=== PATIENT | female | born 2000 | race Caucasian/White ===

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

== ENCOUNTER 2021-11-19 06:55 | Inpatient (IN) | payer MEDICAID, SELFPAY ==
[2021-11-19] VITALS (71 sets, daily range): BP systolic 113–167; BP diastolic 63–101; PULSE 73–174; TEMP 36.4–37.8; O2SAT 81–100; BMI 39.8
[2021-11-19] MEDS: 0.9% Saline Lock 10 ML Syringe IV (07:50)
--- NOTE | 2021-11-19 08:05 | HP.PCM.OB_ITS ---
HPI - General General Date of Admission: 11/19/21 HPI Narrative HERMINIA GOLDMAN, is a 21 F who presents for scheduled induction of labor at 40w5d. Maternal Data Information SARAH Calculator 2 Estimated Delivery Date Method Current WG Current Estimate 11/14/21 Ultrasound #1 40w 5d Other Estimates 11/06/21 LMP (Uncertain) 41w 6d PFSH PFSH Home Medications NK 09/09/18 [History Last Taken Unknown] Allergy/AdvReac Type Severity Reaction Status Date / Time No Known Allergies Allergy Verified 07/11/19 11:45 Social History Smoking Status: Never smoker Vital Signs Vital Signs Vital Signs: 11/19/21 07:31 11/19/21 07:51 Pulse Rate 104 H 99 Blood Pressure 132/87 H 161/88 H BP Systolic 132 161 BP Diastolic 87 88 Labs Labs Labs: Hct 41.1 % (37-46) Hgb 13.6 g/dL (12.0-15.0) Assessment & Plan (1) 40 weeks gestation of : PLAN: - Admit for routine intrapartum care - GBS neg - Epidural PRN - To have SW consult - Covid neg - EFW expected to be < 4500 g and pelvis adequate - Anticipate vaginal delivery (2) Marijuana use: (3) History of depression: (4) Unplanned : (5) Elective induction of labor planned: (6) Obesity affecting :
[2021-11-19] MEDS: 0.9% Normal Saline Single 100 ML IV.SOLN. INTRA-UTER (08:17)
--- NOTE | 2021-11-19 08:31 | PCM.PN.BLA ---
Progress Note Intracervical bynum placed in usual fashion and filled with 30 cc saline. Will start pitocin per protocol. BP's elevated on admission. She denies ADEN, vision changes, RUQ pain. She feels anxious. Will send pre e labs and p/c ratio.
[2021-11-19] MEDS: Lactated Ringers 1,000 ML 50 ML IV (08:32)
[2021-11-19 08:48] LABS: Absolute Lymphocyte Count 2.25 X10^3/uL (0.83-4.51); Absolute Neutrophil Count 5.2 X10^3/uL (2.0-7.7); Basophil# 0.03 X10^3/uL; Basophil% 0.4 % (0-1); Eosinophil# 0.06 X10^3/uL; Eosinophils% 0.7 % (0-5); Hematocrit 35.3 % (37-47); Hemoglobin 12.1 g/dL (12.0-15.0); Lymphocyte # 2.25 X10^3/ul (0.83-4.51); Lymphocyte % 27.6 % (19-41); Mean Corp Hgb Conc 34.3 g/dL (32-36); Mean Corpuscular Hgb 30.1 pg (27.0-32.0); Mean Corpuscular Volume 87.8 fL (81-99); Mean Platelet Vol. 11.9 fl (6.2-12.0); Monocyte# 0.55 X10^3/uL; Monocyte% 6.7 % (0-10); NRBC Flagged by Analyzer 0 % (0-5); Neutrophil # 5.23 X10^3/uL (2.7-7.7); Neutrophil % 64.1 % (47-70); Platelet Count 197 K/mm3 (150-450); RBC Distribution Width SD 44.2 fl (35.1-43.9); Red Blood Count 4.02 M/mm3 (4.2-5.4); White Blood Count 8.2 K/mm3 (4.4-11.0)
[2021-11-19 09:15] LABS: AST(SGOT) 10 U/L (15-37); Alanine Aminotransfer ALT/SGPT 11 U/L (13-56); Creatinine, Serum 0.61 mg/dL (0.55-1.02); EST Glomerular Filtration Rate 131 mL/min (>60); Est Glom Filt Rate - Afr Amer 159 mL/min (>60); Estimated Creatinine Clearance 121.69 ml/min; Uric Acid 4.8 mg/dL (2.6-6.0)
--- NOTE | 2021-11-19 09:39 | PCM.PN.BLA ---
Progress Note Patient was painful and clammy with intracervical bynum per RN and bynum was removed due to patient intolerance. Cvx 3 cm per RN. Start pitocin.
[2021-11-19] MEDS: Oxytocin 30 units/NS 500 ml 30 UNITS/500 ML IV.SOLN IV (10:03)
[2021-11-19 11:32] LABS: Protein, Urine (Random) 32.4 mg/dL (<11.9); Protein:Creat Ratio 119 mg/g CRE (0-200)
[2021-11-19] MEDS: Lactated Ringers 500 ML 999 ML IV ×2 (11:48→23:51)
[2021-11-19] MEDS: fentaNYL-bupivacaine (epidural) 100 ML BAG EPIDURAL ×3 (13:04→22:37)
--- NOTE | 2021-11-19 13:22 | PCM.PN.BLA ---
Progress Note At bedside to check pt. Cvx /-1, head well applied. AROM for clear fluid. IUPC placed.
[2021-11-19 15:33] LABS: Amphetamine Urine VISTA NEGATIVE (<1000 ng/mL); Barbiturate Urine VISTA NEGATIVE (< 200 ng/mL); Benzodiazepine Urine VISTA NEGATIVE (< 200 ng/mL); Cocaine Urine VISTA NEGATIVE (< 300 ng/mL); Ecstacy Urine VISTA NEGATIVE (< 500 ng/mL); Methadone Urine VISTA NEGATIVE (< 300 ng/mL); PCP Urine VISTA NEGATIVE (< 25 ng/mL); THC Urine VISTA NEGATIVE (< 50 ng/mL); Vista UDS pH Range 4
[2021-11-19] MEDS: Mag Hydrox/Al Hydrox/Simeth 30 ML UDC PO ×2 (15:37→22:41)
[2021-11-19] MEDS: Lactated Ringers 1,000 ML 200 ML IV ×2 (16:27→21:41)
[2021-11-19] MEDS: Ondansetron 4 MG/2 ML Vial IV (19:19)
--- NOTE | 2021-11-19 20:06 | PCM.PN.BLA ---
Progress Note At bedside to check pt. Comfortable with epidural. Cvx /-1. Cont pitocin. Still no pre e symptoms.
--- NOTE | 2021-11-19 22:29 | PCM.PN.BLA ---
Progress Note Patient complete and pushing. Comfortable with epidural. Pelvis adequate and anticipate vaginal delivery.
[2021-11-19] MEDS: Acetaminophen 500 MG Tablet PO (23:59)
[2021-11-20] VITALS (24 sets, daily range): BP systolic 101–142; BP diastolic 50–83; PULSE 94–122; RESP 16–18; TEMP 36.4–39.4; O2SAT 96–98
[2021-11-20] MEDS: Lactated Ringers 500 ML 999 ML IV (01:11)
[2021-11-20] MEDS: Oxytocin 30 units/NS 500 ml 30 UNITS/500 ML IV.SOLN 334 UNITS IV (01:46)
--- NOTE | 2021-11-20 04:22 | PCM.OPRPT ---
Problems Associated Problem List Diagnoses (1) Unplanned : (2) History of depression: (3) Marijuana use: (4) 40 weeks gestation of : (5) Elective induction of labor planned: (6) Obesity affecting : (7) Intrapartum fever: (8) Vaginal delivery: Report of Operation Date of Procedure: 11/20/21 Pre-Operative Diagnosis: 40 week gestation, single IUP, planned elective IOL, obesity affecting Post-Operative Diagnosis: Suspected triple I, vaginal delivery Surgery/Procedure Performed:: Description of Surgical Findings:: Meconium stained fluid on delivery. Normal appearing placenta with 3 VC. Intrapartum fever and tachycardia just before delivery. Apgars 8, 8. Surgeon: Elyse John Type of Anesthesia: Epidural Special Medications: None Specimen's removed: Placenta - sent for cultures Drains: Smith Estimated Blood Loss (mL): 100 Fluids Replaced: n/a Description of Procedure: Patient presented for an elective induction of labor at 40 weeks and 5 days gestation. Induction was started with intracervical Smith which the patient did not tolerate. She was then started on Pitocin and membranes were ruptured after epidural was in place. She progressed quickly to complete. She was pushing for about 3 to 4 hours. While pushing she had a maternal fever and tachycardia was noted. Antibiotics ordered for suspected triple I but delivery was imminent at this point. She was complete and pushing. The head of the was delivered in occiput anterior position. The anterior shoulder was delivered with gentle traction, followed by the posterior shoulder, followed by the body of the infant. A viable male was delivered atraumatically and without any force or delay. A viable male was placed on maternal abdomen. The cord was clamped and cut after a slight delay by the patient's family member. Cord gases were obtained. Placenta was removed with fundal massage. The placenta was sent for cultures. The uterus was explored x1. Fundus firm and bleeding hemostatic. A 2nd degree perineal laceration was repaired with 3-0 Vicryl in usual fashion. Vaginal sweep was performed. Sponge and needle counts were correct. Grafts/Implants Used: None Complications None Admit VTE Documentation VTE Present on Admission: No
--- NOTE | 2021-11-20 07:52 | HP.PCM.NUR_ITS ---
Subjective Subjective: Baby Nehemias is a 40 week and 6 day gestation M born to a [id number] via on 11/20 at 0142 with clear ROM 12 hours prior. Terminal Meconium noted at delivery. Apgars 8/8. Required brief blow by oxygen. BW 3375g AGA. Delivery complicated by Maternal Fever(101.2F) and tachycardia. Maternal WBC 8.2. MBT A positive, Antibody negative. RPR, HepBsag, HepCab, HIV, GC, CH, HIV, and GBS negative. Rubella Immune. COVID negative. Maternal Medications included prenatals. Prior history of depression and THC use. UDS this admission negative. 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 [place]. Objective Objective Data: 11/19/21 08:05 11/19/21 08:21 11/19/21 08:35 Temperature Temperature Source Pulse Rate 104 H 88 89 Blood Pressure 153/87 H 137/99 H 144/93 H BP Systolic 153 137 144 BP Diastolic 87 99 93 Pulse Ox 11/19/21 09:36 11/19/21 10:00 11/19/21 10:01 Temperature 97.6 F L Temperature Source Temporal Pulse Rate 73 75 Blood Pressure 113/68 121/76 H BP Systolic 113 121 BP Diastolic 68 76 Pulse Ox 11/19/21 10:32 11/19/21 11:13 11/19/21 11:34 Temperature Temperature Source Pulse Rate 82 80 76 Blood Pressure 149/96 H 125/88 H 123/77 H BP Systolic 149 125 123 BP Diastolic 96 88 77 Pulse Ox 11/19/21 11:44 11/19/21 12:15 11/19/21 12:19 Temperature 98.2 F Temperature Source Temporal Pulse Rate 174 H 81 Blood Pressure 117/73 117/77 BP Systolic 117 117 BP Diastolic 73 77 Pulse Ox 81 11/19/21 12:25 11/19/21 12:29 11/19/21 12:35 Temperature Temperature Source Pulse Rate 73 82 80 Blood Pressure 119/72 120/75 121/67 H BP Systolic 119 120 121 BP Diastolic 72 75 67 Pulse Ox 11/19/21 12:40 11/19/21 12:42 11/19/21 12:44 Temperature Temperature Source Pulse Rate 86 95 Blood Pressure 148/84 H 145/83 H BP Systolic 148 145 BP Diastolic 84 83 Pulse Ox 100 11/19/21 12:45 11/19/21 12:47 11/19/21 12:50 Temperature Temperature Source Pulse Rate 88 85 86 Blood Pressure 139/87 H BP Systolic 139 BP Diastolic 87 Pulse Ox 91 100 11/19/21 12:52 11/19/21 12:54 11/19/21 12:57 Temperature Temperature Source Pulse Rate 79 74 89 Blood Pressure 132/81 H BP Systolic 132 BP Diastolic 81 Pulse Ox 99 98 11/19/21 13:01 11/19/21 13:02 11/19/21 13:07 Temperature Temperature Source Pulse Rate 87 95 88 Blood Pressure 130/79 H BP Systolic 130 BP Diastolic 79 Pulse Ox 93 99 99 11/19/21 13:09 11/19/21 13:12 11/19/21 13:16 Temperature 98.5 F Temperature Source Temporal Pulse Rate 92 112 H 118 H Blood Pressure 132/70 H 135/82 H BP Systolic 132 135 BP Diastolic 70 82 Pulse Ox 98 11/19/21 13:17 11/19/21 13:20 11/19/21 13:22 Temperature Temperature Source Pulse Rate 98 116 H 112 H Blood Pressure 167/101 H BP Systolic 167 BP Diastolic 101 Pulse Ox 98 100 11/19/21 13:25 11/19/21 13:27 11/19/21 13:30 Temperature Temperature Source Pulse Rate 122 H 111 H 100 Blood Pressure 153/93 H 125/87 H BP Systolic 153 125 BP Diastolic 93 87 Pulse Ox 99 11/19/21 13:32 11/19/21 13:36 11/19/21 13:37 Temperature Temperature Source Pulse Rate 95 92 85 Blood Pressure 153/85 H BP Systolic 153 BP Diastolic 85 Pulse Ox 100 99 11/19/21 13:40 11/19/21 13:42 11/19/21 13:44 Temperature Temperature Source Pulse Rate 104 H 97 101 H Blood Pressure 141/81 H 133/78 H BP Systolic 141 133 BP Diastolic 81 78 Pulse Ox 100 11/19/21 13:47 11/19/21 13:51 11/19/21 13:52 Temperature Temperature Source Pulse Rate 98 104 H 89 Blood Pressure 161/74 H BP Systolic 161 BP Diastolic 74 Pulse Ox 100 99 11/19/21 13:55 11/19/21 13:57 11/19/21 14:02 Temperature Temperature Source Pulse Rate 97 91 125 H Blood Pressure 141/68 H BP Systolic 141 BP Diastolic 68 Pulse Ox 100 100 11/19/21 14:07 11/19/21 14:29 11/19/21 14:37 Temperature 97.6 F L Temperature Source Temporal Pulse Rate 106 H 95 Blood Pressure 121/71 H BP Systolic 121 BP Diastolic 71 Pulse Ox 99 11/19/21 15:39 11/19/21 16:39 11/19/21 16:41 Temperature 97.6 F L 98.8 F Temperature Source Temporal Temporal Pulse Rate 110 H 83 Blood Pressure 121/83 H 124/79 H BP Systolic 121 124 BP Diastolic 83 79 Pulse Ox 99 11/19/21 16:42 11/19/21 16:45 11/19/21 16:47 Temperature Temperature Source Pulse Rate 91 133 H Blood Pressure BP Systolic BP Diastolic Pulse Ox 100 82 83 11/19/21 17:49 11/19/21 18:35 11/19/21 19:26 Temperature 98.5 F 98.9 F 98.5 F Temperature Source Temporal Temporal Pulse Rate 113 H 130 H Blood Pressure 121/82 H 125/67 H BP Systolic 121 125 BP Diastolic 82 67 Pulse Ox 100 11/19/21 19:27 11/19/21 20:25 11/19/21 20:55 Temperature 97.9 F 100.0 F H Temperature Source Temporal Oral Pulse Rate 110 H 93 Blood Pressure 128/67 H 115/63 BP Systolic 128 115 BP Diastolic 67 63 Pulse Ox 99 11/19/21 21:08 11/19/21 22:32 11/19/21 22:45 Temperature 99.8 F H Temperature Source Oral Pulse Rate 88 115 H 115 H Blood Pressure 120/66 127/79 H BP Systolic 120 127 BP Diastolic 66 79 Pulse Ox 99 99 11/19/21 23:23 11/19/21 23:24 11/19/21 23:28 Temperature 99.9 F H Temperature Source Oral Pulse Rate 108 H 95 Blood Pressure 143/70 H BP Systolic 143 BP Diastolic 70 Pulse Ox 99 11/20/21 00:29 11/20/21 00:31 11/20/21 01:15 Temperature 102.2 F H 103.0 F H Temperature Source Oral Oral Pulse Rate 110 H Blood Pressure 142/78 H BP Systolic 142 BP Diastolic 78 Pulse Ox 11/20/21 01:17 11/20/21 01:18 11/20/21 02:09 Temperature Temperature Source Pulse Rate 108 H 122 H Blood Pressure 130/72 H 134/83 H BP Systolic 130 134 BP Diastolic 72 83 Pulse Ox 96 11/20/21 02:10 11/20/21 02:24 11/20/21 02:26 Temperature 99.2 F H 99.4 F H Temperature Source Oral Oral Pulse Rate 118 H 114 H 103 H Blood Pressure 124/69 H BP Systolic 124 BP Diastolic 69 Pulse Ox 98 97 11/20/21 02:39 11/20/21 02:54 11/20/21 03:09 Temperature 99.2 F H Temperature Source Oral Pulse Rate 113 H 115 H 112 H Blood Pressure 114/61 114/58 L 130/63 H BP Systolic 114 114 130 BP Diastolic 61 58 63 Pulse Ox 11/20/21 03:24 11/20/21 03:39 11/20/21 03:54 Temperature 99.0 F Temperature Source Oral Pulse Rate 109 H 107 H 110 H Blood Pressure 112/60 111/60 117/71 BP Systolic 112 111 117 BP Diastolic 60 60 71 Pulse Ox 11/20/21 04:09 11/20/21 04:20 Temperature 99.1 F Temperature Source Oral Pulse Rate 107 H 107 H Blood Pressure 111/66 118/66 BP Systolic 111 118 BP Diastolic 66 66 Pulse Ox Weight: 102 kg Vital Signs Temp Pulse BP Pulse Ox 11/20/21 04:20 99.1 F 107 H 118/66 11/20/21 04:09 107 H 111/66 11/20/21 03:54 110 H 117/71 11/20/21 03:39 99.0 F 107 H 111/60 11/20/21 03:24 109 H 112/60 11/20/21 03:09 99.2 F H 112 H 130/63 H 11/20/21 02:54 115 H 114/58 L 11/20/21 02:39 113 H 114/61 11/20/21 02:26 103 H 97 11/20/21 02:24 99.4 F H 114 H 124/69 H 11/20/21 02:10 99.2 F H 118 H 98 11/20/21 02:09 122 H 134/83 H 11/20/21 01:18 108 H 130/72 H 11/20/21 01:17 96 11/20/21 01:15 103.0 F H 11/20/21 00:31 110 H 142/78 H 11/20/21 00:29 102.2 F H 11/19/21 23:28 95 143/70 H 11/19/21 23:24 99.9 F H 11/19/21 23:23 108 H 99 11/19/21 22:45 115 H 127/79 H 11/19/21 22:32 115 H 99 11/19/21 21:08 99.8 F H 88 120/66 99 11/19/21 20:55 100.0 F H 11/19/21 20:25 97.9 F 93 115/63 99 11/19/21 19:27 110 H 128/67 H 11/19/21 19:26 98.5 F 11/19/21 18:35 98.9 F 130 H 125/67 H 11/19/21 17:49 98.5 F 113 H 121/82 H 100 11/19/21 16:47 133 H 83 11/19/21 16:45 82 11/19/21 16:42 91 100 11/19/21 16:41 98.8 F 11/19/21 16:39 83 124/79 H 11/19/21 15:39 97.6 F L 110 H 121/83 H 99 11/19/21 14:37 97.6 F L 11/19/21 14:29 95 121/71 H 11/19/21 14:07 106 H 99 11/19/21 14:02 125 H 100 11/19/21 13:57 91 100 11/19/21 13:55 97 141/68 H 11/19/21 13:52 89 99 11/19/21 13:51 104 H 161/74 H 11/19/21 13:47 98 100 11/19/21 13:44 101 H 133/78 H 11/19/21 13:42 97 100 11/19/21 13:40 104 H 141/81 H 11/19/21 13:37 85 99 11/19/21 13:36 92 153/85 H 11/19/21 13:32 95 100 11/19/21 13:30 100 125/87 H 11/19/21 13:27 111 H 99 11/19/21 13:25 122 H 153/93 H 11/19/21 13:22 112 H 100 11/19/21 13:20 116 H 167/101 H 11/19/21 13:17 98 98 11/19/21 13:16 118 H 135/82 H 11/19/21 13:12 112 H 98 11/19/21 13:09 98.5 F 92 132/70 H 11/19/21 13:07 88 99 11/19/21 13:02 95 99 11/19/21 13:01 87 130/79 H 93 11/19/21 12:57 89 98 11/19/21 12:54 74 132/81 H 11/19/21 12:52 79 99 11/19/21 12:50 86 139/87 H 11/19/21 12:47 85 100 11/19/21 12:45 88 91 11/19/21 12:44 145/83 H 11/19/21 12:42 95 100 11/19/21 12:40 86 148/84 H 11/19/21 12:35 80 121/67 H 11/19/21 12:29 82 120/75 11/19/21 12:25 73 119/72 11/19/21 12:19 81 117/77 11/19/21 12:15 174 H 117/73 81 11/19/21 11:44 98.2 F 11/19/21 11:34 76 123/77 H 11/19/21 11:13 80 125/88 H 11/19/21 10:32 82 149/96 H 11/19/21 10:01 75 121/76 H 11/19/21 10:00 97.6 F L 11/19/21 09:36 73 113/68 11/19/21 08:35 89 144/93 H 11/19/21 08:21 88 137/99 H 11/19/21 08:05 104 H 153/87 H 11/19/21 07:51 99 161/88 H 11/19/21 07:31 98.7 F 104 H 132/87 H 98 Lab tests last 48H 11/19/21 11/19/21 11/19/21 07:50 07:50 07:50 WBC 8.2 RBC 4.02 L Hgb 12.1 Hct 35.3 L MCV 87.8 MCH 30.1 MCHC 34.3 RDW Std Deviation 44.2 H RDW Coeff of Matthew 14.0 Plt Count 197 MPV 11.9 Immature Gran % (Auto) 0.500 Neut % (Auto) 64.1 Lymph % (Auto) 27.6 Mel[place] % (Auto) 6.7 Eos % (Auto) 0.7 Baso % (Auto) 0.4 Absolute Neuts (auto) 5.2 Absolute Lymphs (auto) 2.25 Nucleated RBC % 0 Creatinine 0.61 Estim Creat Clear Calc 121.69 Est GFR (MDRD) Af Amer 159 Est GFR (MDRD) Non-Af 131 Uric Acid 4.8 AST 10 L ALT 11 L U Random Total Protein Urine Creatinine Protein/Creatinin Ratio Urine Opiates Screen Urine Methadone Screen Ur Barbiturates Screen Ur Phencyclidine Scrn Ur Amphetamines Screen MDMA (Ecstasy) Screen U Benzodiazepines Scrn Urine Cocaine Screen U Cannabinoids Screen Ur Drug Screen Comment Blood Type A POSITIVE Antibody Screen NEGATIVE 11/19/21 11/19/21 11:11 11:11 WBC RBC Hgb Hct MCV MCH MCHC RDW Std Deviation RDW Coeff of Matthew Plt Count MPV Immature Gran % (Auto) Neut % (Auto) Lymph % (Auto) Mel[place] % (Auto) Eos % (Auto) Baso % (Auto) Absolute Neuts (auto) Absolute Lymphs (auto) Nucleated RBC % Creatinine Estim Creat Clear Calc Est GFR (MDRD) Af Amer Est GFR (MDRD) Non-Af Uric Acid AST ALT U Random Total Protein 32.4 H Urine Creatinine 273.00 Protein/Creatinin Ratio 119 Urine Opiates Screen NEGATIVE Urine Methadone Screen NEGATIVE Ur Barbiturates Screen NEGATIVE Ur Phencyclidine Scrn NEGATIVE Ur Amphetamines Screen NEGATIVE MDMA (Ecstasy) Screen NEGATIVE U Benzodiazepines Scrn NEGATIVE Urine Cocaine Screen NEGATIVE U Cannabinoids Screen NEGATIVE Ur Drug Screen Comment Blood Type Antibody Screen Delivery/Maternal Data Labor/Delivery Date of rupture of membranes: 11/19/21 Time of rupture of membranes: 13:17 Amniotic fluid color at rupture: Clear Type of delivery: Vaginal Labor description: Augmented-Oxytocin, Augmented-AROM and Induced-Cytotec Infant presentation: Cephalic Complications: Other (Describe below) ( tachycardia, Maternal fever, Terminal Meconium ) Maternal Data Maternal age: 20 : 1 Para: 0 Final SARAH: 11/14/21 Blood Type:: A RH:: POSITIVE RPR/VDRL/Syphilis: Nonreactive HbSAg: Negative Hepatitis C: Negative HIV/AIDS: Non-Reactive Rubella status: Immune Gonorrhea: Negative Chlamydia: Negative Group B Strep:: Negative Gestational Diabetes: No Vital Signs Vital Signs Vital Signs: 11/19/21 08:05 11/19/21 08:21 11/19/21 08:35 Temperature Temperature Source Pulse Rate 104 H 88 89 Blood Pressure 153/87 H 137/99 H 144/93 H BP Systolic 153 137 144 BP Diastolic 87 99 93 Pulse Ox 11/19/21 09:36 11/19/21 10:00 11/19/21 10:01 Temperature 97.6 F L Temperature Source Temporal Pulse Rate 73 75 Blood Pressure 113/68 121/76 H BP Systolic 113 121 BP Diastolic 68 76 Pulse Ox 11/19/21 10:32 11/19/21 11:13 11/19/21 11:34 Temperature Temperature Source Pulse Rate 82 80 76 Blood Pressure 149/96 H 125/88 H 123/77 H BP Systolic 149 125 123 BP Diastolic 96 88 77 Pulse Ox 11/19/21 11:44 11/19/21 12:15 11/19/21 12:19 Temperature 98.2 F Temperature Source Temporal Pulse Rate 174 H 81 Blood Pressure 117/73 117/77 BP Systolic 117 117 BP Diastolic 73 77 Pulse Ox 81 11/19/21 12:25 11/19/21 12:29 11/19/21 12:35 Temperature Temperature Source Pulse Rate 73 82 80 Blood Pressure 119/72 120/75 121/67 H BP Systolic 119 120 121 BP Diastolic 72 75 67 Pulse Ox 11/19/21 12:40 11/19/21 12:42 11/19/21 12:44 Temperature Temperature Source Pulse Rate 86 95 Blood Pressure 148/84 H 145/83 H BP Systolic 148 145 BP Diastolic 84 83 Pulse Ox 100 11/19/21 12:45 11/19/21 12:47 11/19/21 12:50 Temperature Temperature Source Pulse Rate 88 85 86 Blood Pressure 139/87 H BP Systolic 139 BP Diastolic 87 Pulse Ox 91 100 11/19/21 12:52 11/19/21 12:54 11/19/21 12:57 Temperature Temperature Source Pulse Rate 79 74 89 Blood Pressure 132/81 H BP Systolic 132 BP Diastolic 81 Pulse Ox 99 98 11/19/21 13:01 11/19/21 13:02 11/19/21 13:07 Temperature Temperature Source Pulse Rate 87 95 88 Blood Pressure 130/79 H BP Systolic 130 BP Diastolic 79 Pulse Ox 93 99 99 11/19/21 13:09 11/19/21 13:12 11/19/21 13:16 Temperature 98.5 F Temperature Source Temporal Pulse Rate 92 112 H 118 H Blood Pressure 132/70 H 135/82 H BP Systolic 132 135 BP Diastolic 70 82 Pulse Ox 98 11/19/21 13:17 11/19/21 13:20 11/19/21 13:22 Temperature Temperature Source Pulse Rate 98 116 H 112 H Blood Pressure 167/101 H BP Systolic 167 BP Diastolic 101 Pulse Ox 98 100 11/19/21 13:25 11/19/21 13:27 11/19/21 13:30 Temperature Temperature Source Pulse Rate 122 H 111 H 100 Blood Pressure 153/93 H 125/87 H BP Systolic 153 125 BP Diastolic 93 87 Pulse Ox 99 11/19/21 13:32 11/19/21 13:36 11/19/21 13:37 Temperature Temperature Source Pulse Rate 95 92 85 Blood Pressure 153/85 H BP Systolic 153 BP Diastolic 85 Pulse Ox 100 99 11/19/21 13:40 11/19/21 13:42 11/19/21 13:44 Temperature Temperature Source Pulse Rate 104 H 97 101 H Blood Pressure 141/81 H 133/78 H BP Systolic 141 133 BP Diastolic 81 78 Pulse Ox 100 11/19/21 13:47 11/19/21 13:51 11/19/21 13:52 Temperature Temperature Source Pulse Rate 98 104 H 89 Blood Pressure 161/74 H BP Systolic 161 BP Diastolic 74 Pulse Ox 100 99 11/19/21 13:55 11/19/21 13:57 11/19/21 14:02 Temperature Temperature Source Pulse Rate 97 91 125 H Blood Pressure 141/68 H BP Systolic 141 BP Diastolic 68 Pulse Ox 100 100 11/19/21 14:07 11/19/21 14:29 11/19/21 14:37 Temperature 97.6 F L Temperature Source Temporal Pulse Rate 106 H 95 Blood Pressure 121/71 H BP Systolic 121 BP Diastolic 71 Pulse Ox 99 11/19/21 15:39 11/19/21 16:39 11/19/21 16:41 Temperature 97.6 F L 98.8 F Temperature Source Temporal Temporal Pulse Rate 110 H 83 Blood Pressure 121/83 H 124/79 H BP Systolic 121 124 BP Diastolic 83 79 Pulse Ox 99 11/19/21 16:42 11/19/21 16:45 11/19/21 16:47 Temperature Temperature Source Pulse Rate 91 133 H Blood Pressure BP Systolic BP Diastolic Pulse Ox 100 82 83 11/19/21 17:49 11/19/21 18:35 11/19/21 19:26 Temperature 98.5 F 98.9 F 98.5 F Temperature Source Temporal Temporal Pulse Rate 113 H 130 H Blood Pressure 121/82 H 125/67 H BP Systolic 121 125 BP Diastolic 82 67 Pulse Ox 100 11/19/21 19:27 11/19/21 20:25 11/19/21 20:55 Temperature 97.9 F 100.0 F H Temperature Source Temporal Oral Pulse Rate 110 H 93 Blood Pressure 128/67 H 115/63 BP Systolic 128 115 BP Diastolic 67 63 Pulse Ox 99 11/19/21 21:08 11/19/21 22:32 11/19/21 22:45 Temperature 99.8 F H Temperature Source Oral Pulse Rate 88 115 H 115 H Blood Pressure 120/66 127/79 H BP Systolic 120 127 BP Diastolic 66 79 Pulse Ox 99 99 11/19/21 23:23 11/19/21 23:24 11/19/21 23:28 Temperature 99.9 F H Temperature Source Oral Pulse Rate 108 H 95 Blood Pressure 143/70 H BP Systolic 143 BP Diastolic 70 Pulse Ox 99 11/20/21 00:29 11/20/21 00:31 11/20/21 01:15 Temperature 102.2 F H 103.0 F H Temperature Source Oral Oral Pulse Rate 110 H Blood Pressure 142/78 H BP Systolic 142 BP Diastolic 78 Pulse Ox 11/20/21 01:17 11/20/21 01:18 11/20/21 02:09 Temperature Temperature Source Pulse Rate 108 H 122 H Blood Pressure 130/72 H 134/83 H BP Systolic 130 134 BP Diastolic 72 83 Pulse Ox 96 11/20/21 02:10 11/20/21 02:24 11/20/21 02:26 Temperature 99.2 F H 99.4 F H Temperature Source Oral Oral Pulse Rate 118 H 114 H 103 H Blood Pressure 124/69 H BP Systolic 124 BP Diastolic 69 Pulse Ox 98 97 11/20/21 02:39 11/20/21 02:54 11/20/21 03:09 Temperature 99.2 F H Temperature Source Oral Pulse Rate 113 H 115 H 112 H Blood Pressure 114/61 114/58 L 130/63 H BP Systolic 114 114 130 BP Diastolic 61 58 63 Pulse Ox 11/20/21 03:24 11/20/21 03:39 11/20/21 03:54 Temperature 99.0 F Temperature Source Oral Pulse Rate 109 H 107 H 110 H Blood Pressure 112/60 111/60 117/71 BP Systolic 112 111 117 BP Diastolic 60 60 71 Pulse Ox 11/20/21 04:09 11/20/21 04:20 Temperature 99.1 F Temperature Source Oral Pulse Rate 107 H 107 H Blood Pressure 111/66 118/66 BP Systolic 111 118 BP Diastolic 66 66 Pulse Ox Weight Weight: 102 kg Body Mass Index (BMI) 39.8 General Weight: 102 kg alert, active and no apparent distress HEENT Yes normal to inspection, anterior fontanel Yes flat and sutures normal Eyes: red reflex present bilaterally Ears: Yes external ears normal Nose: Yes external nose normal Oropharynx: Yes oral and palatal mucosa normal, Negative for cleft lip and Negative for cleft palate Neck Neck: full ROM and no lymphadenopathy Respiratory Respiratory: normal respiratory effort, clear to auscultation bilaterally, Ne gative for retractions, Negative for grunting and Negative for stridor Cardiovascular Yes regular rate, regular rhythm, no murmurs and femoral pulses present Abdomen normal to inspection, nondistended, normoactive bowel sounds, soft to palpation and no hepatosplenomegaly external exam normal and appearance of the vagina normal Musculoskeletal full ROM, hip exam without evidence of dislocation or instability and clavicles intact Neurological normal suck, rooting, and hannah reflexes, muscle tone normal and normal startle reflex Skin normal color and no jaundice Assessment & Plan Assessment/Plan (1) Vaginal delivery: (2) Intrapartum fever: (3) Unplanned : (4) History of depression: (5) Marijuana use: (6) 40 weeks gestation of : (7) Elective induction of labor planned: (8) Obesity affecting :
[2021-11-20] MEDS: Ibuprofen 600 MG Tablet PO ×3 (08:11→23:48)
[2021-11-20] MEDS: Acetaminophen 500 MG Tablet 1000 MG PO (09:46)
[2021-11-20] MEDS: 0.9% Saline Lock 10 ML Syringe IV (22:03)
[2021-11-21 03:08] LABS: Gentamicin,Once Daily Trough < 0.2 ug/mL (<1.0)
[2021-11-21 04:27] VITALS: BP 106/53; PULSE 89; RESP 16; TEMP 36.2
[2021-11-21 08:03] VITALS: BP 107/57; PULSE 100; RESP 20; TEMP 36.7
[2021-11-21] MEDS: Senna/Docusate Sodium 1 Tablet PO (08:27)
[2021-11-21] MEDS: Acetaminophen 500 MG Tablet 1000 MG PO (08:28)
--- NOTE | 2021-11-21 08:31 | PCM.PN.OB ---
Subjective Subjective Patient seen at bedside. Denies any pain. Ambulating and voiding without difficulty. Lochia decreased. with shield and support from . Awaiting blood cultures for . Desires discharge home tomorrow. Objective Data Objective Data Vital Signs: Vital Signs Temp Pulse Resp BP Pulse Ox 98.0 F 100 20 H 107/57 L 97 11/21/21 08:03 11/21/21 08:03 11/21/21 08:03 11/21/21 08:03 11/20/21 02:26 Oxygen Delivery Method Room Air Weight: 224 lb 13.944 oz Body Mass Index (BMI) 39.8 Intake & Output: Intake and Output for Last 24 Hours 11/19/21 11/20/21 11/21/21 23:59 23:59 23:59 Intake Total 3575.34 / 3575.34 2110.855 / 2110.855 56.875 / 56.875 Output Total 250 / 800 900 / 900 Balance 3325.34 / 2775.34 1210.855 / 1210.855 56.875 / 56.875 Lab / Micro Data Result Diagrams: 11/19/21 07:50 11/19/21 07:50 Labs: Laboratory Results - last 24 hr 11/21/21 02:00: Gentamicin Trough < 0.2 ROS Eyes Eyes: Denies blurry vision, change in vision or spots in vision ENT HEENT: Denies dizziness or headache(s) Cardiovascular Cardiovascular: Denies abdominal pain, chest pain or dyspnea Respiratory/Chest Respiratory/Chest: Denies cough, dyspnea, shortness of breath at rest or shortness of breath with exertion Gastrointestinal Gastrointestinal: Denies abdominal pain, diarrhea or vomiting Genitourinary Genitourinary: Denies change in urinary stream, difficulty urinating or dysuria Musculoskeletal Musculoskeletal: Reports none Integumentary Integumentary: Denies rash Neurologic Neurologic: Denies dizziness, headache(s), memory loss or weakness Physical Exam Const alert and no apparent distress General Appearance: cooperative and comfortable Exam Limitations: no limitations HEENT normocephalic Eyes General Eye: normal appearance of both eyes Neck full ROM General: normal visual inspection Chest Chest: symmetrical chest wall rise Resp normal respiratory effort and normal air movement Effort and Inspection: symmetric chest movement Auscultation: clear to auscultation bilaterally Cardio regular rate and regular rhythm GI normal to inspection, nondistended, normoactive bowel sounds Back/Spine normal ROM Extremity full ROM and no calf tenderness General Extremity: normal exam except as noted Skin no rashes or lesions noted Neuro CN's II-XII intact bilaterally Psych mental status grossly normal Assessment & Plan (1) Vaginal delivery: (2) Intrapartum fever: (3) History of depression: (4) Marijuana use: (5) Care and examination of lactating mother: PLAN: PPD 1 Routine care suuport Pain control Anticipate discharge home tomorrow
--- NOTE | 2021-11-21 13:00 | CASEMGMT ---
Social Work Assessment Labor and Delivery Unit Date of Referral: [address] [place] [address] Time of Referral: [phone] Referred By: verbal notification by nursing staff Date of Intervention: 11-21-2021 Time of Intervention: 829 Reason for Referral: First time mother, history of depression and anxiety History obtained from: medical records and mother of baby (MOB) Maryellen Padilla Household composition: MOB and MOB's mom Sigrid Saez. Plan for to reside in this home as well. Patient's parent/guardian status: MOB is a 20 year old single female. Father of baby (FOB) is reported as a 19 year old [place] male, not currently involved with the MOB. MOB reports relationship lasted for 1 year but broke up during due to FOB starting to date another female, as well as FOB's parents not supporting out of wedlock. Denies any form of abuse in the relationship with the FOB. MOB reports the FOB has stated intent to have some involvement with the baby however. [place] is the first for both parents and is to be named Nehemias Padilla, born 11-20-2020. Medical History: MOB is G1, P0 to 1 after delivering Nehemias. care started at 8 weeks and regular thereafter. Infant weighted 7 pounds 7 ounces at . 8 and 8 at 1 and 5 minutes of life. Educational Status: High school. Denies any issues with reading, writing, or learning comprehension issues. Financial Status: MOB was working at [employer] and likely will go back to this employment. MOB's mom works as a STORE CLERK CASHIER. Supplies: MOB reports to have all necessary supplies to care for infant including a safe sleep space, car seat, clothing, diapers, wipes. Planning to provide breast milk. Childcare/Caregiver(s): MOB and MOB's mom plan to share caregiving, per the MOB. Transportation: MOB has a parts driver's permit. Relies on Sigrid for transportation. Programs/Agencies Involved: MOB has medicaid through [email or web address]. Has food assistance bu reports was kicked off. Report plan to reapply for time on maternity leave. Active with WIC. Agrees to a Help Me Grow referral. Children Services/Legal Issues: Denies any past or present involvement. Behavioral Health Issues: Mental Health History: MOB with history of depression and anxiety and counseling, but nothing current. Records indicate MOB with history of suicide attempt by overdose of 12 Excedrin. MOB was deemed safe for discharge and sent home with safety plan. MOB reports was in a dark place as MOB's stepfather who raised MOB had recently of cancer, and then MOB's biological father was having symptoms of [place] Disease. MOB denies any thoughts, plans, intent, or attempts sine that time. [facility] depression screen one this date a score of 6, below the threshold for depression and anxiety. Substance Use History: Maternal history of marijuana use, which MOB reportedly used to hep depression. MOB reports cessation of marijuana upon learning of . MOB report does not miss this substance and does not plan to pick this back up. MOB denies any other illicit substance use history nor any alcohol use. Family History: MOB's father has Huntingons Disease, as does paternal grandfather and and uncle. The paternal grandfather and uncle by suicide, MOB reports due to difficulty dealing with the Hunting[place] Disease. Drug Screens: Maternal drug screen positive on 04.04.2021. Retested at delivery and negative. Baby's urine is negative and meconium is pending. Family/Social Stressors: FOB with limited involved. MOB's father with Daina's Disease. Support Systems: MOB reports her mother is strongest support system. Also report to have some good friends too. Depression/Shaken Baby/Safe Sleeping: Reviewed safe sleeping, shaken baby prevention, and mood and anxiety disorders. ASSESSMENT: Met with MOB and MOB's mom Sigrid, introducing to self and social work role. Sigrid offered to leave to allow for private conversation. Infant lying in bed during social work visit, sleeping soundly. MOB would glance over at intermittently, smile at baby, and commented about baby being MOB's neeraj, to love the baby and to be happy to have the baby. MOB reports was also happy and accepting of . Observed MOB reach out to touch the baby one time, hesitate, then pull hand back. MOB talked of the IV in baby's head giving MOB anxiety. MOB reports is afraid to hurt the baby, and when the baby cries and MOB is holding the baby is afraid that MOB is somehow hurting the baby and pulling on the IV. Supportive listening provided, and encouraged MOB to keep trying in baby care. MOB report the breast feeding was feeling uncomfortable and again, that felt could not get a good position without fear of hurting the baby because of the IV. MOB report to feel more comfortable with pumping and giving baby a bottle. MOB held good eye contact with this typewriter mechanic, talkative and at times tangential. MOB redirectable. MOB did tend to laugh after finishing statements. MOB reports her mother will be home for a little bit to help MOB with transition home. MOB reports to have necessary supplies to care for baby. Agrees to a [facility] referral for added parent support and learning at home going. Educated MOB to need for children services referral due to exposure in utero to marijuana, and for support to MOB. Educated that uncertain whether there will be any follow up at home, but if so wanted MOB to know reasoning. MOB accepted this possibility without issue. Provided MOB resource list for social service agencies in [facility] as well as packet on mood and anxiety disorders. MOB declined this typewriter mechanic's offer to make mental health follow up, but accepted list of city hospital agencies for future reference. Safe Plan of Care for related to substance use: Plans to remain abstinent of any substances, nor to allow around anyone who has been using substances. PLAN: MOB and to return home at discharge. [facility] referral to be made for ongoing support in the community. [facility] referral due to in utero exposure to marijuana and support. Social work will follow for any additional concerns which may arise during hospital stay. No other services requested or indicated. -SUSAN Larsen, SCREEN DOOR MAKER
[2021-11-21 13:34] VITALS: BP 121/83; PULSE 60; RESP 18; TEMP 36.6
--- NOTE | 2021-11-21 16:23 | NURSING ---
Late entry for 929 - Maryellen had a lot of tears this morning (as noted otherwise). Maryellen's mom in room while Maryellen attempting to latch [place] to eat. [place] crying at times, and Maryellen was crying because he sounds so sad. Maryellen's mother voiced concern of If this is happening now, how is it going to be when we go home?' This concern acknowledged, reported to VIRGILIO Rodriguez as well. Later in afternoon, pt. seemingly in better spirits, smiley and pointing out things she is excited about with baby. Pt. did need reminded again about need to feed . Had pumped, and set pump pieces over pump and left alone. sleepy from circ, and Maryellen did not attempt to awaken. Appx. 4 hrs between feeds again. syringe-fed pumped breastmilk. This nurse instructed Maryellen to set alarm on phone for 2.5 hrs so that she could wake up and pump prior to doing the next feed. Pt. verbalized understanding. Also encouraged to nap as infant is sleeping and she has some time between pumping again. Pt. agreeable that she will try to nap. Reports her mother is on her way back in.
[2021-11-21 20:01] VITALS: BP 149/92; PULSE 106; RESP 16; TEMP 36.6
[2021-11-22 04:08] VITALS: BP 141/86; PULSE 86; RESP 16; TEMP 36.6
--- NOTE | 2021-11-22 04:47 | PCM.PN.OB ---
Subjective Subjective Patient seen at bedside. Denies headache, vision changes, SOB, CP or dizziness. Ambulating and voiding without difficulty. - pumping without difficulty. Lochia decreased. Desires discharge home today. Objective Data Objective Data Vital Signs: Vital Signs Temp Pulse Resp BP Pulse Ox 97.8 F 86 16 141/86 H 97 11/22/21 04:08 11/22/21 04:08 11/22/21 04:08 11/22/21 04:08 11/20/21 02:26 Oxygen Delivery Method Room Air Weight: 224 lb 13.944 oz Body Mass Index (BMI) 39.8 Intake & Output: Intake and Output for Last 24 Hours 11/20/21 11/21/21 11/22/21 23:59 23:59 23:59 Intake Total 2110.855 / 2110.855 56.875 / 56.875 Output Total 900 / 900 Balance 1210.855 / 1210.855 56.875 / 56.875 Lab / Micro Data Result Diagrams: 11/19/21 07:50 11/19/21 07:50 ROS Eyes Eyes: Denies blurry vision, change in vision or spots in vision ENT HEENT: Denies dizziness or headache(s) Cardiovascular Cardiovascular: Denies abdominal pain, chest pain or dyspnea Respiratory/Chest Respiratory/Chest: Denies cough, dyspnea, shortness of breath at rest or shortness of breath with exertion Gastrointestinal Gastrointestinal: Denies abdominal pain, diarrhea or vomiting Genitourinary Genitourinary: Denies change in urinary stream, difficulty urinating or dysuria Musculoskeletal Musculoskeletal: Reports none Integumentary Integumentary: Denies rash Neurologic Neurologic: Denies dizziness, headache(s), memory loss or weakness Physical Exam Const alert and no apparent distress General Appearance: cooperative and comfortable Exam Limitations: no limitations HEENT normocephalic Eyes General Eye: normal appearance of both eyes Neck full ROM General: normal visual inspection Chest Chest: symmetrical chest wall rise Resp normal respiratory effort and normal air movement Effort and Inspection: symmetric chest movement Auscultation: clear to auscultation bilaterally Cardio regular rate and regular rhythm GI normal to inspection, nondistended, normoactive bowel sounds Back/Spine normal ROM Extremity full ROM and no calf tenderness General Extremity: normal exam except as noted Skin no rashes or lesions noted Neuro CN's II-XII intact bilaterally Psych mental status grossly normal Assessment & Plan (1) Care and examination of lactating mother: (2) Vaginal delivery: PLAN: PPD 2 Routine care support D/C home with follow up in office
--- NOTE | 2021-11-22 04:50 | PCM.DC ---
Discharge Instructions Diet Discharge Diet: No restrictions Activity May resume sexual activity in: 6-8 weeks Weight Bearing Status: Weight bearing as tolerated Dressing / Incision Call your doctor if you observe: Fever of 101 or Higher, Inability to urinate, Using more than 1 pad per hour, Shortness of breath, Chest pain, Calf discomfort and Uncontrolled pain Follow Up Care When: 2 weeks virtual visit/ 6 weeks in office Test Results: Test results from this visit will be discussed in further detail at your follow-up appointment, if applicable. Discharge Plan Admission Admit Date/Time: 11/19/21 06:55 Primary Reason for Your Visit: labor and delivery Attending Provider: Elyse John Primary Care Provider: Care Physician,No Primary Discharge Orders/Prescriptions Prescriptions: No Action Gummies 400 mcg-35 mg- 25 mg-5 mg Tablet,Chewable 2 tab PO DAILY RF: 0 Referrals / Follow Up: Care Physician,No Primary [Primary Care Provider] - Disposition Disposition (needs filled in before D/C Order can be placed): Home, Self Care
[2021-11-22 07:21] VITALS: BP 143/76; PULSE 79; RESP 16; TEMP 36.6
[2021-11-22 13:30] VITALS: BP 134/74; PULSE 105; RESP 16; TEMP 36.3
--- NOTE | 2021-11-22 14:14 | CASEMGMT ---
Social Work This director social service completing social work follow up with MOB in room. MOB familiar with social work role from conversation yesterday with director social service. laying on bed between MOB's legs. Infant began to cry. MOB states I think he is hungry. This director social service did need to prompt MOB to get bottle out and start feeding . MOB was able to get bottle out on own and then lifted infant off bed and help infant in arms to feed. MOB then burping infant without prompt. MOB denies concerns on returning to the community and MOB's family will be providing transportation to home for MOB and . MOB reports to have support from family and confirms plans to discharge to home with MOB's mother. Active support and listening provided. Nursing updated on above. Nursing encouraged that MOB appears to be more engaged in care of . This director social service clearing infant and MOB for discharge with plan for Terry Del Cid director social service to follow up with children services referral on Wednesday. PLAN: Infant to discharge to home with MOB and MOB's mother. Kamilla Damon MSW, [facility]
--- NOTE | 2021-11-22 16:44 | NURSING ---
1615 Discharge instructions reviewed with pt. Grandmother at bedside holding baby. Pt. attentive to instructions and able to answer questions about what has been taught during stay regarding baby care, feeds, and follow up as well as self care. Rn out of room to get cart and upon return, Maryellen noted to be dressing baby and states she has kept a blanket out to put over carseat due to low temps outside.
--- NOTE | 2021-11-24 12:15 | CASEMGMT ---
Social Work Labor and Delivery Unit Chart reviewed. Called [facility] and spoke with Romi Sauceda in the intake department ([phone], ext [phone]). Referral for substance exposed infant in utero, as well as concerns about maternal anxiety and bonding with bay. Brief maternal and infant histories provided. -KARIS Larsen, STARTING GATE DRIVER
--- NOTE | 2021-11-27 18:06 | NURSING ---
no answer on follow up phone call, left voicemail
--- NOTE | 2021-12-26 12:10 | CASEMGMT ---
Social Work Labor and Delivery unit 's meconium drug screen results are back and negative for any drugs of abuse. No further referrals indicated. -KARIS Larsen, AUTO PARTS PROFESSIONAL
== END 2021-11-22 16:30 | disposition home or self-care (01) | DRG 560 ==
PROVIDERS: Admitting Provider Obstetrics & Gynecology; Referring Provider Obstetrics & Gynecology; Visit Provider Obstetrics & Gynecology
DX: O70.1 Second degree perineal laceration during delivery (principal); Z37.0 Single live birth; O99.324 Drug use complicating childbirth; F12.90 Cannabis use, unspecified, uncomplicated; E66.9 Obesity, unspecified; Z3A.40 40 weeks gestation of pregnancy; O48.0 Post-term pregnancy; O76 Abnormality in fetal heart rate and rhythm complicating labor and delivery; O99.214 Obesity complicating childbirth; O77.0 Labor and delivery complicated by meconium in amniotic fluid; O75.2 Pyrexia during labor, not elsewhere classified
CPT/HCPCS: 59025; 59050; 80170; 80307; 82565; 82570; 84156; 84450; 84460; 84550; 85025; 86850; 86900; 86901; 99218; J7120; A4216; G0378; J2405

== ENCOUNTER 2023-04-04 15:23 | Emergency (ER) | payer MEDICAID, SELFPAY ==
[2023-04-04 15:25] VITALS: BP 141/95; PULSE 96; RESP 18; TEMP 36.6; O2SAT 99; BMI 29.7
--- NOTE | 2023-04-04 15:30 | ED.RN ---
Patient argumentative and yelling continuously I want to go home. Patient refusing to cooperate with staff. Patient blood drawn with assistance of other staff due to refusal to comply with staff. Patient given choice to urinate or to have straight cath performed. Patient refused to comply and straight cath obtained using sterile technique. Clear yellow urine collected and sent to lab. Sitter at bedside.
--- NOTE | 2023-04-04 15:41 | EX.ED.VIS.PS ---
HPI HPI - Psych History of Present Illness Chief Complaint: Suicidal Informant: patient and police/director of personnel Narrative Narrative: Patient is pink slipped here against her will by police because she told her and that she was sick of things and was going to kill herself. She took a knife to her throat as a gesture. She told the police that she did not want help as she is telling staff here. She does have a history of attempts of self-harm. There is no further history available from the patient, she refuses to talk to anyone. [facility] Medical History (Updated 04/04/23 @ 17:[address] Kareem Jacob MD) 40 weeks gestation of Anxiety Care and examination of lactating mother Depression Elective induction of labor planned Gestational HTN Headache History of depression Intrapartum fever Marijuana use Obesity affecting Trauma Unplanned Vaginal delivery Home Medications PNV 153-FA 400 mcg-om3 35 mg-dha 25 mg-epa 5 mg-fish oil chew tablet ( Gummies) 2 tab PO DAILY 11/19/21 [History Last Taken 1 Day Ago ~11/18/21] paroxetine HCl 30 mg tablet 30 mg PO DAILY 04/04/23 [History Last Taken Unknown] Allergy/AdvReac Type Severity Reaction Status Date / Time No Known Allergies Allergy Verified 04/04/23 15:25 Surgical History (Updated 11/19/21 @ 09:50 by Vishnu Rojas) History of surgery Social History Smoking Status: Never smoker ROS ROS ED Review of Systems ROS Unobtainable: other Details: Patient refuses to answer EXAM Physical Exam Const Vital Signs: 04/04/23 15:25 04/04/23 20:00 04/04/23 21:00 Temperature 97.8 F Temperature Source Temporal Pulse Rate 96 Respiratory Rate 18 16 16 Blood Pressure 141/95 H Blood Pressure Mean 110 Pulse Ox 99 98 98 Oxygen Delivery Method Room Air Room Air Room Air 04/04/23 22:00 04/04/23 22:35 Temperature Temperature Source Pulse Rate 67 Respiratory Rate 16 14 Blood Pressure 136/97 H Blood Pressure Mean 110 Pulse Ox 98 100 Oxygen Delivery Method Room Air Room Air Positive well nourished and well developed Constitutional Narrative: Hysterical behavior, no acute distress General Appearance ED: well developed HEENT Reports moist mucous membranes normocephalic and atraumatic Eyes PERRL and EOMs intact bilaterally General Eye ED: Negative for scleral icterus Neck no lymphadenopathy and supple Resp normal respiratory effort and clear to auscultation bilaterally Cardio no murmurs Rate: regular rate Rhythm: regular rhythm GI non-tender and non-distended Auscultation: normoactive bowel sounds Palpation: soft Back/Spine no CVA tenderness and normal ROM Extremity normal to inspection General Extremety ED: Negative for edema General Extremity: Negative for edema Neuro CN's II-XII intact bilaterally, no sensory deficits noted and gait normal Sensorium / Orientation: alert Motor Exam: strength 5/5 throughout Psych Psych Narrative: Uncooperative, hysterically crying, yelling at staff to leave her alone Attitude: belligerent Activity / Motor Behavior: psychomotor agitation and avoids eye contact Speech: loud Mood & Affect: depressed, tearful and hostile affect Skin Lesions: no lesions Rashes: no rashes MDM MDM MDM Narrative Medical decision making narrative: Patient was continuing to be hysterical and [id number]. Nurses attempted to redirect her verbally, she tried to leave, they tried to restrict this and reason with her, she became physically combative. For the safety of the patient and staff, she required physical restraint. I also had them administer Geodon 20 mg, she really helped to calm her down and she was very cooperative and we were able to remove physical restraints. She then did very well. Her labs are normal except for a potassium of 3.0 but I suspect this is due to the fact that she was hysterical and hyperventilating and had a respiratory alkalosis, I am repeating her potassium to recheck her level now that she is calm, and she had THC on board. She is medically cleared and awaiting crisis evaluation for placement. Her repeat potassium was similar, so she was given an oral potassium chloride tablet 40 milliequivalents. Lab Data Attestation: I reviewed the patient's lab results. Labs: Laboratory Results - last 24 hr 04/04/23 04/04/23 04/04/23 15:40 15:45 17:12 WBC 9.2 RBC 4.64 Hgb 14.7 Hct 43.6 MCV 94.0 MCH 31.7 MCHC 33.7 RDW Std Deviation 43.5 RDW Coeff of Matthew 12.5 Plt Count 277 MPV 10.6 Immature Gran % (Auto) 0.200 Neut % (Auto) 62.7 Lymph % (Auto) 29.0 [place] % (Auto) 5.3 Eos % (Auto) 2.1 Baso % (Auto) 0.7 Absolute Neuts (auto) 5.8 Absolute Lymphs (auto) 2.68 Nucleated RBC % 0 Sodium 142 Potassium 3.0 L 2.9 L Chloride 110 H Carbon Dioxide 25.0 Anion Gap 7 BUN 5 L Creatinine 0.73 Estim Creat Clear Calc 100.84 Est GFR (MDRD) Af Amer 129 Est GFR (MDRD) Non-Af 107 BUN/Creatinine Ratio 6.9 L Glucose 101 Calcium 9.4 Serum , Qual NEGATIVE Urine Opiates Screen NEGATIVE Urine Methadone Screen NEGATIVE Ur Barbiturates Screen NEGATIVE Ur Phencyclidine Scrn NEGATIVE Ur Amphetamines Screen NEGATIVE MDMA (Ecstasy) Screen NEGATIVE U Benzodiazepines Scrn NEGATIVE Urine Cocaine Screen NEGATIVE U Cannabinoids Screen POSITIVE H Ur Drug Screen Comment Ethyl Alcohol < 3.0 Discharge Plan Triage Chief Complaint: Suicidal ED Provider: Kareem Jacob Dx/Rx/DC Orders Clinical Impression: Depression with suicidal ideation Prescriptions: No Action Gummies 400 mcg-35 mg- 25 mg-5 mg Tablet,Chewable 2 tab PO DAILY paroxetine HCl 30 mg tablet 30 mg PO DAILY Patient Comments: take 1 tablet by mouth once daily Primary Care Provider: Care Physician,No Primary Referrals: Care Physician,No Primary [Primary Care Provider] - Disposition Disposition: Psychiatric Hospital or Unit
--- NOTE | 2023-04-04 15:50 | ED.RN ---
Patient refusing to calm, continuously screaming out and refusing to comply. Patient requesting to have all female staff, reinforced that a female staff member was not available at this time. Instructed to calm and door can stay open. Patient refusing to speak or comply with this nurse. Choice given to listen and calm down or be restrained. Patient stated I want to go home Patient continues to yell out, EMD at bedside. Orders received for Jennifer. Patient again given choice to calm down or get medicated, patient refusing to comply. Geodon given right thigh. Sitter at bedside. Will continue to monitor.
[2023-04-04 15:56] LABS: Absolute Lymphocyte Count 2.68 X10^3/uL (0.83-4.51); Absolute Neutrophil Count 5.8 X10^3/uL (2.0-7.7); Basophil# 0.06 X10^3/uL; Basophil% 0.7 % (0-1); Eosinophil# 0.19 X10^3/uL; Eosinophils% 2.1 % (0-5); Hematocrit 43.6 % (37-47); Hemoglobin 14.7 g/dL (12.0-15.0); Lymphocyte # 2.68 X10^3/ul (0.83-4.51); Mean Corp Hgb Conc 33.7 g/dL (32-36); Mean Corpuscular Hgb 31.7 pg (27.0-32.0); Mean Platelet Vol. 10.6 fl (6.2-12.0); Monocyte# 0.49 X10^3/uL; Monocyte% 5.3 % (0-10); NRBC Flagged by Analyzer 0 % (0-5); Neutrophil # 5.79 X10^3/uL (2.7-7.7); Neutrophil % 62.7 % (47-70); Platelet Count 277 K/mm3 (150-450); RBC Distribution Width CV 12.5 % (11.6-14.6); RBC Distribution Width SD 43.5 fl (35.1-43.9); Red Blood Count 4.64 M/mm3 (4.2-5.4); White Blood Count 9.2 K/mm3 (4.4-11.0)
[2023-04-04] MEDS: Ziprasidone IM 20 MG/ML VIAL IM (16:03)
[2023-04-04 16:09] LABS: Amphetamine Urine VISTA NEGATIVE (<1000 ng/mL); Barbiturate Urine VISTA NEGATIVE (< 200 ng/mL); Benzodiazepine Urine VISTA NEGATIVE (< 200 ng/mL); Cocaine Urine VISTA NEGATIVE (< 300 ng/mL); Ecstacy Urine VISTA NEGATIVE (< 500 ng/mL); Methadone Urine VISTA NEGATIVE (< 300 ng/mL); PCP Urine VISTA NEGATIVE (< 25 ng/mL); THC Urine VISTA POSITIVE (< 50 ng/mL); Vista UDS pH Range 6
[2023-04-04 16:13] LABS: Anion Gap 7 (5-15); BUN 5 mg/dL (7-18); BUN/Creat Ratio 6.9 RATIO (10-20); Calcium,Total 9.4 mg/dL (8.5-10.1); Chloride 110 mmol/L (98-107); Creatinine, Serum 0.73 mg/dL (0.55-1.02); EST Glomerular Filtration Rate 107 mL/min (>60); Est Glom Filt Rate - Afr Amer 129 mL/min (>60); Estimated Creatinine Clearance 100.84 ml/min; Glucose 101 mg/dL (74-106); Sodium Level 142 mmol/L (136-145)
[2023-04-04 16:16] LABS: Internal QC Validated? YES +Cl - CLEAR BKGD; Pregnancy, Serum, hCG Quali. NEGATIVE Negative
[2023-04-04 16:28] LABS: Alcohol, Blood (Medical)-Serum < 3.0 mg/dL
--- NOTE | 2023-04-04 16:45 | ED.RN ---
Patient cooperative with staff. MD at bedside. Patient removed from restraints. Food given. Sitter at bedside
[2023-04-04 17:28] LABS: Potassium 2.9 mmol/L (3.5-5.1)
[2023-04-04] MEDS: Potassium Chloride Oral Tablet 20 MEQ 40 MEQ PO (17:42)
--- NOTE | 2023-04-04 17:51 | NURSING ---
FAXED CHART TO CRISIS
--- NOTE | 2023-04-04 19:29 | ED.RN ---
crisis here to see patient at this time
[2023-04-04 20:00] VITALS: RESP 16; O2SAT 98
[2023-04-04 21:00] VITALS: RESP 16; O2SAT 98
[2023-04-04 22:00] VITALS: RESP 16; O2SAT 98
[2023-04-04 22:35] VITALS: BP 136/97; PULSE 67; RESP 14; O2SAT 100
--- NOTE | 2023-04-04 22:42 | ED.RN ---
crisis evaluated patient. they are working on placement for patient at this time
[2023-04-04] MEDS: PARoxetine 10 MG Tablet 30 MG PO (23:23)
[2023-04-04] MEDS: hydrOXYzine PAM 25 MG Capsule 75 MG PO (23:45)
[2023-04-05 02:36] VITALS: BP 111/63; PULSE 75; RESP 18; O2SAT 100
[2023-04-05] MEDS: Ondansetron ODT 4 MG Tablet PO (03:06)
--- NOTE | 2023-04-05 03:06 | ED.RN ---
Report given to Karin HEBERT at [facility]
[2023-04-05] MEDS: LORazepam 0.5 MG Tablet PO (03:07)
== END 2023-04-05 03:12 ==
PROVIDERS: Emergency Provider Emergency Medicine; Visit Provider Emergency Medicine
DX: R45.851 Suicidal ideations (principal); E87.3 Alkalosis; F32.A Depression, unspecified
CPT/HCPCS: 80048; 80307; 82077; 84132; 84703; 85025; 87426; 96372; 99285; J3486

== ENCOUNTER 2023-08-12 21:14 | Emergency (ER) | payer MEDICAID, SELFPAY ==
[2023-08-12 21:15] VITALS: BP 123/91; PULSE 144; RESP 16; TEMP 35.7; O2SAT 100; BMI 31.4
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
[2023-08-12 22:59] VITALS: PULSE 121
[2023-08-12 23:18] LABS: Amphetamine Urine VISTA POSITIVE (<1000 ng/mL); Barbiturate Urine VISTA NEGATIVE (< 200 ng/mL); Benzodiazepine Urine VISTA NEGATIVE (< 200 ng/mL); Cocaine Urine VISTA POSITIVE (< 300 ng/mL); Ecstacy Urine VISTA POSITIVE (< 500 ng/mL); Methadone Urine VISTA NEGATIVE (< 300 ng/mL); PCP Urine VISTA NEGATIVE (< 25 ng/mL); THC Urine VISTA POSITIVE (< 50 ng/mL); Vista UDS pH Range 5
[2023-08-13] VITALS: RESP 14
[2023-08-13 01:23] VITALS: PULSE 100; RESP 16; O2SAT 98
== END 2023-08-13 01:24 | disposition home or self-care (01) ==
PROVIDERS: Emergency Provider Emergency Medicine; Visit Provider Emergency Medicine
DX: T76.21XA Adult sexual abuse, suspected, initial encounter (principal); F32.A Depression, unspecified; Z79.899 Other long term (current) drug therapy; F41.9 Anxiety disorder, unspecified; T14.8XXA Other injury of unspecified body region, initial encounter; W57.XXXA Bitten or stung by nonvenomous insect and other nonvenomous arthropods, initial encounter; Y92.009 Unspecified place in unspecified non-institutional (private) residence as the place of occurrence of the external cause
CPT/HCPCS: 80307; 99282

== ENCOUNTER 2023-08-12 22:52 | Outpatient (REF) | payer SELFPAY | END 2023-08-12 23:59 | disposition home or self-care (01) | LOC: EDREF 22:52 | DX: Z04.41 Encounter for examination and observation following alleged adult rape (principal) ==

== ENCOUNTER 2023-09-15 04:31 | Emergency (ER) | payer MEDICAID, SELFPAY ==
[2023-09-15 04:32] VITALS: BP 134/79; PULSE 100; RESP 16; TEMP 36.6; O2SAT 100; BMI 32.7
[2023-09-15 06:08] LABS: Mucous, Urine 0 SEEN /hpf (<or=2+)
[2023-09-15 06:11] LABS: Color, Urine Yellow (Yellow); Glucose, Dipstick Normal (Normal); Ketone-Dipstick Negative (Negative); Leukocyte Esterase-Dipstick 500 /ul (Negative); Nitrite-Dipstick Negative (Negative); Occult Blood-Urine 150 /ul (Negative); Protein-Dipstick 100 mg/dl (Negative); Urine Bilirubin Dipstick Negative (Negative); Urine Clarity Clear (Clear); Urine Urobilinogen Normal (Normal); Urine pH 6.5 (5.0 - 8.0)
[2023-09-15 06:13] LABS: Internal QC Validated? YES +Cl - CLEAR BKGD; Pregnancy, Urine Negative Negative
[2023-09-15 06:39] LABS: Bacteria 2+ /hpf (None Seen); Red Blood Cells-Urine 10-25 SEEN /hpf (0-5); Squamous Epithelial Cells - UA 10-25 SEEN /hpf (5-10); White Blood Cells 50-100 SEEN /hpf (0-5)
--- NOTE | 2023-09-15 07:13 | EDS_ITS ---
HPI HPI - Female History of Present Illness Chief Complaint: Complaint Detail of Chief Complaint: Vaginal burning and dysuria Informant: patient Narrative Narrative: Patient presents via EMS secondary to vaginal burning and dysuria. She states symptoms been ongoing for the past couple of days. No fever or chills. She does not think she is , but states that she is late. She states she had 2 menstrual cycles last month. [facility] History 40 weeks gestation of Anxiety Care and examination of lactating mother Depression Elective induction of labor planned Gestational HTN Headache History of depression Intrapartum fever Marijuana use Obesity affecting Trauma Unplanned Vaginal delivery Home Medications sulfamethoxazole 800 mg-trimethoprim 160 mg tablet (Bactrim DS) 1 tab PO BID #6 tabs 09/15/23 [Rx Last Taken Unknown] Allergy/AdvReac Type Severity Reaction Status Date / Time No Known Allergies Allergy Verified 09/15/23 04:33 Surgical History History of surgery Social History Smoking Status: Never smoker ROS ROS ED Constitutional Constitutional ED: Denies chills or fever(s) Eyes Eyes: Denies discharge from eye(s) ENT ENT ED: Denies discharge from eye(s), rhinorrhea or sore throat Cardiovascular Cardiovascular: Denies chest pain Respiratory/Chest Respiratory/Chest: Denies cough or dyspnea Gastrointestinal Gastrointestinal: Denies abdominal pain, nausea or vomiting Genitourinary Genitourinary ED: Reports dysuria Musculoskeletal Musculoskeletal: Denies back pain or extremity pain Integumentary Denies Abrasions or rash Neurologic Neurologic: Denies headache(s) or weakness Allergic/Immunologic Allergic/Immunologic ED: Denies lip swelling or urticaria EXAM Physical Exam Const Vital Signs: 09/15/23 04:32 Temperature 98 F Temperature Source Temporal Pulse Rate 100 Respiratory Rate 16 Blood Pressure 134/79 H Blood Pressure Mean 97 Pulse Ox 100 Oxygen Delivery Method Room Air Positive well nourished and well developed General Appearance ED: well developed HEENT Reports moist mucous membranes Eyes EOMs intact bilaterally Chest Wall inspection of chest normal and palpation of chest normal Resp normal respiratory effort and clear to auscultation bilaterally Cardio regular rate and regular rhythm GI soft to palpation and non-tender Narrative: Pelvic examination reveals some chronic scarring of the labia bilaterally. S peculum examination reveals white discharge consistent with physiologic discharge. Extremity normal to inspection Neuro oriented x3 and no sensory deficits noted Motor Exam: strength 5/5 throughout Skin no rashes or lesions noted MDM MDM MDM Narrative Medical decision making narrative: Urine sent for urinalysis along with urine test and GC/chlamydia. Lab Data Attestation: I reviewed the patient's lab results. Labs: Laboratory Results - last 24 hr 09/15/23 06:02 Urine Color Yellow Urine Clarity Clear Urine pH 6.5 Ur Specific M[place]racken 1.020 Urine Protein 100 H Urine Glucose (UA) Normal Urine Ketones Negative Urine Occult Blood 150 H Urine Nitrite Negative Urine Bilirubin Negative Urine Urobilinogen Normal Ur Leukocyte Esterase 500 H Urine RBC 10-25 SEEN Urine WBC 50-100 SEEN Ur Squamous Epith Cells 10-25 SEEN Urine Bacteria 2+ Urine Mucus 0 SEEN Urine Test Negative Treatment and Re-Evaluation Narrative: test is negative. Urinalysis does reveal 2+ bacteria 50-100 white cells. She will be treated with a course of Bactrim. Test for gonorrhea and chlamydia is still pending. Patient was told she would be called if these tests are positive and she needs different treatment. She voices understanding and agreement. Patient referred to local provider to establish primary care. Discharge Plan Triage Chief Complaint: Complaint ED Provider: Joie Greene Dx/Rx/DC Orders Clinical Impression: UTI (urinary tract infection) Instructions: ED Cystitis Female Adult Prescriptions: New sulfamethoxazole-trimethoprim [Bactrim DS] 800-160 mg tablet 1 tab PO BID Qty: 6 0RF Primary Care Provider: Care Physician,No Primary Referrals: Leola Boggs MD [Med Staff - Customs Compliance Director] - 1-2 Weeks Care Physician,No Primary [Primary Care Provider] - Disposition Disposition: Home, Self Care Discharge Date/Time: 09/15/23 07:26
[2023-09-15] MEDS: Smz/Tmp Ds Tablet 1 TABLET PO (07:19)
== END 2023-09-15 07:26 | disposition home or self-care (01) ==
PROVIDERS: Emergency Provider Emergency Medicine; Visit Provider Emergency Medicine
DX: N39.0 Urinary tract infection, site not specified (principal)
CPT/HCPCS: 81001; 81025; 87491; 87591; 99283

== ENCOUNTER 2023-11-07 09:16 | Emergency (ER) | payer MEDICAID, SELFPAY ==
[2023-11-07 09:17] VITALS: BP 123/85; PULSE 109; RESP 16; TEMP 36.8; O2SAT 100; BMI 35.2
--- NOTE | 2023-11-07 09:27 | RAD_ITS ---
STUDY: X-RAY CHEST REASON FOR EXAM: Female, 23 years old. cough TECHNIQUE: Single AP portable view of the chest. COMPARISON: None. FINDINGS: The lungs are clear and expanded. There is no demonstrated pleural abnormality. Normal size heart. Normal mediastinum and anitra. Normal visualized pulmonary arteries. Normal visualized aortic arch and descending thoracic aorta. Normal visualized thoracic spine. Normal visualized ribs, clavicles, and shoulders. There is no demonstrated abnormality of the visualized soft tissue structures of the upper abdomen. RAD/Chest 1 View (Portable) IMPRESSION: Normal x-ray examination of the chest. Electronically Signed: Rodney Christine MD at 9:59 EST ,
--- NOTE | 2023-11-07 09:28 | EDS_ITS ---
HPI History of Present Illness Chief Complaint: General Illness Informant: patient Narrative Narrative: Patient [facility] because she does not feel well. She states she developed a cough last evening with bodyaches and chills. She has had nausea but no vomiting. She has not taken anything for her symptoms. [facility] Medical History 40 weeks gestation of Anxiety Care and examination of lactating mother Depression Elective induction of labor planned Gestational HTN Headache History of depression Intrapartum fever Marijuana use Obesity affecting Trauma Unplanned Vaginal delivery Home Medications NK 11/07/23 [History Last Taken Unknown] Allergy/AdvReac Type Severity Reaction Status Date / Time No Known Allergies Allergy Verified 11/07/23 09:17 Surgical History History of surgery Social History Smoking Status: Never smoker ROS ROS ED Constitutional Constitutional ED: Reports chills Eyes Eyes: Denies change in vision or discharge from eye(s) ENT ENT ED: Denies discharge from eye(s), rhinorrhea or sore throat Cardiovascular Cardiovascular: Denies chest pain or palpitations Respiratory/Chest Respiratory/Chest: Reports cough and dyspnea Gastrointestinal Gastrointestinal: Reports nausea; Denies abdominal pain, diarrhea or vomiting Genitourinary Genitourinary ED: Denies dysuria Musculoskeletal Musculoskeletal: Reports myalgias; Denies back pain or extremity pain Integumentary Denies Abrasions or rash Neurologic Neurologic: Denies headache(s) or weakness Allergic/Immunologic Allergic/Immunologic ED: Denies lip swelling or urticaria EXAM Physical Exam Const Vital Signs: 11/07/23 09:17 11/07/23 09:23 Temperature 98.2 F Temperature Source Oral Pulse Rate 109 H Respiratory Rate 16 Respiratory Effort Normal Non-Labored Respiratory Pattern Normal Blood Pressure 123/85 H Blood Pressure Mean 97 Pulse Ox 100 Oxygen Delivery Method Room Air Positive well nourished and well developed General Appearance ED: well developed HEENT Reports moist mucous membranes Eyes EOMs intact bilaterally Chest Wall inspection of chest normal and palpation of chest normal Resp normal respiratory effort and clear to auscultation bilaterally Cardio regular rate and regular rhythm GI non-tender Palpation: soft Extremity Extremity Narrative: Linear erythematous murrell to the left upper extremity from BP cuff. No sign of open wound or infection. Neuro oriented x3 Neuro Narrative: No focal neurologic deficit. MDM MDM MDM Narrative Medical decision making narrative: Patient be given Zofran and ibuprofen. Swab for COVID, influenza, and RSV will be obtained. Chest x-ray obtained to evaluate for acute lung pathology, cardiac size, or mediastinal abnormality. Urinalysis obtained to evaluate for infection/hematuria. History & Record Review Discussion w/independent historian: Patient Additional record(s) reviewed:: Prior ED visit and Prior labs Lab Data Attestation: I reviewed the patient's lab results. Labs: Laboratory Results - last 24 hr 11/07/23 10:18 Urine Color Yellow Urine Clarity Clear Urine pH 6.0 Ur Specific Shushan 1.020 Urine Protein 15 H Urine Glucose (UA) Normal Urine Ketones Negative Urine Occult Blood Negative Urine Nitrite Negative Urine Bilirubin Negative Urine Urobilinogen Normal Ur Leukocyte Esterase 25 H Urine RBC 0 SEEN Urine WBC 0 SEEN Ur Squamous Epith Cells 0-5 SEEN Urine Bacteria RARE Urine Mucus 0 SEEN Urine Test Negative Radiography Diagnostic Testing: Clinical Impression(s) from Imaging Studies Chest X-Ray 11/07/23 09:27 IMPRESSION: Normal x-ray examination of the chest. Electronically Signed: Rodney Christine MD at 9:59 EST , Treatment and Re-Evaluation :: Urinalysis reveals no evidence of acute infection. Urine test is negative. Portable chest x-ray per my interpretation reveals no focal infiltrate. Radiology interpretation is reviewed and agrees. Swab for COVID and RSV is negative. Influenza swab is positive for flu A. On repeat evaluation patient remained stable. Test results discussed with her. We discussed continuing supportive care for her symptoms. Return instructions given. Discharge Plan Triage Chief Complaint: General Illness ED Provider: Joie Greene Dx/Rx/DC Orders Clinical Impression: Influenza Instructions: ED Influenza (Adult) Prescriptions: No Action NK Primary Care Provider: Care Physician,No Primary Referrals: Sigrid Rollins DO [Med Staff - Active Staff] - As Needed Care Physician,No Primary [Primary Care Provider] - Disposition Disposition: Home, Self Care
[2023-11-07] MEDS: Ondansetron ODT 4 MG Tablet PO (09:36)
[2023-11-07] MEDS: Ibuprofen 600 MG Tablet PO (09:36)
--- OUTSIDE RECORDS SUMMARY | 2023-11-07 09:56 | XMS RPT_ITS | CCD ---
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 bilaterally. Jaw jerk active. (Checked because her aunt notes some dysphagia, which, however, the patient denies). Biceps - unable to relax. Present bilaterally, with spread to finger flexors bilaterally (on which account 3 and symmetric). Triceps 2+ and symmetric. Patellar 2+, pendular, and symmetric. Achilles 3 (3 beats of clonus right, 2 left). Mental Status: MMSE 26 (I left out the County; she is from [place]). She does not know the date of the month. She cannot draw the interlocking pentagons. She could not repeat 'no ifs, ands, or buts.' An additional question, 'can you touch your right ear with your left thumb?' was performed incorrectly. IMPRESSION AND PLAN: I am not sure at this point how much of Herminia's exam is attributable to anxiety. It may explain her brisk reflexes; and it may explain at least some of her difficulty with the MMSE (she originally gave February as the month, then corrected herself spontaneously a little later on). There is a tendency to impulsively sanz to answer. Her gait is difficult to characterize. I will start with referral to Medical Genetics. She is on the cusp of getting an appointment to see her Aunt Jude's psychiatrist. She will let me know if for some reason she cannot get an appointment. Thank you for requesting neurologic consultation for Herminia Padilla. I will be in touch with her after her genetics consult (she does not have MyChart). Sincerely, Álvaro Zavala MD Staff, General Neurology I spent 59 minutes in this visit face to face with the patient, with more than 50% of the time devoted to patient counseling with regard to the impression, patient education, interpretation of the studies, the diagnosis, treatment options, theneed for further diagnostic testing, and coordination of care. documented in this encounter [facility] 03-10-2023 Miscellaneous Notes Put referral for Neurology on [facility] Provider Portal 03/10/23 Confirmation # [id number] Pt is scheduled for 03/26/[address]Michael Zavala documented in this encounter [facility] 03-10-2023 Miscellaneous Notes Put referral for Psychiatry on [facility] Provider Portal on 03/10/23 Confirmation # [id number] SGRANTHAM 03/11/23 14:32 Psychiatry (Bill). prefers Female . first attempt unable to leave vm 03/15, unable to leave vm 03/23 documented in this encounter [facility] 03-10-2023 Note HNO ID: [id number] Author: Fiordaliza Zhao APRN.HYPERBARIC TECHNICIAN Service: ? Author Type: Nurse Practitioner Type: Progress Notes Filed: 03/11/2023 7:56 AM Note Text: This note was created using ScoreGrid. Subjective Herminia Padilla is a 22 year old female here today for MDD. She was admitted 02/11/23 after ov and ER visit for suicidal ideation. She is here today with her Aunt Jude. Family is concerned for possible [place]'s disease. Jude reports pts father was dx with Huntingtons Disease in his late 20s after suicide attempt. Also reports pts great aunt, uncle and her grandfather suffered from depression and commited suicide. Now that pts dad was dx with Huntingtons and they feel his other family members were undiagnosed. Jude reports pts behavior and the way she responds is just like pts father was. Jude reports she notices her fingers are held in a different position which is smiliar to her fathers in his early stages. Also changes in her behavior. Feels she has trouble putting her words together. Jude reports seeing her niece for the first time in 3 months and states she was just like her brother ( pts dad) when he was diagnosed. Aunt reports it started after pt had her child 11/2021. She feel the changes and depression started at that time. Pt denies any changes or abnormalities. She does admit to anxiety. States she feels the paxil is working and is much improved since hospitalization. She denies feeling depressed or thoughts of suicide. She does feel her anxiety is the worse. Feels she can use something she can take as needed. She could not tolerate the hydroxyzine. She has not followed up with counseling or psychiatry. Pt and aunt feel increase dose of paxil would be helpful ALLERGIES No Known Allergies Current Outpatient Medications Medication Sig Dispense Refill melatonin 3 mg tablet Take 2 tablets by mouth daily at bedtime. 30 tablet 0 PARoxetine (PAXIL) 20 mg tablet Take 1 tablet by mouth daily with dinner. 30 tablet 0 hydrOXYzine HCl (ATARAX) 50 mg tablet Take 1 tablet by mouth twice daily as needed. 30 tablet 0 No current facility-administered medications for this visit. ACTIVE PROBLEM LIST History of Depression Family History of [place]'s Disease Marijuana Use Anxiety Mild Episode of Recurrent Major Depressive Disorder (Hcc) Obesity, Class II, Bmi 35-39.9 Depression PAST MEDICAL HISTORY Diagnosis Date #[id number] PAST SURGICAL HISTORY Procedure Laterality Date TONSILLECTOMY HX Social History Tobacco Use Smoking status: Never Smokeless tobacco: Never Vaping Use Vaping Use: Never used Substance Use Topics Alcohol use: Not Currently Comment: occasionally Drug use: Yes Types: Marijuana Family History Problem Relation Age of Onset Cancer Mother cervical, stomach polyps other (emery's disease) Father No Known Problems Sister No Known Problems Brother Hypertension Maternal Grandmother other (throat cancer) Maternal Grandfather Heart Attack Maternal Grandfather Suicide / Suicidal Behaviors Paternal Grandfather other (huntingtons disease) Paternal Grandfather Diabetes Maternal Uncle Diabetes Maternal Uncle Review of Systems Constitutional: Negative for activity change, appetite change, chills, diaphoresis, fatigue, fever and unexpected weight change. Respiratory: Negative for cough, shortness of breath and wheezing. Cardiovascular: Negative for chest pain, palpitations and leg swelling. Neurological: Negative for dizziness, tremors, seizures, syncope, facial asymmetry, speech difficulty, weakness, light-headedness, numbness and headaches. Hematological: Negative for adenopathy. Does not bruise/bleed easily. Psychiatric/Behavioral: Positive for dysphoric mood. Negative for agitation, behavioral problems and sleep disturbance. The patient is nervous/anxious. Objective BP 120/70 (BP Site: Left Arm, BP Position: Sitting, BP Cuff Size: Regular Adult) Pulse 62 Temp 36.8 ?C (98.2 ?F) (Oral) Resp 18 Ht 160 cm (5' 3 ) Wt 78.7 kg (173 lb 6.4 oz) LMP 12/31/2022 (Approximate) SpO2 98% BMI 30.72 kg/m? Physical Exam Vitals and nursing note reviewed. Constitutional: General: She is not in acute distress. Appearance: Normal appearance. She is not ill-appearing. HENT: Head: Normocephalic and atraumatic. Right Ear: Tympanic membrane, ear canal and external ear normal. Left Ear: Ear canal and external ear normal. Nose: Nose normal. Mouth/Throat: Mouth: Mucous membranes are moist. Cardiovascular: Rate and Rhythm: Normal rate and regular rhythm. Pulses: Normal pulses. Heart sounds: Normal heart sounds. Pulmonary: Effort: Pulmonary effort is normal. Breath sounds: Normal breath sounds. Skin: General: Skin is warm and dry. Neurological: Mental Status: She is alert and oriented to person, place, and time. Cranial Nerves: Cranial nerves 2-12 are intact. Motor: Motor fun (more content not included)... [facility] 02-25-2023 Miscellaneous Notes Please let pt or her next of Kin (person on HIPPA) that pt will need to come in for follow up after her hospitalization to discuss any work up she may need. They can also talk with the hospital where she is at to see if they can do any work up Patient's aunt called stating she is currently admitted to a psych rodriguez. Jude believes that she may have [place]'s disease just like her father did. Jude states the symptoms are just like Herminia's father and she states that Herminia is willing to have the test. Lilliam Velarde MA documented in this encounter [facility] 02-24-2023 Miscellaneous Notes Maria Antonia gibson lm on requesting dr. Urrutia to call her so she can give a update on herminia. Maria Antonia number is [phone]. GILMA Nix is not on hippa documented in this encounter [facility] 02-17-2023 Note HNO ID: [id number] Author: Fiordaliza Zhao APRN.HYPERBARIC TECHNICIAN Service: ? Author Type: Nurse Practitioner Type: Progress Notes Filed: 02/17/2023 12:26 PM Note Text: Agree with plan. [facility] 02-17-2023 Note HNO ID: [id number] Author: Avril Altamirano RN Service: ? Author Type: Registered Nurse Type: Progress Notes Filed: 02/17/2023 11:11 AM Note Text: TRANSITIONAL CARE MANAGEMENT (TCM) COMMUNITY MONITORING PROGRAM - [facility] Provider Action/FYI: Patient's mother reports patient's mental health has not improved. Mother states patient is having panic attacks, is depressed, and has made the statement I would be better off . Mother reports patient refuses to go to ER and also refuses to follow up with PCP because she is embarrassed . Mother reports patient does have appointments for BH in [place] next week however, I am stressed and worried about her mental health ' PCC reviewed if she is worried patient will hurt herself or others, or has made statements of doing so, she can contact law enforcement or [facility] for a well check. PCC reviewed law enforcement will come and if they believe patient may harm self or others they will take her for treatment. Mother thanked PCC for this information. PCC offered to contact law enforcement for her. Mother stated patient is out with her grandmother right now but she will do this if she feels it is necessary. Patient's mother reported patient has been depressed and having episodes since the of her son 16 months ago. PCC encouraged patient's mother to contact patient's OBGYN as they might also have recommendations for her post BH. Patient's mother agreed she will contact OBGYN today. Patient's mother stated no further needs/ concerns att his time. Patient's mother stated understanding of whom to call for emergency. Routed to provider. SUMMARY: Pt discharged from [facility] on 02/15/23. Admitted for: Depression Contact made with patient: Yes Hi my name is Avril Altamirano RN and I am calling from the [facility] on behalf of your PCP, Fiordaliza Zhao APRN.HYPERBARIC TECHNICIAN I understand you were recently in the hospital so I am calling to check in with you to ensure you are feeling well now that you?re home. Do you mind if I ask you a few questions related to your hospital stay and well-being Yes Contact with patient post discharge, spoke to mother. Patient identified by name and . Do you feel your health is BETTER, WORSE, or the SAME since leaving the hospital? Same ACTION TAKEN: Patient indicated symptoms are better or same, no action required. Continue outreach. MEDICATIONS: Many patients have questions or concerns about their medications once they are home. Do you have any questions about taking your medications or which medication you should be on? No Do you need any medication refills at this time, including any of the medications you might take only when needed? No ACTION TAKEN: No action required For RNs or Pharmacy completing outreach ONLY, was a medication review completed? Yes SOCIAL: We would like to make sure you have what you need so that your basics needs are met - including your personal safety, food, housing and medications. Would you like to speak with a social work help desk team leader to help give you support for any of these needs? No It can be normal to feel anxious or down during a time like this. Would you like to talk to a mental health professional about how you have been feeling? Yes ACTION TAKEN: No action taken Patient has appointments with counseling services in [place] next week. DISCHARGE INTRUCTIONS: Your discharge instructions / After Visit Summary (AVS) are important in guiding you through the recovery process. Do you have any questions related to your discharge instructions? No Do you have all the necessary equipment and supplies at home? NA ACTION TAKEN: No action required Thank you for talking with me today. I would like to help you schedule a hospital follow-up virtual or telephone visit with your PCP. This is a great way for you to connect with your provider to ensure you have safely transitioned home. If you are agreeable, I will send your request to a yard hostler who will contact and assist you with that appointment. This will give you an opportunity to ask any questions or address any concerns you may have with your PCP. Inform the patient that if they have any questions or concerns prior to that appointment, to call their PCP's office right away. ACTION TAKEN: No action required, patient declines appointment. Your doctor would like us to remind you of the recommendations regarding the coronavirus (Covid19) outbreak: Avoid public places as much as possible. Avoid close contact (within 6 feet) with others you don't live with, especially if they are sick. Stay home if you are sick. Wash your hands regularly for at least 20 seconds with soap and water. Wear a cloth mask in public places to help reduce community spread. Do not go to your Doctor's office unless instructed to do so. For any non-emergency symptoms, call your Doctor's office to get instruc (more content not included)... [facility] 02-17-2023 History of Presen t illness Narrative Agree with plan. TRANSITIONAL CARE MANAGEMENT (TCM) COMMUNITY MONITORING PROGRAM - [facility] Provider Action/FYI: Patient's mother reports patient's mental health has not improved. Mother states patient is having panic attacks, is depressed, and has made the statement I would be better off . Mother reports patient refuses to go to ER and also refuses to follow up with PCP because she is embarrassed . Mother reports patient does have appointments for BH in [place] next week however, I am stressed and worried about her mental health ' PCC reviewed if she is worried patient will hurt herself or others, or has made statements of doing so, she can contact law enforcement or [facility] for a well check. PCC reviewed law enforcement will come and if they believe patient may harm self or others they will take her for treatment. Mother thanked PCC for this information. PCC offered to contact law enforcement for her. Mother stated patient is out with her grandmother right now but she will do this if she feels it is necessary. Patient's mother reported patient has been depressed and having episodes since the of her son 16 months ago. PCC encouraged patient's mother to contact patient's OBGYN as they might also have recommendations for her post BH. Patient's mother agreed she will contact OBGYN today. Patient's mother stated no further needs/ concerns att his time. Patient's mother stated understanding of whom to call for emergency. Routed to provider. SUMMARY: Pt discharged from [facility] on 02/15/23. Admitted for: Depression Contact made with patient: Yes Hi my name is Avril Altamirano RN and I am calling from the [facility] on behalf of your PCP, Fiordaliza Zhao APRN.MARTÍNEZ I understand you were recently in the hospital so I am calling to check in with you to ensure you are feeling well now that you re home. Do you mind if I ask you a few questions related to your hospital stay and well-being Yes Contact with patient post discharge, spoke to mother. Patient identified by name and . Do you feel your health is BETTER, WORSE, or the SAME since leaving the hospital? Same ACTION TAKEN: Patient indicated symptoms are better or same, no action required. Continue outreach. MEDICATIONS: Many patients have questions or concerns about their medications once they are home. Do you have any questions about taking your medications or which medication you should be on? No Do you need any medication refills at this time, including any of the medications you might take only when needed? No ACTION TAKEN: No action required For RNs or Pharmacy completing outreach ONLY, was a medication review completed? Yes SOCIAL: We would like to make sure you have what you need so that your basics needs are met - including your personal safety, food, housing and medications. Would you like to speak with a social work help desk team leader to help give you support for any of these needs? No It can be normal to feel anxious or down during a time like this. Would you like to talk to a mental health professional about how you have been feeling? Yes ACTION TAKEN: No action taken Patient has appointments with counseling services in [place] next week. DISCHARGE INTRUCTIONS: Your discharge instructions / After Visit Summary (AVS) are important in guiding you through the recovery process. Do you have any questions related to your discharge instructions? No Do you have all the necessary equipment and supplies at home? NA ACTION TAKEN: No action required Thank you for talking with me today. I would like to help you schedule a hospital follow-up virtual or telephone visit with your PCP. This is a great way for you to connect with your provider to ensure you have safely transitioned home. If you are agreeable, I will send your request to a yard hostler who will contact and assist you with that appointment. This will give you an opportunity to ask any questions or address any concerns you may have with your PCP. Inform the patient that if they have any questions or concerns prior to that appointment, to call their PCP's office right away. ACTION TAKEN: No action required, patient declines appointment. Your doctor would like us to remind you of the recommendations regarding the coronavirus (Covid19) outbreak: Avoid public places as much as possible. Avoid close contact (within 6 feet) with others you don't live with, especially if they are sick. Stay home if you are sick. Wash your hands regularly for at least 20 seconds with soap and water. Wear a cloth mask in public places to help reduce community spread. Do not go to your Doctor's office unless instructed to do so. For any non-emergency symptoms, call your Doctor's office to get instructions on how to manage (we might recommend a telephone or virtual visit). For emergency symptoms, proceed to Emergency Department as usual but inform them of cough and fever symptoms BART if present (or call on the way if possible). TRANSITIONAL CARE MANAGEMENT (TCM) COMMUNITY MONITORING PROGRAM - [facility] Provider Action/FYI: SUMMARY: Pt discharged from [facility] on 02/15/23. Admitted for: Depression Contact made with patient: No - 2nd unsuccessful attempt - end outreach and close encounter Voicemail not set up. Unable to leave message. Outreach ended TCM Home Visit Referral Source of Stratification: [facility] Admission Status: Discharged Readmission Risk Score: 11 NESTOR Score: 1 Patient meets program referral criteria: No Patient does not qualify for High Risk TCM Home Visit program due to: Discharged home, does not meet program criteria Avril Altamirano RN February 16, 2023 8:25 AM TRANSITIONAL CARE MANAGEMENT (TCM) COMMUNITY MONITORING PROGRAM - [facility] Provider Action/FYI: SUMMARY: Pt discharged from [facility] on 02/15/23. Admitted for: Depression Contact made with patient: No - next outreach attempt will be on next business day Outreach ended documented in this encounter [facility] 02-16-2023 Note Patient Outreach (AG ACM) HERMINIA PADILLA ([id number]) 2 F UPA Date Time Provider Department 02/16/23 AVRIL ALTAMIRANO During your visit today, we recorded the following information about you: Avrli Altamirano RN 02/17/2023 10:33 AM Signed TRANSITIONAL CARE MANAGEMENT (TCM) COMMUNITY MONITORING PROGRAM - [facility] Provider Action/FYI: SUMMARY: Pt discharged from [facility] on 02/15/23. Admitted for: Depression Contact made with patient: No - next outreach attempt will be on next Outreach ended Avril Altamirano RN 02/17/2023 10:33 AM Signed TCM Home Visit Referral Source of Stratification: [facility] Admission Status: Discharged Readmission Risk Score: 11 NESTOR Score: 1 Patient meets program referral criteria: No Patient does not qualify for High Risk TCM Home Visit program due to: Discharged home, does not meet program criteria Avril Altamirano RN February 16, 2023 8:25 AM Avril Altamirano RN 02/17/2023 10:33 AM Signed TRANSITIONAL CARE MANAGEMENT (TCM) COMMUNITY MONITORING PROGRAM - [facility] Provider Action/FYI: SUMMARY: Pt discharged from [facility] on 02/15/23. Admitted for: Depression Contact made with patient: No - 2nd unsuccessful attempt - end outreach and close encounter Voicemail not set up. Unable to leave message. Outreach ended Avril Altamirano RN 02/17/2023 11:11 AM Signed TRANSITIONAL CARE MANAGEMENT (TCM) COMMUNITY MONITORING PROGRAM - [facility] Provider Action/FYI: Patient's mother reports patient's mental health has not improved. Mother states patient is having panic attacks, is depressed, and has made the statement I would be better off . Mother reports patient refuses to go to ER and also refuses to follow up with PCP because she is embarrassed . Mother reports patient does have appointments for in [place] next week however, I am stressed and worried about her mental health ' PCC reviewed if she is worried patient will hurt herself or others, or has made statements of doing so, she can contact law enforcement or 911 for a well check. PCC reviewed law enforcement will come and if they believe patient may harm self or others they will take her for treatment. Mother thanked PCC for this information. PCC offered to contact law enforcement for her. Mother stated patient is out with her grandmother right now but she will do this if she feels it is necessary. Patient's mother reported patient has been depressed and having episodes since the of her son 16 months ago. PCC encouraged patient's mother to contact patient's OBGYN as they might also have recommendations for her post BH. Patient's mother agreed she will contact OBGYN today. Patient's mother stated no further needs/ concerns att his time. Patient's mother stated understanding of whom to call for emergency. Routed to provider. SUMMARY: Pt discharged from [facility] on 02/15/23. Admitted for: Depression Contact made with patient: Yes Hi my name is Avril Altamirano RN and I am calling from the [facility] on behalf of your PCP, Fiordaliza Zhao APRN.HYPERBARIC TECHNICIAN I understand you were recently in the hospital so I am calling to check in with you to ensure you are feeling well now that you?re home. Do you mind if I ask you a few questions related to your hospital stay and well-being Yes Contact with patient post discharge, spoke to mother. Patient identified by name and . Do you feel your health is BETTER, WORSE, or the SAME since leaving the hospital? Same ACTION TAKEN: Patient indicated symptoms are better or same, no action required. Continue outreach. MEDICATIONS: Many patients have questions or concerns about their medications once they are home. Do you have any questions about taking your medications or which medication you should be on? No Do you need any medication refills at this time, including any of the medications you might take only when needed? No ACTION TAKEN: No action required For RNs or Pharmacy completing outreach ONLY, was a medication review completed? Yes SOCIAL: We would like to make sure you have what you need so that your basics needs are met - including your personal safety, food, housing and medications. Would you like to speak with a social work help desk team leader to help give you support for any of these needs? No It can be normal to feel anxious or down during a time like this. Would you like to talk to a mental health professional about how you have been feeling? Yes ACTION TAKEN: No action taken Patient has appointments with counseling services in [place] next week. DISCHARGE INTRUCTIONS: Your discharge instructions / After Visit Summary (AVS) are important in guiding you through the recovery process. Do you have any questions related to your discharge instructions? No Do you have all the necessary equipment and supplies at home? NA A (more content not included)... [facility] 02-16-2023 Note HNO ID: [id number] Author: Avril Altamirano RN Service: ? Author Type: Registered Nurse Type: Progress Notes Filed: 02/17/2023 10:33 AM Note Text: TRANSITIONAL CARE MANAGEMENT (TCM) COMMUNITY MONITORING PROGRAM - [facility] Provider Action/FYI: SUMMARY: Pt discharged from [facility] on 02/15/23. Admitted for: Depression Contact made with patient: No - 2nd unsuccessful attempt - end outreach and close encounter Voicemail not set up. Unable to leave message. Outreach ended [facility] 02-16-2023 Note HNO ID: [id number] Author: Avril Altamirano RN Service: ? Author Type: Registered Nurse Type: Progress Notes Filed: 02/17/2023 10:33 AM Note Text: TCM Home Visit Referral Source of Stratification: [facility] Admission Status: Discharged Readmission Risk Score: 11 NESTOR Score: 1 Patient meets program referral criteria: No Patient does not qualify for High Risk TCM Home Visit program due to: Discharged home, does not meet program criteria Avril Altamirano RN February 16, 2023 8:25 AM [facility] 02-16-2023 Note HNO ID: [id number] Author: Avril Altamirano RN Service: ? Author Type: Registered Nurse Type: Progress Notes Filed: 02/17/2023 10:33 AM Note Text: TRANSITIONAL CARE MANAGEMENT (TCM) COMMUNITY MONITORING PROGRAM - [facility] Provider Action/FYI: SUMMARY: Pt discharged from [facility] on 02/15/23. Admitted for: Depression Contact made with patient: No - next outreach attempt will be on next business day Outreach ended [facility] 02-14-2023 Note HNO ID: [id number] Author: Renato Teran MD Service: Psychiatry Author Type: Physician Type: Progress Notes Filed: 02/14/2023 11:51 AM Note Text: PROGRESS NOTE BEHAVIORAL HEALTH SERVICE DATE: 02/14/2023 SERVICE TIME: 8:13 AM The Interdisciplinary team met and reviewed treatment goals and discharge planning. Subjective I feel better and I am really optimistic Objective Seen in the day area as she was watching TV; we noted she had breakfast already . . She is cooperative and calm . Understands the need for medication counseling for the near future . Advised to be compliant as she has a 15 yo son at home . PHYSICAL EXAM: BP 139/89 Pulse 106 Temp 36.8 ?C (98.2 ?F) Resp 18 Ht 157.5 cm (5' 2 ) Wt 78 kg (172 lb) LMP 12/31/2022 (Approximate) SpO2 96% BMI 31.46 kg/m? MENTAL STATUS EXAMINATION: Appearance: In hospital gown Behavior: Appropriate Orientation: Person, Place, Time and Situation Speech/Language: The patient demonstrates appropriate tone, prosody, lissette, phonetics, and syntax Mood/Affect: Anxious and Depressed Thought Form: Logical Thought Content: Coherent Suicidal Ideations: No suicidal ideation, intent or plan. Homicidal Ideations: No homicidal ideation, intent or plan. Insight: Fair Judgment: Fair Memory/Cognition: Intact Psychomotor: Psychomotor activity was normal NEW PROBLEMS ON UNIT SINCE LAST ENCOUNTER: None Current Facility-Administered Medications Medication Dose Route Frequency LORazepam 2 mg (ATIVAN) 2 mg ORAL q 6 H PRN Or LORazepam 2 mg injection (ATIVAN) 2 mg INTRAMUSCULAR q 6 H PRN haloperidol 5 mg tab(s) (HALDOL) 5 mg ORAL q 6 H PRN Or haloperidol lactate 5 mg short-acting injection (HALDOL) 5 mg INTRAMUSCULAR q 6 H PRN traZODone 50 mg tab(s) (DESYREL) 50 mg ORAL AT BEDTIME PRN acetaminophen 650 mg tab(s) (TYLENOL) 650 mg ORAL q 6 H PRN magnesium hydroxide 400 mg/5 mL 30 mL (MOM) 30 mL ORAL DAILY PRN aluminum-magnesium hydroxide-simethicone 200-200-20 mg/5 mL 30 mL 30 mL ORAL q 4 H PRN PHENYLephrine-cocoa butter 1 Suppository rectal suppository (PREPARATION H) 1 Suppository RECTAL BID PARoxetine 20 mg tab(s) (PAXIL) 20 mg ORAL DAILY wDINNER melatonin 6 mg tab(s) 6 mg ORAL DAILY (8 PM) hydrOXYzine HCl 50 mg tab(s) (ATARAX) 50 mg ORAL q 4 H PRN DATA: Diagnostic tests reviewed for today's visit: No new labs Assessment/Plan DIAGNOSIS: PRIMARY: Mood Disorder Major Depressive Disorder, Single Episode, Severe Without Psychotic Symptoms GAF: 30 -30-21 Behavior is considerably influenced by delusions or hallucination or serious impairment in communication or judgment RISK ASSESSMENT: Suicide: moderate Homicide: low Deliberate Self-Harm: low Aggression: low Imminent Physical Self Impairment: low INFORMED CONSENT: PINK SLIP INTERVENTION: Biological: Paxil 20 mg po every day Psychological: milieu therapy Social: see SW notes DISCHARGE PLANNING: when stable SIGNATURE: Renato Teran MD PATIENT NAME: Herminia Padilla DATE: February 14, 2023 TIME: 8:13 AM [facility] 02-13-2023 Note HNO ID: [id number] Author: Renato Teran MD Service: Psychiatry Author Type: Physician Type: Progress Notes Filed: 02/13/2023 11:43 AM Note Text: PROGRESS NOTE BEHAVIORAL HEALTH SERVICE DATE: 02/13/2023 SERVICE TIME: 7:15 AM The Interdisciplinary team met and reviewed treatment goals and discharge planning. Subjective I feel better and I understand why I am in the hospiatl Objective Seen in the day area as she was watching TV . She is cooperative and calm . Understands the circumstances of her admit and the need for medication and counseling Advised to be compliant as she has a 15 yo son at home . PHYSICAL EXAM: BP 128/82 Pulse 77 Temp 37 ?C (98.6 ?F) (Oral) Resp 18 Ht 157.5 cm (5' 2 ) Wt 78 kg (172 lb) LMP 12/31/2022 (Approximate) SpO2 98% BMI 31.46 kg/m? MENTAL STATUS EXAMINATION: Appearance: In hospital gown Behavior: Appropriate Orientation: Person, Place, Time and Situation Speech/Language: The patient demonstrates appropriate tone, prosody, lissette, phonetics, and syntax Mood/Affect: Anxious and Depressed Thought Form: Logical Thought Content: Coherent Suicidal Ideations: No suicidal ideation, intent or plan. Homicidal Ideations: No homicidal ideation, intent or plan. Insight: Fair Judgment: Fair Memory/Cognition: Intact Psychomotor: Psychomotor activity was normal NEW PROBLEMS ON UNIT SINCE LAST ENCOUNTER: None Current Facility-Administered Medications Medication Dose Route Frequency LORazepam 2 mg (ATIVAN) 2 mg ORAL q 6 H PRN Or LORazepam 2 mg injection (ATIVAN) 2 mg INTRAMUSCULAR q 6 H PRN haloperidol 5 mg tab(s) (HALDOL) 5 mg ORAL q 6 H PRN Or haloperidol lactate 5 mg short-acting injection (HALDOL) 5 mg INTRAMUSCULAR q 6 H PRN traZODone 50 mg tab(s) (DESYREL) 50 mg ORAL AT BEDTIME PRN acetaminophen 650 mg tab(s) (TYLENOL) 650 mg ORAL q 6 H PRN magnesium hydroxide 400 mg/5 mL 30 mL (MOM) 30 mL ORAL DAILY PRN aluminum-magnesium hydroxide-simethicone 200-200-20 mg/5 mL 30 mL 30 mL ORAL q 4 H PRN PARoxetine 10 mg tab(s) (PAXIL) 10 mg ORAL DAILY wDINNER PHENYLephrine-cocoa butter 1 Suppository rectal suppository (PREPARATION H) 1 Suppository RECTAL BID DATA: Diagnostic tests reviewed for today's visit: No new labs Assessment/Plan DIAGNOSIS: PRIMARY: Mood Disorder Major Depressive Disorder, Single Episode, Severe Without Psychotic Symptoms GAF: 30 -30-21 Behavior is considerably influenced by delusions or hallucination or serious impairment in communication or judgment RISK ASSESSMENT: Suicide: moderate Homicide: low Deliberate Self-Harm: low Aggression: low Imminent Physical Self Impairment: low INFORMED CONSENT: PINK SLIP INTERVENTION: Biological: Paxil 10 mg po every day will be increased to 20 mg po every day Psychological: milieu therapy Social: see notes DISCHARGE PLANNING: when stable SIGNATURE: Renato Teran MD PATIENT NAME: Herminia Padilla DATE: February 13, 2023 TIME: 7:15 AM [facility] 02-11-2023 Note HNO ID: [id number] Author: Bertha Francois RN Service: Nursing Author Type: Registered Nurse Type: Plan of Care Filed: 02/11/2023 5:07 PM Note Text: BEHAVIORAL HEALTH INITIAL INPATIENT INTERDISCIPLINARY TREATMENT PLAN DATE INITIATED: 02/11/2023 5:06 PM There are no active hospital problems to display for this patient. Criteria for Discharge: Elimination/reduction of presenting behavior: suicidal, bizarre behavior, aggressive Estimated length of stay: 5 days Interdisciplinary Treatment Plan Date Initiated: 02/11/23 Time Initiated: 170 Patient Participation in Initial Treatment Plan: No Patient unable to participate due to : Mental status Other Participants: N/A Strengths/Assets: Able to read and/ or write Limitations: Not adherent with treatment, Lack of motivation for treatment Individualized problems: Mood disorder, Alteration in thoughts and perception Problem - Discharge Needs Date Initiated: 02/11/23 Time Initiated: 1703 Discharge Needs: Patient/Family will participate in the development of the Discharge Aftercare Plan, Resolve acute symptoms through medication management, Assess for appropriate level of care, Link/relink to community supports, Encourage patient to utilize appropriate coping skills Interventions - Nursing: Obtain baseline level of functioning on admission, Administer medications as indicated and monitor patient for effect daily, Provide education to the patient and/or family about the disease process and management as appropriate daily and as needed, Provide non-judgmental supportive, empathetic and comprehensive trauma informed care daily and as needed, Assess for signs of escalating emotions and help identify ways to appropriately express feelings as needed, Assist with developing positive coping behaviors daily and as needed, Assess for escalating behavior and utilize de-escalation skills as needed Problem - Mood Disorder As evidenced by: Agitation/Aggression, Anxiety, Disorganized Thinking, Restlessness/Pacing Date Initiated: 02/11/23 Time Initiated: 1704 Mood Disorder: Depression Short Term Goals: Patient will report decrease in identified symptoms, Patient will identify alternative coping skills to deal with symptoms, Patient will comply with medication and treatment Target Date Short Term Goals: 02/12/23 Progress Towards Short Term Goals: Not progressing Assistant Professor Of Sociology Goals: Patient will demonstrate optimal level of functioning, Patient/support system will verbalize intent to comply with medication and treatment after discharge, Patient expresses examples of optimism and hope for the future Target Date Assistant Professor Of Sociology Goals: 02/15/23 Progress Towards Mcfp Goals: Not progressing Interventions - Nursing: Obtain baseline level of functioning on admission, Administer medications as indicated and monitor patient for effect daily, Use therapeutic communication skills to develop patient trust and a nurse-patient relationship daily and as needed, Assess for signs of escalating emotions and help identify ways to appropriately express feelings as needed, Assist with developing positive coping behaviors daily and as needed, Encourage independence with daily functioning daily and as needed Problem - Alteration in Thoughts and Perception As evidenced by: Disturbed affect, Agitation, Bizarre behaviors, Paranoia, Appears internally stimulated Date Initiated: 02/11/23 Time Initiated: 1705 Short Term Goals: Decrease symptoms to baseline functioning, Participation in milieu activities, Engage in medication and treatment planning Target Date Short Term Goals: 02/12/23 Progress Towards Short Term Goals: Not progressing Mcfp Goals: Maintain medication adherance, Demonstrate importance of attending outpatient services, Commit to participate in outpatient services, Reduce instances of hospitalization Target Date Mcfp Goals: 02/18/23 Progress Towards Mcfp Goals: Not progressing Interventions - Nursing: Reorient the patient as needed, Encourage patient to focus on reality-based situations as needed, Decrease stimulation as needed, Obtain baseline level of functioning on admission, Provide education to the patient and/or family about the disease process and management as appropriate daily and as needed, Use therapeutic communication skills to develop patient trust and a nurse-patient relationship daily and as needed, Assist with developing positive coping behaviors daily and as needed, Encourage independence with daily functioning daily and as needed, Assist with activities of daily living, utilizing any necessary assistive devices daily and as needed Medical Problems Medical Problems Identified: No Staff in attendance and in agreement with this plan: Nurse: Travis Francois RN This plan was reviewed with patient/family. Attending Psychiatrist: Dr. Arredondo is admitting DOCUMENTED BY: Bertha Francois RN PATIENT NA (more content not included)... [facility] 02-11-2023 Note HNO ID: [id number] Author: Lis Urrutia, DO Service: ? Author Type: Physician Type: Progress Notes Filed: 02/11/2023 11:28 AM Note Text: Subjective Depression Pertinent negatives include no weakness. Pertinent negatives include no fever. Pt is here with her mother to discuss mental health issues She has a history of anxiety and depression She has been on zoloft 100 mg in the past, last Rx was 10/05/22 Her dad has Emery's disease, and she is concerned that she has it She has not been diagnosed yet Mom reports pt only sits on her tablet or phone, does not want to leave her home, has social anxiety disorder Pt does not want to talk, does not want to be here Pt admits to being suicidal ALLERGIES No Known Allergies Current Outpatient Medications Medication Sig Dispense Refill sertraline (ZOLOFT) 100 mg tablet Take 1 tablet by mouth once daily. (Patient not taking: Reported on 02/11/2023) 30 tablet 0 aspirin, enteric coated (ASPIRIN, ENTERIC COATED) 81 mg EC tablet Take 1 tablet by mouth once daily. (Patient not taking: Reported on 02/11/2023) 30 tablet 4 Llioohms-Pw-Uxm-Fe-FA tab Take 1 tablet by mouth once daily. With folic acid and DHA as covered by insurance (Patient not taking: Reported on 02/11/2023) 30 tablet 11 No current facility-administered medications for this visit. ACTIVE PROBLEM LIST History of Depression Family History of [place]'s Disease Marijuana Use Anxiety Mild Episode of Recurrent Major Depressive Disorder (Hcc) Social History Tobacco Use Smoking status: Never Smokeless tobacco: Never Vaping Use Vaping Use: Never used Substance Use Topics Alcohol use: Not Currently Comment: occasionally Drug use: Yes Types: Marijuana Family History Problem Relation Age of Onset Cancer Mother cervical, stomach polyps other (emery's disease) Father No Known Problems Sister No Known Problems Brother Hypertension Maternal Grandmother other (throat cancer) Maternal Grandfather Heart Attack Maternal Grandfather Suicide / Suicidal Behaviors Paternal Grandfather other (huntingtons disease) Paternal Grandfather Diabetes Maternal Uncle Diabetes Maternal Uncle Reviewed past medical history, family history and surgeries. All medications and supplements were reviewed with the patient. Review of Systems Constitutional: Negative for chills, diaphoresis, fever, malaise/fatigue and weight loss. HENT: Negative for ear pain and hearing loss. Eyes: Negative for blurred vision and double vision. Respiratory: Negative for cough and shortness of breath. Cardiovascular: Negative for chest pain, palpitations and leg swelling. Gastrointestinal: Negative for constipation, diarrhea and heartburn. Genitourinary: Negative for dysuria and frequency. Musculoskeletal: Negative for back pain, falls, joint pain and myalgias. Skin: Negative for itching and rash. Neurological: Negative for dizziness, weakness and headaches. Endo/Heme/Allergies: Does not bruise/bleed easily. Psychiatric/Behavioral: Positive for depression and suicidal ideas. Negative for substance abuse. The patient does not have insomnia. Objective BP 120/70 Pulse 94 Temp 36.9 ?C (98.5 ?F) Resp 16 LMP 12/31/2021 SpO2 97% Physical Exam Constitutional: Appearance: Normal appearance. She is obese. HENT: Head: Normocephalic and atraumatic. Nose: Nose normal. Mouth/Throat: Mouth: Mucous membranes are moist. Dentition: Normal dentition. Eyes: General: Lids are normal. Extraocular Movements: Extraocular movements intact. Conjunctiva/sclera: Conjunctivae normal. Pupils: Pupils are equal, round, and reactive to light. Neck: Thyroid: No thyroid mass or thyromegaly. Vascular: No carotid bruit. Trachea: Phonation normal. Cardiovascular: Rate and Rhythm: Normal rate and regular rhythm. Heart sounds: Normal heart sounds. No murmur heard. No friction rub. No gallop. Pulmonary: Effort: Pulmonary effort is normal. Breath sounds: Normal breath sounds. No wheezing or rales. Abdominal: General: Bowel sounds are normal. There is no distension. Palpations: Abdomen is soft. There is no mass. Tenderness: There is no abdominal tenderness. Musculoskeletal: General: No swelling or tenderness. Normal range of motion. Cervical back: Normal range of motion and neck supple. No edema. Lymphadenopathy: Cervical: No cervical adenopathy. Skin: General: Skin is warm and dry. Findings: No erythema or rash. Nails: There is no clubbing. Neurological: Mental Status: She is alert and oriented to person, place, and time. Cranial Nerves: No cranial nerve deficit. Motor: Motor function is intact. Coordination: Coordination normal. Gait: Gait is intact. Psychiatric: Attention and Perception: Attention normal. Mood and Affect: Affect normal. Speech: Speech normal. Behavior: Behavior is cooperative. Cognition and Memory: Cognition and (more content not included)... [facility] 02-11-2023 Miscellaneous Notes BEHAVIORAL HEALTH INTAKE NOTE SERVICE DATE: 02/11/23 SERVICE TIME: 10:57am Nature of the crisis: suicidal threats, aggressive and odd behavior Presenting Problem: Herminia Padilla is a 22 year old female with depression and anxiety brought in to [facility] from Home by family for increasing suicidal threats including to drown self in bathtub, escalating verbal and physical aggression and odd behavior, worsening since the of her son 15 months ago. Patient's mom Sigrid provided collateral to ED Dr Sinha. Pt hasn't been caring for her son. She rips the bottle away when he is feeding. She doesn't allow him to eat. Family members took over her son's care. She is verbally and physically aggressive, breaking things, ripping things up. At times withdrawn and acts like she does not know family members. For the last 2 months family members observe she has been manic and engaging in risky behaviors such as interacting with males online. She is up all night. Family hx of bipolar disorder. Not compliant with zoloft. Family got a trailer for her to live separately d/t her aggressive behavior. Mom, grandma, and older brother take turns watching her around the clock. Mom and grandma are caring for her baby. She has fits of anger when asked to leave the house. She refuses to go anywhere. Family got her out of the house today by lying about where they were going, telling her they would take her to her primary care to see about applying for disability. Uses marijuana, tox pending. No alcohol use. Pt is not a reliable historian. Per mom, Herminia is making increasing suicidal threats, ie to drown self in bathtub. Family takes turns watching her around the clock. On assessment, pt is anxious, pauses a long time after questions, disoriented to time, odd affect, inappropriate giggle. She gives bizarre or superficial answers at times. She is unable to say what month it is. After a long pause, she says my mom does that for me. I don't look at the calendar... it's May... oh I forgot to flip my calendar over. Denies hallucinations, denies paranoia. No homicidal thoughts. Denies hx of violence. Alleges she has been caring for herself and her son with no issues. She doesn't use alcohol I don't like it. She admits to weed once in a blue booker. She states she was always anxious and depressed even in high school. I would walk around... breathing too loud... overthink things... I stay home, usually sleep all day. Stay up all the time watching my kid Nehemias. I get his bottle, then I have trouble going back to sleep. I have a hard time sleeping always. She giggles and says she is shy and doesn't like talking to people. She reports, in contrast to mom, that she takes her zoloft, and she upped her dose to 100 mg. She is unclear whether she increased the dose on her own or someone told her. She has never sought psychiatric care or therapy. On assessment, she denies suicidal thoughts though there is concern she may be answering in such a way to avoid hospitalization. She responds, I wouldn't say that. I just say that because I'm a single parent who wants help. I don't have any help. She later states, the last time I attempted suicide, I didn't have any therapy, any meds, because my mom wouldn't let me... she doesn't believe in it. When I was 17, my step-dad . He was my world. She overdosed at age 17. Denies hx of admission. She anxiously states she needs to go, I want to be home. She was informed this county assessor will further discuss with physicians for plan of care and potential admission. She reluctantly gave permission for this county assessor to speak with mom, why would you need to do that? Ok, I guess. Patient had repeated episodes of agitation r/t not wanting to be hospitalized: yelling, screaming, pacing, crying, threw glasses to floor. Medicated with Haldol, Ativan, Benadryl with good effect. PAST MEDICAL HISTORY: PAST MEDICAL HISTORY Diagnosis Date #[id number] SOCIAL HISTORY: Social History Tobacco Use Smoking status: Never Smokeless tobacco: Never Vaping Use Vaping Use: Never used Substance Use Topics Alcohol use: Not Currently Comment: occasionally Drug use: Yes Types: Marijuana MEDICATIONS: No prescriptions on file. No medication comments found. MEDICATION COMPLIANCE: No ALLERGIES No Known Allergies PAST SURGICAL HISTORY: PAST SURGICAL HISTORY Procedure Laterality Date TONSILLECTOMY HX SOCIOECONOMIC HISTORY: Employer And Job Title: No employer specified (unemployed) Years Of Education Completed: Not specified Marital Status: Single SOCIAL INFORMATION: Living Arrangements: Home Provider Stated Diagnosis: Major depressive disorder, single, severe with psychotic features Does Patient Have Minor Children for Whom He/She is Responsible?: Yes Care Provided When Patient is Unable: Patient's mother and grandmother Education Level: High School Diploma/GED (Had an IEP for learning per pt) Employment Status: Unemployed Is the Patient a : No Stressors: Family, Work Family Issues: 15 mos ; verbally and physically aggressive toward family; stepdajim when pt was age 17; family hx of huntingtons, which pt is concerned she might have Work Issues: doesn't work, stays home all the time per family Legal History: No Legal History How Legal Issues Were Verified: [facility] Computer Systems Manager of Courts Website, [employer] [employer] Sex Offender Website, [facility] Computer Systems Manager [employer] Website, [facility] Computer Systems Manager [employer] Website Gender Specific Sex at Time of : Female Patient Identified Gender: Female Preferred Pronoun: She/Her/Hers Sexual Orientation: Heterosexual Cultural/Rastafarian Concerns Cultural Issues or Concerns That Might Affect Treatment: no Rastafarian/Spiritual Issues or Concerns That Might Affect Treatment: no FAMILY HISTORY: FAMILY HISTORY Problem Relation Age of Onset Cancer Mother cervical, stomach polyps other (emery's disease) Father No Known Problems Sister No Known Problems Brother Hypertension Maternal Grandmother other (throat cancer) Maternal Grandfather Heart Attack Maternal Grandfather Suicide / Suicidal Behaviors Paternal Grandfather other (huntingtons disease) Paternal Grandfather Diabetes Maternal Uncle Diabetes Maternal Uncle OBSERVATIONS Level of Consciousness Alert: Yes Orientation: Person, Place (needed reorientation to time, responded oddly my mom does that for me ) Physical Appearance Appears: Average Speech Rate: Slowed Volume: Soft Quality: Bizarre Thought Processes Thought: Illogical, Poor Historian/Quick Mixer Operator, Difficulty Concentrating Thought Content Delusions: None Observed Hallucinations: Appears Internally Stimulated, Patient Denies Illusions: None Evident Preoccupations: Paranoid (alleges her mom kept her from getting MH treatment at age 17 b/c mom doesn't believe in it, yet mom brought her to the ED today d/t MH concerns) Memory: Intact Remote, Intact Recent Mood & Affect Observed/Reported: Depressed, Anxious Range of Affect: Blunted Sleep: Difficulty Sleeping (pt sleeping during the day, up all night) Appetite: Normal Appetite Energy: Excessive Increase in Energy Anxiety/Trauma: Unable to Control Worry Non-Suicidal Self Injury Non-Suicidal Self Injury: None Suicidal Ideation Suicidal Ideation: Patient Denies Homicidal Ideation Homicidal Ideation: None Non-Lethal Harm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 within a few weeks, but it might take 8 to 10 weeks to get the greatest benefit. If the first treatment you try does not help you, tell your doctor or nurse, but do not give up. Some people need to try different treatments or combinations of treatments before they find an approach that works. Your doctor, nurse, or counselor can work with you to find the treatment that is right for you. He or she can also help you figure out how to cope while you search for the right treatment or are waiting for your treatment to start working. How do I decide which treatment to have? You and your doctor or nurse will need to work together to choose a treatment for you. Medicines might work a little faster than counseling. But medicines can also cause side effects. Plus, some people do not like the idea of taking medicine. On the other hand, seeing a counselor involves talking about your feelings with a stranger. That is hard for some people. Is depression the same for teenagers? No. The symptoms of depression are a little different for teenagers than they are for adults. Some teenagers are phillips or sad a lot of the time. That makes it hard to tell when they are really depressed. Teenagers who are depressed often seem cranky. They get easily annoyed or bothered. They might even pick fights with people. Also, when treating a teenager, doctors and nurses usually suggest trying counseling first, before trying medicine. That's because there is a small chance that depression medicines can cause problems for some teenagers. Even so, some depressed teenagers need medicine. And most experts agree that depression medicine is safe and appropriate to use in teenagers who really need it. What if I take medicine for depression and I want to get ? Some depression medicines can cause problems for unborn babies. But having untreated depression during can also cause problems. If you want to get , tell your doctor but do not stop taking your medicines. The two of you can plan the safest way for you to have your baby. Information obtained from [employer] documented in this encounter [facility] 01-14-2022 History of Presen t illness Narrative This note was created using [employer]. Subjective Herminia Padilla is a 21 year old female here today to establish care and concerns for depression. prevoius PCP Dr Merchant. [facility] depression. I reviewed her past medical, surgical, social, and family histories today and updated chart. Allergies, chronic medications, and supplements were also reviewed and her list is now up to date. Pt reports long history of depression and anxiety. She reports she was never treated for this medically. States her mom did not believe in medication. States she self medicated for years with marijuana. States she does not do marijuana now and reports her symptoms have worsened. Reports she feels her anxiety has been present since high school. Feels her anxiety is worse than her depression. She is 2 months . She reports she feels her depression worsened initially but more recently it has improved. She reports since the of her son her anxiety has worsened. She is not breast feeding. Denies thoughts of suicide or hurting others. She reports she has lots of support at home. Reports her mom and her brother are her biggest support. Reports father of baby is not in the picture. She would like to have medication for this. THE LAST 2 WEEKS, HAVE YOU BEEN BOTHERED BY ANY OF THE FOLLOWING? - Little interest or pleasure in doing things 1 SEVERAL DAYS Feeling down, depressed, or hopeless 2 Trouble falling or staying asleep, or sleeping too much 1 Feeling tired or having little energy 2 Poor appetite or overeating 2 Feeling bad yourself-you are a failure or have let yourself or others 2 Trouble concentrating, like reading the paper or watching TV 0 Moving/speaking slowly (others notice) OR being more fidgety/restless 0 Thoughts that you would be better off or of hurting yourself 0 PHQ TOTAL SCORE = 10 PHQ problems effect on difficulty of work, home, and social activity: 1 - NOT DIFFICULT AT ALL Feeling nervous, anxious, or on edge 2 Over half the days Not being able to stop or control worrying 2 Over half the days Worrying too much about different things 3 Nearly every day Trouble relaxing 1 Several days Being so restless that it's hard to sit still 0 Not at all sure Being easily annoyed or irritable 2 Over half the days Feeling afraid as if something awful might happen 2 Over half the days MEENA-7 Anxiety Score 12 If you checked off any problems, how difficult have these problems made it for you to do your work, take care of things at home, or get along with other people? Very difficult ALLERGIES No Known Allergies Current Outpatient Medications Medication Sig Dispense Refill [id number] tab Take 1 tablet by mouth once daily. With folic acid and DHA as covered by insurance 30 tablet 11 aspirin, enteric coated (ASPIRIN, ENTERIC COATED) 81 mg EC tablet Take 1 tablet by mouth once daily. 30 tablet 4 No current facility-administered medications for this visit. ACTIVE PROBLEM LIST History of Depression Family History of [place]'s Disease Marijuana Use PAST MEDICAL HISTORY Diagnosis Date #[id number] PAST SURGICAL HISTORY Procedure Laterality Date TONSILLECTOMY HX Social History Tobacco Use Smoking status: Never Smoker Smokeless tobacco: Never Used Vaping Use Vaping Use: Never used Substance Use Topics Alcohol use: Not Currently Comment: occasionally Drug use: Not Currently Family History Problem Relation Age of Onset Cancer Mother cervical, stomach polyps other (emery's disease) Father No Known Problems Sister No Known Problems Brother Hypertension Maternal Grandmother other (throat cancer) Maternal Grandfather Heart Attack Maternal Grandfather Suicide / Suicidal Behaviors Paternal Grandfather other (huntingtons disease) Paternal Grandfather Diabetes Maternal Uncle Diabetes Maternal Uncle Review of Systems Constitutional: Negative for activity change, appetite change, chills, diaphoresis, fatigue, fever and unexpected weight change. Respiratory: Negative for cough, shortness of breath and wheezing. Cardiovascular: Negative for chest pain, palpitations and leg swelling. Gastrointestinal: Negative for abdominal pain, diarrhea, nausea and vomiting. Neurological: Negative for dizziness and headaches. Psychiatric/Behavioral: Positive for dysphoric mood. Negative for agitation, behavioral problems, decreased concentration, self-injury, sleep disturbance and suicidal ideas. The patient is nervous/anxious. Objective BP 110/70 (BP Site: Left Arm, BP Position: Sitting, BP Cuff Size: Large Adult) Pulse (!) 59 Temp 36.8 C (98.2 F) (Oral) Resp 18 Ht 160 cm (5' 3 ) Wt 93.9 kg (207 lb) LMP 12/31/2021 SpO2 99% BMI 36.67 kg/m Physical Exam Vitals and nursing note reviewed. Constitutional: General: She is not in acute distress. Appearance: Normal appearance. She is obese. She is not ill-appearing. HENT: Head: Normocephalic and atraumatic. Cardiovascular: Rate and Rhythm: Normal rate and regular rhythm. Pulses: Normal pulses. Heart sounds: Normal heart sounds, S1 normal and S2 normal. Pulmonary: Effort: Pulmonary effort is normal. No respiratory distress. Breath sounds: Normal breath sounds. No wheezing, rhonchi or rales. Musculoskeletal: Right lower leg: No edema. Left lower leg: No edema. Skin: General: Skin is warm and dry. Neurological: Mental Status: She is alert and oriented to person, place, and time. Psychiatric: Attention and Perception: Attention and perception normal. Mood and Affect: Mood and affect normal. Speech: Speech normal. Behavior: Behavior normal. Behavior is cooperative. Thought Content: Thought content normal. Cognition and Memory: Cognition and memory normal. Judgment: Judgment normal. Comments: Pleasant ASSESSMENT/PLAN: 1. Mild episode of recurrent major depressive disorder (HCC) - ICD9: 296.31, ICD10: F33.0 (primary diagnosis) - chronic, not controlled. PHQ-9 10 indicating moderate depression. She has had depression for years. Never treated. She does not have suicidal thoughts. She is agreeable to start medication. - start zoloft 1/2 tablet x 1 wk then increase to whole tab once daily. - SERTRALINE 50 MG TABLET - call if symptoms persist or worsen or thoughts of suicide 2. Anxiety - ICD9: 300.00, ICD10: F41.9 - chronic, MEENA-7 score 12 indicating moderate anxiety. Start zoloft as above. - SERTRALINE 50 MG TABLET - call if persists or worsens Fiordaliza hZao APRN.HYPERBARIC TECHNICIAN documented in this encounter [facility] 01-01-2022 History of Presen t illness Narrative VISIT Herminia Padilla is a 21 year old year old here for visit. Delivery Summary: [facility]20/[facility] at [facility] ROS/ Recovery: Feeding: Bottle feeding problems: None Menses since delivery: light flow Menstrual pattern prior to : Regular periods [place] since delivery: Not resumed Depression: admits to symptoms of depression. Some mild baby blues, no thoughts of self harm or harm to baby OB Depression and Anxiety Screening- This Encounter (since 12/31/2021) None Emotional support: Yes Bowel symptoms: Negative for abdominal discomfort, blood in stools or black stools Abdomen: N/A Bladder symptoms: No dysuria, gross hematuria, urinary frequency, urinary urgency, or incontinence Other issues: None, vaginal odor Last Pap: never PAST MEDICAL HISTORY Diagnosis Date #[id number] PAST SURGICAL HISTORY Procedure Laterality Date TONSILLECTOMY HX FAMILY HISTORY Problem Relation Age of Onset Cancer Mother cervical, stomach polyps other (emery's disease) Father No Known Problems Sister No Known Problems Brother Hypertension Maternal Grandmother other (throat cancer) Maternal Grandfather Heart Attack Maternal Grandfather Suicide / Suicidal Behaviors Paternal Grandfather other (huntingtons disease) Paternal Grandfather Diabetes Maternal Uncle Diabetes Maternal Uncle Social History Tobacco Use Smoking status: Never Smoker Smokeless tobacco: Never Used Vaping Use Vaping Use: Never used Substance Use Topics Alcohol use: Not Currently Comment: occasionally Drug use: Never PHYSICAL EXAMINATION: There were no vitals taken for this visit. GENERAL: pleasant, female in no apparent distress HEENT: Normocephalic, atraumatic, mucus membranes moist and no lesions NECK: Supple, full range of motion, no adenopathy and thyroid normal DERMATOLOGY: Normal, without lesions, non-icteric and non-hirsute BREAST: soft, non-tender, symmetric, no dominant mass, normal nipple-areolar complex, no lymphadenopathy and no nipple discharge CHEST: Normal inspiratory effort ABDOMEN: soft, non-tender and no masses. INCISION: N/A PELVIC: external genitalia normal, normal Bartholin's glands, urethra, [place]'s glands, no vulvar lesions, no cervical lesions, good vaginal support, physiologic discharge present, normal appearing perineal body and perianal region BIMANUAL: uterus normal size, shape and consistency, no adnexal masses and non-tender NEURO: alert and oriented x3,exam grossly non-focal EXTREMITIES: normal ASSESSMENT AND PLAN: 21 year old status post with normal course. Contraception plan: none Follow up: RTC for annual exams and PRN Shante Campos APRN.CNP documented in this encounter [facility] documented as of this encounter (statuses as of 01/01/2022) [facility]12-13-2021 History of Past illness Narrative* Problem Noted Date Resolved Date Abnormal glucose complicating 08/25/20 21 01/01/2022 Overview: 08/25/21 1 hr GTT elevated. 1/3 elevated on 3 hr GTT. SW Unplanned 03/27/2021 01/01/2022 Overview: 03/27/2021Father of the baby is aware that she is but does not want to be involved. He wants to go to college and get on with his life. . He desires a paternity test at . Patient plans on keeping the baby. Patient lives with grandmother and she and her mother plan on helping her with the baby. I have given patient information on WIC, help me grow program and the care center.TKRN Nausea and vomiting in 03/27/2021 05/30/2021 Overview: 03/27/2021atient is complaining of nausea and occasional vomiting in . Dietary considerations discussed . Vitamin B6 recommended. Advised patient to call/come in if she is unable to keep any food or fluids down in a 24-hour periodTKRN Patient request for diagnostic testing 05/30/2021 Overview: 03/27/2021atient desires nuchal ultrasound.Skylar Lauren RN documented as of this encounter (statuses as of 01/14/2022) [facility]12-[facility] History of Past illness Narrative* Problem Noted Date Resolved Date Abnormal glucose complicating 08/25/2001/01/2022 Overview: 08/25/21 1 hr GTT elevated. 1/3 elevated on 3 hr GTT. SW Unplanned 03/27/2021 01/01/2022 Overview: 03/27/2021Father of the baby is aware that she is but does not want to be involved. He wants to go to college and get on with his life. . He desires a paternity test at . Patient plans on keeping the baby. Patient lives with grandmother and she and her mother plan on helping her with the baby. I have given patient information on WIC, help me grow program and the care center.TKRN Nausea and vomiting in 03/27/2021 05/30/2021 Overview: 03/27/2021atient is complaining of nausea and occasional vomiting in . Dietary considerations discussed . Vitamin B6 recommended. Advised patient to call/come in if she is unable to keep any food or fluids down in a 24-hour periodTKRN Patient request for diagnostic testing 05/30/2021 Overview: 03/27/2021atient desires nuchal ultrasound.Skylar Lauren RN documented as of this encounter (statuses as of 01/16/2022) [facility] History of Past illness Narrative* Problem Noted Date Resolved Date Abnormal glucose complicating 08/25/2001/01/2022 Overview: 08/25/21 1 hr GTT elevated. 1/3 elevated on 3 hr GTT. SW Unplanned 03/27/2021 01/01/2022 Overview: 03/27/2021Father of the baby is aware that she is but does not want to be involved. He wants to go to college and get on with his life. . He desires a paternity test at . Patient plans on keeping the baby. Patient lives with grandmother and she and her mother plan on helping her with the baby. I have given patient information on WIC, help me grow program and the care center.TKRN Nausea and vomiting in 03/27/2021 05/30/2021 Overview: 03/27/2021atient is complaining of nausea and occasional vomiting in . Dietary considerations discussed . Vitamin B6 recommended. Advised patient to call/come in if she is unable to keep any food or fluids down in a 24-hour periodTKRN Patient request for diagnostic testing 1 05/30/2021 Overview: 03/27/2021atient desires nuchal ultrasound.Skylar Lauren RN documented as of this encounter (statuses as of 02/18/2022) [facility] History of Past illness Narrative* Problem Noted Date Resolved Date Abnormal glucose complicating 08/25/2001/01/2022 Overview: 08/25/21 1 hr GTT elevated. 1/3 elevated on 3 hr GTT. SW Unplanned 03/27/2021 01/01/2022 Overview: 03/27/2021Father of the baby is aware that she is but does not want to be involved. He wants to go to college and get on with his life. . He desires a paternity test at . Patient plans on keeping the baby. Patient lives with grandmother and she and her mother plan on helping her with the baby. I have given patient information on WIC, help me grow program and the care center.TKRN Nausea and vomiting in 03/27/2021 05/30/2021 Overview: 03/27/2021atient is complaining of nausea and occasional vomiting in . Dietary considerations discussed . Vitamin B6 recommended. Advised patient to call/come in if she is unable to keep any food or fluids down in a 24-hour periodTKRN Patient request for diagnostic testing 05/30/2021 Overview: 03/27/2021atient desires nuchal ultrasound.Skylar Lauren RN documented as of this encounter (statuses as of 04/01/2022) [facility] History of Past illness Narrative* Problem Noted Date Resolved Date Abnormal glucose complicating 08/25/2001/01/2022 Overview: 08/25/21 1 hr GTT elevated. 1/3 elevated on 3 hr GTT. SW Unplanned 03/27/2021 01/01/2022 Overview: 03/27/2021Father of the baby is aware that she is but does not want to be involved. He wants to go to college and get on with his life. . He desires a paternity test at . Patient plans on keeping the baby. Patient lives with grandmother and she and her mother plan on helping her with the baby. I have given patient information on WIC, help me grow program and the care center.TKRN Nausea and vomiting in 03/27/2021 05/30/2021 Overview: 03/27/2021atient is complaining of nausea and occasional vomiting in . Dietary considerations discussed . Vitamin B6 recommended. Advised patient to call/come in if she is unable to keep any food or fluids down in a 24-hour periodTKRN Patient request for diagnostic testing 05/30/2021 Overview: 03/27/2021atient desires nuchal ultrasound.Skylar Lauren RN documented as of this encounter (statuses as of 04/01/2022) [facility] History of Past illness Narrative* Problem Noted Date Resolved Date Abnormal glucose complicating 08/25/2001/01/2022 Overview: 08/25/21 1 hr GTT elevated. 09/15 elevated on 3 hr GTT. SW Unplanned 03/27/2021 01/01/2022 Overview: 03/27/2021Father of the baby is aware that she is but does not want to be involved. He wants to go to college and get on with his life. . He desires a paternity test at . Patient plans on keeping the baby. Patient lives with grandmother and she and her mother plan on helping her with the baby. I have given patient information on WIC, help me grow program and the care center.TKRN Nausea and vomiting in 03/27/2021 05/30/2021 Overview: 03/27/2021atient is complaining of nausea and occasional vomiting in . Dietary considerations discussed . Vitamin B6 recommended. Advised patient to call/come in if she is unable to keep any food or fluids down in a 24-hour periodTKRN Patient request for diagnostic testing 05/30/2021 Overview: 03/27/2021atient desires nuchal ultrasound.Skylar Lauren RN documented as of this encounter (statuses as of 10/05/2022) [facility] History of Past illness Narrative* Problem Noted Date Resolved Date Abnormal glucose complicating 08/25/2001/01/2022 Overview: 08/25/21 1 hr GTT elevated. 1/3 elevated on 3 hr GTT. SW Unplanned 03/27/2021 01/01/2022 Overview: 03/27/2021Father of the baby is aware that she is but does not want to be involved. He wants to go to college and get on with his life. . He desires a paternity test at . Patient plans on keeping the baby. Patient lives with grandmother and she and her mother plan on helping her with the baby. I have given patient information on WIC, help me grow program and the care center.TKRN Nausea and vomiting in 03/27/2021 05/30/2021 Overview: 03/27/2021atient is complaining of nausea and occasional vomiting in . Dietary considerations discussed . Vitamin B6 recommended. Advised patient to call/come in if she is unable to keep any food or fluids down in a 24-hour periodTKRN Patient request for diagnostic testing 05/30/2021 Overview: 03/27/2021atient desires nuchal ultrasound.Skylar Lauren RN documented as of this encounter (statuses as of 02/11/2023) [facility] History of Past illness Narrative* Problem Noted Date Resolved Date Abnormal glucose complicating 08/25/2001/01/2022 Overview: 08/25/21 1 hr GTT elevated. 1/3 elevated on 3 hr GTT. SW Unplanned 03/27/2021 01/01/2022 Overview: 03/27/2021Father of the baby is aware that she is but does not want to be involved. He wants to go to college and get on with his life. . He desires a paternity test at . Patient plans on keeping the baby. Patient lives with grandmother and she and her mother plan on helping her with the baby. I have given patient information on WIC, help me grow program and the care center.TKRN Nausea and vomiting in 03/27/2021 05/30/2021 Overview: 03/27/2021atient is complaining of nausea and occasional vomiting in . Dietary considerations discussed . Vitamin B6 recommended. Advised patient to call/come in if she is unable to keep any food or fluids down in a 24-hour periodTKRN Patient request for diagnostic testing 05/30/2021 Overview: 03/27/2021atient desires nuchal ultrasound.Skylar Lauren RN documented as of this encounter (statuses as of 02/11/2023) [facility]12-13-2021 History of Past illness Narrative* Problem Noted Date Resolved Date Abnormal glucose complicating 08/25/2001/01/2022 Overview: 08/25/21 1 hr GTT elevated. 1/3 elevated on 3 hr GTT. SW Unplanned 03/27/2021 01/01/2022 Overview: 03/27/2021Father of the baby is aware that she is but does not want to be involved. He wants to go to college and get on with his life. . He desires a paternity test at . Patient plans on keeping the baby. Patient lives with grandmother and she and her mother plan on helping her with the baby. I have given patient information on [facility]IC, [facility] me grow program and the care center.TKRN Nausea and vomiting in 03/27/2021 05/30/2021 Overview: 03/27/2021atient is complaining of nausea and occasional vomiting in . Dietary considerations discussed . Vitamin B6 recommended. Advised patient to call/come in if she is unable to keep any food or fluids down in a 24-hour periodTKRN Patient request for diagnostic testing 05/30/2021 Overview: 03/27/2021atient desires nuchal ultrasound.Skylar Lauren RN documented as of this encounter (statuses as of 02/17/2023) [facility] History of Past illness Narrative* Problem Noted Date Resolved Date Abnormal glucose complicating 08/25/2001/01/2022 Overview: 08/25/21 1 hr GTT elevated. / elevated on 3 hr GTT. SW Unplanned 03/27/2021 01/01/2022 Overview: 03/27/2021Father of the baby is aware that she is but does not want to be involved. He wants to go to college and get on with his life. . He desires a paternity test at . Patient plans on keeping the baby. Patient lives with grandmother and she and her mother plan on helping her with the baby. I have given patient information on WIC, help me grow program and the care center.TKRN Nausea and vomiting in 03/27/2021 05/30/2021 Overview: 03/27/2021atient is complaining of nausea and occasional vomiting in . Dietary considerations discussed . Vitamin B6 recommended. Advised patient to call/come in if she is unable to keep any food or fluids down in a 24-hour periodTKRN Patient request for diagnostic testing 1 05/30/2021 Overview: 03/27/2021atient desires nuchal ultrasound.Skylar Lauren RN documented as of this encounter (statuses as of 02/24/2023) [facility] History of Past illness Narrative* Problem Noted Date Resolved Date Abnormal glucose complicating 12/13/20 21 01/01/2022 Overview: 08/25/21 1 hr GTT elevated. 1/3 elevated on 3 hr GTT. SW Unplanned 03/27/2021 01/01/2022 Overview: 03/27/2021Father of the baby is aware that she is but does not want to be involved. He wants to go to college and get on with his life. . He desires a paternity test at . Patient plans on keeping the baby. Patient lives with grandmother and she and her mother plan on helping her with the baby. I have given patient information on WIC, help me grow program and the care center.[facility]KRN Nausea and vomiting in 03/27/2021 05/30/2021 Overview: 03/27/2021atient is complaining of nausea and occasional vomiting in . Dietary considerations discussed . Vitamin B6 recommended. Advised patient to call/come in if she is unable to keep any food or fluids down in a 24-hour periodTKRN Patient request for diagnostic testing 05/30/2021 Overview: 03/27/2021atient desires nuchal ultrasound.Skylar Lauren RN documented as of this encounter (statuses as of 02/26/2023) [facility] History of Past illness Narrative* Problem Noted Date Diagnosed Date Resolved Date Abnormal glucose complicating 08/25/2021 01/01/2022 Overview: 08/25/21 1 hr GTT elevated. 1/3 elevated on 3 hr GTT. SW Unplanned 03/27/2021 01/02/20 22 Overview: 03/27/2021Father of the baby is aware that she is but does not want to be involved. He wants to go to college and get on with his life. . He desires a paternity test at . Patient plans on keeping the baby. Patient lives with grandmother and she and her mother plan on helping her with the baby. I have given patient information on WIC, help me grow program and the care center.TKRN Nausea and vomiting in 03/27/2021 05/30/2021 Overview: 03/27/2021atient is complaining of nausea and occasional vomiting in . Dietary considerations discussed . Vitamin B6 recommended. Advised patient to call/come in if she is unable to keep any food or fluids down in a 24-hour periodTKRN Patient request for diagnostic testing 03/27/2021 05/30/2021 Overview: 03/27/2021atient desires nuchal ultrasound.Skylar Lauren RN documented as of this encounter (statuses as of 03/24/2023) [facility] History of Past illness Narrative* Problem Noted Date Diagnosed Date Resolved Date Abnormal glucose complicating 08/25/2021 01/01/2022 Overview: 08/25/21 1 hr GTT elevated. 1/3 elevated on 3 hr GTT. SW Unplanned 03/27/2021 01/02/20 22 Overview: 03/27/2021Father of the baby is aware that she is but does not want to be involved. He wants to go to college and get on with his life. . He desires a paternity test at . Patient plans on keeping the baby. Patient lives with grandmother and she and her mother plan on helping her with the baby. I have given patient information on WIC, help me grow program and the care center.TKRN Nausea and vomiting in 03/27/2021 05/30/2021 Overview: 03/27/2021atient is complaining of nausea and occasional vomiting in . Dietary considerations discussed . Vitamin B6 recommended. Advised patient to call/come in if she is unable to keep any food or fluids down in a 24-hour periodTKRN Patient request for diagnostic testing 03/27/2021 05/30/2021 Overview: 03/27/2021atient desires nuchal ultrasound.Skylar Lauren RN documented as of this encounter (statuses as of 03/26/2023) [facility] History of Past illness Narrative* Problem Noted Date Diagnosed Date Resolved Date Abnormal glucose complicating 08/25/2021 01/01/2022 Overview: 08/25/21 1 hr GTT elevated. 1/3 elevated on 3 hr GTT. SW Unplanned 03/27/2021 01/02/20 22 Overview: 03/27/2021Father of the baby is aware that she is but does not want to be involved. He wants to go to college and get on with his life. . He desires a paternity test at . Patient plans on keeping the baby. Patient lives with grandmother and she and her mother plan on helping her with the baby. I have given patient information on WIC, help me grow program and the care center.TKRN Nausea and vomiting in 03/27/2021 05/30/2021 Overview: 03/27/2021atient is complaining of nausea and occasional vomiting in . Dietary considerations discussed . Vitamin B6 recommended. Advised patient to call/come in if she is unable to keep any food or fluids down in a 24-hour periodTKRN Patient request for diagnostic testing 03/27/2021 05/30/2021 Overview: 03/27/2021atient desires nuchal ultrasound.Skylar Lauren RN documented as of this encounter (statuses as of 03/27/2023) [facility] History of Past illness Narrative* Problem Noted Date Diagnosed Date Resolved Date Abnormal glucose complicating 08/25/2021 01/01/2022 Overview: 08/25/21 1 hr GTT elevated. 1/3 elevated on 3 hr GTT. SW Unplanned 03/27/2021 01/02/20 22 Overview: 03/27/2021Father of the baby is aware that she is but does not want to be involved. He wants to go to college and get on with his life. . He desires a paternity test at . Patient plans on keeping the baby. Patient lives with grandmother and she and her mother plan on helping her with the baby. I have given patient information on WIC, help me grow program and the care center.TKRN Nausea and vomiting in 03/27/2021 05/30/2021 Overview: 03/27/2021atient is complaining of nausea and occasional vomiting in . Dietary considerations discussed . Vitamin B6 recommended. Advised patient to call/come in if she is unable to keep any food or fluids down in a 24-hour periodTKRN Patient request for diagnostic testing 03/27/2021 05/30/2021 Overview: 03/27/2021atient desires nuchal ultrasound.Skylar Lauren RN documented as of this encounter (statuses as of 04/01/2023) [facility] History of Past illness Narrative* Problem Noted Date Diagnosed Date Resolved Date Abnormal glucose complicating 08/25/2021 01/01/2022 Overview: 08/25/21 1 hr GTT elevated. 1/3 elevated on 3 hr GTT. SW Unplanned 03/27/2021 01/02/20 22 Overview: 03/27/2021Father of the baby is aware that she is but does not want to be involved. He wants to go to college and get on with his life. . He desires a paternity test at . Patient plans on keeping the baby. Patient lives with grandmother and she and her mother plan on helping her with the baby. I have given patient information on WIC, help me grow program and the care center.TKRN Nausea and vomiting in 03/27/2021 05/30/2021 Overview: 03/27/2021atient is complaining of nausea and occasional vomiting in . Dietary considerations discussed . Vitamin B6 recommended. Advised patient to call/come in if she is unable to keep any food or fluids down in a 24-hour periodTKRN Patient request for diagnostic testing 03/27/2021 05/30/2021 Overview: 03/27/2021atient desires nuchal ultrasound.Skylar Lauren RN documented as of this encounter (statuses as of 04/02/2023) [facility] History of Past illness Narrative* Problem Noted Date Diagnosed Date Resolved Date Abnormal glucose complicating 08/25/2021 01/01/2022 Overview: 08/25/21 1 hr GTT elevated. 1/3 elevated on 3 hr GTT. SW Unplanned 03/27/2021 01/02/20 Overview: 03/27/2021Father of the baby is aware that she is but does not want to be involved. He wants to go to college and get on with his life. . He desires a paternity test at . Patient plans on keeping the baby. Patient lives with grandmother and she and her mother plan on helping her with the baby. I have given patient information on WIC, help me grow program and the care center.TKRN Nausea and vomiting in 03/27/2021 05/30/2021 Overview: 03/27/2021atient is complaining of nausea and occasional vomiting in . Dietary considerations discussed . Vitamin B6 recommended. Advised patient to call/come in if she is unable to keep any food or fluids down in a 24-hour periodTKRN Patient request for diagnostic testing 03/27/2021 05/30/2021 Overview: 03/27/2021atient desires nuchal ultrasound.Skylar Lauren RN documented as of this encounter (statuses as of 04/08/2023) [facility] History of Past illness Narrative* Problem Noted Date Diagnosed Date Resolved Date Abnormal glucose complicating 08/25/2021 01/01/2022 Overview: 08/25/21 1 hr GTT elevated. 1/3 elevated on 3 hr GTT. SW Unplanned 03/27/2021 01/02/20 22 Overview: 03/27/2021Father of the baby is aware that she is but does not want to be involved. He wants to go to college and get on with his life. . He desires a paternity test at . Patient plans on keeping the baby. Patient lives with grandmother and she and her mother plan on helping her with the baby. I have given patient information on WIC, help me grow program and the care center.TKRN Nausea and vomiting in 03/27/2021 05/30/2021 Overview: 03/27/2021atient is complaining of nausea and occasional vomiting in . Dietary considerations discussed . Vitamin B6 recommended. Advised patient to call/come in if she is unable to keep any food or fluids down in a 24-hour periodTKRN Patient request for diagnostic testing 03/27/2021 05/30/2021 Overview: 03/27/2021atient desires nuchal ultrasound.Skylar Lauren RN documented as of this encounter (statuses as of 05/25/2023) [facility]12[facility] History of Past illness Narrative* Problem Noted Date Diagnosed Date Resolved Date Abnormal glucose complicating 08/25/2021 01/01/2022 Overview: 08/25/21 1 hr GTT elevated. 1/3 elevated on 3 hr GTT. SW Unplanned 03/27/2021 01/02/20 22 Overview: 03/27/2021Father of the baby is aware that she is but does not want to be involved. He wants to go to college and get on with his life. . He desires a paternity test at . Patient plans on keeping the baby. Patient lives with grandmother and she and her mother plan on helping her with the baby. I have given patient information on WIC, help me grow program and the care center.TKRN Nausea and vomiting in 03/27/2021 05/30/2021 Overview: 03/27/2021atient is complaining of nausea and occasional vomiting in . Dietary considerations discussed . Vitamin B6 recommended. Advised patient to call/come in if she is unable to keep any food or fluids down in a 24-hour periodTKRN Patient request for diagnostic testing 03/27/2021 05/30/2021 Overview: 03/27/2021atient desires nuchal ultrasound.Skylar Lauren RN documented as of this encounter (statuses as of 06/01/2023) [facility] History of Past illness Narrative* Problem Noted Date Diagnosed Date Resolved Date Abnormal glucose complicating 08/25/2021 01/01/2022 Overview: 08/25/21 1 hr GTT elevated. 1/3 elevated on 3 hr GTT. SW Unplanned 03/27/2021 01/02/20 Overview: 03/27/2021Father of the baby is aware that she is but does not want to be involved. He wants to go to college and get on with his life. . He desires a paternity test at . Patient plans on keeping the baby. Patient lives with grandmother and she and her mother plan on helping her with the baby. I have given patient information on WIC, help me grow program and the care center.TKRN Nausea and vomiting in 03/27/2021 05/30/2021 Overview: 03/27/2021atient is complaining of nausea and occasional vomiting in . Dietary considerations discussed . Vitamin B6 recommended. Advised patient to call/come in if she is unable to keep any food or fluids down in a 24-hour periodTKRN Patient request for diagnostic testing 03/27/2021 05/30/2021 Overview: 03/27/2021atient desires nuchal ultrasound.Skylar Lauren RN documented as of this encounter (statuses as of 06/23/2023) [facility] Diagnosis care and examination- Primary Routine follow-up Vaginal odor Unspecified symptom associated with female genital organs documented in this encounter [facility] note* Diagnosis Mild episode of recurrent major depressive disorder (HCC)- Primary Anxiety Anxiety state, unspecified documented in this encounter [facility] note* Diagnosis Mild episode of recurrent major depressive disorder (HCC)- Primary Anxiety Anxiety state, unspecified documented in this encounter [facility] note* Diagnosis Mild episode of recurrent major depressive disorder (HCC) Anxiety Anxiety state, unspecified documented in this encounter [facility] note* Diagnosis Suicidal ideation- Primary documented in this encounter [facility] note* Diagnosis Major depressive disorder, single episode, severe with psychotic features (HCC)- Primary Major depressive disorder, single episode, severe, specified as with psychotic behavior [facility] Diagnosis 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 Emery's disease- Primary 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 other neurological diseases Anxiety Anxiety state, unspecified Mild episode of recurrent major depressive disorder (HCC) documented in this encounter [facility] note* Diagnosis 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 [place]'s chorea- Primary 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 other neurological diseases documented in this encounter [facility] note* Diagnosis MDD (major depressive disorder), recurrent episode, moderate (HCC)- Primary Major depressive disorder, recurrent episode, moderate Anxiety Anxiety state, unspecified 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 [place]'s disease 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 other neurological diseases documented in this encounter [facility] Health Concerns Infection Onset Date Last Indicated Resolved Time COVID-19 Rule-Out 02/11/2023 02/11/2023 02/11/2023 12:03 PM EDT Summary Purpose Family History No Family History Records FoundNo Family History Records FoundNo Family History Records FoundNo Family History Records Found Advance Directives No Advanced Directives Records FoundNo Advanced Directives Records FoundNo Advanced Directives Records FoundNo Advanced Directives Records Found Reason for Referral Specialty Diagnoses / Procedures Referred By Contac t Referred To Contact Diagnoses 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 Emery's disease Procedures CONSULT TO MEDICAL GENETICS - GENERAL OFFICE/OUTPATIENT [facility] 60-74 MINUTES MEDICAL GENETICS COUNSELING EACH 30 [place] [address] [place] [address] [employer] [address] [address] Referral ID Status Reason Start Date Expiration Date Visits Requested Visits Authorized [id number] Authorized PCP Requested Referral Auto-Generate d Referral 03/26/2023 03/25/2024 1 1 Additional Source Comments Source Comments (unrecognize d section and content) In the event this informatio n is protected by the Federal Confidentiality of Alcohol and Drug Abuse Patient Records regulations: The Federal rules restrict any use of the information to criminally investigate or prosecute any alcohol or drug abuse patient.[facility] the event this information is protected by the Federal Confidentiality of Alcohol and Drug Abuse Patient Records regulations: The Federal rules restrict any use of the information to criminally investigate or prosecute any alcohol or drug abuse patient.[facility] the event this information is protected by the Federal Confidentiality of Alcohol and Drug Abuse Patient Records regulations: The Federal rules restrict any use of the information to criminally investigate or prosecute any alcohol or drug abuse patient.[facility] the event this information is protected by the Federal Confidentiality of Alcohol and Drug Abuse Patient Records regulations: The Federal rules restrict any use of the information to criminally investigate or prosecute any alcohol or drug abuse patient.[facility] the event this information is protected by the Federal Confidentiality of Alcohol and Drug Abuse Patient Records regulations: The Federal rules restrict any use of the information to criminally investigate or prosecute any alcohol or drug abuse patient.[facility] the event this information is protected by the Federal Confidentiality of Alcohol and Drug Abuse Patient Records regulations: The Federal rules restrict any use of the information to criminally investigate or prosecute any alcohol or drug abuse patient.[facility] the event this information is protected by the Federal Confidentiality of Alcohol and Drug Abuse Patient Records regulations: The Federal rules restrict any use of the information to criminally investigate or prosecute any alcohol or drug abuse patient.[facility] the event this information is protected by the Federal Confidentiality of Alcohol and Drug Abuse Patient Records regulations: The Federal rules restrict any use of the information to criminally investigate or prosecute any alcohol or drug abuse patient.[facility] the event this information is protected by the Federal Confidentiality of Alcohol and Drug Abuse Patient Records regulations: The Federal rules restrict any use of the information to criminally investigate or prosecute any alcohol or drug abuse patient.[facility] the event this information is protected by the Federal Confidentiality of Alcohol and Drug Abuse Patient Records regulations: The Federal rules restrict any use of the information to criminally investigate or prosecute any alcohol or drug abuse patient.[facility] the event this information is protected by the Federal Confidentiality of Alcohol and Drug Abuse Patient Records regulations: The Federal rules restrict any use of the information to criminally investigate or prosecute any alcohol or drug abuse patient.[facility] the event this information is protected by the Federal Confidentiality of Alcohol and Drug Abuse Patient Records regulations: The Federal rules restrict any use of the information to criminally investigate or prosecute any alcohol or drug abuse patient.[facility] the event this information is protected by the Federal Confidentiality of Alcohol and Drug Abuse Patient Records regulations: The Federal rules restrict any use of the information to criminally investigate or prosecute any alcohol or drug abuse patient.[facility] the event this information is protected by the Federal Confidentiality of Alcohol and Drug Abuse Patient Records regulations: The Federal rules restrict any use of the information to criminally investigate or prosecute any alcohol or drug abuse patient.[facility] the event this information is protected by the Federal Confidentiality of Alcohol and Drug Abuse Patient Records regulations: The Federal rules restrict any use of the information to criminally investigate or prosecute any alcohol or drug abuse patient.[facility] the event this information is protected by the Federal Confidentiality of Alcohol and Drug Abuse Patient Records regulations: The Federal rules restrict any use of the information to criminally investigate or prosecute any alcohol or drug abuse patient.[facility] the event this information is protected by the Federal Confidentiality of Alcohol and Drug Abuse Patient Records regulations: The Federal rules restrict any use of the information to criminally investigate or prosecute any alcohol or drug abuse patient.[facility] the event this information is protected by the Federal Confidentiality of Alcohol and Drug Abuse Patient Records regulations: The Federal rules restrict any use of the information to criminally investigate or prosecute any alcohol or drug abuse patient.[facility] the event this information is protected by the Federal Confidentiality of Alcohol and Drug Abuse Patient Records regulations: The Federal rules restrict any use of the information to criminally investigate or prosecute any alcohol or drug abuse patient.[facility] the event this information is protected by the Federal Confidentiality of Alcohol and Drug Abuse Patient Records regulations: The Federal rules restrict any use of the information to criminally investigate or prosecute any alcohol or drug abuse patient.[facility] the event this information is protected by the Federal Confidentiality of Alcohol and Drug Abuse Patient Records regulations: The Federal rules restrict any use of the information to criminally investigate or prosecute any alcohol or drug abuse patient.[facility] Reason for Visit (unrecogniz ed section and content) Reason Comments Patient Update Reason Comments Patient Update Appointment Reason Comments No Show 1st no show Reason Onset Date Comments Refill Request 10/04/2022 Reason Comments Depression Follow up does not t hink medication is helping and family feels it is getting worse Reason Onset Date Comments Psychiatric Problem 02/11/2023 Reason Onset Date Comments Transition Of Care 02/16/2023 D/C from [facility] 02/15/23 Reason Comments Patient Question Reason Comments [facility] Put referral for Saulo rology on [facility] 03/10/23 Reason Comments New Patient Evaluation Specialty Diagnoses / Procedures Referred By Fernando t Referred To Contact Neurology Diagnoses Anxiety 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 Emery's disease Mild episode of recurrent major depressive disorder (HCC) Procedures CONSULT TO NEUROLOGY OFFICE/OUTPATIENT NEW HIGH MDM 60-74 MINUTES Fiordaliza Zhao, PRO SHOP ATTENDANT.HYPERBARIC TECHNICIAN [address] [place] [address] [address] Referral ID Status Reason Start Date Expiration Date V isits Requested Visits Authorized [id number] Closed PCP Requested Referral 03/10/2023 03/09/2024 1 1 Reason Comments Patient Update Agitation Reason Comments Returning Patient's Call Reason Comments Consult Reason Comments [facility] Put referral for Psy chiatry on [facility] 03/10/23 Care Teams (unrecognized sec tion and content) Police Sergeant Relationship Specialty Start Date End Date Fiordaliza Zhao, PRO SHOP ATTENDANT.HYPERBARIC TECHNICIAN [address] [place] [address] PCP - General Internal Medicine 01/14/22 Police Sergeant Relationship Specialty Start Date End Date Fiordaliza Zhao, PRO SHOP ATTENDANT.HYPERBARIC TECHNICIAN [address] [place] [address] PCP - General Internal Medicine 01/14/22 Police Sergeant Relationship Specialty Start Date End Date Fiordaliza Zhao, PRO SHOP ATTENDANT.HYPERBARIC TECHNICIAN [address] [place] [address] PCP - General Internal Medicine 01/14/22 Police Sergeant Relationship Specialty Start Date End Date Fiordaliza Zhao, PRO SHOP ATTENDANT.HYPERBARIC TECHNICIAN [address] [place] [address] PCP - General Internal Medicine 01/14/22 Police Sergeant Relationship Specialty Start Date End Date Fiordaliza Zhao, PRO SHOP ATTENDANT.HYPERBARIC TECHNICIAN [address] [place] [address] PCP - General Internal Medicine 01/14/22 Police Sergeant Relationship Specialty Start Date End Date Fiordaliza Zhao, PRO SHOP ATTENDANT.HYPERBARIC TECHNICIAN [address] [place] [address] PCP - General Internal Medicine 01/14/22 Police Sergeant Relationship Specialty Start Date End Date Fiordaliza Zhao, PRO SHOP ATTENDANT.HYPERBARIC TECHNICIAN [address] [place] [address] PCP - General Internal Medicine 01/14/22 Police Sergeant Relationship Specialty Start Date End Date Fiordaliza Zhao PRO SHOP ATTENDANT.HYPERBARIC TECHNICIAN [address] [place] [address] PCP - General Internal Medicine 01/14/22 Police Sergeant Relationship Specialty Start Date End Date Fiordaliza Zhao, PRO SHOP ATTENDANT.HYPERBARIC TECHNICIAN [address] [place] [address] PCP - General Internal Medicine 01/14/22 Police Sergeant Relationship Specialty Start Date End Date Fiordaliza Zhao PRO SHOP ATTENDANT.HYPERBARIC TECHNICIAN [address] [place] [address] PCP - General Internal Medicine 01/14/22 Police Sergeant Relationship Specialty Start Date End Date Fiordaliza Zhao, PRO SHOP ATTENDANT.HYPERBARIC TECHNICIAN [address] [place] [address] PCP - General Internal Medicine 01/14/22 Fiordaliza Zhao, PRO SHOP ATTENDANT.HYPERBARIC TECHNICIAN [address] [place] [address] Referring Internal Medicine 03/21/23 Police Sergeant Relationship Specialty Start Date End Date Fiordaliza Zhao, PRO SHOP ATTENDANT.HYPERBARIC TECHNICIAN [address] [place] [address] PCP - General Internal Medicine 01/14/22 Fiordaliza Zhao, PRO SHOP ATTENDANT.HYPERBARIC TECHNICIAN [address] [place] [address] Referring Internal Medicine 03/21/23 Police Sergeant Relationship Specialty Start Date End Date Fiordaliza Zhao, PRO SHOP ATTENDANT.HYPERBARIC TECHNICIAN [address] [place] [address] PCP - General Internal Medicine 01/14/22 Fiordaliza Zhao, PRO SHOP ATTENDANT.HYPERBARIC TECHNICIAN [address] [place] [address] Referring Internal Medicine 03/21/23 Police Sergeant Relationship Specialty Start Date End Date Fiordaliza Zhao, PRO SHOP ATTENDANT.HYPERBARIC TECHNICIAN [address] [place] [address] PCP - General Internal Medicine 01/14/22 Fiordaliza Zhao, PRO SHOP ATTENDANT.HYPERBARIC TECHNICIAN [address] [place] [address] Referring Internal Medicine 03/21/23 Police Sergeant Relationship Specialty Start Date End Date Fiordaliza Zhao, PRO SHOP ATTENDANT.HYPERBARIC TECHNICIAN [address] [place] [address] PCP - General Internal Medicine 01/14/22 Fiordaliza Zhao, PRO SHOP ATTENDANT.HYPERBARIC TECHNICIAN [address] [place] [address] Referring Internal Medicine 03/21/23 Police Sergeant Relationship Specialty Start Date End Date Fiordaliza Zhao, PRO SHOP ATTENDANT.HYPERBARIC TECHNICIAN [address] [place] [address] PCP - General Internal Medicine 01/14/22 Fiordaliza Zhao, PRO SHOP ATTENDANT.HYPERBARIC TECHNICIAN [address] [place] [address] Referring Internal Medicine 03/21/23 Police Sergeant Relationship Specialty Start Date End Date Fiordaliza Zhao, PRO SHOP ATTENDANT.HYPERBARIC TECHNICIAN [address] [place] [address] PCP - General Internal Medicine 01/14/22 Fiordaliza Zhao, PRO SHOP ATTENDANT.HYPERBARIC TECHNICIAN [address] [place] [address] Referring Internal Medicine 03/21/23 Police Sergeant Relationship Specialty Start Date End Date Fiordaliza Zhao, PRO SHOP ATTENDANT.HYPERBARIC TECHNICIAN [address] [place], [place] [id number] PCP - General Internal Medicine 01/14/22 Fiordaliza Zhao, PRO SHOP ATTENDANT.HYPERBARIC TECHNICIAN [address] [place] [address] Referring Internal Medicine 03/21/23 INFORMATION SOURCE (unrecogn ized section and content) DATE CREATED AUTHOR AUTHOR'S ORGANIZ ATION 04/09/2023 [facility] DATE CREATED AUTHOR AUTHOR'S ORGANIZ ATION 06/25/2023 [facility] DATE CREATED AUTHOR AUTHOR'S ORGANIZ ATION 09/19/2023 [facility] FOR RECORDS PERTAINING TO PATIENTS WHO ARE OR HAVE BEEN ENROLLED IN A CHEMICAL DEPENDENCY/SUBSTANCEABUSE PROGRAM, SOME INFORMATION MAY BE OMITTED. This clinical summary was aggregated from multiple sources. Caution should be exercised in using it in the provision of clinical care. This summary normalizes information from multiple sources, and as a consequence, information in this document may materially change the coding, format and clinical context of patient data. In addition, data may be omitted in some cases. CLINICAL DECISIONS SHOULD BE BASED ON THE PRIMARY CLINICAL RECORDS. [employer] provides no warranty or guarantee of the accuracy or completeness of information in this document.
[2023-11-07 10:22] LABS: Mucous, Urine 0 SEEN /hpf (<or=2+); Red Blood Cells-Urine 0 SEEN /hpf (0-5); White Blood Cells 0 SEEN /hpf (0-5)
[2023-11-07 10:23] LABS: Color, Urine Yellow (Yellow); Glucose, Dipstick Normal (Normal); Ketone-Dipstick Negative (Negative); Leukocyte Esterase-Dipstick 25 /ul (Negative); Nitrite-Dipstick Negative (Negative); Occult Blood-Urine Negative /ul (Negative); Protein-Dipstick 15 mg/dl (Negative); Urine Bilirubin Dipstick Negative (Negative); Urine Clarity Clear (Clear); Urine Urobilinogen Normal (Normal)
[2023-11-07 10:32] LABS: Bacteria RARE /hpf (None Seen); Internal QC Validated? YES +Cl - CLEAR BKGD; Pregnancy, Urine Negative Negative; Squamous Epithelial Cells - UA 0-5 SEEN /hpf (5-10)
[2023-11-07 11:54] VITALS: BP 127/88; PULSE 84; RESP 16; TEMP 36.8; O2SAT 98
== END 2023-11-07 11:56 | disposition home or self-care (01) ==
PROVIDERS: Emergency Provider Emergency Medicine; Visit Provider Emergency Medicine
DX: J11.1 Influenza due to unidentified influenza virus with other respiratory manifestations (principal); R11.0 Nausea; R05.9 Cough, unspecified; M79.10 Myalgia, unspecified site; R06.00 Dyspnea, unspecified
CPT/HCPCS: 71045; 81001; 81025; 87631; 99282

== ENCOUNTER 2024-03-02 10:08 | Emergency (ER) | payer MEDICAID, SELFPAY ==
[2024-03-02 10:09] VITALS: BP 100/85; PULSE 104; RESP 16; TEMP 35.8; O2SAT 97; BMI 27.2
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
[2024-03-02] MEDS: Ibuprofen 600 MG Tablet PO (13:37)
[2024-03-02] MEDS: Fluorescein 1 MG STRIP 1 STRIP RIGHT EYE (13:37)
[2024-03-02 13:40] VITALS: BP 105/63; PULSE 99; RESP 16; TEMP 36.1; O2SAT 97
== END 2024-03-02 13:42 | disposition home or self-care (01) ==
PROVIDERS: Emergency Provider Emergency Medicine; Visit Provider Emergency Medicine
DX: S00.83XA Contusion of other part of head, initial encounter (principal); Z59.00 Homelessness unspecified; F17.210 Nicotine dependence, cigarettes, uncomplicated; Y04.8XXA Assault by other bodily force, initial encounter; H11.31 Conjunctival hemorrhage, right eye; H57.11 Ocular pain, right eye
CPT/HCPCS: 70486; 99283

== ENCOUNTER 2024-05-10 09:25 | Emergency (ER) | payer MEDICAID, SELFPAY ==
[2024-05-10 09:29] VITALS: BP 119/75; PULSE 112; RESP 18; TEMP 36.6; O2SAT 99; BMI 25.9
--- NOTE | 2024-05-10 09:29 | EX.ED.DYSGE1 ---
HPI History of Present Illness Chief Complaint: Allergic Reaction [facility] Medical History Care and examination of lactating mother Vaginal delivery Intrapartum fever Depression Anxiety Headache Trauma Gestational HTN Obesity affecting Elective induction of labor planned 40 weeks gestation of Marijuana use History of depression Unplanned Home Medications ?Medication ?Instructions ?Recorded ?Last Taken ?Type NK 11/07/23 Unknown History Allergy/AdvReac Type Severity Reaction Status Date / Time cinnamon Allergy Severe Anaphylaxis Verified 05/10/24 09:26 Surgical History History of surgery Social History (Updated 03/02/24 @ 13:[address] Kareem Jacob MD) housing: homeless Smoking Status: Current some day smoker tobacco type: cigarettes EXAM Physical Exam Const Vital Signs: 05/10/24 09:29 Temperature 97.8 F Temperature Source Temporal Pulse Rate 112 H Respiratory Rate 18 Blood Pressure 119/75 Blood Pressure Mean 89 Pulse Ox 99 Oxygen Delivery Method Room Air MDM MDM MDM Narrative Medical decision making narrative: HISTORY OF PRESENT ILLNESS: 23-year-old female presents with concern for allergic reaction or chest pain. per EMS patient had chest pain for 1 month. Patient endorses using methamphetamine 1 week ago. The patient states she feels she is having allergic reaction. States she is exposed to cinnamon prior to arrival. Notes some itching, rash on her chest. Denies any chest pain or shortness of breath to me although this was stated by EMS and in the triage note. REVIEW OF SYSTEMS: Pertinent positives: Allergic reaction Pertinent negatives: Drooling, neck stiffness, trismus PHYSICAL EXAM: Nursing triage notes reviewed, Vital signs reviewed Constitutional: please see mdm HENT: MMM, no oropharyngeal swelling, no stridor, no difficulty controlling secretions, no drooling no tripoding Eyes: Pupils equal round and reactive to light, Extraocular muscles intact Neck: No stridor, no JVD, full neck ROM Lungs: Clear to auscultation, No wheezing or rales. No increased work of breathing, no conversational dyspnea, no accessory muscle use, no nasal flaring. No respiratory distress noted Heart: Regular rate and rhythm, No murmurs, No rubs and No gallops, 2+ distal pulses (radial, femoral, posterior tibial) in all extremities Abdomen: Soft, there is no tenderness, rigidity, rebound or guarding, no obvious peritoneal signs, no palpable pulsatile abdominal masses, no auscultated abdominal bruit : No CVAT Extremities: No edema Neuro: No focal neurological deficits, cranial nerves II through XII intact, 5/5 strength in all extremities. Intact sensation to light touch in all extremities, 2+ reflexes bilateral patella tendons. Normal gait. No ataxia. Skin: urticarial rash noted to chest MEDICAL DECISION MAKING: Chief Complaint: Allergic reaction versus chest pain External records reviewed: Prior imaging studies reviewed Factors affecting care: None reported Social determinants of health: Patient reported use of THC History obtained from others: none Consults: EMS MDM Narrative: The patient was initially tachycardic with rate of 112, otherwise afebrile and nontoxic-appearing saturating 99% on room air. There is no stridor, no drooling, no tripoding, no respiratory distress, no wheezing, no nausea. No signs of anaphylaxis or anaphylactic shock. There is no report of chest pain to suggest ACS. I considered the following differential diagnosis: Allergic reaction, anaphylaxis, anaphylactic shock, ACS Clinical exam was not consistent with anaphylaxis or anaphylactic shock. There was a nondescript rash of the patient's chest that could be urticarial. She was treated with pepcid, claritin and discharged stable condition with instruction to continue anti-histamines. Strict return precuations were discussed. The patient and/or family, caregivers express understanding. The patient and/or family, caregivers agrees with the plan. Shared decision making: I will have a discussion with the patient and or visitors regarding risk/benefits of further testing or admission. They will be made aware of of the risk/benefits inherent in this decision they will be given the opportunity to voice understanding. Total critical care time today provided was at least 0 minutes. This excludes separately billable procedures. Critical care time (if documented) is secondary to the patient having high probability of clinically significant/life threatening deterioration in the patient's condition which required my urgent intervention. Impression: 1. Allergic reaction 2. Urticaria Dispo: Discharge home This note was generated with [employer] dictation software. It may contain incorrect words, spelling, and punctuation that were not noted in review of the chart prior to signing. Discharge Plan Triage Chief Complaint: Allergic Reaction ED Provider: Jose Luis Alejandro Dx/Rx/DC Orders Instructions: ED Hives (Adult) Prescriptions: No Action NK Primary Care Provider: [facility] Referrals: [facility]rez [Primary Care Provider] - Activity Restrictions/Additional Instructions: Thank you for trusting us with your care today! Please take Tylenol (2 pills, 650 mg), ibuprofen (2 pills, 400 mg) every 6 hours as needed for pain and fever control. Please obtain and take oral Pepcid, Zyrtec from your local pharmacy or drugstore daily for the next 5 days for additional allergy and urticaria control. Please try to avoid cinnamon. Please return to the emergency department if your symptoms change or worsen. Please follow with your primary care physician for further outpatient evaluation and management. Print Language: Finnish Disposition Disposition: Home, Self Care Discharge Date/Time: 05/10/24 10:19
[2024-05-10] MEDS: Famotidine 20 MG Tablet PO (10:12)
[2024-05-10] MEDS: Loratadine 10 MG Tablet 5 MG PO (10:12)
== END 2024-05-10 10:19 | disposition home or self-care (01) ==
LOC: ED 09:53
PROVIDERS: Emergency Provider Emergency Medicine; Visit Provider Emergency Medicine
DX: T78.40XA Allergy, unspecified, initial encounter (principal); L50.9 Urticaria, unspecified; F17.210 Nicotine dependence, cigarettes, uncomplicated; F41.9 Anxiety disorder, unspecified; F32.A Depression, unspecified; Z79.899 Other long term (current) drug therapy
CPT/HCPCS: 99282

== ENCOUNTER 2024-07-09 13:10 | Emergency (ER) | payer MEDICAID, SELFPAY ==
[2024-07-09 13:12] VITALS: BP 112/83; PULSE 65; RESP 16; TEMP 36.1; O2SAT 98; BMI 25.2
--- OUTSIDE RECORDS SUMMARY | 2024-07-09 13:37 | XMS RPT_ITS | CCD ---
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 Addendum Patient Name and confirmed at initiation of visit Dr. Álvaro Zavala requested a genetic consultation for Herminia Goldman, a 22 year old female, for discussion of her family history of Amelia disease and personal concern for the same. [...] the room. HISTORY OF PRESENT CONDITION: Ms. Goldman's father was diagnosed with Amelia disease in his late 20s; he reportedly had genetic testing through [facility] in [place] that showed 49 CAG repeats on one copy of his HTT genes. He is currently in his late 50s and living with his mother. There are other family member who are suspected of being affected by HD - see fam hx section for detail. Ms. Goldman states people tell her she has symptoms of HD but she reports being unsure of what those symptoms are. Current concerns upon questioning include: - significant depression, bipolar, and social anxiety - saw a psychiatrist yesterday and reportedly also sees a therapist - both closer to home in [place]. She said this and medicine is helping - dysarthria on occasion - stiffness in her hands - trouble sitting still/feels fidgety - lip twitches - feels unsteady/uncoordinate d while walking - learning difficulties - she said she was on an IEP from 1st grade until high school. She said she obtained her HS degree; no college Ms. Goldman denies dysphagia, personality changes, memory problems and seizures. She states she would like to be tested for life planning and to know risk to her child. 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 Employment: not working Level of education: finished HS Alcohol/cigarettes/ot her: MJ - not daily, every so often FAMILY HISTORY: - Patient's ethnicity: Maternal - unknown ; Paternal - Sudanese. - Partner's ethnicity: Ukrainian. - No known -Croatian, Mediterranean, /Solomon Islander, Solomon Islander-Marshallese/Cajun , or Ashkenazi Faith ancestry unless noted above. - Parental consanguinity: [...] Grandmother - hypertension - Grandfather - hx [place]. Father: 50s years old, has HD, reportedly molecularly confirmed. Paternal relatives: - Grandfather - Amelia disease; from suicide - Grandfather's sister - reportedly molecularly confirmed HD - in shelter - Grandfather's brother - Emery disease; from suicide. The remainder of Ms. Goldman's reported family history is negative for known or suspected genetic disease, defects, developmental delay/intellectual disability, infertility, recurrent loss, and unexplained infant . GENETIC COUNSELING RISK ASSES (more content not included)... [facility] SIL[facility]O Tele[facility] (AGINTMLW) HERMINIA GOLDMAN ([id number]) 2 F UPA Date Time Provider Department 04/08/23 FIORDALIZA ZHAO During your visit today, we recorded the following information about you: Frederic Workman MA 04/08/2023 3:32 PM Signed ----- Message from Fiordaliza Zhao APRN.CNP sent at 04/08/2023 12:28 PM EDT ----- Regarding: FW: Dylan Zhao Documentation request Inquire what they need exactly. Just a letter. Actual ziyad information? Fiordaliza ----- Message ----- From: Alexsander Mcrae Sent: 04/08/2023 10:41 AM EDT To: Fiordaliza Zhao APRN.CNP; Frederic Workman MA Subject: FW: Dylan Zhao Documentation request ----- Message ----- From: Sigrid Gil Sent: 04/08/2023 10:26 AM EDT To: [facility] Triage Pool Subject: Dylan Zhao Documentation request Subject Line Format: Medicine / [Provider Name] / [Issue] Patient has been identified by name and Date of (Y/N): y Patient: Herminia Goldman Date of : 2000 Provider for this encounter: Fiordaliza Zhao APRN.MARTÍNEZ Reason for the call/escalation: Sigrid Patients mother called to receive documentation for Herminia's mental state and proof that it is causing her not to properly function to work. This is requested for a child support hearing they want proof of why she can not provide an income. Please contact Sigrid for further questions Was Patient Referred to [facility]/Seek Emergency Treatment (Y/N): n Did Patient Agree (Y/N): n Was An Attempt Made To Transfer The Patient To The Office (Y/N): n Were You Able To Reach Someone At The Office (Y/N): n If Yes - Patient Was Transferred To (Caregivers Name): n If No - Which [facility] Leadership Physician Anesthesiologist Did You Speak With Regarding This Patient: n Was an appointment scheduled (Y/N): n Reason patient was requesting visit (RFV/signs and symptoms/diagnosis) : Documentation request Person calling if other than patient: Mom Return call to if other than patient: Sigrid Best contact number: [phone] Thank you, Sigrid Louise April 08, 2023 10:23 AM Frederic Workman MA 04/08/2023 3:33 PM Signed Called mom her cell phone signal is not good lost the call. Called her back left for her to call the office back leave with what she needs Frederic Workman MA Allergies As of Date: 04/08/2023 (No Known Allergies) Date Reviewed: 03/26/2023 Reviewed by: Gracie Johnson Ma - Fully Assessed Reason for Visit: Patient Question [0117] Prescriptions as of 04/08/2023 - PARoxetine (PAXIL) 30 mg tablet Take 1 tablet by mouth once daily. - melatonin 3 mg tablet Take 2 tablets by mouth daily at bedtime. Problem List As Of Date 04/08/2023 Noted Resolved Unplanned [Z34.90] 03/27/2021 01/01/2022 Nausea and vomiting in [O21.9] 03/27/2021 05/30/2021 History of depression [Z86.59] 03/27/2021 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 Emery's disease [Z82.0] 03/27/2021 Patient request for diagnostic testing [Z01.89] 03/27/2021 05/30/2021 Marijuana use [F12.90] 04/07/2021 Abnormal glucose complicating [O99.81*08/25/2021 01/01/2022 Anxiety [F41.9] 01/14/2022 Mild episode of recurrent major depressive diso*01/14/2022 Obesity, Class II, BMI 35-39.9 [E66.9] 02/11/2023 Depression [F32.A] 02/12/2023 Encounter Status:Closed by FREDERIC WORKMAN on 04/08/23 Normal [facility] CT ABDOMEN PELVIS WITH IV CO NTRAST ONLYon 04-07-2023 CT ABDOMEN PELVIS WITH IV CONTRAST ONLY EXAMINATION: CT ABDOMEN PELVIS WITH IV CONTRAST ONLY HISTORY: ORDERING SYSTEM PROVIDED HISTORY: Nausea/vomiting, TECHNOLOGIST PROVIDED HISTORY: Illness/Other Reason for exam: Nausea/vomiting Encounter Type: Initial Additional signs and symptoms: Nausea/vomiting ORDERING SYSTEM PROVIDED DIAGNOSIS CODES: R10.12 Left upper quadrant abdominal pain R11.2 Nausea and vomiting, unspecified vomiting type COMPARISON: None TECHNIQUE: CT examination of the abdomen and pelvis following the administration of intravenous contrast. Coronal and sagittal reformations were performed. Dose reduction techniques were achieved by using automated exposure control and/or adjustment of mA and/or kV according to patient size and/or use of iterative reconstruction technique. CONTRAST: IOPAMIDOL 370 MG IODINE/ML (76 %) INTRAVENOUS SOLUTION - 75 mL, FINDINGS: The lung bases are clear. The heart size is normal. The liver, gallbladder spleen, pancreas and bilateral adrenal glands appear unremarkable. Bilateral kidneys demonstrate normal size, morphology and contrast-enhancement. There is no evidence for hydronephrosis bilaterally. The stomach and duodenum appear unremarkable. Nonobstructive bowel pattern is seen. Normal appearing appendix is visualized. Mild wall thickening of the ascending and descending colon is seen, suggestive colitis. The urinary bladder appears unremarkable. A 2 cm low density is seen in the right pelvic region likely representing right ovarian cyst/right ovarian etiology. No significant free fluid or abnormal fluid collection is seen in the abdomen and pelvis. The vascular structures demonstrate normal caliber and contrast-enhancement. The abdominal wall and visualized soft tissues appear unremarkable. No acute osseous abnormality is seen. IMPRESSION: Mild wall thickening of the ascending and descending colon, suggestive of mild colitis. Normal appearing appendix is visualized. Workstation ID: [id number] Dictated by: FRANCES COOPER on WedApr 07, 2023 7:55:37 PM EDT Transcribed by: FRANCES COOPER on WedApr 07, 2023 7:55:37 PM EDT Finalized by: FRANCES COOPER on WedApr 07, 2023 7:55:37 PM EDT [facility] Comment on above: Order Comment: Injur y/Trauma or Illness?:Illness/Other How long have you had these symptoms (acute/chronic)?:Acute Reason for exam?:Nausea/vomiting Type of Exam?:Initial Additional signs and symptoms?:Nausea/vomiting XR CHEST PA/APon 04-07-2023 XR CHEST PA/AP EXAMINATION: XR CHEST PA/AP 04/07/2023 1:54 pm HISTORY: ORDERING SYSTEM PROVIDED HISTORY: CP, TECHNOLOGIST PROVIDED HISTORY: Illness/Other Reason for exam: cp Cancer History: Surgery, RadiationHistory: Encounter Type: Unknown Additional signs and symptoms: chest pain, abdominal pain ORDERING SYSTEM PROVIDED DIAGNOSIS CODES: COMPARISON: Chest x-ray, 04/07/2023. FINDINGS: Single view of the chest obtained. Heart size normal. Mediastinal contours are normal. No pleural effusion. No airspace consolidation. No pulmonary edema. No pneumothorax. IMPRESSION: Normal chest x-ray. DMG/ges Workstation ID: [id number] Dictated by: HERIBERTO COLE on WedApr 07, 2023 2:32:43 PM EDT Transcribed by: JEAN CLAUDE CARRILLO on WedApr 07, 2023 2:32:43 PM EDT Finalized by: HERIBERTO COLE on WedApr 07, 2023 2:51:16 PM EDT [facility] Comment on above: Order Comment: Injur y/Trauma or Illness?:Illness/Other How long have you had these symptoms (acute/chronic)?:Unknown Reason for exam?:cp History of cancer?: Surgeries, chemotherapy, or radiation?: Type of Exam?:Unknown Additional signs and symptoms?:chest pain, abdominal pain [facility] HER[facility] ([id number]) 2 F UPA Date Time Provider Department 04/01/23 WILFRIDO BRAVO NREUS2 During your visit today, we recorded the following information about you: Yordy Mancilla 04/01/2023 12:55 PM Signed Pt is scheduled to see Dr. Mata/Annalise Smith on 04/16 for initial HD testing. Her [...] asked if they could bring her to [facility] ED before that time, and have her admitted. She wants her to get help and not just have her sedated. Pt's father has HD and records from local neurologist available in [place]. I told her I'd run this by the team and have someone contact her. Jude (aunt) [phone] Allergies As of Date: 04/01/2023 (No Known Allergies) Date Reviewed: 03/26/2023 Reviewed by: Gracie Johnson Ma - Fully Assessed Reason for Visit: Patient Update [1234] Cmt: Agitation Prescriptions as of 04/02/2023 - PARoxetine (PAXIL) 30 mg tablet Take 1 tablet by mouth once daily. - melatonin 3 mg tablet Take 2 tablets by mouth daily at bedtime. Problem List As Of Date 04/01/2023 Noted Resolved Unplanned [Z34.90] 03/27/2021 01/01/2022 Nausea and vomiting in [O21.9] 03/27/2021 05/30/2021 History of depression [Z86.59] 03/27/2021 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 Amelia's disease [Z82.0] 03/27/2021 Patient request for diagnostic testing [Z01.89] 03/27/2021 05/30/2021 Marijuana use [F12.90] 04/07/2021 Abnormal glucose complicating [O99.81*08/25/2021 01/01/2022 Anxiety [F41.9] 01/14/2022 Mild episode of recurrent major depressive diso*01/14/2022 Obesity, Class II, BMI 35-39.9 [E66.9] 02/11/2023 Depression [F32.A] 02/12/2023 Encounter Status:Closed by YORDY MANCILLA on 04/01/23 [facility] CNPN Telephone (NREUS2) HERMINIA GOLDMAN ([id number]) 2 F [facility] Date Time Provider Department 04/01/23 SCOTT MATA NREUS2 During your visit today, we recorded the following information about you: Scott Mata PSYD 04/01/2023 5:02 PM Addendum Sensitive Note Patient's aunt called to discuss concerns regarding her niece's MH, specifically noting mood lability, depression, and suicidal ideation. Returned aunt's call. She reported the family had called 911 to complete a wellness check this morning and patient was determined to be stable and in no immediate risk at this time. Aunt reports that since recent inpatient hospitalization on 02/11/2023, MH care has not been consistent. We reviewed crisis plan such as dialing Anywhere to Go8 for Suicide and Crisis Lifeline, access the Crisis Text Line by texting HOME to 052039. Patient's aunt also aware she may call 911 for transportation to the nearest Emergency Department. She verbalized understanding and stated she will call 911 if she believes patient may be at risk to herself or others. Provided additional information re: IOP/PHP for ongoing MH care needs. Aunt appreciative of resources and denied any additional needs at this time. Scott Mata Psy.D. Staff, [facility] Allergies As of Date: 04/01/2023 (No Known Allergies) Date Reviewed: 03/26/2023 Reviewed by: Gracie Johnson Ma - Fully Assessed Reason for Visit: Returning Patient's Call [408] Prescriptions as of 04/01/2023 - PARoxetine (PAXIL) 30 mg tablet Take 1 tablet by mouth once daily. - melatonin 3 mg tablet Take 2 tablets by mouth daily at bedtime. Problem List As Of Date 04/01/2023 Noted Resolved Unplanned [Z34.90] 03/27/2021 01/01/2022 Nausea and vomiting in [O21.9] 03/27/2021 05/30/2021 History of depression [Z86.59] 03/27/2021 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 Amelia's disease [Z82.0] 03/27/2021 Patient request for diagnostic testing [Z01.89] 03/27/2021 05/30/2021 Marijuana use [F12.90] 04/07/2021 Abnormal glucose complicating [O99.81*08/25/2021 01/01/2022 Anxiety [F41.9] 01/14/2022 Mild episode of recurrent major depressive diso*01/14/2022 Obesity, Class II, BMI 35-39.9 [E66.9] 02/11/2023 Depression [F32.A] 02/12/2023 Encounter Status:Closed by SCOTT MATA on 04/01/23 [facility] Madhuri 03-26-2023 CNOV Office Visit (NEURST ) HERMINIA GOLDMAN ([id number]) 2 F UPA Date Time Provider Department 03/26/23 2:00 PM BAHNTGE, ÁLVARO FIONA NEURST During your visit today, we recorded the following information about you: Pulse Blood pressure Weight Last Period 81/minute 118/80 78.5 kg 03/26/23 Álvaro Zavala MD 03/26/2023 5:26 PM Signed Office Visit 03/26/23, 13:25 - 15:24 Parenthetic [comments] and tinted emphasis mine. Consultation is requested for an opinion regarding the evaluation and treatment of Herminia Goldman. My final impression and recommendations will be communicated back to the referring physician by way of the shared medical record or letter via [place] mail. Herminia Goldman is referred by MARTÍNEZ Zhao, 03/10/23, for family history of Emery's disease, depression, and anxiety. She documented: She [...] [facility] 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 Her paternal aunt Jude accompanies her. History of Present Illness The patient's father had genetic testing through the [facility] at [address] [place] [address] on 07/18/08. It showed, 'CAG repeat region exceeding the 40 repeat limit accepted to result in Amelia's chorea'. He had 49 repeats. He underwent [...] was started. Her aunt is concerned about Emery's because she feels Herminia's speech is slow a slurred, like her father's. She also voices concern about stiffness in her hands (which could be carpal spasm; she denies pedal spasm). Herminia states she has not noticed such spasm. Her aunt is also concerned about her behavior, but is not more specific. PAST MEDICAL HISTORY Diagnosis Date #[id number] Current Outpatient Medications Medication Sig PARoxetine (PAXIL) [...] Uncle Diabetes Maternal Uncle Review of Systems: (more content not included)... Normal [facility] HISTORY PHYSICALon HISTORY PHYSICAL HNO ID: [id number] Author: Álvaro Zavala MD Service: ? Author Type: Physician Type: HANDP Filed: 03/25/2023 8:32 PM Note Text: Office Visit Parenthetic [comments] and tinted emphasis mine. Consultation is requested for an opinion regarding the evaluation and treatment of Herminia Goldman. My final impression and recommendations will be communicated back to the referring physician by way of the shared medical record or letter via [place] mail. Herminia Goldman is referred by MARTÍNEZ Zhao, 03/10/23, for family history of Amelia's disease, depression, and anxiety. She documented: She was admitted 02/11/23 after ov and ER visit for suicidal ideation...Family is concerned for possible Amelia's disease. Jude reports pts father was dx [...] She has not had a T[facility] in [facility] or [facility]. ====== Álvaro Zavala MD Normal [facility] HISTORY PHYSICAL HNO ID: [id number] Author: Álvaro Zavala MD Service: ? Author Type: Physician Type: HANDP Filed: 03/26/2023 5:26 PM Note Text: Office Visit 03/26/23, 13:25 - 15:24 Parenthetic [comments] and tinted emphasis mine. Consultation is requested for an opinion regarding the evaluation and treatment of Herminia Goldman. My final impression and recommendations will be communicated back to the referring physician by way of the shared medical record or letter via [place] mail. Herminia Goldman is referred by MARTÍNEZ Zhao, 03/10/23, for family history of Amelia's disease, depression, and anxiety. She documented: She was admitted 02/11/23 after ov and ER visit for suicidal ideation...Family is concerned for possible Amelia's disease. Jude reports pts father was dx [...] She [facility] 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 Her paternal aunt Jude accompanies her. History of Present Illness The patient's father had genetic testing through the [facility] at [address] [place] [address] on 07/18/08. It showed, 'CAG repeat region exceeding the 40 repeat limit accepted to result in Amelia's chorea'. He had 49 repeats. He underwent [...] was started. Her aunt is concerned about Emery's because she feels Herminia's speech is slow a slurred, like her father's. She also voices concern about stiffness in her hands (which could be carpal spasm; she denies pedal spasm). Herminia states she has not noticed such spasm. Her aunt is also concerned about her behavior, but is not more specific. PAST MEDICAL HISTORY Diagnosis Date #[id number] Current Outpatient Medications Medication Sig PARoxetine (PAXIL) [...] lb) LMP 03/26/2023 (Approximate) No BMI 30.65 kg/m? - reviewed. Cardiovascular: Carotids (more content not included)... Normal [facility] CNCOon 03-18-2023 CNCO Letter Text Normal [facility] CNPNon 03-18-2023 MARTÍNEZN Telephone (AGINTMLW) SABINOHERMINIA COOK ([id number]) 2 F UPA Date Time Provider Department 03/18/23 FIORDALIZA ZHAO During your visit today, we recorded the following information about you: Alyssia Romario 03/18/2023 9:13 AM Signed No Show Documentation Herminia Tomas Randy no showed for an appointment on 03/18/2023 with Fiordaliza Zhao APRN.MARTÍNEZ at 8:00 am. She was scheduled for throwing up while taking anxiety medication. I called and spoke with the patient's aunt (listed on [employer]) regarding Herminia's missed appointment. She said she would call Herminia and tell her to call the office to reschedule. Resources discussed/offered to patient: na No show determined to be fault of patient: Yes This is the patients second no show in the last 12 months. Patient was rescheduled for na. Letter mailed : Yes Is this the Third or Fourth No Show ? No Alyssia Doss March 18, 2023 9:12 AM Allergies As of Date: 03/18/2023 (No Known Allergies) Date Reviewed: 03/10/2023 Reviewed by: Fiordaliza Zhao APRN.CNP - Fully Assessed Reason for Visit: Missed Appointment [1304] Cmt: 2nd no show in 365 days (2nd letter sent) Prescriptions as of 03/18/2023 - PARoxetine (PAXIL) 30 mg tablet Take 1 tablet by mouth once daily. - hydrOXYzine HCl (ATARAX) 50 mg tablet Take 1 tablet by mouth twice daily as needed. - melatonin 3 mg tablet Take 2 tablets by mouth daily at bedtime. Problem List As Of Date 03/18/2023 Noted Resolved Unplanned [Z34.90] 03/27/2021 01/01/2022 Nausea and vomiting in [O21.9] 03/27/2021 05/30/2021 History of depression [Z86.59] 03/27/2021 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 Amelia's disease [Z82.0] 03/27/2021 Patient request for diagnostic testing [Z01.89] 03/27/2021 05/30/2021 Marijuana use [F12.90] 04/07/2021 Abnormal glucose complicating [O99.81*08/25/2021 01/01/2022 Anxiety [F41.9] 01/14/2022 Mild episode of recurrent major depressive diso*01/14/2022 Obesity, Class II, BMI 35-39.9 [E66.9] 02/11/2023 Depression [F32.A] 02/12/2023 Encounter Status:Closed by ALYSSIA DOSS on 03/18/23 [facility] 03-10-2023 [facility] Office Visit (AGINTMLW) MARCELOHERMINIA MCLAUGHLIN ([id number]) 2 F UPA Date Time Provider Department 03/10/23 11:20 AM FIORDALIZA ZHAO AGINTMLCarey During your visit today, we recorded the following information about you: Temperature Pulse Respiration Blood pressure 98.2 degrees 62/minute 18/minute 120/70 Weight Height 78.7 kg 1.6 m Fiordaliza Zhao APRN.SHEETMETAL WORKER 03/11/2023 7:56 AM Signed This note was created using [employer]. Subjective Herminia Goldman is a 22 year old female here today for MDD. She was admitted 02/11/23 after ov and ER visit for suicidal ideation. She is here today with her Aunt Jude. Family is concerned for possible Amelia's disease. Jude reports pts father was dx [...] LIST History of Depression Family History of Amelia's Disease Marijuana Use Anxiety Mild Episode of Recurrent Major Depressive Disorder (Hcc) Obesity, Class II, Bmi 35-39.9 Depression PAST MEDICAL HISTORY Diagnosis Date #[id number] PAST SURGICAL HISTORY Procedure Laterality Date TONSILLECTOMY [...] Negative for adenopathy. Does not bruise/bleed easily. Psychiatric/Behaviora l: Positive for dysphoric mood. Negative for agitation, [...] regular rhythm. Pulses: Normal pulses. Heart sounds: (more content not included)... Normal [facility] 03-10-2023 [facility] Telephone ([facility]) HERMINIA GOLDMAN ([id number]) 2 F UPA Date Time Provider Department 03/10/23 FIORDALIZA ZHAO During your visit today, we recorded the following information about you: Alexsander Mcrae 03/24/2023 11:39 AM Addendum Put referral for Neurology on [facility] Provider Portal 03/10/23 Confirmation # [id number] Pt is scheduled for 03/26/[address]Michael Zavala Allergies As of Date: 03/10/2023 (No Known Allergies) Date Reviewed: 03/10/2023 Reviewed by: Fiordaliza Zhao APRN.SHEETMETAL WORKER - Fully Assessed Reason for Visit: [facility] Provider Portal [Other] Cmt: Put referral for Neurology on [facility] Provider Portal 03/10/23 Prescriptions as of 03/24/2023 - PARoxetine (PAXIL) 30 mg tablet Take 1 tablet by mouth once daily. - hydrOXYzine HCl (ATARAX) 50 mg tablet Take 1 tablet by mouth twice daily as needed. - melatonin 3 mg tablet Take 2 tablets by mouth daily at bedtime. Problem List As Of Date 03/10/2023 Noted Resolved Unplanned [Z34.90] 03/27/2021 01/01/2022 Nausea and vomiting in [O21.9] 03/27/2021 05/30/2021 History of depression [Z86.59] 03/27/2021 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 Amelia's disease [Z82.0] 03/27/2021 Patient request for diagnostic testing [Z01.89] 03/27/2021 05/30/2021 Marijuana use [F12.90] 04/07/2021 Abnormal glucose complicating [O99.81*08/25/2021 01/01/2022 Anxiety [F41.9] 01/14/2022 Mild episode of recurrent major depressive diso*01/14/2022 Obesity, Class II, BMI 35-39.9 [E66.9] 02/11/2023 Depression [F32.A] 02/12/2023 Encounter Status:Closed by ALEXSANDER MCRAE on 03/24/23 [facility] MARTÍNEZN Telephone (CAMILO) HERMINIA GOLDMAN ([id number]) 2 F UPA Date Time Provider Department 03/10/23 FIORDALIZA ZHAO During your visit today, we recorded the following information about you: Alexsander Mcrae 03/24/2023 1:17 PM Addendum Put referral for Psychiatry on [facility] Provider Portal on 03/10/23 Confirmation # [id number] SGRANTH 03/11/23 14:32 Psychiatry ([place]). prefers Female . first attempt unable to leave 03/15, unable to leave 03/23 Allergies As of Date: 03/10/2023 (No Known Allergies) Date Reviewed: 03/10/2023 Reviewed by: Fiordaliza Zhao APRN.SHEETMETAL WORKER - Fully Assessed Reason for Visit: [facility] Provider Portal [Other] Cmt: Put referral for Psychiatry on [facility] Provider Portal 03/10/23 Prescriptions as of 06/23/2023 - melatonin 3 mg tablet Take 2 tablets by mouth daily at bedtime. - PARoxetine (PAXIL) 30 mg tablet Take 1 tablet by mouth once daily. Problem List As Of Date 03/10/2023 Noted Resolved Unplanned [Z34.90] 03/27/2021 01/01/2022 Nausea and vomiting in [O21.9] 03/27/2021 05/30/2021 History of depression [Z86.59] 03/27/2021 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 Amelia's disease [Z82.0] 03/27/2021 Patient request for diagnostic testing [Z01.89] 03/27/2021 05/30/2021 Marijuana use [F12.90] 04/07/2021 Abnormal glucose complicating [O99.81*08/25/2021 01/01/2022 Anxiety [F41.9] 01/14/2022 Mild episode of recurrent major depressive diso*01/14/2022 Obesity, Class II, BMI 35-39.9 [E66.9] 02/11/2023 Depression [F32.A] 02/12/2023 Encounter Status:Closed by ALEXSANDER MCRAE on 06/23/23 [facility] 02-26-2023 CNPN Telephone (DANIELEIJJ CORPLE) HERMINIA GOLDMAN ([id number]) 2 F UPA Date Time Provider Department 02/26/23 LIS GOMEZ During your visit today, we recorded the following information about you: Bridget Libertad 02/26/2023 11:53 AM Signed ----- Message from Cesar Jon sent at 02/26/2023 11:46 AM EDT ----- Regarding: Medicine / [facility] / Emery's Disease Test Subject Line Format: Medicine / [Provider Name] / [Issue] Patient has been identified by name and Date of (Y/N): N Patient: Herminia Goldman Date of : 2000 Provider for this encounter: Lis Gomez DO Reason for the call/escalation: Patient's aunt called asking if a Emery's Disease test was scheduled yet. She asked to be contacted when the test is scheduled. Was Patient Referred to [facility]/Seek Emergency Treatment (Y/N): N Did Patient Agree (Y/N): N/A Was An Attempt Made To Transfer The Patient To The Office (Y/N): N Were You Able To Reach Someone At The Office (Y/N): N/A If Yes - Patient Was Transferred To (Caregivers Name): N/A If No - Which [facility] Leadership Physician Anesthesiologist Did You Speak With Regarding This Patient: N/A Was an appointment scheduled (Y/N): N Reason patient was requesting visit (RFV/signs and symptoms/diagnosis) : Amelia's Disease Test Person calling if other than patient: Jude Perdue, Aunt Return call to if other than patient: Jude Perdue, Aunt Best contact number: [phone] Thank you, Cesar Webb February 26, 2023 11:46 AM Lis Gomez DO 02/26/2023 1:10 PM Signed Please call pt's aunt and notify her she is not on HIPPA and we cannot give her that information. If she would like to have a Emery's test done, the patient will need to make an appt to be seen. DO Te Shaffer MA 02/26/2023 3:29 PM Signed Patient's aunt informed. Te Gonzales MA Allergies As of Date: 02/26/2023 (No Known Allergies) Date Reviewed: 02/14/2023 Reviewed by: Leola Diez RN - Fully Assessed Reason for Visit: Appointment [186] Prescriptions as of 02/26/2023 - hydrOXYzine HCl (ATARAX) 50 mg tablet Take 1 tablet by mouth twice daily as needed. - melatonin 3 mg tablet Take 2 tablets by mouth daily at bedtime. - PARoxetine (PAXIL) 20 mg tablet Take 1 tablet by mouth daily with dinner. Problem List As Of Date 02/26/2023 Noted Resolved Unplanned [Z34.90] 03/27/2021 01/01/2022 Nausea and vomiting in [O21.9] 03/27/2021 05/30/2021 History of depression [Z86.59] 03/27/2021 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 Amelia's disease [Z82.0] 03/27/2021 Patient request for diagnostic testing [Z01.89] 03/27/2021 05/30/2021 Marijuana use [F12.90] 04/07/2021 Abnormal glucose complicating [O99.81*08/25/2021 01/01/2022 Anxiety [F41.9] 01/14/2022 Mild episode of recurrent major depressive diso*01/14/2022 Obesity, Class II, BMI 35-39.9 [E66.9] 02/11/2023 Depression [F32.A] 02/12/2023 Encounter Status:Closed by TE GONZALES on 02/26/23 [facility] 02-25-2023 CNPN Telephone (AGINTMLW) HERMINIA GOLDMAN ([id number]) 2 F UPA Date Time Provider Department 02/25/23 FIORDALIZA ZHAO AGINTMLW During your visit today, we recorded the following information about you: Lilliam Gold MA 02/25/2023 3:52 PM Signed Patient's aunt called stating she is currently admitted to a psych rodriguez. 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 Jude states the symptoms are just like Herminia's father and she states that Herminia is willing to have the test. GILMA Patrick, NITA.[facility] 02/25/2023 4:03 PM Signed Please let pt or her next of Kin (person on HIPPA) that pt will need to come in for follow up after her hospitalization to discuss any work up she may need. They can also talk with the hospital where she is at to see if they can do any work up Frederic Workman MA 03/01/2023 4:29 PM Signed Tried to call pts mom VM is full cant leave GILMA Olivares MA 03/01/2023 5:00 PM Signed Pts mom called back she has an apt set up for March 10 Frederic Workman MA Allergies As of Date: 02/25/2023 (No Known Allergies) Date Reviewed: 02/14/2023 Reviewed by: Leola Diez RN - Fully Assessed Reason for Visit: Patient Question [7704] Prescriptions as of 03/01/2023 - hydrOXYzine HCl (ATARAX) 50 mg tablet Take 1 tablet by mouth twice daily as needed. - melatonin 3 mg tablet Take 2 tablets by mouth daily at bedtime. - PARoxetine (PAXIL) 20 mg tablet Take 1 tablet by mouth daily with dinner. Problem List As Of Date 02/25/2023 Noted Resolved Unplanned [Z34.90] 03/27/2021 01/01/2022 Nausea and vomiting in [O21.9] 03/27/2021 05/30/2021 History of depression [Z86.59] 03/27/2021 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 Emery's disease [Z82.0] 03/27/2021 Patient request for diagnostic testing [Z01.89] 03/27/2021 05/30/2021 Marijuana use [F12.90] 04/07/2021 Abnormal glucose complicating [O99.81*08/25/2021 01/01/2022 Anxiety [F41.9] 01/14/2022 Mild episode of recurrent major depressive diso*01/14/2022 Obesity, Class II, BMI 35-39.9 [E66.9] 02/11/2023 Depression [F32.A] 02/12/2023 Encounter Status:Closed by LILLIAM GOLD on 02/25/23 [facility] 02-24-2023 MARTÍNEZN Telephone (AGFAMPLE) HERMINIA GOLDMAN ([id number]) 01 [facility] Date Time Provider Department 02/24/23 FIORDALIZA ZHAO During your visit today, we recorded the following information about you: Malena Hayden MA 02/24/2023 10:22 AM Signed Maria Antonia gibson lm on requesting dr. Gomez to call her so she can give a update on megan. Em number is [phone]. GILMA Nix is not on gilberto Gomez DO 02/25/2023 9:51 AM Signed Her grandmother called to update us regarding her progress. She is still having troubles, according to her grandmother. She will be following up with a psychiatrist. They want to get a copy of her discharge paperwork. I notified her that they will have to talk to her behavioral health provider to see if they can release the paperwork. She will be applying for disability, and are putting my name down as her most recent provider to fill out the paperwork. I told her that is fine. Lis Gomez, Allergies As of Date: 02/24/2023 (No Known Allergies) Date Reviewed: 02/14/2023 Reviewed by: Leola Diez RN - Fully Assessed Reason for Visit: Patient Update [1234] Prescriptions as of 02/25/2023 - hydrOXYzine HCl (ATARAX) 50 mg tablet Take 1 tablet by mouth twice daily as needed. - melatonin 3 mg tablet Take 2 tablets by mouth daily at bedtime. - PARoxetine (PAXIL) 20 mg tablet Take 1 tablet by mouth daily with dinner. Problem List As Of Date 02/24/2023 Noted Resolved Unplanned [Z34.90] 03/27/2021 01/01/2022 Nausea and vomiting in [O21.9] 03/27/2021 05/30/2021 History of depression [Z86.59] 03/27/2021 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 Emery's disease [Z82.0] 03/27/2021 Patient request for diagnostic testing [Z01.89] 03/27/2021 05/30/2021 Marijuana use [F12.90] 04/07/2021 Abnormal glucose complicating [O99.81*08/25/2021 01/01/2022 Anxiety [F41.9] 01/14/2022 Mild episode of recurrent major depressive diso*01/14/2022 Obesity, Class II, BMI 35-39.9 [E66.9] 02/11/2023 Depression [F32.A] 02/12/2023 Encounter Status:Closed by MALENA HAYDEN on 02/24/23 [facility] CASE MANAGEMon 02-15-2023 CASE MANAGEM HNO ID: [id number] Author: ZACK Starks Service: Social Work Author Type: Rod Cup Filler Type: Care Mgt Progress Note Filed: 02/15/2023 1:38 PM Note Text: BEHAVIORAL HEALTH SOCIAL WORK DISCHARGE NOTE SERVICE DATE: 02/15/2023 SERVICE TIME: 8:55a.m. Discharge Information Row Name Admission (Current) from 02/11/2023 in [facility] Psychiatry Follow-Up Appointment Psychiatrist Name Chinedu Brannon, SHEETMETAL WORKER Agency [facility] ([place]) Address / Phone # [address] [place] [address] / / Appointment Date 02/22/23 Appointment Time 1:40p.m., this will be in person Additional Instructions Please bring a photo ID and insurance card with you Counselor Follow-Up Appointment Counselor Name Segundo Macdonald, counselor Agency [facility] ([place] Address / Phone # [address] [place] [address] / / Appointment Date 02/23/23 Appointment Time 11:25a.m., this will be an in person appointment Patient/Representativ e Agreeable With Discharge Plan: Yes FREEDOM OF CHOICE EXPLAINED? On admission Patient/Representativ e Given/Explained Medicare Discharge Notice (IM letter): Not Applicable TRANSPORTATION ARRANGEMENTS: Pt's mother will pick her up after work, around 2:30p.m. and transport her home. PRESCRIPTIONS FILLED PRIOR TO DISCHARGE: Yes, at hospital pharmacy ADDITIONAL NOTES: Pt met with treatment team. Pt was smiling and cooperative. Pt stated she was ready to be dc'd and denied S/HI. Pt stated that she had a good visit with her mother over the weekend and her mother denied the statements pt's Dr read to pt from chart. Treatment team contacted pt's mother via speakerphone with pt present. Pt's Dr went over the reasons for pt's admission and pt's mother was in agreement. Pt's mother stated that pt was ready to be dc'd home and she will pick her up after work, around 2p.m. SW went over d/c plan. VIRGILIO contacted [facility] and linked pt with above Intake for SHEETMETAL WORKER and counseling as above. Pt's medication were filled at hospital prior to d/c. SIGNATURE: KARIS Starks PATIENT NAME: Herminia Goldman DATE: February 15, 2023 TIME: 1:29 PM [facility] 02-15-2023 [facility] HNO ID: [id number] Author: Renato Teran MD Service: Psychiatry Author Type: Physician Type: Discharge Summary Filed: 02/15/2023 12:48 PM Note Text: DISCHARGE SUMMARY BEHAVIORAL HEALTH PATIENT NAME: Herminia Goldman ADMISSION DATE: 02/11/2023 DISCHARGE DATE: 02/15/2023 ATTENDING PHYSICIAN: Renato Teran MD Code Status: Not on file Highest Readmission Risk Score: 11 The 30 day readmissions risk score is derived from an internally validated risk model which evaluates patient level characteristics, utilization history, medication orders and lab results up until the day of discharge. Patients with a score of 40 or above are considered highest risk for readmission. Specific patient level drivers will be listed at the bottom of the summary. REASON FOR HOSPITALIZATION: Failure of outpatient psychiatric management DISCHARGE DIAGNOSIS: PRIMARY: Mood Disorder Major Depressive Disorder, Single Episode, Severe Without Psychotic Symptoms GAF: 55 -60-51 Moderate symptoms or moderate difficulty in social, occupational or school functioning. OPERATIONS DURING HOSPITALIZATION: None PROCEDURES DURING HOSPITALIZATION: No procedures performed HOSPITAL COURSE: Principal Problem: Depression POA: Yes Assessment AND Plan: initially she was depresssed ; it was not clear if she was able to take care of her son Resolved Problems: * Not depressed * CONSULTING TEAMS DURING HOSPITALIZATION: Internal Medicine: see consult Treatment Team: Attending Provider: Renato Teran MD Consulting: Sarah Mensah MD PATIENT CONDITION AT DISCHARGE: Stable DISCHARGE DISPOSITION: Home with Self Care COMPLICATIONS: None At this time the patient has maximized her benefit from hospitalization.. The patient denies suicidal or homicidal ideation, intent or plan and is safe for discharge. The patient voices a readiness to transition back to her home setting and has agreed to our follow-up recommendations including medication compliance. SUBJECTIVE: I feel much better and I am not depressed OBJECTIVE: Seen with SW . Patient is calm and cooperative . She understands the treatment of depression ; will receive medication ane counseling . Overall she is improved and not suicidal . Transitions of Care Critical Issues: SPECIALIST FOLLOW-UP: SONYA LABS AND PROCEDURES PENDING AT DISCHARGE: No pending results. Any PRN's required for agitation or anxiety since last encounter: No New problems on the unit since the last encounter: No Any new medication reactions since the last encounter: No BP 123/72 Pulse 74 Temp (Src) 98.2 (Oral) Resp 18 Ht 5' 2 (1.58m) Wt 172 lb (78.0kg) SpO2 95% LMP 12/31/2022 BMI 31.45 kg/(m2). MENTAL STATUS EXAM AT DISCHARGE: Appearance: Casually dressed Behavior: Appropriate Orientation: Person, Place, Time and Situation Speech/Language: The patient demonstrates appropriate tone, prosody, lissette, phonetics, and syntax Mood/Affect: Euthymic Thought/Form: Logical Thought Content: Logical Suicidal Ideations: No suicidal ideation, intent or plan. Homicidal Ideations: No homicidal ideation, intent or plan. Insight: Fair Judgment: Fair Memory/Cognition: Intact Psychomotor: Psychomotor activity was normal See PE in the chart LABORATORY DATA: The laboratory/imaging results have been reviewed. Pertinent findings since the last assessment: No TREATMENT PLAN: 1. Biological Management: Paxil 20 mg po every day 2. Psychological Management Recommendations: milieu therapy 3. Social Intervention Recommendations: see SW notes INFORMED CONSENT: Yes, completed with the Patient. Discussed the risks, benefits and alternatives to the medication(s) recommended. Consent was given. ALLERGIES No Known Allergies DISCHARGE MEDICATION: Current Discharge Medication List START taking these medications hydrOXYzine HCl (ATARAX) 50 mg Take 50 mg by mouth twice daily as needed. Qty: 30 tablet Refills: 0 melatonin 6 mg Take 6 mg by mouth daily at bedtime. Qty: 30 tablet Refills: 0 PARoxetine (PAXIL) 20 mg Take 20 mg by mouth daily with dinner. Qty: 30 tablet Refills: 0 Is Patient Discharged on Two Active Antipsychotics? No INFORMATION PROVIDED TO PATIENT: Substance Abuse Information Given PLAN OF CARE: FUTURE APPOINTMENTS: Follow Up with SONYA Discharge Information Row Name Admission (Current) from 02/11/2023 in [facility] Psychiatry Follow-Up Appointment Agency [facility] ([place] Address / Phone # [address] [place] [address] / / The patient's risk for 30-day readmission is determined using the following contributing factors: Pt variables contributing to increased readmission risk: 12 Active Medication Orders 7 Most Recent BUN Result 1 Previous ED Visit (6 mos.)? 1 Number of Prev (more content not included)... [facility] NURSING PROGon 02-15-2023 NURSING PROG HNO ID: [id number] Author: Marcus Silva RN Service: Nursing Author Type: Registered Nurse Type: Nursing Progress Note Filed: 02/15/2023 3:44 PM Note Text: Nursing Progress Note Patient Name: Herminia Goldman Patient Location: [id number]/[facility]-09 Daily Note:1530 Patient discharged to home with prescriptions, belongings and follow up instructions/appointm ents. Voice no distress. Comfort and safety measures met. Transportation Family. This note was completed by: Marcus Silva [facility] NURSING PROG HNO ID: [id number] Author: Marcus Silva RN Service: Nursing Author Type: Registered Nurse Type: Nursing Progress Note Filed: 02/15/2023 3:42 PM Note Text: Nursing Progress Note Patient Name: Herminia Goldman Patient Location: [id number]/[facility]53-09 Daily Note:Patient ate 90% of breakfast, 90% of lunch . Identification band intact. No complaints voiced. Q15 minute rounds maintained this morning. Comfort and safety measures observed and met. Patient relaxed, calm and socializing with peers in the dayroom. Makes needs known to health care staff members. Will continue to monitor and report all findings. All routine medications given per doctors orders. This note was completed by: Marcus Silva [facility] NURSING PROG HNO ID: [id number] Author: Leola Diez RN Service: ? Author Type: Registered Nurse Type: Nursing Progress Note Filed: 02/15/2023 12:15 AM Note Text: Nursing Progress Note Patient Name: Herminia Goldman Patient Location: [id number]/[facility]53-09 Daily Note Assumed care of pt at 1930 after report. Pt is cooperative with vitals and assessment. Pt is disheveled, demanding but average, appropriate and in control. Pt denies SI, HI, AVH, and pain. Pt took scheduled medications without difficulty. Pt was given PRN trazodone at 2237 upon request. Pt is very sociable in day area watching TV and playing games with fellow patients. No needs or concerns voiced at this time. Safety measures and patient monitoring maintained per unit protocol. This note was completed by: Leola Diez [facility] NURSING PROGon 02-14-2023 NURSING PROG HNO ID: [id number] Author: Keesha Madera RN Service: Nursing Author Type: Registered Nurse Type: Nursing Progress Note Filed: 02/14/2023 6:31 PM Note Text: Nursing Progress Note Patient Name: Herminia Goldman Patient Location: [id number]/[facility]-09 Daily Note: Pt pleasant and cooperative with assessment, vitals, and meds. Pt is consistently pleasant, appropriate, visible, socializes with peers, and attends group. Pt denied SI, HI, AVH, and pain. Pt endorsed anxiety, for which she was given atarax at 0803. Pt discharged focused and said she misses her baby. Pt encouraged to approach this nurse with any problems concerns. Pt pleasant, cooperative, and social for duration of the shift. Broset = 0 This note was completed by: Keesha Madera [facility] NURSING PROGon 02-13-2023 NURSING PROG HNO ID: [id number] Author: Sarah Gruber RN Service: Nursing Author Type: Registered Nurse Type: Nursing Progress Note Filed: 02/14/2023 3:40 AM Note Text: Nursing Progress Note Patient Name: Herminia Goldman Patient Location: [id number]/[facility] 53-09 Daily Note: Assumed care of pt at 1930, pt was visible in the day area, socializing appropriately with others. 2132 - Pt was seen in the day area, pt reports feeling well, appears brightened. Pt denies SI HI or hallucinations, does report ongoing difficulty with sleep. Pt is compliant with medications, given melatonin for sleep, pt reports trazodone hadn't worked for her. 2217 - Pt did take suppository herself, no issues. 2354 - pt reports still not feeling like she can fall asleep. Pt requested Benedryl 50mg, which was given one time along with trazodone 50mg. Pt will seek staff if further assistance is needed. 324 - Pt woke and asked if she could have another pill for anxiety, pt voice and behavior appeared very anxious. Pt stated she felt she was really anxious to be discharged too, and maybe that was bothering her. Pt wants to ask the doctor in the morning if she could go home soon, because she wants to plan it with her mom. Pt was given PRN Atarax 50mg for anxiety. Pt walked around the day area for a few minutes then headed back to her room. This note was completed by: Sarah Gruber [facility] NURSING PROG HNO ID: [id number] Author: Keesha Madera RN Service: Nursing Author Type: Registered Nurse Type: Nursing Progress Note Filed: 02/13/2023 6:38 PM Note Text: Nursing Progress Note Patient Name: Herminia Goldman Patient Location: [id number]/[facility] [address]-12 Daily Note: Pt pleasant and cooperative with assessment and vitals. Pt is well-groomed, consistently pleasant, appropriate, social with peers, and visible. Pt expresses strong interest in going to group. Pt had no scheduled meds other than preparation H suppository, which she wants to delay because it requires a long time laying down after administration and pt wants to be social and not miss group. Pt said that she was not bothered by her hemorrhoids at this time. Pt said she would notify this nurse if she felt discomfort and wanted her suppository. Pt encouraged to approach this nurse with any problems. 1216: Pt ate her entire lunch. Pt pleasant. 1404: Pt given suppository. Pt administers herself. 1713: Pt took 20 mg scheduled paxil (increased from 10 mg yesterday.) Pt pleasant, cooperative, appropriate, visible, and social throughout shift. Broset = 0 This note was completed by: Keesha Madera [facility] NURSING PROG HNO ID: [id number] Author: Benny Lawrence RN Service: ? Author Type: Registered Nurse Type: Nursing Progress Note Filed: 02/13/2023 6:40 AM Note Text: Nursing Progress Note Patient Name: Herminia Goldman Patient Location: [id number]- 0054-01 Daily Note: 1929: Received report and assumed care of pt. 1999: Pt in day area watching TV and socializing with peers. Pt requesting to get medications at a later time. 2200: Pt compliant with scheduled medication. She received trazodone at 2220 to help with sleep. 0104: Pt came out of room requesting something else for sleep. Pt somewhat tearful, frustrated that she is not able to sleep. Pt received second trazodone dose at 0104. 0600: Pt awake and out of room. Pt states that she was able to sleep ok. Pt up at intervals, slept approximately 4.5 hours this shift. This note was completed by: Benny Lawrence [facility] NUTRITIONon 02-13-2023 NUTRITION HNO ID: [id number] Author: Mayra Michel RD Service: Nutrition Therapy Author Type: Registered Dietitian Type: Nutrition Filed: 02/13/2023 4:29 PM Note Text: NUTRITION THERAPY SCREEN NOTE SERVICE DATE: 02/13/2023 SERVICE TIME: 1625 Reason for visit : MST 4 Care Plan: Continue current diet Discharge Recommendations: Diet Diet: regular, generally healthful Monitor and Evaluation: Meet greater than 75% of estimated needs Intake History: Nutrition Intake Prior to Admission: Less than 75% estimated energy needs (intentional) greater than or equal to 3 months Current Nutrition Intake: Greater than 75% estimated energy needs Current Intake Over time: (inpatient x ~ 2 days) DIXIE Note: Pt seen in unit, reported wt loss was intentional post-. She stated that her current weight of 172# is more comfortable for her. 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 Denied issues eating, denied GI s/s. Denied any c/s difficulties with food. No acute nutrition concerns at this time; if concerns arise, please consult. Diet Orders (From admission, onward) Start Ordered 02/11/23 1730 DIET REGULAR START NOW 02/11/23 1726 Anthropometrics: Height: 157.5 cm (5' 2 ) Weight: 78 kg (172 lb) Usual Weight: 86.2 kg (190 lb) [id number] -- pt pregant at this time, however. Usual Weight Obtained From: Chart Review Weight change percentage over time: - 16.9% x 1 year -- not significant, and pt reported this was intentional loss of wt post MNT Billing: $ Initial Assessment: 1-15 minutes SIGNATURE: Mayra Michel RD PATIENT NAME: Herminia Goldman DATE: February 13, 2023 TIME: 4:27 PM [facility] ALLIED HEALTHon 02-12-2023 ALLIED HEALTH HNO ID: [id number] Author: Ethel Fisher Service: Music Therapy Author Type: Music Therapist Type: Allied Health Filed: 02/12/2023 10:31 AM Note Text: THERAPEUTIC PROGRAMMING ASSESSMENT SERVICE DATE: 02/12/2023 SERVICE TIME: 949 RECOMMENDATIONS: Community Resources Expressive Therapy Leisure Education Relaxation Self Awareness Socialization Stress Management ACTIVITIES OF DAILY LIVING (Difficulty in the following ADL areas): Parenting Sleeping GENERAL OBSERVATIONS: Affect: Constricted Alert Appearance: Unkempt Communication: Appropriate interaction Pressured speech Cooperative Minimizes problem areas ASSESSMENT COMPLETED: Yes: STRESS MANAGEMENT SKILLS: Identified Stressors: Pt consistently brought up struggles with her family. Pt commented that she feels that her family (mother) does not understand that she has online friends. Pt commented that she struggles with being a single parent. Pt did comment that she struggles with aggression and depression on bad days. Effective Coping Strategies Used: Coloring, listening to music, talking with online friends. Pt is interested in pursuing therapy. Ineffective Coping Strategies Used: Spending too much time on social media and computer games. Describe what you do on an average day: Pt commented that she cares for her son most days (pt went on to say that her family will just take him without consulting her). Pt shared that she sleeps a lot. INTERESTS: Current: Coloring, listening to music, talking with online friends. Future: Coloring, listening to music, talking with online friends. No Interest: None Past Interest: Coloring, listening to music, talking with online friends. PATIENT'S GOALS FOR THERAPEUTIC PROGRAMMING: Channel energy/feelings into constructive outlets Improve coping skills Improve use of leisure time SIGNATURE: Ethel Fisher PATIENT NAME: Herminia Goldman DATE: February 12, 2023 TIME: 10:25 AM PAGER/CONTACT #: [facility] ALLIED HEALTH HNO ID: [id number] Author: Ethel Fisher Service: Music Therapy Author Type: Music Therapist Type: Allied Health Filed: 02/12/2023 10:25 AM Note Text: PERSONAL DE-ESCALATION PLAN BEHAVIORAL HEALTH SERVICE DATE: 02/12/2023 SERVICE TIME: 09 Personal De-Escalation Completed: Yes. PROBLEM BEHAVIORS: What type of behaviors are problems for you: Assaultive Behavior, Feeling Suicidal, and Suicide Attempts What types of things (triggers) make you feel unsafe or upset: Arguments, Feeling Lonely, Not Being Listened to, and Not Having Control Please describe your warning signs, for example what other people may notice when you begin to lose control: Loud Voice What are some things that help to calm you down or keep you safe: Coloring and Listening to Music What are some things that do NOT help you calm down or stay safe: Being Alone, Being Disrespected, Being Ignored, and Not Being Listened To STRENGTHS: What are your strengths when feeling out of control: Pt feels that she is a good mother and has a good relationship with her son. SKILLS: What skills do you have/what are you good at: Pt commented that she is good at different online games ( animal crossing ) OTHER: Are you able to communicate to staff when you are having a hard time: Yes What kinds of incentives work for you: Discharge SIGNATURE: Herminia Simon Music Therapist PATIENT NAME: Herminia Goldman DATE: February 12, 2023 TIME: 10:17 AM PAGER/CONTACT #: [facility] CASE MGT [employer] 2022 CASE MGT INK[facility] ID: [id number] Author: ZACK Starks Service: Social Work Author Type: Rod Cup Filler Type: Care Mgt Initial Assessment Filed: 02/12/2023 2:59 PM Note Text: BEHAVIORAL HEALTH SOCIAL WORK/CARE MANAGEMENT ASSESSMENT AND DISCHARGE PLAN SERVICE DATE: 02/12/2023 SERVICE TIME: 9:15 AM Reason for Admission: Per chart: Nature of the crisis: suicidal threats, aggressive and odd behavior Presenting Problem: Herminia Goldman is a 22 year old female with depression and anxiety brought in to [place] ED from Home by family for increasing [...] to be home. She was informed this director semiconductor will further discuss with physicians for plan of care and potential admission. She reluctantly gave permission for this director semiconductor to speak with mom, why would you need to do that? Ok, I guess. Patient had repeated episodes of agitation r/t not wanting to be hospitalized: yelling, screaming, pacing, crying, threw glasses to floor. Medicated with Haldol, Ativan, Benadryl with good effect. Legal Status: Involuntary - Medical Certificate Important Contacts: Primary Contact Name: Sigrid / Relationship: Mother / Cell / Does the patient/representativ e consent to contact with the above at this time? Yes Information obtained from: Chart Patient Referred by: Family and Medical Team Living Arrangements Prior to Admission: Pt lives with her brother in a trailer Prior to Admission, Patient was Living with: Family: with her brother Marital Status: Single Children (including quality of relationship): One 15 month old son, Nehemias . Pt stated her mother and Grandmother care for her 15 month year old stating They are obsessed with him! Sexual Orientation: Heterosexual SOCIAL HISTORY Herminia Goldman was born and (more content not included)... [facility] CONSULTon 02-12-2023 CONSULT HNO ID: [id number] Author: Sarah Mensah MD Service: ? Author Type: Physician Type: Consults Filed: 02/12/2023 1:33 PM Note Text: INTERNAL MEDICINE INITIAL CONSULT SERVICE DATE: 02/12/2023 SERVICE TIME: 1:04 PM REASON FOR CONSULT: medical management REQUESTING PHYSICIAN: PRIMARY CARE PHYSICIAN: Fiordaliza Zhao APRN.MARTÍNEZ Subjective HISTORY OF PRESENT ILLNESS: Ms. Goldman is a 22 year old female who was brought in with depression and suicidal ideation. Drug screen is positive for marijuana. Pt PAST MEDICAL HISTORY Diagnosis Date #[id number] PAST SURGICAL HISTORY Procedure Laterality Date TONSILLECTOMY [...] Comment: occasionally Drug use: Yes Types: Marijuana No medications prior to admission. Current Facility-Administered Medications Medication Dose Route Frequency [...] tab(s) (PAXIL) 10 mg ORAL DAILY wDINNER ALLERGIES No Known Allergies COMPLETE REVIEW OF SYSTEMS: GENERAL: No weight loss, malaise or fevers. HEENT: Negative for nose bleeds or other nasal problems NECK: Negative for goiter, pain or significant neck swelling RESPIRATORY: Negative for cough, hemoptysis, wheezing, dyspnea or shortness of breath CARDIOVASCULAR: Negative for chest pain, leg swelling, or palpitations GI: No nausea, vomiting, or diarrhea : No history of dysuria, frequency or incontinence CAR CLERK PULLMAN: Negative for abnormal vaginal, bleeding, abnormal vaginal discharge MUSCULOSKELETAL: Negative for joint pain or swelling, back pain or muscle pain SKIN: Negative for lesions, rash, and itching. HEMATOLOGY/LYMPHOLOGY : Negative for prolonged bleeding, bruising easily or swollen nodes. ENDOCRINE: Negative for cold or heat intolerance, polyuria or polydipsia. NEURO: No history of headaches, syncope, paralysis, seizures or tremors Objective PHYSICAL EXAM: Patient Vitals for the past 24 hrs: BP Temp Temp src Pulse Resp SpO2 Height Weight 02/12/23 0759 131/61 36.9 ?C (98.4 ?F) Oral 82 17 98 % -- -- 02/11/23 1949 146/92 36.7 ?C (98.1 ?F) Oral 86 18 98 % -- -- 02/11/23 1751 120/82 36.7 ?C (98.1 ?F) Oral 77 18 99 % 157.5 cm (5' 2 ) 78 kg (172 lb) Body mass index is 31.46 kg/m?. GENERAL: alert, no distress, cooperative, SKIN: No rashes or lesions. OROPHARYNX: Oropharynx normal. NECK: No jugulovenous distention, Supple LUNGS: Lungs clear to auscultation. Good diaphragmatic excursion. CARDIAC: Normal S1 and S2; no rubs, murmurs, or gallops ABDOMEN: Abdomen soft, non-tender, BS normal, No masses or organomegaly EXTREMETIES: Extremities normal, no deformities, edema, clubbing or skin discoloration. Good capillary refill., No ulcers NEURO: Alert, oriented X 3, Sensation grossly intact. PULSES: 2+ radial, 2+ carotid DATA: Diagnostic tests reviewed for today's visit: Latest Reference Range AND Units 02/11/23 10:44 Sodium 136 - 144 mmol/L 138 Potassium 3.7 - 5.1 mmol/L 3.2 (L) Chloride 97 - 105 mmol/L 101 CO2 22 - 30 mmol/L 24 BUN 7 - 21 mg/dL 7 Creatinine 0.58 - 0.96 mg/dL 0.60 Glucose 74 - 99 mg/dL 99 Protein, Total 6.3 - 8.0 g/dL 7.3 Calcium 8.5 - 10.2 mg/dL 9.3 Albumin 3.9 - 4.9 g/dL 4.4 Bilirubin, Total 0.2 - 1.3 mg/dL 0.2 Alkaline Phosphatase 34 - 123 U/L 76 ALT 7 - 38 U/L 16 AST 13 - 35 U/L 13 Anion Gap 9 - 18 mmol/L 13 eGFR >=60 mL/min/1.73m? 131 Ethanol <11 mg/dL <11 Latest Reference Range AND Units 02/11/23 10:44 02/11/23 11:16 Ethanol <11 mg/dL <11 Amphetamines Negative Negative Barbiturates Negative Negative Benzodiazepines Urine Negative Negative Cocaine Urine Negative Negative Cannabinoids, Urine Negative Preliminary positive ! Ethanol, Urine <11 mg/dL <11 Opiates Negative Negative Phencyclidine Negative Negative Oxycodone, Urine Negative Negative HCG Qualitative, Urine Negative Negative WBC (more content not included)... Normal [facility] HISTORY PHYSICALon HISTORY PHYSICAL HNO ID: [id number] Author: Renato Teran MD Service: Psychiatry Author Type: Physician Type: HANDP Filed: 02/12/2023 2:52 PM Note Text: HISTORY AND PHYSICAL BEHAVIORAL HEALTH SERVICE DATE: 02/12/2023 SERVICE TIME: 9:58 AM IDENTIFYING INFORMATION: Herminia Goldman is a 22 year old person who identifies as female. FROM ED: Herminia Goldman is a 22 year old female with depression and anxiety brought in to [place] ED from Home by family for increasing [...] hx of bipolar disorder. Not compliant with Zoloft. Family got a trailer for her to [...] up all the time watching my kid [place]. I get his bottle, then I have trouble going back to sleep. I have a hard time sleeping always. She giggles and says she is shy and doesn't like talking to people. She reports, in contrast to mom, that she takes her Zoloft, and she upped her dose to 100 [...] to be home. She was informed this director semiconductor will further discuss with physicians for plan of care and potential admission. She reluctantly gave permission for this director semiconductor to speak with mom, why would you need to do that? Ok, I guess. Patient had repeated episodes of agitation r/t not wanting to be hospitalized: yelling, screaming, pacing, crying, threw glasses to floor. Medicated with Haldol, Ativan, Benadryl with good effect. REASON FOR ADMISSION: Depression and Suicidal ideation Subjective I want to go home My family helps me only if I threaten to commit suicide HPI: Herminia Tomas presents for admission secondary to Risk of physical harm to self. Patient interviewed with SW. She is calm and cooperative and states she feels good but she had an episode of depression . Refuses to admit to her odd behavior at home as related by her mother . During there interview she was cooperative but when she was told she be in the hospital over the week end she left the interview STRESSORS: Single mother PSYCHIATRIC REVIEW OF SYMPTOMS: Depression: + Depressed mood and + Decreased Concentration with vague suicidal threats Ann: Denies any history of hypomanic or manic episodes. Psychosis: Denies any auditory / visual hallucination or paranoid ideation. (more content not included)... [facility] NURSING PROGon 02-12-2023 NURSING PROG HNO ID: [id number] Author: Caesar Valenzuela, RN Service: Nursing Author Type: Registered Nurse Type: Nursing Progress Note Filed: 02/12/2023 5:08 PM Note Text: Other: Daily Note 1705 Assumed care of pt at 1100 observed in day area no signs of distress noted. Pt calm and pleasant upon approach. Medication compliant whole with water. No behavioral issues noted. Denies SI/HI/AVH. In control. Attended group. Appetite is good. Social with peers. Visible on unit. 15 min safety checks maintained. Will monitor. [facility] ALLIED HEALTHon 02-11-2023 ALLIED HEALTH HNO ID: [id number] Author: JESI Magaña Service: Intake-Behavioral Health Author Type: Counselor Type: Allied Health Filed: 02/11/2023 2:18 PM Note Text: BEHAVIORAL HEALTH INTAKE SUICIDE ASSESSMENT NOTE SERVICE DATE: February 11, 2023 SERVICE TIME: 10:57am Step 5: Documentation Risk Level : Suicide [...] inappropriate giggle. Methods of Suicide Risk Evaluation: Dori SAFE-T Brief Evaluation Summary: Warning Signs: impulsive Risk [...] Providers: Dr Sinha Date 02/11/23 Time11:20am Psychiatrist medical transcription editor: Name: Dr Arredondo Date: 02/11/23 Time: 12:51pm Other Contact and Role: N/A SIGNATURE: Zakia Silva [facility] PATIENT NAME: Herminia Goldman DATE: February 11, 2023 TIME: 2:18 PM Normal [facility] CBC panel Auto (Bld)on 02-11 Erythrocyte distribution width (RBC) [Ratio] 12.5 % Normal 11.5-15.0 [facility] Comment on above: Order Comment: Speci men Type: BLOOD SPECIMEN Ordering Facility: [facility] Address: [address] [place] [id number] Performed By: #### 5 8410-2 #### [facility] CLIA [id number] [address] [place] [address] [place] Hematocrit (Bld) [Volume fraction] 42.5 % Normal 36.0-46.0 [facility] Comment on above: Order Comment: Speci men Type: BLOOD SPECIMEN Ordering Facility: [facility] Address: [address] [place] [address] Performed By: #### 5 8410-2 #### [facility] CLIA [id number] [address] [place] [address] [place] Hemoglobin (Bld) [Mass/Vol] 14.1 g/dL Normal 11.5-15.5 [facility] Comment on above: Order Comment: Speci men Type: BLOOD SPECIMEN Ordering Facility: [facility] Address: [address] [place] [address] Performed By: #### 5 8410-2 #### [facility] CLIA [id number] [address] [place] [address] [place] MCH (RBC) [Entitic mass] 30.9 pg Normal 26.0-34.0 [facility] Comment on above: Order Comment: Speci men Type: BLOOD SPECIMEN Ordering Facility: [facility] Address: [address] [place] [address] Performed By: #### 5 8410-2 #### [facility] CLIA [id number] [address] [place] [address] [place] MCHC (RBC) [Mass/Vol] 33.2 g/dL Normal 30.5-36.0 [facility] Comment on above: Order Comment: Speci men Type: BLOOD SPECIMEN Ordering Facility: [facility] Address: [address] [place] [address] Performed By: #### 5 8410-2 #### [facility] CLIA [id number] [address] [place] [address] [place] MCV (RBC) [Entitic vol] 93.0 fL Normal 80.0-100.0 [facility] Comment on above: Order Comment: Speci men Type: BLOOD SPECIMEN Ordering Facility: [facility] Address: [address] [address] Performed By: #### 5 8410-2 #### [facility] CLIA [id number] [address] [place] [address] [place] Platelet mean volume (Bld) [Entitic vol] 10.6 fL Normal 9.0-12.7 [facility] Comment on above: Order Comment: Speci men Type: BLOOD SPECIMEN Ordering Facility: [facility] Address: [address] [place] [address] Performed By: #### 5 8410-2 #### [facility] CLIA [id number] [address] [place] [address] [place] Platelets (Bld) [#/Vol] 246 10*3/uL Normal 150-400 [facility] Comment on above: Order Comment: Speci men Type: BLOOD SPECIMEN Ordering Facility: [facility] Address: [address] [place] [address] Performed By: #### 5 8410-2 #### [facility] CLIA [id number] [address] [place] [address] [place] RBC (Bld) [#/Vol] 4.57 10*6/uL Normal 3.90-5.20 [facility] Comment on above: Order Comment: Speci men Type: BLOOD SPECIMEN Ordering Facility: [facility] Address: [address] [place] [address] Performed By: #### 5 8410-2 #### [facility] CLIA [id number] [address] [place] [address] [place] WBC (Bld) [#/Vol] 6.38 10*3/uL Normal 3.70-11.00 [facility] Comment on above: Order Comment: Speci men Type: BLOOD SPECIMEN Ordering Facility: [facility] Address: [address] [place] [address] Performed By: #### 5 8410-2 #### [facility] CLIA [id number] [address] [place] [address] OF [facility] CNOVon 02-11-2023 CNOV Office Visit (HERMESMPLE) SABINOHERMINIA COOK ([id number]) 2 F UPA Date Time Provider Department 02/11/23 9:20 AM LIS GOMEZ During your visit today, we recorded the following information about you: Temperature Pulse Respiration Blood pressure 98.5 degrees 94/minute 16/minute 120/70 Lis Gomez DO 02/11/2023 11:28 AM Signed Subjective Depression Pertinent negatives include no weakness. Pertinent negatives include no fever. Pt is here with her mother to discuss mental health issues She has a history of anxiety and depression She has been on zoloft 100 mg in the past, last Rx was 10/05/22 Her dad has Amelia's disease, and she is concerned that she [...] taking: Reported on 02/11/2023) 30 tablet 4 Dvjzgswm-[id number]-Pxd-[id number] tab Take 1 tablet by mouth once daily. With folic acid and DHA as covered by insurance (Patient not taking: Reported on 02/11/2023) 30 tablet 11 No current facility-administered medications for this visit. ACTIVE PROBLEM LIST History of Depression Family History of Amelia's Disease Marijuana Use Anxiety Mild Episode of [...] and headaches. Endo/Heme/Allergies: Does not bruise/bleed easily. Psychiatric/Behaviora l: Positive for depression and suicidal ideas. Negative [...] time. Cranial Nerves: No cranial nerve deficit. (more content not included)... Normal [facility] Comprehensive metabolic 2000 panelon 02-11-2023 Albumin [Mass/Vol] 4.4 g/dL Normal 3.9-4.9 [facility] Comment on above: Order Comment: Speci javier Type: BLOOD SPECIMEN Ordering Facility: [facility] Address: [address] [place] [address] Performed By: #### 2 4323-8 #### [facility] CLIA [id number] [address] [place] [address] [place] ALP [Catalytic activity/Vol] 76 U/L Normal 34-123 [facility] Comment on above: Order Comment: Stew herrera Type: BLOOD SPECIMEN Ordering Facility: [facility] Address: [address] [place] [address] Performed By: #### 2 4323-8 #### [facility] CLIA [id number] [address] [place] [address] [place] ALT With P-5'-P [Catalytic activity/Vol] 16 U/L Normal 7-38 [facility] Comment on above: Order Comment: Stew herrera Type: BLOOD SPECIMEN Ordering Facility: [facility] Address: [address] [place] [address] Performed By: #### 2 4323-8 #### [facility] CLIA [id number] [address] [place] [address] [place] Anion gap [Moles/Vol] 13 mmol/L Normal 9-18 [facility] Comment on above: Order Comment: Speci men Type: BLOOD SPECIMEN Ordering Facility: [facility] Address: [address] [place] [address] Performed By: #### 2 4323-8 #### [facility] CLIA [id number] [address] [place] [address] [place] AST With P-5'-P [Catalytic activity/Vol] 13 U/L Normal 13-35 [facility] Comment on above: Order Comment: Speci men Type: BLOOD SPECIMEN Ordering Facility: [facility] Address: [address] [place] [address] Performed By: #### 2 4323-8 #### [facility] CLIA [id number] [address] [place] [address] [place] Bilirubin [Mass/Vol] 0.2 mg/dL Normal 0.2-1.3 [facility] Comment on above: Order Comment: Speci men Type: BLOOD SPECIMEN Ordering Facility: [facility] Address: [address] [place] [address] Performed By: #### 2 4323-8 #### [facility] CLIA [id number] [address] [place] [address] [place] Calcium [Mass/Vol] 9.3 mg/dL Normal 8.5-10.2 [facility] Comment on above: Order Comment: Speci men Type: BLOOD SPECIMEN Ordering Facility: [facility] Address: [address] [place] [address] Performed By: #### 2 4323-8 #### [facility] CLIA [id number] [address] [place] [address] [place] Chloride [Moles/Vol] 101 mmol/L Normal 97-105 [facility] Comment on above: Order Comment: Speci men Type: BLOOD SPECIMEN Ordering Facility: [facility] Address: [address] [place] [address] Performed By: #### 2 4323-8 #### [facility] CLIA [id number] [address] [place] [address] [place] CO2 [Moles/Vol] 24 mmol/L Normal 22-30 [facility] Comment on above: Order Comment: Speci men Type: BLOOD SPECIMEN Ordering Facility: [facility] Address: [address] [place] [address] Performed By: #### 2 4323-8 #### [facility] CLIA [id number] [address] OF [facility] Creatinine [Mass/Vol] 0.60 mg/dL Normal 0.58-0.96 [facility] Comment on above: Order Comment: Speci men Type: BLOOD SPECIMEN Ordering Facility: [facility] Address: [address] [place] [address] Performed By: #### 2 4323-8 #### [facility] CLIA [id number] [address] [place] [address] ESTIMATED GLOMERULAR FILTRATION RATE 131 mL/min/1.73m??? Normal >=60 [facility] Comment on above: Order Comment: Speci men Type: BLOOD SPECIMEN Ordering Facility: [facility] Address: [address] [place] [address] Result Comment: Katie mated Glomerular Filtration Rate (eGFR) is calculated using the 2020 CKD-EPI creatinine equation. This equation utilizes serum creatinine, sex, and age as parameters. The creatinine assay has traceable calibration to isotope dilution-mass spectrometry. Refer to KDIGO guidelines for clinical interpretation. In patients with unstable renal function, e.g. those with acute kidney injury, the eGFR may not accurately reflect actual GFR. Performed By: #### 2 4323-8 #### [facility] CLIA [id number] [address] [place] Glucose [Mass/Vol] 99 mg/dL Normal 74-99 [facility] Comment on above: Order Comment: Speci men Type: BLOOD SPECIMEN Ordering Facility: [facility] Address: [address] [place] [address] Result Comment: The [place] Diabetes Association (ADA) provides guidance for cutoff values for fasting glucose and random glucose. The ADA defines fasting as no caloric intake for at least 8 hours. Fasting plasma glucose results between 100 to 125 mg/dL indicate increased risk for diabetes (prediabetes). Fasting plasma glucose results greater than or equal to 126 mg/dL meet the criteria for diagnosis of diabetes. In the absence of unequivocal hyperglycemia, results should be confirmed by repeat testing. In a patient with classic symptoms of hyperglycemia or hyperglycemic crisis, random plasma glucose results greater than or equal to 200 mg/dL meet the criteria for diagnosis of diabetes. Reference: Standards of Medical Care in Diabetes 2016, [place] Diabetes Association. Diabetes Care. 2016.39(Suppl 1). Performed By: #### 2 4323-8 #### [facility] CLIA [id number] [address] [place] [address] [place] Potassium [Moles/Vol] 3.2 mmol/L Low 3.7-5.1 [facility] Comment on above: Order Comment: Stew herrera Type: BLOOD SPECIMEN Ordering Facility: [facility] Address: [address] [place] [address] Performed By: #### 2 4323-8 #### [facility] CLIA [id number] [address] [place] [address] [place] Protein [Mass/Vol] 7.3 g/dL Normal 6.3-8.0 [facility] Comment on above: Order Comment: Stew herrera Type: BLOOD SPECIMEN Ordering Facility: [facility] Address: [address] [place] [address] Performed By: #### 2 4323-8 #### [facility] CLIA [id number] [address] [place] [address] [place] Sodium [Moles/Vol] 138 mmol/L Normal 136-144 [facility] Comment on above: Order Comment: Stew herrera Type: BLOOD SPECIMEN Ordering Facility: [facility] Address: [address] [address] Performed By: #### 2 4323-8 #### [facility] CLIA [id number] [address] [place] [address] [place] Urea nitrogen [Mass/Vol] 7 mg/dL Normal 7-21 [facility] Comment on above: Order Comment: Speci men Type: BLOOD SPECIMEN Ordering Facility: [facility] Address: [address] [place] [address] [place] [address] Performed By: #### 2 4323-8 #### [facility] CLIA [id number] [address] [place] [address] [facility] [place] ECG COMPLETEon 02-11-2023 ECG COMPLETE Ventricular Rate : 9 5 BPM Atrial Rate : 95 BPM P-R Interval : 150 ms QRS Duration : 82 ms Q-T Interval : 374 ms QTC Calculation(Bazett) : 469 ms Calculated P [place] : 54 degrees Calculated R [place] : 47 degrees Calculated T [place] : 54 degrees NORMAL SINUS RHYTHM WITH SINUS ARRHYTHMIA NORMAL ECG NO PREVIOUS ECGS AVAILABLE Confirmed by MD BARNES VINAYAK ([id number]) on 02/14/2023 11:48:28 PM NAME : HERMINIA GOLDMAN PID : [id number] : 2000 Gender : Female Race : ORD : [id number] Procedure Date : Feb 11 2023 15:10:44 Edit Date : Feb 14 2023 23:48:29 Diagnosis: NORMAL SINUS RHYTHM WITH SINUS ARRHYTHMIA NORMAL ECG NO PREVIOUS ECGS AVAILABLE Confirmed by MD BARNES VINAYAK ([id number]) on 02/14/2023 11:48:28 PM Test Reason : Arrhythmia Location : 150 : [facility] Overread By : MD BARNES VINAYAK Edited By : MD BARNES VINAYAK Referred By : , Acquired by : MARY SAENZ [facility] ED NOTEon 02-11-2023 ED NOTE HNO ID: [id number] Author: Kenya Luevano RN Service: Emergency Medicine Author Type: Registered Nurse Type: ED Notes Filed: 02/11/2023 3:36 PM Note Text: Pt onto cot without issue; pt provided with granola bar and chips for ride. Pt verbalized appreciation. Pt cooperative with EMS. Security in department as safety measure. [facility] ED NOTE HNO ID: [id number] Author: Kenya Luevano RN Service: Emergency Medicine Author Type: Registered Nurse Type: ED Notes Filed: 02/11/2023 3:12 PM Note Text: Pt cooperative and friendly for EKG; pt talking about her son with this nurse and assisting nurse. [facility] ED NOTE HNO ID: [id number] Author: Quita Murdock RN Service: Emergency Medicine Author Type: Registered Nurse Type: ED Notes Filed: 02/11/2023 2:20 PM Note Text: Bed assignment received from [facility] Ground Bed [address] Dr[address] Arredondo DX: Major Depression [id number] [facility] ETA 45-60 [facility] ED NOTE HNO ID: [id number] Author: Kenya Luevano RN Service: Emergency Medicine Author Type: Registered Nurse Type: ED Notes Filed: 02/11/2023 3:32 PM Note Text: EMS have arrived to the ED; report given. [facility] ED NOTE HNO ID: [id number] Author: Kenya Luevano RN Service: Emergency Medicine Author Type: Registered Nurse Type: ED Notes Filed: 02/11/2023 1:03 PM Note Text: [facility] ED NOTE HNO ID: [id number] Author: Kenya Luevano RN Service: Emergency Medicine Author Type: Registered Nurse Type: ED Notes Filed: 02/11/2023 1:04 PM Note Text: Pt abruptly stopped crying and appears to be resting. [facility] ED NOTE HNO ID: [id number] Author: Kenya Luevano RN Service: Emergency Medicine Author Type: Registered Nurse Type: ED Notes Filed: 02/11/2023 12:56 PM Note Text: Pt requesting to speak to her mother. Pt stating I'm bored, that's why I can't calm down, I need tiktoc . Mother attempted to be contacted, call goes straight to voicemail and mothers voicemail box is full; unable to leave message. Pt advised that this nurse will continue to try to contact mother. [facility] ED NOTE HNO ID: [id number] Author: Kenya Luevano RN Service: Emergency Medicine Author Type: Registered Nurse Type: ED Notes Filed: 02/11/2023 12:52 PM Note Text: Pt continues to be inconsolable; screaming I want to go home, the meds aren't helping . Pt states I want my tablet . Pt advised that she cannot have the tablet at this time. This nurse attempted to calm patient, pt responded with yelling, I want to go home, give me my tablet . Pt out of bed and pacing, then throws herself in bed face first. Pt repeating this behaviors multiple times. Normal [facility] ED NOTE HNO ID: [id number] Author: Kenya Luevano RN Service: Emergency Medicine Author Type: Registered Nurse Type: ED Notes Filed: 02/11/2023 12:11 PM Note Text: Pt aggressive in room stating I want to go home . Pt unable to be consoled. Pt pacing - threw glasses to floor. Glasses placed on counter for safety. Pt offered tissues; pt kicked tissues off of bed. Dr. Sinha came to room to attempt to speak / console patient; pt states I'm not stating and I want to go home . Dr. Sinha offered medications to help patient relax to which pt stated I don't want your medications, I won't take them . Pt yelling and stating You can't keep me in here, I can't take it! . Pt reports being tired, lights dimmed. Normal [facility] ED NOTE HNO ID: [id number] Author: Kenya Luevano RN Service: Emergency Medicine Author Type: Registered Nurse Type: ED Notes Filed: 02/11/2023 11:43 AM Note Text: Pt tearful and stating I want to go home, I can't do this, I just want to go home . Pt has these episodes every 3-5 minutes. Pt will cry and then be calm and watch tv and then get up, pace room, and cry. Normal [facility] ED NOTE HNO ID: [id number] Author: Kenya Luevano RN Service: Emergency Medicine Author Type: Registered Nurse Type: ED Notes Filed: 02/11/2023 11:40 AM Note Text: Pt questioning the process. Pt advised that when labs returned a decision will be made that is best for patient. Pt began to cry and state I can't go ,I can't go,I need my tablet! . This nurse offered to contact mother to request tablet. Pt states NO! No . Pt crying in bed; unable to console at this time. [facility] ED NOTE HNO ID: [id number] Author: Kenya Luevano RN Service: Emergency Medicine Author Type: Registered Nurse Type: ED Notes Filed: 02/11/2023 11:36 AM Note Text: Pt restless; tossing side to side violently in bed. Pt slides out of bed and starts pacing room stating I have ADHD, I can't stay here,I need to go home . Pt flops backin bed, crossing legs and watching tv. [facility] ED NOTE HNO ID: [id number] Author: Kenya Luevano RN Service: Emergency Medicine Author Type: Registered Nurse Type: ED Notes Filed: 02/11/2023 11:32 AM Note Text: Pt assisted to BSC. Same sex nurse in room with patient. Urinalysis to be sent. [facility] ED NOTE HNO ID: [id number] Author: Kenya Luevano RN Service: Emergency Medicine Author Type: Registered Nurse Type: ED Notes Filed: 02/11/2023 10:58 AM Note Text: Zakia with Jocelyn speaking with patient at this time. Pt remains tearful. [facility] ED NOTE HNO ID: [id number] Author: Kenya Luevano RN Service: Emergency Medicine Author Type: Registered Nurse Type: ED Notes Filed: 02/11/2023 10:48 AM Note Text: Pt assisted to BSC; same sex provided remained in room at all times during attempted urine collection. Pt unable to use the restroom; water provided. Will try again soon. [facility] ED NOTE HNO ID: [id number] Author: Kenya Luevano RN Service: Emergency Medicine Author Type: Registered Nurse Type: ED Notes Filed: 02/11/2023 10:29 AM Note Text: Pt reports seeing today for physical exam and to discuss potential anxiety / depression medications. Pt reports a tense relationship with her mother stating my mother calls me worthless . Pt additionally reports that she has a one year and something son who her mother watches during the day and the pt watches through the night.The pt reports that the son sleeps well, but she does not as she is unable to shut her mind off . Pt has concerns of Emery's Disease as it runs in her family but she has not been screened for it. Pt does not work and reports that she sleeps during the day. Pt states that she has taken depression medication in the past but didn't like the way it made her feel. Pt reports previous suicide attempt at 17 when step-father through overdose of aleve. Pt denies current suicidal ideation, plan, or attempt. Pt states I have to be dramatic to get my mother to pay attention to me . Pt repeatedly states I am a single mother . Pt with occasional inappropriate laugh. [facility] ED NOTE HNO ID: [id number] Author: Kenya Luevano RN Service: Emergency Medicine Author Type: Registered Nurse Type: ED Notes Filed: 02/11/2023 10:36 AM Note Text: Pt placed in purple gown and pt and pts belongings wanded by security. Pts belongings placed at nurses station. All unnecessary medical equipment removed from room. Dr Sinha notified to moderate suicide risk. One to one observation initiated. [facility] ED PROV NOTEon 02-11-2023 ED PROV NOTE HNO ID: [id number] Author: Shayy Sinha MD Service: Emergency Medicine Author Type: Physician Type: ED Provider Notes Filed: 02/11/2023 1:14 PM Note Text: ED Provider Note Patient Name: Herminia Goldman : 2000 SERVICE DATE: 02/11/23 History Patient presents with: Depression Suicidal Ideation HPI 22-year-old female who denies any past medical history brought over from PCP office with concern for suicidal ideation. Patient is uncooperative with providing history. Report from referring provider is that patient came to the office today for evaluation, endorsed suicidal ideation. Failure members were concerned for her safety and so she was brought over for ED care. Patient refusing to provide further details or answer any questions. PAST MEDICAL HISTORY Diagnosis Date #[id number] PAST SURGICAL HISTORY Procedure Laterality Date TONSILLECTOMY [...] Vaping Use Vaping Use: Never used Substance and Sexual Activity Alcohol use: Not Currently Comment: occasionally Drug use: Yes Types: Marijuana Sexual activity: Yes Partners: Male ALLERGIES No Known Allergies Review of Systems Physical Exam Vitals [02/11/23 1007] BP Pulse Temp Temp src Resp SpO2 Weight Height 131/79 75 36.4 ?C (97.5 ?F) Temporal 14 100 % 81.6 kg (180 lb) 1.6 m (5' 3 ) Physical Exam Vitals and nursing note reviewed. Constitutional: General: She is in acute distress. Appearance: She is well-developed. Comments: Is agitated, belligerent, yelling out inappropriately, will become quite tearful and screaming and then start laughing appropriately. HENT: Head: Normocephalic and atraumatic. Nose: Congestion present. Eyes: Extraocular Movements: Extraocular movements intact. Conjunctiva/sclera: Conjunctivae normal. Pupils: Pupils are equal, round, and reactive to light. Neck: Trachea: No tracheal deviation. Cardiovascular: Rate and Rhythm: Normal rate and regular rhythm. Heart sounds: Normal heart sounds. Pulmonary: Effort: Pulmonary effort is normal. No respiratory distress. Breath sounds: Normal breath sounds. Abdominal: General: Bowel sounds are normal. Palpations: Abdomen is soft. Musculoskeletal: General: Normal range of motion. Cervical back: Normal range of motion. Skin: General: Skin is warm and dry. Neurological: Mental Status: She is alert and oriented to person, place, and time. Psychiatric: Attention and Perception: She is inattentive. She does not perceive auditory or visual hallucinations. Mood and Affect: Mood is anxious. Affect is labile, angry, tearful and inappropriate. Speech: Speech is rapid and pressured and tangential. Behavior: Behavior is uncooperative, agitated, aggressive and hyperactive. Thought Content: Thought content includes suicidal ideation. Thought content does not include homicidal ideation. Thought content does not include homicidal or suicidal plan. Judgment: Judgment is impulsive and inappropriate. Diagnostic Testing ED Labs Ordered and Reviewed COMP METABOLIC PANEL - Abnormal; Notable for the following components: Result Value Ref Range Potassium 3.2 (*) 3.7 - 5.1 mmol/L All other components within normal limits URINALYSIS WITH MICROSCOPIC, REFLEX CULTURE - Abnormal; Notable for the following components: Clarity Cloudy (*) Clear Ketones, Urine Trace (*) Negative Leuk Esterase Trace (*) Negative Bacteria Moderate (*) None Seen /HPF All other components within normal limits TOX SCREEN ROUT UR - Abnormal; Notable for the following components: Cannabinoids, Urine Preliminary positive (*) Negative All other components within normal limits Narrative: Immunoassay screen only. Cross reactivity with other substances can occur with immunoassay screening. Detection of any drug(s) in this urine toxicology panel is presumptive only. These tests are for medical purposes only and should not be used for compliance monitoring, legal, or forensic use. Samples should be within normal physiological conditions (e.g. pH). This assay does not include adulteration/specimen validity testing. In clinical settings, confirmatory testing is at the practitioner's discretion [1]. If clinically indicated, confirmation by high specificity, quantitative methodology, which includes adulteration/specimen validity testing, may be requested on the same specimen through the testing laborat (more content not included)... Normal [facility] Ethanol SerPl-mCncon 023 Ethanol [Mass/Vol] mg/dL Normal <11 [facility] Comment on above: Order Comment: Speci men Type: BLOOD SPECIMEN Ordering Facility: [facility] Address: [address] [place] [address] Performed By: #### 5 643-2 #### [facility] CLIA [id number] [address] [place] [address] OF [facility] HCG Preg Ur Qlon 02-11-2023 HCG ( test) Ql (U) Negative Normal Negative [facility] Comment on above: Order Comment: Speci men Type: URINE SPECIMEN Ordering Facility: [facility] Address: [address] [place], [place] [address] Result Comment: This test is intended to aid in the early detection of . Very dilute urine samples, as indicated by a low specific gravity, may not contain sales representative sales manager levels of hCG. This test detects intact hCG only. This test does not reliably detect hCG degradation products, including free-beta subunit and beta-core fragment. Therefore, this test may show reduced reactivity in urine after 8 weeks gestation. A number of conditions other than , including trophoblastic disease and certain non-trophoblastic neoplasms cause elevated levels of hCG. As with any assay employing mouse antibodies, the possibility exists for interference by human anti-mouse antibodies (HAMA) in the specimen. The test provides a presumptive diagnosis for . Performed By: #### 2 106-3 #### [facility] CLIA [id number] [address] [place] [address] NURSING PROGon 02-11-2023 NURSING PROG HNO ID: [id number] Author: Nicolasa Jaime RN Service: Nursing Author Type: Registered Nurse Type: Nursing Progress Note Filed: 02/12/2023 10:32 AM Note Text: Nursing Progress Note Topic of Note: Daily Note Herminia Goldman [id number]: Assumed care of pt at 1930 after report. Pt is visible in the day area socializing appropriately with peers and watching TV. Pt is vital signs compliant. Pt stated that she is feeling good, no active SI, HI, AVH and pain. Pt did not have scheduled evening medications, pt requested to have Trazodone closer to bed time. All safety measures in place per unit protocol. 2120: Pt's mother called, RN updated mother on the phone reassuring her that pt is safe and cared for. Pt's mother is tearful about pt's condition requested to talk to pt. Pt is tearful in bed and refused to talk to mother when RN presented the phone. Pt is labile. Pt is pleasant and calm when RN went back to her room to talk to her, no signs of distress. Pt intermittently giggles during conversation but denied hallucinations. RN administered PRN PO Trazodone for sleep. Pt is very discharge focused. 0: Pt came up to nurses station stating that she can not sleep. RN administered another PRN PO Trazodone at 0213. Pt declined snacks and more blankets. Pt stated that it's not her thoughts and she is not anxious, she just couldn't fall asleep. Pt is currently resting in bed. No signs of distress. 0637: Pt slept on and off for 2 hours. Pt is currently watching TV in the day area. Pt appears anxious and in control. Pt is very discharge focused, coming to nurses station asking to go home. 1010: Pt ate breakfast in the day area then returned to her room to rest. Pt came up to RN complaining of hemorrhoids pain. RN administered PRN PO Tylenol at 0846. Pt is appreciative of care. Pt's mother called again requesting an update on pt's hospitalization. 1025: Pt called mother in her room and is currently attending morning group. This note was completed by: Nicolasa Jaime [facility] NURSING PROG HNO ID: [id number] Author: Kaylin Mcknight RN Service: ? Author Type: Registered Nurse Type: Nursing Progress Note Filed: 02/11/2023 6:24 PM Note Text: Nursing Progress Note Patient Name: Herminia Goldman Patient Location: [id number]/[facility]- 0054-01 Transfer Note: Patient transferred into room/unit CG-54 in stable condition. Actions taken: ID band changed, pt oriented to room and unit, snack given. 1643: Pt arrived on unit by luigi. Safety measures and monitoring initiated per unit protocol. Pt A AND O x 3, immediately asking RN when she can leave and go home. Pt confused and disorganized, struggling to get her thoughts together, wide-eyed and anxious, letting out a bizarre laugh after every few sentences. Pt is childlike in her mannerisms, and provides simple responses. Pt states she struggles to stay still here and at home. Pt states she has ADHD, anxiety and depression. Pt states she needs to be started on new medications as Zoloft did not work for her. Pt states that she, her 18 yo brother and her mother all have ADHD but mother will not allow any of them to be on medication as she doesn't believe in medication . Pt states that her family does not help her with the baby unless she cries phelps and says something drastic like I wanna . Pt denies SI. In those instances pt's family shows support and concern for her mental health. Pt states she has suffered from depression and anxiety since her teenage years, and it has gotten progressively worse since her stepfather when she was 17 yo; she states he was my best friend and then he of cancer . Pt states her paternal grandfather killed himself after being diagnosis of Emery's, and pt's father who lives in [place], also has the disease. Pt lives in [place] with her brother and pt's 15 month old son. Pt says of her son he is my sunshine . Per pt her brother is an awesome uncle but sometimes he does a little too much play fighting and is too aggressive . Pt has a large bruise on her right leg from play fighting with brother. Pt used to work at [employer] up until she had her son. Pt states her mother wants her to apply for disability. Pt states she does not use tobacco, smokes marijuana once a month approximately, and does not use alcohol as she don't like the taste . Pt states her whole family smoke marijuana and she gets it from them. Pt again states she is nervous about being here and wants to go home, but that she understands it might be best for her to remains for a while so that she can get the help she needs. Pt denies gun in home, but states she has a Tazer for her protection, although she does not know where it is in her trailer. Pt signed VOLUNTARY and pt signed LUIS for her mother, Sigrid Saez, . Dinner ordered for pt. Pt changed into unit clothing and remains in day area watching TV at this time. No needs/concerns voiced. 1823: Pt ate dinner and remains in day area watching TV and socializing with fellow patient. Pt has bright affect. Per Intake: Presenting Problem: Herminia Goldman is a 22 year old female with depression and anxiety brought in to [place] ED from Home by family for increasing [...] for me. I don't look at the calendar.. (more content not included)... Normal [facility] SARS-CoV-2 RNA Resp Ql MARIA ISABEL+p robeon 02-11-2023 SARS-CoV-2 (COVID-19) RNA MARIA ISABEL+probe Ql (Resp) COVID 19 RESULT: Not detected The method used is RT-PCR or an equivalent NAAT method. Reference Range(the expected result in uninfected individuals): Not detected Normal [facility] Comment on above: Performed By: #### 9 4500-6 ####[facility] [id number] [place] [address] [place] TOX SCREEN ROUT URon 023 Amphetamines Confirm (U) [Mass/Vol] Negative Normal Negative [facility] Comment on above: Order Comment: Speci men Type: URINE SPECIMEN Ordering Facility: [facility] Address: [address] [place] [address] Result Comment: Cuto ff threshold at 1000 ng/mL. Performed By: #### U TOX2 #### [facility] CLIA [id number] [address] OF ABDULAZIZ BARBITURATES, URINE Negative Normal Negative [facility] Comment on above: Order Comment: Speci men Type: URINE SPECIMEN Ordering Facility: [facility] Address: [address] [place] [address] Result Comment: Cuto ff threshold at 200 ng/mL. Performed By: #### U TOX2 #### [facility] CLIA [id number] [address] [place] [address] [place] BENZODIAZEPINES, UR Negative Normal Negative [facility] Comment on above: Order Comment: Speci men Type: URINE SPECIMEN Ordering Facility: [facility] Address: [address] [place] [address] Result Comment: Cuto ff threshold at 200 ng/mL. Performed By: #### U TOX2 #### [facility] CLIA [id number] [address] [place] [address] [place] CANNABINOIDS,URINE Positive Abnormal Negative [facility] Comment on above: Order Comment: Speci men Type: URINE SPECIMEN Ordering Facility: [facility] Address: [address] [place] [address] Result Comment: Cuto ff threshold at 50 ng/mL. Performed By: #### U TOX2 #### [facility] CLIA [id number] [address] [place] [address] OF ABDULAZIZ Cocaine Ql (U) Negative Normal Negative [facility] Comment on above: Order Comment: Speci men Type: URINE SPECIMEN Ordering Facility: [facility] Address: [address] [place] [address] Result Comment: Cuto ff threshold at 300 ng/mL. Performed By: #### U TOX2 #### [facility] CLIA [id number] [address] OF [place] Ethanol (U) [Mass/Vol] <11 Normal <11 [facility] Comment on above: Order Comment: Speci men Type: URINE SPECIMEN Ordering Facility: [facility] Address: [address] [place], [place] [id number] Performed By: #### U TOX2 #### [facility] CLIA [id number] [address] [place] [address] Opiates Screen Ql (U) Negative Normal Negative [facility] Comment on above: Order Comment: Speci men Type: URINE SPECIMEN Ordering Facility: [facility] Address: [address] [place] [address] Result Comment: Cuto ff threshold at 300 ng/mL. Performed By: #### U TOX2 #### [facility] CLIA [id number] [address] [place] [address] oxyCODONE cutoff Screen (U) [Mass/Vol] Negative Normal Negative [facility] Comment on above: Order Comment: Speci men Type: URINE SPECIMEN Ordering Facility: [facility] Address: [address] [place] [address] Result Comment: Cuto ff threshold at 100 ng/mL. Performed By: #### U TOX2 #### [facility] CLIA [id number] [address] [place] [address] Phencyclidine Ql (U) Negative Normal Negative [facility] Comment on above: Order Comment: Speci men Type: URINE SPECIMEN Ordering Facility: [facility] Address: [address] [place] [address] Result Comment: Cuto ff threshold at 25 ng/mL. Performed By: #### U TOX2 #### [facility] CLIA [id number] [address] [place] [address] Urinalysis complete panel (U )on 02-11-2023 Bacteria LM.HPF (Urine sed) [#/Area] Moderate Abnormal None Seen [facility] Comment on above: Order Comment: Speci men Type: URINE SPECIMEN Ordering Facility: [facility] Address: [address] [place] [address] Performed By: #### 2 4356-8 #### [facility] CLIA [id number] [address] [place] [address] Bilirubin Ql (U) Negative Normal Negative [facility] Comment on above: Order Comment: Speci men Type: URINE SPECIMEN Ordering Facility: [facility] Address: [address] [place] [address] Performed By: #### 2 4356-8 #### [facility] CLIA [id number] [address] [place] [address] [facility] Clarity (Unsp spec) Cloudy Abnormal Clear [facility] Comment on above: Order Comment: Speci men Type: URINE SPECIMEN Ordering Facility: [facility] Address: [address] [place] [address] Performed By: #### 2 4356-8 #### [facility] CLIA [id number] [address] Color (U) Yellow Normal Yellow [facility] Comment on above: Order Comment: Speci men Type: URINE SPECIMEN Ordering Facility: [facility] Address: [address] [place] [address] Performed By: #### 2 4356-8 #### [facility] CLIA [id number] [address] [place] [id number] [facility] Epithelial cells LM.HPF (Urine sed) [#/Area] Few Normal [facility] Comment on above: Order Comment: Speci men Type: URINE SPECIMEN Ordering Facility: [facility] Address: [address] [place] [address] Performed By: #### 2 4356-8 #### [facility] CLIA [id number] [address] [place] [address] [facility] Glucose Test strip (U) [Mass/Vol] Negative Normal Negative [facility] Comment on above: Order Comment: Speci men Type: URINE SPECIMEN Ordering Facility: [facility] Address: [address] [place] [address] Performed By: #### 2 4356-8 #### [facility] CLIA [id number] [address] [place] [address] [facility] Hemoglobin Ql (U) Negative Normal Negative [facility] Comment on above: Order Comment: Speci men Type: URINE SPECIMEN Ordering Facility: [facility] Address: [address] [place] [address] Performed By: #### 2 4356-8 #### [facility] CLIA [id number] [address] [place] [address] [place] [facility] Ketones Ql (U) Trace Abnormal Negative [facility] Comment on above: Order Comment: Speci men Type: URINE SPECIMEN Ordering Facility: [facility] Address: [address] [place] [address] Performed By: #### 2 4356-8 #### [facility] CLIA [id number] [address] Leukocyte esterase Test strip Ql (U) Trace Abnormal Negative [facility] Comment on above: Order Comment: Speci men Type: URINE SPECIMEN Ordering Facility: [facility] Address: [address] [place] [address] Performed By: #### 2 4356-8 #### [facility] CLIA [id number] [address] Nitrite Ql (U) Negative Normal Negative [facility] Comment on above: Order Comment: Speci men Type: URINE SPECIMEN Ordering Facility: [facility] Address: [address] [place] [address] Performed By: #### 2 4356-8 #### [facility] CLIA [id number] [address] [place] [address] [facility] OF ABDULAZIZ pH (U) 7.0 [pH] Normal 5.0-8.0 [facility] Comment on above: Order Comment: Speci men Type: URINE SPECIMEN Ordering Facility: [facility] Address: [address] [place] [address] Performed By: #### 2 4356-8 #### [facility] CLIA [id number] [address] [place] [address] [place] Protein (U) [Mass/Vol] Negative Normal Negative [facility] Comment on above: Order Comment: Speci men Type: URINE SPECIMEN Ordering Facility: [facility] Address: [address] [place] [address] Performed By: #### 2 4356-8 #### [facility] CLIA [id number] [address] [place] [address] STATES [place] ABDULAZIZ RBC LM.HPF (Urine sed) [#/Area] 0-3 /HPF Normal 0-3 /HPF [facility] Comment on above: Order Comment: Speci men Type: URINE SPECIMEN Ordering Facility: [facility] Address: [address] [place] [address] Performed By: #### 2 4356-8 #### [facility] CLIA [id number] [address] [place] [address] Urobilinogen Ql (U) 0.2 EU/dL Normal 0.2-1.0 EU/dL [facility] Comment on above: Order Comment: Speci men Type: URINE SPECIMEN Ordering Facility: [facility] Address: [address] [place] [address] Performed By: #### 2 4356-8 #### [facility] CLIA [id number] [address] [place] [address] WBC LM.HPF (Urine sed) [#/Area] 0-5 /HPF Normal 0-5 /HPF [facility] Comment on above: Order Comment: Speci men Type: URINE SPECIMEN Ordering Facility: [facility] Address: [address] [place] [address] Performed By: #### 2 4356-8 #### [facility] CLIA [id number] [address] [place] [address] Urinalysis complete pnl Uron 02-11-2023 Specific gravity (U) [Rel density] 1.020 Normal 1.005-1.030 [facility] Comment on above: Order Comment: Speci men Type: URINE SPECIMEN Ordering Facility: [facility] Address: [address] [place], [place] [address], [place] [address] Performed By: #### 2 4356-8 #### [facility] CLIA [id number] [address] [place] [address] [place]UL[place] Performed By: #### 2 106-3 #### [facility] CLIA [id number] [address] [place] [address] [place] Vital Signs Date Time Vital Sign Value Performing Clinician Faci lity 03-26-2023 13:53-0400 Body weight 78.47 kg Álvaro Zavala MD Work Phone: [facility] 03-26-2023 13:53-0400 Diastolic blood pressure 80 mm[Hg] Álvaro Zavala MD Work Phone: [facility] 03-26-2023 13:53-0400 Heart rate 81 /min Álvaro Zavala MD Work Phone: [facility] 03-26-2023 13:53-0400 Systolic blood pressure 118 mm[Hg]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 7:15 AM [facility] 02-11-2023 Note HNO ID: [id number] Author: Bertha Francois RN Service: Nursing Author [...] Treatment Plan Date Initiated: 02/11/23 Time Initiated: 1703 Patient Participation in Initial Treatment Plan: No [...] Progress Towards Short Term Goals: Not progressing Longterm Goals: Patient will demonstrate optimal level of functioning, Patient/support system will verbalize intent to comply with medication and treatment after discharge, Patient expresses examples of optimism and hope for the future Target Date 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 [facility] 02-11-2023 Note HNO ID: [id number] Author: Lis Gomez, DO Service: ? Author Type: Physician Type: [...] taking: Reported on 02/11/2023) 30 tablet 4 Hljnwjyj-Gr-Tzb-Fe-FA tab Take 1 tablet by mouth once daily. With folic acid and DHA as covered by insurance (Patient not taking: Reported on 02/11/2023) 30 tablet 11 No current facility-administered medications for this visit. ACTIVE PROBLEM LIST History of Depression Family History of Amelia's Disease Marijuana Use Anxiety Mild Episode of [...] Memory: Cognition and (more content not included)... [facility] 02-11-2023 Miscellaneous Notes BEHAVIORAL HEALTH INTAKE NOTE SERVICE DATE: 02/11/23 SERVICE TIME: 10:57am Nature of the crisis: suicidal threats, aggressive and odd behavior Presenting Problem: Herminia Goldman is a 22 year old female with depression and anxiety brought in to [place] ED from Home by family for increasing [...] I don't look at the calendar... it's January... oh I forgot to flip my calendar [...] up all the time watching my kid [place]. I get his bottle, then I have [...] to be home. She was informed this director semiconductor will further discuss with physicians for plan of care and potential admission. She reluctantly gave permission for this director semiconductor to speak with mom, why would you need to do that? Ok, I guess. Patient had repeated episodes of agitation r/t not wanting to be hospitalized: yelling, screaming, pacing, crying, threw glasses to floor. Medicated with Haldol, Ativan, Benadryl with good effect. PAST MEDICAL HISTORY: PAST MEDICAL HISTORY Diagnosis Date #[id number] SOCIAL HISTORY: Social History Tobacco Use Smoking [...] ; verbally and physically aggressive toward family; nitin when pt was age 17; family hx of huntingtons, which pt is concerned she might have Work Issues: doesn't work, stays home all the time per family Legal History: No Legal History How Legal Issues Were Verified: [facility] Aeronautical Engineering Technologist [employer] Website, [employer] Sex Offender Website, [facility] Aeronautical Engineering [employer] Website, [facility] Aeronautical Engineering Technologist [employer] Website Gender Specific Sex at Time of : Female Patient Identified Gender: Female Preferred Pronoun: She/Her/Hers Sexual Orientation: Heterosexual Cultural/Mormonism Concerns Cultural Issues or Concerns That Might Affect Treatment: no Mormonism/Spiritual Issues or Concerns That Might Affect Treatment: [...] Quality: Bizarre Thought Processes Thought: Illogical, Poor Historian/Audio Visual Collections Coordinator, Difficulty Concentrating Thought Content Delusions: None Observed [...] Providers: Dr Sinha Date 02/11/23 Time11:20am Psychiatrist medical transcription editor: Name: Dr Arredondo Date: 02/11/23 Time: 12:51pm [...] with Dr. Arredondo who states that Herminia Goldman is a candidate for admission. Provider Stated Diagnosis: Major depressive disorder, single, severe with psychotic features Admitting Provider: Dr Arredondo Admission Status: Full Admit Unit: [facility] Bed#: 54 Report Given To: Earl Report Date: 02/11/23 Report Time: 1350 Admission Type: Medical Certificate Is Patient Less Than 18 Years of Age or have a Guardian/Healthcare Power of [employer] Dean?: No Disposition Date: 02/11/23 Disposition Time: 1407 SIGNATURE: JESI Magaña PATIENT NAME: Herminia Goldman DATE: February 11, 2023 TIME: 10:57 AM documented in this encounter [facility] 02-11-2023 History of Presen t illness Narrative Subjective Depression Pertinent negatives include no weakness. Pertinent negatives include no fever. Pt is here with her mother to discuss mental health issues She has a history of anxiety and depression She has been on zoloft 100 mg in the past, last Rx was 10/05/22 Her dad has Amelia's disease, and she is concerned that she [...] taking: Reported on 02/11/2023) 30 tablet 4 Hbirqwyk-Rr-Hzg-Fe-FA tab Take 1 tablet by mouth once daily. With folic acid and DHA as covered by insurance (Patient not taking: Reported on 02/11/2023) 30 tablet 11 No current facility-administered medications for this visit. ACTIVE PROBLEM LIST History of Depression Family History of Amelia's Disease Marijuana Use Anxiety Mild Episode of [...] of the plan, and were agreeable Lis Gomez DO documented in this encounter [facility] 10-05-2022 Miscellaneous Notes Last OV [...] Take 1 tablet by mouth once daily. Frederic Workman MA documented in this encounter [facility] 04-01-2022 Miscellaneous Notes No Show Documentation Herimnia Thom Sabinobrian no showed for an appointment on 04/01/22 with Fiordaliza Zhao APRN.SHEETMETAL WORKER at 1:00. She was scheduled for depression. [...] 2022 4:02 PM documented in this encounter [facility] 04-01-2022 Miscellaneous Notes Pt had a virtual visit today tried to contact pt her phone has been disconnected. Tried to contact pts mom VM is full unable to leave VM Frederic Workman MA documented in this encounter [facility] 02-18-2022 Instructions Fiordaliza Zhao APRN.MARTÍNEZ - 02/18/2022 2:02 PM EDT ASSESSMENT/PLAN: 1. Mild episode of recurrent major depressive disorder (HCC) - ICD9: 296.31, ICD10: F33.0 (primary diagnosis) - Acute on chronic, pt reports no improvement in symptoms. Increase zoloft 100 mg daily. - SERTRALINE 100 MG TABLET 2. Anxiety - ICD9: 300.00, ICD10: F41.9 - Chronic see above - SERTRALINE 100 MG TABLET Fiordaliza Zhao APRN.CNP documented in this encounter [facility] 02-18-2022 History of Presen t illness Narrative This note was created using [employer]. Subjective Herminia Goldman is a 21 year old female here [...] by mouth once daily. 30 tablet 4 Ghluaatb-Os-Lhj-Fe-FA tab Take 1 tablet by mouth once daily. With folic acid and DHA as covered by insurance 30 tablet 11 No current facility-administered medications for this visit. ACTIVE PROBLEM LIST History of Depression Family History of Emery's Disease Marijuana Use Anxiety Mild Episode of Recurrent Major Depressive Disorder (Hcc) PAST MEDICAL HISTORY Diagnosis Date #[id number] PAST SURGICAL HISTORY Procedure Laterality Date TONSILLECTOMY [...] - SERTRALINE 100 MG TABLET Fiordaliza Zhao APRN.SHEETMETAL WORKER documented in this encounter [facility] 01-16-2022 Miscellaneous Notes Julissa from [facility] called requesting information regard patient. Verified authorization for the release of medical information was signed by patient. Information given to Julissa at [facility]. Lottie Perez LPN documented in this encounter [facility] 01-14-2022 Instructions Fiordaliza Zhao APRN.SHEETMETAL WORKER - 01/14/2022 2:30 PM EDT ASSESSMENT/PLAN: 1. Mild episode of recurrent major depressive disorder (HCC) - ICD9: 296.31, ICD10: F33.0 (primary diagnosis) - start with 1/2 tablet x 1 wk then increase to whole tab once daily. - SERTRALINE 50 MG TABLET 2. Anxiety - ICD9: 300.00, ICD10: F41.9 - chronic, not controlled - SERTRALINE 50 MG TABLET Fiordaliza Zhao APRN.[facility] ANXIETY GENERAL INFORMATION: Anxiety is an uncomfortable [...] ambulance (in the [place] and [place], dial 9) ?Go to the emergency room at your local hospital ?Call the National Suicide Prevention Lifeline: www.suicidepreventionlifeline.or g What are the treatments for depression? People who have depression can: ?Take medicines that relieve depression ?See a counselor (such as a psychiatrist, psychologist, nurse, or healthcare social worker) ?Do both People with depression that [...] to have your baby. Information obtained from [employer] documented in this encounter [facility] 01-14-2022 History of Presen t illness Narrative This note was created using [employer]. Subjective Herminia Goldman is a 21 year old female here today to establish care and concerns for depression. prevoius PCP Dr Merchant. [facility] depression. I reviewed her past medical, surgical, [...] Current Outpatient Medications Medication Sig Dispense Refill Dmdrqmde-Mz-Kxz-Fe-FA tab Take 1 tablet by mouth once daily. With folic acid and DHA as covered by insurance 30 tablet 11 aspirin, enteric coated (ASPIRIN, ENTERIC COATED) 81 mg EC tablet Take 1 tablet by mouth once daily. 30 tablet 4 No current facility-administered medications for this visit. ACTIVE PROBLEM LIST History of Depression Family History of Amelia's Disease Marijuana Use PAST MEDICAL HISTORY Diagnosis Date #[id number] PAST SURGICAL HISTORY Procedure Laterality Date TONSILLECTOMY [...] - call if persists or worsens Fiordaliza Zhao APRN.SHEETMETAL WORKER documented in this encounter [facility] 01-01-2022 History of Presen t illness Narrative VISIT Herminia Goldman is a 21 year old year old here for visit. Delivery Summary: 11/20/21 at [facility] ROS/ Recovery: Feeding: Bottle feeding problems: None Menses since delivery: light flow Menstrual pattern prior to : Regular periods Naplate since delivery: Not resumed Depression: admits to [...] Pap: never PAST MEDICAL HISTORY Diagnosis Date #[id number] PAST SURGICAL HISTORY Procedure Laterality Date TONSILLECTOMY [...] external genitalia normal, normal Bartholin's glands, urethra, [place]'s glands, no vulvar lesions, no cervical [...] for annual exams and PRN Shante Campos APRN.MARTÍNEZ documented in this encounter [facility] 08-25-2021 History of Past i llness Narrative Problem Noted Date Resolved Date Abnormal glucose [...] of this encounter (statuses as of 01/01/2022) [facility] History of Past illness Narrative* [...] of this encounter (statuses as of 01/14/2022) [facility] History of Past illness Narrative* [...] of this encounter (statuses as of 01/16/2022) [facility] History of Past illness Narrative* [...] of this encounter (statuses as of 02/18/2022) [facility] of Past illness Narrative* [...] of this encounter (statuses as of 04/01/2022) [facility] History of Past illness Narrative* [...] of this encounter (statuses as of 04/01/2022) [facility] of Past illness Narrative* [...] Patient request for diagnostic testing 05/30/2021 Overview: 1Patient desires nuchal ultrasound.Skylar Lauren RN documented as of this encounter (statuses as of 10/05/2022) [facility] History of Past illness Narrative* [...] of this encounter (statuses as of 02/11/2023) [facility] of Past illness Narrative* [...] of this encounter (statuses as of 02/11/2023) [facility] of Past illness Narrative* [...] of this encounter (statuses as of 02/17/2023) [facility] of Past illness Narrative* Problem Noted Date Resolved Date Abnormal glucose complicating 08/25/2001/0101/01/2022 Overview: 08/25/21 1 hr GTT elevated. 1/3 [...] of this encounter (statuses as of 02/24/2023) [facility] of Past illness Narrative* [...] of this encounter (statuses as of 02/26/2023) [facility] of Past illness Narrative* [...] of this encounter (statuses as of 03/24/2023) [facility] of Past illness Narrative* [...] of this encounter (statuses as of 03/26/2023) [facility] of Past illness Narrative* [...] of this encounter (statuses as of 03/27/2023) [facility] of Past illness Narrative* [...] of this encounter (statuses as of 04/01/2023) [facility] of Past illness Narrative* [...] of this encounter (statuses as of 04/02/2023) [facility] of Past illness Narrative* [...] of this encounter (statuses as of 04/08/2023) [facility] of Past illness Narrative* [...] of this encounter (statuses as of 05/25/2023) [facility] of Past illness Narrative* [...] of this encounter (statuses as of 06/01/2023) [facility] of Past illness Narrative* [...] of this encounter (statuses as of 06/23/2023) [facility] Diagnosis care and examination- Primary Routine follow-up Vaginal odor Unspecified symptom associated with female genital organs [facility] Diagnosis Mild episode of recurrent major depressive disorder (HCC)- Primary Anxiety Anxiety state, unspecified [facility] Diagnosis Mild episode of recurrent major depressive disorder (HCC)- Primary Anxiety Anxiety state, unspecified [facility] Diagnosis Mild episode of recurrent major depressive disorder (HCC) Anxiety Anxiety state, unspecified [facility] Diagnosis Suicidal ideation- Primary [facility] Diagnosis Major depressive disorder, single episode, severe with psychotic features (HCC)- Primary Major depressive disorder, single episode, severe, specified as with psychotic behavior [facility] Diagnosis 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 Amelia's disease- Primary 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 other neurological diseases Anxiety Anxiety state, unspecified Mild episode of recurrent major depressive disorder (HCC) documented [facility] Diagnosis 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 Amelia's chorea- Primary 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 other neurological diseases [facility] Diagnosis MDD (major depressive disorder), recurrent episode, moderate (HCC)- Primary Major depressive disorder, recurrent episode, moderate Anxiety Anxiety state, unspecified 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 Amelia's disease 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 other neurological diseases documented in this encounter [facility] Health Concerns Infection Onset Date [...] Referral Specialty Diagnoses / Procedures Referred By Contsher t Referred To Contact Diagnoses 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 Emery's disease Procedures CONSULT TO MEDICAL GENETICS - GENERAL OFFICE/OUTPATIENT [facility] 60-74 MINUTES MEDICAL GENETICS COUNSELING EACH 30 [place] [address] [place] [address] [place] [address] Referral ID Status Reason Start Date Expiration Date Visits Requested Visits Authorized [id number] Authorized PCP Requested Referral Auto-Generate d Referral 03/26/2023 03/25/2024 1 1 Additional Source Comments Source Comments (unrecognize d section and content) In the event this informatio n is protected by the Federal Confidentiality of Alcohol and Drug Abuse Patient Records regulations: The Federal rules restrict any use of the information to criminally investigate or prosecute any alcohol or drug abuse patient.[facility] the event this information is protected by the Federal Confidentiality of Alcohol and Drug Abuse Patient Records regulations: The Federal rules restrict any use of the information to criminally investigate or prosecute any alcohol or drug abuse patient.[facility] the event this information is protected by the Federal Confidentiality of Alcohol and Drug Abuse Patient Records regulations: The Federal rules restrict any use of the information to criminally investigate or prosecute any alcohol or drug abuse patient.[facility] the event this information is protected by the Federal Confidentiality of Alcohol and Drug Abuse Patient Records regulations: The Federal rules restrict any use of the information to criminally investigate or prosecute any alcohol or drug abuse patient.[facility] the event this information is protected by the Federal Confidentiality of Alcohol and Drug Abuse Patient Records regulations: The Federal rules restrict any use of the information to criminally investigate or prosecute any alcohol or drug abuse patient.[facility] the event this information is protected by the Federal Confidentiality of Alcohol and Drug Abuse Patient Records regulations: The Federal rules restrict any use of the information to criminally investigate or prosecute any alcohol or drug abuse patient.[facility] the event this information is protected by the Federal Confidentiality of Alcohol and Drug Abuse Patient Records regulations: The Federal rules restrict any use of the information to criminally investigate or prosecute any alcohol or drug abuse patient.[facility] the event this information is protected by the Federal Confidentiality of Alcohol and Drug Abuse Patient Records regulations: The Federal rules restrict any use of the information to criminally investigate or prosecute any alcohol or drug abuse patient.[facility] the event this information is protected by the Federal Confidentiality of Alcohol and Drug Abuse Patient Records regulations: The Federal rules restrict any use of the information to criminally investigate or prosecute any alcohol or drug abuse patient.[facility] Center[facility] the event this information is protected by the Federal Confidentiality of Alcohol and Drug Abuse Patient Records regulations: The Federal rules restrict any use of the information to criminally investigate or prosecute any alcohol or drug abuse patient.[facility] Center[facility] the event this information is protected by the Federal Confidentiality of Alcohol and Drug Abuse Patient Records regulations: The Federal rules restrict any use of the information to criminally investigate or prosecute any alcohol or drug abuse patient.[facility] Center[facility] the event this information is protected by the Federal Confidentiality of Alcohol and Drug Abuse Patient Records regulations: The Federal rules restrict any use of the information to criminally investigate or prosecute any alcohol or drug abuse patient.[facility] Center[facility] the event this information is protected by the Federal Confidentiality of Alcohol and Drug Abuse Patient Records regulations: The Federal rules restrict any use of the information to criminally investigate or prosecute any alcohol or drug abuse patient.[facility] CenterIn the event this information is protected by the Federal Confidentiality of Alcohol and Drug Abuse Patient Records regulations: The Federal rules restrict any use of the information to criminally investigate or prosecute any alcohol or drug abuse patient.[facility] CenterIn the event this information is protected by the Federal Confidentiality of Alcohol and Drug Abuse Patient Records regulations: The Federal rules restrict any use of the information to criminally investigate or prosecute any alcohol or drug abuse patient.[facility] CenterIn the event this information is protected by the Federal Confidentiality of Alcohol and Drug Abuse Patient Records regulations: The Federal rules restrict any use of the information to criminally investigate or prosecute any alcohol or drug abuse patient.[facility] CenterIn the event this information is protected by the Federal Confidentiality of Alcohol and Drug Abuse Patient Records regulations: The Federal rules restrict any use of the information to criminally investigate or prosecute any alcohol or drug abuse patient.[facility] CenterIn the event this information is protected by the Federal Confidentiality of Alcohol and Drug Abuse Patient Records regulations: The Federal rules restrict any use of the information to criminally investigate or prosecute any alcohol or drug abuse patient.[facility] CenterIn the event this information is protected by the Federal Confidentiality of Alcohol and Drug Abuse Patient Records regulations: The Federal rules restrict any use of the information to criminally investigate or prosecute any alcohol or drug abuse patient.[facility] CenterIn the event this information is protected by the Federal Confidentiality of Alcohol and Drug Abuse Patient Records regulations: The Federal rules restrict any use of the information to criminally investigate or prosecute any alcohol or drug abuse patient.[facility] CenterIn the event this information is protected by the Federal Confidentiality of Alcohol and Drug Abuse Patient Records regulations: The Federal rules restrict any use of the information to criminally investigate or prosecute any alcohol or drug abuse patient.[facility] CenterIn the event this information is protected by the Federal Confidentiality of Alcohol and Drug Abuse Patient Records regulations: The Federal rules restrict any use of the information to criminally investigate or prosecute any alcohol or drug abuse patient.[facility] Reason for Visit (unrecogniz ed section and content) Reason Comments Care Reason Comments Patient Update Reason Comments Patient Update Appointment Reason Comments No Show 1st no show Reason Onset Date Comments Refill Request 10/04/2022 Reason Comments Depression Follow up does not t hink medication is helping and family feels it is getting worse Reason Onset Date Comments Psychiatric Problem 02/11/2023 Reason Onset Date Comments Transition Of Care 02/16/2023 D/C [facility] 02/15/23 Reason Comments Patient Question Reason Comments [facility] Put referral for Saulo rology on [facility] 03/10/23 Reason Comments New Patient Evaluation Specialty Diagnoses / Procedures Referred By Contsher t Referred To Contact Neurology Diagnoses Anxiety 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 Amelia's disease Mild episode of recurrent major depressive disorder (HCC) Procedures CONSULT TO NEUROLOGY OFFICE/OUTPATIENT NEW HIGH MDM 60-74 MINUTES Fiordaliza Zhao, STEEL BOX TOE INSERTER.SHEETMETAL WORKER [address] [place] [address] [address] Referral ID Status Reason Start Date Expiration Date V isits Requested Visits Authorized [id number] Closed PCP Requested Referral 03/10/2023 03/09/2024 1 1 Reason Comments Patient Update Agitation Reason Comments Returning Patient's Call Reason Comments Consult Reason Comments [facility] Put referral for Psy chiatry on [facility] 03/10/23 Care Teams (unrecognized sec tion and content) Physician Anesthesiologist Relationship Specialty Start Date End Date Tasha Merchant MD [address] [place] [address] PCP - General Internal Medicine 07/06/19 Physician Anesthesiologist Relationship Specialty Start Date End Date Fiordaliza Zhao, STEEL BOX TOE INSERTER.SHEETMETAL WORKER [address] [place] [address] PCP - General Internal Medicine 01/14/22 Physician Anesthesiologist Relationship Specialty Start Date End Date Fiordaliza Zhao, STEEL BOX TOE INSERTER.SHEETMETAL WORKER [address] [place] [address] PCP - General Internal Medicine 01/14/22 Physician Anesthesiologist Relationship Specialty Start Date End Date Fiordaliza Zhao, STEEL BOX TOE INSERTER.SHEETMETAL WORKER [address] [place] [address] PCP - General Internal Medicine 01/14/22 Physician Anesthesiologist Relationship Specialty Start Date End Date Fiordaliza Zhao, STEEL BOX TOE INSERTER.SHEETMETAL WORKER [address] [place] [address] PCP - General Internal Medicine 01/14/22 Physician Anesthesiologist Relationship Specialty Start Date End Date Fiordaliza Zhao, STEEL BOX TOE INSERTER.SHEETMETAL WORKER [address] [place] [address] PCP - General Internal Medicine 01/14/22 Physician Anesthesiologist Relationship Specialty Start Date End Date Fiordaliza Zhao, STEEL BOX TOE INSERTER.SHEETMETAL WORKER [address] [place] [address] PCP - General Internal Medicine 01/14/22 Physician Anesthesiologist Relationship Specialty Start Date End Date Fiordaliza Zhao STEEL BOX TOE INSERTER.SHEETMETAL WORKER [address] [place] [address] PCP - General Internal Medicine 01/14/22 Physician Anesthesiologist Relationship Specialty Start Date End Date Fiordaliza Zhao, STEEL BOX TOE INSERTER.SHEETMETAL WORKER [address] [place] [address] PCP - General Internal Medicine 01/14/22 Physician Anesthesiologist Relationship Specialty Start Date End Date Fiordaliza Zhao STEEL BOX TOE INSERTER.SHEETMETAL WORKER [address] [place] [address] PCP - General Internal Medicine 01/14/22 Physician Anesthesiologist Relationship Specialty Start Date End Date Fiordaliza Zhao STEEL BOX TOE INSERTER.SHEETMETAL WORKER [address] [place] [address] PCP - General Internal Medicine 01/14/22 Physician Anesthesiologist Relationship Specialty Start Date End Date Fiordaliza Zhao, STEEL BOX TOE INSERTER.[place] [address] PCP - General Internal Medicine 01/14/22 Fiordaliza Zhao, STEEL BOX TOE INSERTER.[place] [address] Referring Internal Medicine 03/21/23 Physician Anesthesiologist Relationship Specialty Start Date End Date Fiordaliza Zhao, STEEL BOX TOE INSERTER.[place] [address] PCP - General Internal Medicine 01/14/22 Fiordaliza Zhao, STEEL BOX TOE INSERTER.SHEETMETAL WORKER [address] [place] [address] Referring Internal Medicine 03/21/23 Physician Anesthesiologist Relationship Specialty Start Date End Date Fiordaliza Zhao, STEEL BOX TOE INSERTER.SHEETMETAL WORKER [address] [place] [address] PCP - General Internal Medicine 01/14/22 Fiordaliza Zhao, STEEL BOX TOE INSERTER.SHEETMETAL WORKER [address] [place] [address] Referring Internal Medicine 03/21/23 Physician Anesthesiologist Relationship Specialty Start Date End Date Fiordaliza Zhao, STEEL BOX TOE INSERTER.SHEETMETAL WORKER [address] [place] [address] PCP - General Internal Medicine 01/14/22 Fiordaliza Zhao, STEEL BOX TOE INSERTER.SHEETMETAL WORKER [address] [place] [address] Referring Internal Medicine 03/21/23 Physician Anesthesiologist Relationship Specialty Start Date End Date Fiordaliza Zhao, STEEL BOX TOE INSERTER.SHEETMETAL WORKER [address] [place] [address] PCP - General Internal Medicine 01/14/22 Fiordaliza Zhao, STEEL BOX TOE INSERTER.SHEETMETAL WORKER [address] [place] [address] Referring Internal Medicine 03/21/23 Physician Anesthesiologist Relationship Specialty Start Date End Date Fiordaliza Zhao, STEEL BOX TOE INSERTER.SHEETMETAL WORKER [address] [place] [address] PCP - General Internal Medicine 01/14/22 Fiordaliza Zhao, STEEL BOX TOE INSERTER.SHEETMETAL WORKER [address] [place], [place] [id number] Referring Internal Medicine 03/21/23 Physician Anesthesiologist Relationship Specialty Start Date End Date Fiordaliza Zhao, STEEL BOX TOE INSERTER.SHEETMETAL WORKER [address] [place], [place] [id number] PCP - General Internal Medicine 01/14/22 Fiordaliza Zhao, STEEL BOX TOE INSERTER.SHEETMETAL WORKER [address] [place], [place] [id number] Referring Internal Medicine 03/21/23 Physician Anesthesiologist Relationship Specialty Start Date End Date Fiordaliza Zhao, STEEL BOX TOE INSERTER.SHEETMETAL WORKER [address] [place], [place] [id number] PCP - General Internal Medicine 01/14/22 Fiordaliza Zhao, STEEL BOX TOE INSERTER.SHEETMETAL WORKER [address] [place], [place] [id number] Referring Internal Medicine 03/21/23 Physician Anesthesiologist Relationship Specialty Start Date End Date Fiordaliza Zhao, STEEL BOX TOE INSERTER.SHEETMETAL WORKER [address] [place], [place] [id number] PCP - General Internal Medicine 01/14/22 Fiordaliza Zhao, STEEL BOX TOE INSERTER.SHEETMETAL WORKER [address] [place], [place] [id number] Referring Internal Medicine 03/21/23 INFORMATION SOURCE (unrecogn ized section and content) DATE CREATED AUTHOR 02/22/2023 [facility] DATE CREATED AUTHOR AUTHOR'S ORGANIZ ATION 04/09/2023 [facility] DATE CREATED AUTHOR AUTHOR'S ORGANIZ ATION 09/19/2023 [facility] DATE CREATED AUTHOR AUTHOR'S ORGANIZ ATION 02/09/2024 [facility] FOR RECORDS PERTAINING TO PATIENTS WHO [...] BE BASED ON THE PRIMARY CLINICAL RECORDS. [facility]. provides no warranty or guarantee of the accuracy or completeness of information in this document.
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
[2024-07-09 13:48] LABS: Absolute Lymphocyte Count 2.58 X10^3/uL (0.83-4.51); Absolute Neutrophil Count 7.9 X10^3/uL (2.0-7.7); Basophil# 0.07 X10^3/uL; Basophil% 0.6 % (0-1); Eosinophil# 0.14 X10^3/uL; Eosinophils% 1.2 % (0-5); Hematocrit 41.2 % (37-47); Hemoglobin 13.4 g/dL (12.0-15.0); Lymphocyte # 2.58 X10^3/ul (0.83-4.51); Lymphocyte % 22.4 % (19-41); Mean Corp Hgb Conc 32.5 g/dL (32-36); Mean Corpuscular Hgb 29.8 pg (27.0-32.0); Mean Corpuscular Volume 91.6 fL (81-99); Mean Platelet Vol. 9.2 fl (6.2-12.0); Monocyte# 0.77 X10^3/uL; Monocyte% 6.7 % (0-10); NRBC Flagged by Analyzer 0 % (0-5); Neutrophil # 7.92 X10^3/uL (2.7-7.7); Neutrophil % 68.7 % (47-70); Platelet Count 290 K/mm3 (150-450); RBC Distribution Width CV 13.4 % (11.6-14.6); RBC Distribution Width SD 45.9 fl (35.1-43.9); White Blood Count 11.5 K/mm3 (4.4-11.0)
[2024-07-09 14:03] LABS: Alcohol, Blood (Medical)-Serum < 3.0 mg/dL
[2024-07-09 14:11] LABS: Internal QC Validated? YES +Cl - CLEAR BKGD; Pregnancy, Serum, hCG Quali. NEGATIVE Negative
[2024-07-09 14:19] LABS: ALB/GLOB Ratio 0.8 RATIO (0.9-2.4); AST(SGOT) 7 U/L (15-37); Alanine Aminotransfer ALT/SGPT 14 U/L (13-56); Albumin, Serum 3.8 g/dL (3.2-5.0); Alkaline Phosphatase 89 U/L (45-117); Anion Gap 5 (5-15); BUN 12 mg/dL (7-18); BUN/Creat Ratio 22.8 RATIO (10-20); Calcium,Total 9.7 mg/dL (8.5-10.1); Chloride 105 mmol/L (98-107); Creatinine, Serum 0.53 mg/dL (0.55-1.02); EST Glomerular Filtration Rate 153 mL/min (>60); Est Glom Filt Rate - Afr Amer 185 mL/min (>60); Estimated Creatinine Clearance 143.59 ml/min; Globulin 4.7 g/dL (2.2-4.2); Glucose 122 mg/dL (74-106); Potassium 3.3 mmol/L (3.5-5.1); Protein, Total 8.5 g/dL (6.4-8.2); Sodium Level 138 mmol/L (136-145)
== END 2024-07-09 14:36 ==
PROVIDERS: Nurse Practitioner; Emergency Provider Emergency Medicine; Visit Provider Emergency Medicine
DX: F19.920 Other psychoactive substance use, unspecified with intoxication, uncomplicated (principal); F12.90 Cannabis use, unspecified, uncomplicated; Z59.00 Homelessness unspecified; R11.2 Nausea with vomiting, unspecified; F17.210 Nicotine dependence, cigarettes, uncomplicated
CPT/HCPCS: 80053; 82077; 84703; 85025; 99282

== ENCOUNTER 2024-08-08 17:11 | Emergency (ER) | payer MEDICAID, SELFPAY ==
[2024-08-08] VITALS (14 sets, daily range): BP systolic 96–117; BP diastolic 59–72; PULSE 72–97; RESP 14–23; TEMP 36.4–36.8; O2SAT 97–100; BMI 25.9
[2024-08-08] MEDS: Albuterol 2.5 MG/3 ML VIAL.NEB. INHALATION (17:39)
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
[2024-08-08] MEDS: Ipratropium/Albuterol Sulfate 3 ML AMPUL.NEB INHALATION (18:01)
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
[2024-08-08 18:41] LABS: Carboxyhemoglobin Frac (CO) 7.2 % (0.0-1.5)
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
[2024-08-08 19:24] LABS: Internal QC Validated? YES +Cl - CLEAR BKGD; Pregnancy, Urine Negative Negative; Record Kit Lot#,Urine Preg 869294
[2024-08-08 19:25] LABS: Carboxyhemoglobin Order ORDER TUBE
[2024-08-08 19:35] LABS: Amphetamine Urine VISTA POSITIVE (<1000 ng/mL); Barbiturate Urine VISTA NEGATIVE (< 200 ng/mL); Benzodiazepine Urine VISTA NEGATIVE (< 200 ng/mL); Cocaine Urine VISTA NEGATIVE (< 300 ng/mL); Ecstacy Urine VISTA POSITIVE (< 500 ng/mL); Methadone Urine VISTA NEGATIVE (< 300 ng/mL); PCP Urine VISTA NEGATIVE (< 25 ng/mL); THC Urine VISTA POSITIVE (< 50 ng/mL); Vista UDS pH Range 5
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
== END 2024-08-08 23:26 | disposition home or self-care (01) ==
PROVIDERS: Emergency Provider Emergency Medicine; Visit Provider Emergency Medicine
DX: J68.9 Unspecified respiratory condition due to chemicals, gases, fumes and vapors (principal); F19.10 Other psychoactive substance abuse, uncomplicated; R06.02 Shortness of breath; Z59.00 Homelessness unspecified; F17.210 Nicotine dependence, cigarettes, uncomplicated; F17.290 Nicotine dependence, other tobacco product, uncomplicated; X00.1XXA Exposure to smoke in uncontrolled fire in building or structure, initial encounter
CPT/HCPCS: 71046; 80307; 81025; 82375; 94640; 99284

== ENCOUNTER 2025-03-12 15:07 | Emergency (ER) | payer MEDICAID, SELFPAY ==
[2025-03-12] VITALS (19 sets, daily range): BP systolic 85–144; BP diastolic 53–87; PULSE 62–78; RESP 12–17; TEMP 36.6; O2SAT 94–100; BMI 22.8
--- NOTE | 2025-03-12 15:49 | EX.ED.DYSGE1 ---
HPI History of Present Illness Chief Complaint: General Illness Narrative Narrative: Patient is a 24-year-old female past medical history of polysubstance abuse, depression, anxiety who presents to the emergency department via EMS with a chief complaint of altered mental status. Patient's notes that she was at [employer] and she states that she went there for lunch. She states that her stomach has been bothering her recently as well as she has had a cough. Patient did provide limited history of present illness secondary to frequently falling asleep. [facility] Medical History Marijuana abuse Methamphetamine abuse Care and examination of lactating mother Vaginal delivery Intrapartum fever Depression Anxiety Headache Trauma Gestational HTN Obesity affecting Elective induction of labor planned 40 weeks gestation of Marijuana use History of depression Unplanned Home Medications ?Medication ?Instructions ?Recorded ?Last Taken ?Type NK 11/07/23 Unknown History Allergy/AdvReac Type Severity Reaction Status Date / Time cinnamon Allergy Severe Anaphylaxis Verified 03/12/25 15:09 Surgical History History of surgery Social History housing: homeless Smoking Status: Current some day smoker tobacco type: cigarettes and e-cigarettes ROS ROS ED ROS Narrative Constitutional: Denies headache, lightness, dizziness Eyes: Denies double vision Cardiovascular: Denies chest pain Respiratory: Complains of cough Abdomen: Complains of abdominal pain as noted above denies diarrhea : Denies any urinary symptoms Neurological: Denies numbness, weakness, tingling Musculoskeletal: Denies back pain Skin: Denies rashes or lesions EXAM Physical Exam Narrative Exam Narrative: General: Patient lying in bed rest comfortably did not appear to be acute distress Head: Atraumatic, normocephalic Eyes: PERRL bilaterally, EOMI by, no conjunctival injection noted Neck: Soft, supple, trach midline Cardiovascular: Regular rate and rhythm no murmurs gallops rubs noted Respiratory: Clear to auscultation bilaterally no rales rhonchi or wheeze noted Abdomen: Soft, nondistended, mild tenderness diffusely throughout her abdomen no rebound or guarding on exam Extremities: Patient moving all extremities, radial pulses +2/4 in the bilateral extremities Neurological: Patient follow commands and that she was out the hospital Skin: Warm, dry, tact no rashes or lesions noted Const Vital Signs: 03/12/25 15:09 03/12/25 15:27 03/12/25 16:00 Temperature 97.9 F Temperature Source Oral Pulse Rate 78 64 Respiratory Rate 16 13 Respiratory Effort Normal Non-Labored Respiratory Pattern Normal Blood Pressure 144/67 H 89/60 L Blood Pressure Mean 92 69 Pulse Ox 94 100 Oxygen Delivery Method Room Air Room Air 03/12/25 16:09 03/12/25 16:15 03/12/25 16:30 Temperature Temperature Source Pulse Rate 67 69 68 Respiratory Rate 15 14 14 Respiratory Effort Respiratory Pattern Blood Pressure 96/57 L 96/62 Blood Pressure Mean 67 72 Pulse Ox 100 100 100 Oxygen Delivery Method Room Air 03/12/25 16:45 03/12/25 17:00 03/12/25 17:01 Temperature Temperature Source Pulse Rate 67 76 Respiratory Rate 15 17 Respiratory Effort Respiratory Pattern Blood Pressure 85/75 L 104/68 Blood Pressure Mean 79 80 Pulse Ox 100 95 Oxygen Delivery Method 03/12/25 17:15 03/12/25 17:30 03/12/25 17:45 Temperature Temperature Source Pulse Rate 74 71 Respiratory Rate 13 14 Respiratory Effort Respiratory Pattern Blood Pressure 104/80 99/62 97/61 Blood Pressure Mean 89 75 73 Pulse Ox 100 Oxygen Delivery Method Room Air 03/12/25 17:45 03/12/25 18:00 03/12/25 18:00 Temperature Temperature Source Pulse Rate 69 Respiratory Rate 13 Respiratory Effort Respiratory Pattern Blood Pressure 97/61 106/73 106/73 Blood Pressure Mean 73 84 84 Pulse Ox 97 Oxygen Delivery Method Room Air 03/12/25 18:02 03/12/25 18:15 03/12/25 18:30 Temperature Temperature Source Pulse Rate 78 64 62 Respiratory Rate 15 13 13 Respiratory Effort Respiratory Pattern Blood Pressure 98/62 96/63 Blood Pressure Mean 75 74 Pulse Ox 98 Oxygen Delivery Method Room Air 03/12/25 18:45 03/12/25 18:45 03/12/25 18:45 Temperature Temperature Source Pulse Rate 64 67 Respiratory Rate 14 14 Respiratory Effort Respiratory Pattern Blood Pressure 99/68 99/68 99/68 Blood Pressure Mean 78 78 78 Pulse Ox 97 Oxygen Delivery Method Room Air 03/12/25 19:00 03/12/25 21:03/12/25 23:00 Temperature Temperature Source Pulse Rate 70 71 76 Respiratory Rate 12 15 Respiratory Effort Respiratory Pattern Blood Pressure 106/71 93/53 L 120/87 H Blood Pressure Mean 80 66 98 Pulse Ox 98 100 Oxygen Delivery Method Room Air MDM MDM MDM Narrative Medical decision making narrative: Patient is a 24-year-old female who presented to the emergency department chief complaint of altered mental status was brought in via EMS. On the differential diagnosis includes but limited to hypoglycemia, intracranial hemorrhage, intracranial mass, , electrolyte abnormality, drug abuse. Once workup is obtained reviewed she will be reevaluated. Patient given IV fluids for hydration. Patient's CBC reviewed showed no evidence leukocytosis white blood count was 6, hemoglobin 12.8, plate count 236. Patient sodium is 141, potassium 3.5, creatinine was 0.75. Patient's AST and ALT are 15 and 9 respectively, lipase normal at 18 test positive quant level 13. Patient urinalysis showed no evidence of infection drug screen was presumptive positive for amphetamines and cannabis. Patient's CT head and brain without contrast showed no acute intracranial processes. Patient chest x-ray reviewed showed no acute cardiopulmonary processes. This was reviewed by myself and by radiology. Patient's ultrasound showed of unknown location without intrauterine gestational sac identified at this time. Recommend close clinical follow-up and treating of hCG. Trace pelvic free fluid likely physiologic. Went back into reevaluate the patient she has no abdominal pain. She was advised that she needs to follow-up with her [facility] OB team that she followed with in the past and have repeat labs. She was advised to call them tomorrow for an appointment and blood work obtained in the outpatient them. She is agreeable this plan all question concerns answered she was discharged home in stable condition Lab Data Labs: Laboratory Results - last 24 hr 03/12/25 03/12/25 15:55 17:40 WBC 6.0 RBC 4.12 L Hgb 12.8 Hct 37.8 MCV 91.7 MCH 31.1 MCHC 33.9 RDW Std Deviation 41.7 RDW Coeff of Matthew 12.6 Plt Count 236 MPV 9.6 Immature Gran % (Auto) 0.300 Neut % (Auto) 48.9 Lymph % (Auto) 40.9 [place] % (Auto) 6.4 Eos % (Auto) 3.0 Baso % (Auto) 0.5 Absolute Neuts (auto) 2.9 Absolute Lymphs (auto) 2.44 Nucleated RBC % 0 Sodium 141 Potassium 3.5 Chloride 105 Carbon Dioxide 27.2 Anion Gap 9 BUN 7 Creatinine 0.75 Estim Creat Clear Calc 92.27 Est GFR (MDRD) Non-Af 115 BUN/Creatinine Ratio 9.0 L Glucose 93 Calcium 9.4 Total Bilirubin 0.18 AST 15 ALT 9 Alkaline Phosphatase 73 Total Protein 6.7 Albumin 3.9 Globulin 2.8 Albumin/Globulin Ratio 1.4 Lipase 18 HCG, Quant 13 H Serum , Qual POSITIVE Urine Color Yellow Urine Clarity Sl. Cloudy Urine pH 6.0 Ur Specific [place] 1.020 Urine Protein 15 H Urine Glucose (UA) Normal Urine Ketones Negative Urine Occult Blood Negative Urine Nitrite Negative Urine Bilirubin Negative Urine Urobilinogen Normal Ur Leukocyte Esterase 25 H Urine RBC 0-5 SEEN Urine WBC 0-5 SEEN Ur Squamous Epith Cells 0-5 SEEN Urine Bacteria 0 SEEN Urine Mucus 4+ Urine Opiates Screen NEGATIVE U Buprenorphine Qual NEGATIVE Ur Oxycodone Screen NEGATIVE Urine Methadone Screen NEGATIVE Urine Fentanyl Screen NEGATIVE Ur Barbiturates Screen NEGATIVE Ur Phencyclidine Scrn NEGATIVE Ur Amphetamines Screen PRESUMPTIVE POSITIVE U Benzodiazepines Scrn NEGATIVE Urine Cocaine Screen NEGATIVE U Cannabinoids Screen PRESUMPTIVE POSITIVE Radiography Diagnostic Testing: Clinical Impression(s) from Imaging Studies Brain CT 03/12/25 17:51 IMPRESSION: No acute intracranial process. Reading Location: [facility] Chest X-Ray 03/12/25 17:55 IMPRESSION: No acute cardiopulmonary process. Reading Location: [id number] Obstetrics Ultrasound 03/12/25 20:45 IMPRESSION: 1. of unknown location, without intrauterine gestational sac identified at this time. Recommend close clinical follow-up and trending of HCG. 2. Trace pelvic free fluid, likely physiologic. Reading Location: [facility] Discharge Plan Triage Chief Complaint: General Illness ED Provider: Dax Boyd Dx/Rx/DC Orders Clinical Impression: Encounter for medical screening examination, Positive test Prescriptions: No Action NK Primary Care Provider: [facility] Sulma Ram[facility]rez [facility] - Ana Thomas CNM [Med Staff - Adv Practice Prof] - Print Language: Albanian Disposition Disposition: Home, Self Care
[2025-03-12] MEDS: 0.9% Normal Saline (1000mL) 1,000 ML 999 ML IV (15:58)
[2025-03-12 16:04] LABS: Hematocrit 37.8 % (37-47); Hemoglobin 12.8 g/dL (12.0-15.0); Immature Granulocytes Count 0.020 X10^3/uL (0.0-0.0); Mean Corp Hgb Conc 33.9 g/dL (32-36); Mean Corpuscular Volume 91.7 fL (81-99); Mean Platelet Vol. 9.6 fl (6.2-12.0); NRBC Flagged by Analyzer 0 % (0-5); Platelet Count 236 K/mm3 (150-450); RBC Distribution Width CV 12.6 % (11.6-14.6); RBC Distribution Width SD 41.7 fl (35.1-43.9); Red Blood Count 4.12 M/mm3 (4.2-5.4); White Blood Count 6.0 K/mm3 (4.4-11.0)
[2025-03-12 16:38] LABS: AST(SGOT) 15 U/L (<=31); Alanine Aminotransfer ALT/SGPT 9 U/L (<=34); Albumin, Serum 3.9 g/dL (3.5-5.0); Alkaline Phosphatase 73 U/L (35-104); Anion Gap 9 (5-15); BUN 7 mg/dL (4-19); BUN/Creat Ratio 9.0 RATIO (10-20); Calcium,Total 9.4 mg/dL (7.6-11.0); Carbon Dioxide 27.2 mmol/L (21.0-32.0); Chloride 105 mmol/L (98-108); Estimated Creatinine Clearance 92.27 ml/min (50-250); Globulin 2.8 g/dL (2.2-4.2); Glucose 93 mg/dL (70-99); Lipase 18 U/L (13-75); Potassium 3.5 mmol/L (3.3-5.1)
[2025-03-12 17:00] LABS: Internal QC Validated? YES +Cl - CLEAR BKGD
[2025-03-12 17:01] LABS: Record Kit Lot#, Serum Preg. 947241
[2025-03-12 17:21] LABS: Pregnancy, Serum, hCG Quali. POSITIVE Negative
--- NOTE | 2025-03-12 17:51 | CT_ITS ---
PROCEDURE: BRAIN/HEAD WITHOUT CONTRAST 03/12/2025 REASON FOR EXAM: AMS TECHNIQUE: BRAIN/HEAD WITHOUT CONTRAST Coronal and Sagittal reconstruction series were provided. One or more dose reduction techniques were used (e.g., Automated exposure control, adjustment of the mA and/or kV according to patient size, use of iterative reconstruction technique. RADIATION DOSE SUMMARY: DLP: 762 mGycm COMPARISON: None FINDINGS: There is no acute infarct, intracranial hemorrhage, or mass effect. There is no hydrocephalus or significant midline shift. No acute, depressed calvarial fractures. No large scalp hematomas. CT/Brain/Head without Contrast IMPRESSION: No acute intracranial process. Reading Location: [id number]
--- NOTE | 2025-03-12 17:51 | CT_ITS ---
PROCEDURE: BRAIN/HEAD WITHOUT CONTRAST 03/12/2025 REASON FOR EXAM: AMS TECHNIQUE: BRAIN/HEAD WITHOUT CONTRAST Coronal and Sagittal reconstruction series were provided. One or more dose reduction techniques were used (e.g., Automated exposure control, adjustment of the mA and/or kV according to patient size, use of iterative reconstruction technique. RADIATION DOSE SUMMARY: DLP: 762 mGycm COMPARISON: None FINDINGS: There is no acute infarct, intracranial hemorrhage, or mass effect. There is no hydrocephalus or significant midline shift. No acute, depressed calvarial fractures. No large scalp hematomas. CT/Brain/Head without Contrast IMPRESSION: No acute intracranial process. Reading Location: [id number]
--- NOTE | 2025-03-12 17:55 | RAD_ITS ---
EXAM: XR Chest, 2 Views CLINICAL INDICATION: COUGH TECHNIQUE: Frontal and lateral views of the chest. COMPARISON: No relevant prior studies available. FINDINGS: LUNGS AND PLEURAL SPACES: Unremarkable. No consolidation. No pneumothorax. HEART: Unremarkable. No cardiomegaly. MEDIASTINUM: Unremarkable. Normal mediastinal contour. BONES/JOINTS: Unremarkable. No acute fracture. RAD/Chest PA and Lateral IMPRESSION: No acute cardiopulmonary process. Reading Location: [id number]
--- NOTE | 2025-03-12 17:55 | RAD_ITS ---
EXAM: XR Chest, 2 Views CLINICAL INDICATION: COUGH TECHNIQUE: Frontal and lateral views of the chest. COMPARISON: No relevant prior studies available. FINDINGS: LUNGS AND PLEURAL SPACES: Unremarkable. No consolidation. No pneumothorax. HEART: Unremarkable. No cardiomegaly. MEDIASTINUM: Unremarkable. Normal mediastinal contour. BONES/JOINTS: Unremarkable. No acute fracture. RAD/Chest PA and Lateral IMPRESSION: No acute cardiopulmonary process. Reading Location: [id number]
[2025-03-12 18:14] LABS: Color, Urine Yellow (Yellow); Glucose, Dipstick Normal (Normal); Ketone-Dipstick Negative (Negative); Leukocyte Esterase-Dipstick 25 /ul (Negative); Nitrite-Dipstick Negative (Negative); Occult Blood-Urine Negative /ul (Negative); Protein-Dipstick 15 mg/dl (Negative); Specific Gravity, Urine 1.020 (1.002-1.030); Urine Bilirubin Dipstick Negative (Negative)
[2025-03-12 18:39] LABS: Barbiturate Urine NEGATIVE (< 200 ng/mL); Benzodiazepine Urine NEGATIVE (< 200 ng/mL); PCP Urine NEGATIVE (< 25 ng/mL); THC Urine PRESUMPTIVE POSITIVE (< 50 ng/mL)
[2025-03-12 18:46] LABS: hCG Titer Quant., Serum 13 mIU/mL (<9 non-preg)
[2025-03-12 18:55] LABS: Mucous, Urine 4+ /hpf (<or=2+); Red Blood Cells-Urine 0-5 SEEN /hpf (0-5); Squamous Epithelial Cells - UA 0-5 SEEN /hpf (5-10)
--- NOTE | 2025-03-12 20:45 | US_ITS ---
PROCEDURE: TRANSVAGINAL W/PREG US 03/12/2025 REASON FOR EXAM: COMPARISON: None TECHNIQUE: TRANSVAGINAL W/PREG US FINDINGS: Measurements: Uterus: 7.4 x 4.4 x 4.9 cm for volume of 83.8 mL. Endometrial Thickness: 0.6 cm Right Ovary: 3.1 x 2.0 x 2.1 cm for volume of 6.5 mL Left Ovary: 2.1 x 1.4 x 1.9 cm for volume of 2.8 mL. Uterus: Anteverted. Normal contour and myometrial echotexture. No intrauterine gestational sac is identified. Endometrium: Unremarkable. Right ovary: Normal size and echotexture. Left ovary: Normal size and echotexture. Other adnexal findings: None. Cul-de-sac: There is trace free intraperitoneal fluid identified. Color Doppler: Normal color flow doppler signal at both ovaries. US/Transvaginal w/Preg US IMPRESSION: 1. of unknown location, without intrauterine gestational sac identif ied at this time. Recommend close clinical follow-up and trending of HCG. 2. Trace pelvic free fluid, likely physiologic. Reading Location: [facility]
--- NOTE | 2025-03-12 20:45 | US_ITS ---
PROCEDURE: TRANSVAGINAL W/PREG US 03/12/2025 REASON FOR EXAM: COMPARISON: None TECHNIQUE: TRANSVAGINAL W/PREG US FINDINGS: Measurements: Uterus: 7.4 x 4.4 x 4.9 cm for volume of 83.8 mL. Endometrial Thickness: 0.6 cm Right Ovary: 3.1 x 2.0 x 2.1 cm for volume of 6.5 mL Left Ovary: 2.1 x 1.4 x 1.9 cm for volume of 2.8 mL. Uterus: Anteverted. Normal contour and myometrial echotexture. No intrauterine gestational sac is identified. Endometrium: Unremarkable. Right ovary: Normal size and echotexture. Left ovary: Normal size and echotexture. Other adnexal findings: None. Cul-de-sac: There is trace free intraperitoneal fluid identified. Color Doppler: Normal color flow doppler signal at both ovaries. US/Transvaginal w/Preg US IMPRESSION: 1. of unknown location, without intrauterine gestational sac identif ied at this time. Recommend close clinical follow-up and trending of HCG. 2. Trace pelvic free fluid, likely physiologic. Reading Location: [facility]
[2025-03-13 00:18] VITALS: BP 118/69; PULSE 81; RESP 16; TEMP 36.6; O2SAT 99
== END 2025-03-13 00:19 | disposition home or self-care (01) ==
PROVIDERS: Emergency Provider Emergency Medicine; Visit Provider Emergency Medicine
DX: Z00.00 Encounter for general adult medical examination without abnormal findings (principal); F19.19 Other psychoactive substance abuse with unspecified psychoactive substance-induced disorder; F41.9 Anxiety disorder, unspecified; Z59.00 Homelessness unspecified; F32.A Depression, unspecified; F17.210 Nicotine dependence, cigarettes, uncomplicated; F17.290 Nicotine dependence, other tobacco product, uncomplicated; R41.82 Altered mental status, unspecified; Z32.01 Encounter for pregnancy test, result positive
CPT/HCPCS: 51701; 70450; 71046; 76817; 80053; 80307; 81001; 83690; 84702; 84703; 85025; 96360; 99285; P9612; A4216

== ENCOUNTER 2025-03-27 21:21 | Emergency (ER) | payer MEDICAID, SELFPAY ==
[2025-03-27 21:23] VITALS: BP 106/82; PULSE 90; RESP 16; TEMP 37.3; O2SAT 100; BMI 29.7
[2025-03-27 21:28] VITALS: BP 106/82; PULSE 90; RESP 16; TEMP 37.3; O2SAT 100
--- NOTE | 2025-03-27 21:37 | ED.VIS.FEGU ---
HPI HPI - Female History of Present Illness Chief Complaint: Vag Bld, Preg Informant: patient Bleeding Issue: Positive for Vaginal bleeding Onset: Today Timing: Continuous Current Severity: Mild Associated Symptoms Associated Symptoms: Negative for Dysuria or Frequency Narrative Narrative: Patient presents with vaginal bleeding that began tonight. Patient denies any pain or cramping. Patient was seen here 2 weeks ago and was diagnosed with the positive test. Patient has not followed up with [facility]. Patient's quantitative hCG at that time was 13. Patient denies any nausea or vomiting. Patient denies any dysuria or hematuria. Patient denies any fevers or chills. [facility] Medical History Marijuana abuse Methamphetamine abuse Care and examination of lactating mother Vaginal delivery Intrapartum fever Depression Anxiety Headache Trauma Gestational HTN Obesity affecting Elective induction of labor planned 40 weeks gestation of Marijuana use History of depression Unplanned Home Medications ?Medication ?Instructions ?Recorded ?Last Taken ?Type NK 11/07/23 Unknown History Allergy/AdvReac Type Severity Reaction Status Date / Time cinnamon Allergy Severe Anaphylaxis Verified 03/27/25 21:23 Family History no significant family his Surgical History History of surgery Social History housing: homeless Smoking Status: Current every day smoker tobacco type: cigarettes and e-cigarettes ROS ROS ED Constitutional Constitutional ED: Denies chills or fever(s) Eyes Eyes: Denies blurry vision or change in vision ENT ENT ED: Denies rhinorrhea or sore throat Cardiovascular Cardiovascular: Denies chest pain or palpitations Respiratory/Chest Respiratory/Chest: Denies cough or dyspnea Gastrointestinal Gastrointestinal: Denies nausea or vomiting Genitourinary Genitourinary ED: Denies dysuria or hematuria Musculoskeletal Musculoskeletal: Denies back pain or neck pain Integumentary Denies abscess or rash Neurologic Neurologic: Denies headache(s) or weakness Allergic/Immunologic Allergic/Immunologic ED: Denies mouth swelling or urticaria EXAM Physical Exam Const Vital Signs: 03/27/25 21:23 03/27/25 21:28 03/27/25 22:30 Temperature 99.1 F 99.1 F 98.2 F Temperature Source Oral Oral Oral Pulse Rate 90 90 83 Respiratory Rate 16 16 16 Blood Pressure 106/82 H 106/82 H 117/94 H Blood Pressure Mean 90 90 101 Pulse Ox 100 100 100 Oxygen Delivery Method Room Air Room Air Room Air Positive well nourished and well developed General Appearance ED: well developed and NAD HEENT Reports moist mucous membranes Neck supple and no JVD Resp normal respiratory effort and clear to auscultation bilaterally Cardio regular rate and regular rhythm GI soft to palpation, non-tender and non-distended Neuro CN's II-XII intact bilaterally and no sensory deficits noted Sensorium / Orientation: alert Motor Exam: strength 5/5 throughout Psych mental status grossly normal MDM MDM MDM Narrative Medical decision making narrative: Differential diagnosis includes but is not limited to incomplete miscarriage, threatened miscarriage, dysfunctional uterine bleeding, urinary tract infection, and anemia. CBC will be obtained to assess for leukocytosis and anemia. Quantitative hCG will be obtained to assess for . Urinalysis will be obtained to assess for urinary tract infection and hematuria. Basic metabolic profile will be obtained to assess for electrolyte abnormality and renal function. History & Record Review Additional record(s) reviewed:: Prior ED visit and Prior labs Lab Data Attestation: I reviewed the patient's lab results. Lab results narrative: CBC was reviewed and was within normal limits. Quantitative hCG was reviewed and was less than 1. Urinalysis was reviewed. There is no evidence of urinary tract infection or hematuria. Basic metabolic profile was reviewed and was within normal limits. Labs: Laboratory Results - last 24 hr 03/27/25 03/27/25 03/27/25 21:29 21:30 22:02 WBC 6.6 RBC 4.09 L Hgb 12.8 Hct 37.4 MCV 91.4 MCH 31.3 MCHC 34.2 RDW Std Deviation 42.2 RDW Coeff of Matthew 12.6 Plt Count 219 MPV 9.5 Immature Gran % (Auto) 0.300 Neut % (Auto) 53.4 Lymph % (Auto) 35.5 [place] % (Auto) 8.2 Eos % (Auto) 2.1 Baso % (Auto) 0.5 Absolute Neuts (auto) 3.5 Absolute Lymphs (auto) 2.35 Nucleated RBC % 0 Sodium 139 Potassium 4.0 Chloride 102 Carbon Dioxide 25.0 Anion Gap 13 BUN 13 Creatinine 0.66 L Estim Creat Clear Calc 124.61 Est GFR (MDRD) Non-Af 126 BUN/Creatinine Ratio 19.8 Glucose 92 Calcium 9.8 HCG, Quant < 1 Urine Color Yellow Urine Clarity Clear Urine pH 5.0 Ur Specific [place] 1.030 Urine Protein 15 H Urine Glucose (UA) Normal Urine Ketones 5 H Urine Occult Blood 25 H Urine Nitrite Negative Urine Bilirubin 1 H Urine Urobilinogen Normal Ur Leukocyte Esterase Negative Urine RBC 0-5 SEEN Urine WBC 0-5 SEEN Ur Squamous Epith Cells 0-5 SEEN Urine Bacteria RARE Urine Mucus 2+ POC Glucose 102 Treatment and Re-Evaluation Narrative: Patient was advised of her findings. Patient was instructed to follow-up with her primary care physician and [facility] in 5 to 7 days. Patient was instructed to return if worse in any way. Patient understood and was agreeable with plan. All questions were answered. Discharge Plan Triage Chief Complaint: Vag Bld, Preg ED Provider: Nathan Booker Dx/Rx/DC Orders Clinical Impression: Complete miscarriage, Vaginal bleeding Instructions: ED Miscarriage Spontaneous Prescriptions: No Action NK Primary Care Provider: [facility] Sulma Ramírez Referrals: [facility] Sulma Ramírez [Primary Care Provider] - 3-5 Days Print Language: [place]an Disposition Disposition: Home, Self Care
[2025-03-27 21:43] LABS: Hematocrit 37.4 % (37-47); Hemoglobin 12.8 g/dL (12.0-15.0); Immature Granulocytes Count 0.020 X10^3/uL (0.0-0.0); Mean Corp Hgb Conc 34.2 g/dL (32-36); Mean Corpuscular Volume 91.4 fL (81-99); Mean Platelet Vol. 9.5 fl (6.2-12.0); NRBC Flagged by Analyzer 0 % (0-5); Platelet Count 219 K/mm3 (150-450); RBC Distribution Width CV 12.6 % (11.6-14.6); RBC Distribution Width SD 42.2 fl (35.1-43.9); Red Blood Count 4.09 M/mm3 (4.2-5.4); White Blood Count 6.6 K/mm3 (4.4-11.0)
[2025-03-27] MEDS: 0.9% Normal Saline (1000mL) 1,000 ML 999 ML IV (21:54)
[2025-03-27 22:11] LABS: hCG Titer Quant., Serum < 1 mIU/mL (<9 non-preg)
[2025-03-27 22:11] LABS: Color, Urine Yellow (Yellow); Glucose, Dipstick Normal (Normal); Ketone-Dipstick 5 mg/dl (Negative); Leukocyte Esterase-Dipstick Negative /ul (Negative); Nitrite-Dipstick Negative (Negative); Occult Blood-Urine 25 /ul (Negative); Protein-Dipstick 15 mg/dl (Negative); Specific Gravity, Urine 1.030 (1.002-1.030)
[2025-03-27 22:23] LABS: Urine Bilirubin Dipstick 1 mg/dL (Negative)
[2025-03-27 22:24] LABS: Mucous, Urine 2+ /hpf (<or=2+)
[2025-03-27 22:25] LABS: Red Blood Cells-Urine 0-5 SEEN /hpf (0-5); Squamous Epithelial Cells - UA 0-5 SEEN /hpf (5-10)
[2025-03-27 22:30] VITALS: BP 117/94; PULSE 83; RESP 16; TEMP 36.8; O2SAT 100
--- OUTSIDE RECORDS SUMMARY | 2025-03-27 22:32 | XMS RPT_ITS | CCD ---
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 #### L 100.0100, L501.9100, L500.4050 #### [facility] [address] [place], [address] Monocytes/100 WBC (Bld) 6.7 % Normal 0-10 [facility] Comment on above: Performed By: #### L 100.0100, L501.9100, L500.4050 #### [facility] [address] [place], [address] Neutrophils/100 WBC (Bld) 68.7 % Normal 47-70 [facility] Comment on above: Performed By: #### L 100.0100, L501.9100, L500.4050 #### [facility] [address] [place], [address] Nucleated RBC (Bld) [#/Vol] 0 10*3/uL Normal 0-5 [facility] Comment on above: Performed By: #### L 100.0100, L501.9100, L500.4050 #### [facility] [address] [place], [address] Platelet mean volume (Bld) [Entitic vol] 9.2 fL Normal 6.2-12.0 [facility] Comment on above: Performed By: #### L 100.0100, L501.9100, L500.4050 #### [facility] [address] [place], [address] Platelets (Bld) [#/Vol] 290 10*3/uL Normal 150-450 [facility] Comment on above: Performed By: #### L 100.0100, L501.9100, L500.4050 #### [facility] [address] [place], [address] RBC (Bld) [#/Vol] 4.50 10*6/uL Normal 4.2-5.4 [facility] Comment on above: Performed By: #### L 100.0100, L501.9100, L500.4050 #### [facility] [address] [place], [address] RDW SD 45.9 fl High 35.1-43.9 [facility] Comment on above: Performed By: #### L 100.0100, L501.9100, L500.4050 #### [facility] [address] [place], [address] WBC (Bld) [#/Vol] 11.5 10*3/uL High 4.4-11.0 [facility] Comment on above: Performed By: #### L 100.0100, L501.9100, L500.4050 #### [facility] [address] [place], [address] Comprehensive Metabolic Prof mdon 07-09-2024 Albumin [Mass/Vol] 3.8 g/dL Normal 3.2-5.0 [facility] Comment on above: Performed By: #### L 100.0100, L501.9100, L500.4050 #### [facility] [address] [place], [address] Albumin/Globulin [Mass ratio] 0.8 {ratio} Low 0.9-2.4 [facility] Comment on above: Performed By: #### L 100.0100, L501.9100, L500.4050 #### [facility] [address] [place], [address] ALK P 89 U/L Normal 45-117 [facility] Comment on above: Performed By: #### L 100.0100, L501.9100, L500.4050 #### [facility] [address] [place], [address] ALT [Catalytic activity/Vol] 14 U/L Normal 13-56 [facility] Comment on above: Performed By: #### L 100.0100, L501.9100, L500.4050 #### [facility] [address] [place], [address] AST [Catalytic activity/Vol] 7 U/L Low 15-37 [facility] Comment on above: Performed By: #### L 100.0100, L501.9100, L500.4050 #### [facility] [address] [place], [address] Bilirubin [Mass/Vol] 0.30 mg/dL Normal 0.20-1.00 [facility] Comment on above: Result Comment: For patients on eltrombopag therapy, use of Dimension [place] TBIL is not recommended. Performed By: #### L 100.0100, L501.9100, L500.4050 #### [facility] [address] [place], [address] BUN/CRE 22.8 RATIO High 10-20 [facility] Comment on above: Performed By: #### L 100.0100, L501.9100, L500.4050 #### [facility] [address] [place], [address] CA,Total 9.7 mg/dL Normal 8.5-10.1 [facility] Comment on above: Performed By: #### L 100.0100, L501.9100, L500.4050 #### [facility] [address] [place], [address] Chloride [Moles/Vol] 105 mmol/L Normal 98-107 [facility] Comment on above: Performed By: #### L 100.0100, L501.9100, L500.4050 #### [facility] [address] [place], [address] CO2 [Moles/Vol] 28.0 mmol/L Normal 21.0-32.0 [facility] Comment on above: Performed By: #### L 100.0100, L501.9100, L500.4050 #### [facility] [address] [place], [address] Creatinine [Mass/Vol] 0.53 mg/dL Low 0.55-1.02 [facility] Comment on above: Result Comment: The validity of the calculated GFR GFRAA in patients over 70 years has not been determined. Clinical correlation is essential. Performed By: #### L 100.0100, L501.9100, L500.4050 #### [facility] [address] [place], [address] ECRCL 143.59 ml/min Normal [facility] Comment on above: Performed By: #### L 100.0100, L501.9100, L500.4050 #### [facility] [address] [place], [address] EST GFR - AA 185 mL/min Normal >60 [facility] Comment on above: Result Comment: Afri can Togolese GFR Calc Performed By: #### L 100.0100, L501.9100, L500.4050 #### [facility] [address] [place], [address] GAP 5 Normal 5-15 [facility] Comment on above: Performed By: #### L 100.0100, L501.9100, L500.4050 #### [facility] [address] [place], [address] GFR/1.73 sq M.predicted among non-blacks MDRD (S/P/Bld) [Vol rate/Area] 153 mL/min/{1.73_m2} Normal >60 [facility] Comment on above: Result Comment: Non- GFR Calc Performed By: #### L 100.0100, L501.9100, L500.4050 #### [facility] [address] [place], [address] Globulin (S) [Mass/Vol] 4.7 g/dL High 2.2-4.2 [facility] Comment on above: Performed By: #### L 100.0100, L501.9100, L500.4050 #### [facility] [address] [place], [address] Glucose [Mass/Vol] 122 mg/dL High 74-106 [facility] Comment on above: Result Comment: Fast ing Glucose result from 100 to 125 mg/dL suggests IMPAIRED HOMEOSTASIS per A.D.A. criteria. Performed By: #### L 100.0100, L501.9100, L500.4050 #### [facility] [address] [place], [address] Potassium [Moles/Vol] 3.3 mmol/L Low 3.5-5.1 [facility] Comment on above: Performed By: #### L 100.0100, L501.9100, L500.4050 #### [facility] [address] [place], [address] Sodium [Moles/Vol] 138 mmol/L Normal 136-145 [facility] Comment on above: Performed By: #### L 100.0100, L501.9100, L500.4050 #### [facility] [address] [place], [address] T PROT 8.5 g/dL High 6.4-8.2 [facility] Comment on above: Performed By: #### L 100.0100, L501.9100, L500.4050 #### [facility] [address] [place], [address] Urea nitrogen [Mass/Vol] 12 mg/dL Normal 7-18 [facility] Comment on above: Performed By: #### L 100.0100, L501.9100, L500.4050 #### [facility] [address] [place], [address] Emergency Department Summary on 07-09-2024 Emergency Department Summary [facility] Medical Records Department [address] [place] [address] Emergency Department Summary 07/09/24 MR#: [id number] Acct: [id number] Name: HERMINIA GOLDMAN Rep #: [id number] : 2000 24 From: Naren Kingston MD PCP: RU [facility] Status:DEP ER Location: ED HPI History of Present Illness Chief Complaint: Substance Abuse Narrative Narrative: Patient is a 24-year-old female with history of drug abuse who presents to the emergency department with police. Patient was found somewhat unresponsive in a park bathroom. She was just standing there. She would not talk with the police. She appeared to be under some kind of substance. Patient is currently under arrest, here for clearance and will go to the long-term. She denies any complaints. Patient states that she smokes marijuana however she is not under any substance. [facility] Medical History Care and examination of lactating mother Vaginal delivery Intrapartum fever Depression Anxiety Headache Trauma Gestational HTN Obesity affecting Elective induction of labor planned 40 weeks gestation of Marijuana use History of depression Unplanned Home Medications ???Medication ???Instructions ???Recorded ???Last Taken ???Type NK 11/07/23 Unknown History Allergy/AdvReac Type Severity Reaction Status Date / Time cinnamon Allergy Severe Anaphylaxis Verified 07/09/24 13:12 Surgical History History of surgery Social History (Updated 03/02/24 @ 13:[address] Kareem Jacob MD) housing: homeless Smoking Status: Current some day smoker tobacco type: cigarettes ROS ROS ED ROS Narrative Constitutional: Negative for fever, chills, weight loss, weakness. Appears lethargic Eyes: Negative for vision loss, vision change, double vision ENT: Negative for any sore throat, ear pain, congestion Cardiovascular: Negative for any chest pain, tightness, palpitations Respiratory: Negative for any cough, sputum production, hemoptysis, dyspnea, dyspnea on exertion, orthopnea Gastrointestinal: Negative for any abdominal pain, nausea, vomiting, diarrhea, constipation, blood in stool, blood in vomit : Negative for any urinary frequency, dysuria, retention, blood in urine Muscle skeletal: Negative for any neck pain, back pain Neurological: Negative for any headache, syncope, dizziness Skin: Negative for any rashes, itching, abrasions, lacerations Psychiatric: Negative for any depression, anxiety, stress, suicidal ideation, homicidal ideation Hematologic: Negative for any excessive bruising, easy bleeding EXAM Physical Exam Narrative Exam Narrative: Vital signs reviewed. Patient is alert, does appear to be slow to respond however she is in no distress. Answers questions appropriately. HEET: Head normocephalic atraumatic, TMs clear bilaterally. Posterior pharynx is clear, dry mucous membranes. Nares clear bilaterally. Neck: Supple with no lymphadenopathy or tenderness. No signs of meningismus. Cardiac: Regular rate and rhythm no murmurs gallops or rubs, equal peripheral pulses bilaterally. Respiratory: Expiratory wheezes. No chest tenderness. Abdomen: Soft, nontender, nondistended. No abdominal bruit or pulsatile masses. No hepatosplenomegaly Extremities: No peripheral edema, no signs of gross trauma or deformity. Active full range of motion of all extremities. Neuro: Cranial nerves II through XII intact, no focal neurological deficits. Skin: Clean dry and intact with no rash, purpura, petechiae, vesicles or pustules. Backs/flank: No CVA tenderness, no midline spinal tenderness, no deformity. Psych: Normal mood and affect. No SI, HI or acute psychosis. Const Vital Signs: 07/09/24 13:12 Temperature 97 F L Temperature Source Temporal Pulse Rate 65 Respiratory Rate 16 Blood Pressure 112/83 H Blood Pressure Mean 92 Pulse Ox 98 Oxygen Delivery Method Room Air Positive cachectic and unkempt General Appearance ED: unkempt and cachectic Nutritional Appearance: cachectic Psych Appearance: unkempt Physical Exam Const Vital Signs: 07/09/24 13:12 Temperature 97 F L Temperature Source Temporal Pulse Rate 65 Respiratory Rate 16 Blood Pressure 112/83 H Blood Pressure Mean 92 Pulse Ox 98 Oxygen Delivery Method Room Air MDM MDM Lab Data Labs: Laboratory Results - last 24 hr 07/09/24 13:31 WBC 11.5 H RBC 4.50 Hgb 13.4 Hct 41.2 MCV 91.6 MCH 29.8 MCHC 32.5 RDW Std Deviation 45.9 H RDW Coeff of Matthew 13.4 Plt Count 290 MPV 9.2 Immature Gran % (Auto) 0.400 Neut % (Auto) 68.7 Lymph % (Au (more content not included)... Normal [facility] ,Serum,hCG Quali.on 07-09-2024 HCG, SERUM QUAL Negative Normal [facility] Comment on above: Performed By: #### L 700.6800 #### [facility] [address] [place], [address] Emergency Department Summary on 05-10-2024 Emergency Department Summary [facility] Medical Records Department [address] [place] [address] Emergency Department Summary 05/10/24 MR#: [id number] Acct: [id number] Name: HERMINIA GOLDMAN Rep #: [id number] : 2000 23 From: Jose Luis Alejandro DO PCP: RU [facility] Status:DEP ER Location: ED HPI History of Present Illness Chief Complaint: Allergic Reaction [facility] Medical History Care and examination of lactating mother Vaginal delivery Intrapartum fever Depression Anxiety Headache Trauma Gestational HTN Obesity affecting Elective induction of labor planned 40 weeks gestation of Marijuana use History of depression Unplanned Home Medications ???Medication ???Instructions ???Recorded ???Last Taken ???Type NK 11/07/23 Unknown History Allergy/AdvReac Type Severity Reaction Status Date / Time cinnamon Allergy Severe Anaphylaxis Verified 05/10/24 09:26 Surgical History History of surgery Social History (Updated 03/02/24 @ 13:[address] Kareem Jacbo MD) housing: homeless Smoking Status: Current some day smoker tobacco type: cigarettes EXAM Physical Exam Const Vital Signs: 05/10/24 09:29 Temperature 97.8 F Temperature Source Temporal Pulse Rate 112 H Respiratory Rate 18 Blood Pressure 119/75 Blood Pressure Mean 89 Pulse Ox 99 Oxygen Delivery Method Room Air MDM MDM MDM Narrative Medical decision making narrative: HISTORY OF PRESENT ILLNESS: 23-year-old female presents with concern for allergic reaction or chest pain. per EMS patient had chest pain for 1 month. Patient endorses using methamphetamine 1 week ago. The patient states she feels she is having allergic reaction. States she is exposed to cinnamon prior to arrival. Notes some itching, rash on her chest. Denies any chest pain or shortness of breath to me although this was stated by EMS and in the triage note. REVIEW OF SYSTEMS: Pertinent positives: Allergic reaction Pertinent negatives: Drooling, neck stiffness, trismus PHYSICAL EXAM: Nursing triage notes reviewed, Vital signs reviewed Constitutional: please see mdm HENT: MMM, no oropharyngeal swelling, no stridor, no difficulty controlling secretions, no drooling no tripoding Eyes: Pupils equal round and reactive to light, Extraocular muscles intact Neck: No stridor, no JVD, full neck ROM Lungs: Clear to auscultation, No wheezing or rales. No increased work of breathing, no conversational dyspnea, no accessory muscle use, no nasal flaring. No respiratory distress noted Heart: Regular rate and rhythm, No murmurs, No rubs and No gallops, 2+ distal pulses (radial, femoral, posterior tibial) in all extremities Abdomen: Soft, there is no tenderness, rigidity, rebound or guarding, no obvious peritoneal signs, no palpable pulsatile abdominal masses, no auscultated abdominal bruit : No CVAT Extremities: No edema Neuro: No focal neurological deficits, cranial nerves II through XII intact, 5/5 strength in all extremities. Intact sensation to light touch in all extremities, 2+ reflexes bilateral patella tendons. Normal gait. No ataxia. Skin: urticarial rash noted to chest MEDICAL DECISION MAKING: Chief Complaint: Allergic reaction versus chest pain External records reviewed: Prior imaging studies reviewed Factors affecting care: None reported Social determinants of health: Patient reported use of THC History obtained from others: none Consults: EMS [facility] Narrative: The patient was initially tachycardic with rate of 112, otherwise afebrile and nontoxic-appearing saturating 99% on room air. There is no stridor, no drooling, no tripoding, no respiratory distress, no wheezing, no nausea. No signs of anaphylaxis or anaphylactic shock. There is no report of chest pain to suggest ACS. I considered the following differential diagnosis: Allergic reaction, anaphylaxis, anaphylactic shock, ACS Clinical exam was not consistent with anaphylaxis or anaphylactic shock. There was a nondescript rash of the patient's chest that could be urticarial. She was treated with pepcid, claritin and discharged stable condition with instruction to continue anti-histamines. Strict return precuations were discussed. The patient and/or family, caregivers express understanding. The patient and/or family, caregivers agrees with the plan. Shared decision making: I will have a discussion with the patient and or visitors regarding risk/benefits of further testing or admission. They will be made aware of of the risk/benefits inherent in this decision they will be given the opportunity to voice understanding. Total critical care ti (more content not included)... Normal [facility] ED NOTEon 02-06-2024 ED NOTE HNO ID: [id number] Author: HARI WELSH, EMILEE Service: Emergency Medicine Author Type: Registered Nurse Type: ED Notes Filed: 02/06/2024 11:19 Note Text: Pt c/o left wrist and hand pain. States started a few weeks ago. [place], warm, dry. No apparent distress. Alert and oriented. Normal [facility] ED PROV NOTEon 02-06-2024 ED PROV NOTE HNO ID: [id number] Author: ANA THORNTON DO Service: Emergency Medicine Author Type: [...] drug use. PAST MEDICAL HISTORY Diagnosis Date #[id number] Depression 02/12/2023 PAST SURGICAL HISTORY Procedure Laterality [...] wound. Neurological: Negative for weakness and numbness. Psychiatric/Behavioral: Negative for agitation and confusion. Physical Exam Vitals [02/06/24 1115] BP Pulse Temp Temp src Resp SpO2 Weight Height 104/65 (!) 115 36.3 ?C (97.4 ?F) Temporal 16 99 % 72.6 kg (160 lb) 1.778 m (5' 10) Physical Exam Vitals and nursing note reviewed. [...] attention to the fourth and fifth digits Planning Feeder: [facility] Transcribe Date/Time: Feb 06 2024 12:38P Dictated [...] (more content not included)... Normal [facility] XR HAND 3V PA/LAT/OBL LTon 0 [...] attention to the fourth and fifth digits Planning Feeder: [facility] Transcribe Date/Time: Feb 06 2024 12:38P Dictated by : PEPE SCANLON MD This examination was interpreted and the report reviewed and electronically signed by: PEPE SCANLON MD on Feb 06 2024 12:41PM EST [id number] Normal [facility] Basophil percentageOrdered B y: Joie Greene on 11-07-2023 Basophil percentage 0 SEEN /hpf 0-5 [facility] Bilirubin Test strip Ql (U)O rdered By: Joie Greene on 11-07-2023 Bilirubin Ql (U) Negative Negative [facility] Ketones Test strip Ql (U)Ord ered By: Joie Greene on 11-07-2023 Ketones Ql (U) Negative Negative [facility] Laboratory - Chemistry and C hemistry - challengeOrdered By: Joie Greene on 11-07-2023 HCG ( test) Ql (U) Negative [facility] Comment on above: Very dilute urine sp ecimens, as indicated by a low specificgravity, may not contain sales and merchandising representative levels of hCG. If is still suspected, a first morning urinespecimen should be collected 48 hours later and tested. Laboratory - Microbiology an d Antimicrobial susceptibilityOrdered By: Joie Greene on 11-07-2023 SARS-CoV-2 (COVID-19) RNA MARIA ISABEL+probe Ql (Unsp spec) Influenzae A [facility] Mucus LM Ql (Urine sed)Order ed By: Joie Greene on 11-07-2023 Mucus Ql (Urine sed) 0 SEEN /hpf [facility] Nitrite Test strip Ql (U)Ord ered By: Joie Greene on 11-07-2023 Nitrite Ql (U) Negative Negative [facility] No Panel InformationOrdered By: Jioe Greene on 11-07-2023 Urine RBC 0 SEEN /hpf 0-5 [facility] Protein Test strip Ql (U)Ord ered By: Joie Greene on 11-07-2023 Protein Ql (U) 15 mg/dl Negative [facility] Squamous epithelial cells de tection in urine sediment by light microscopyOrdered By: Joie Greene on 11-07-2023 Epithelial cells.squamous LM Ql (Urine sed) 0-5 SEEN /hpf 5-10 [facility] Urine blood detectionOrdered By: Joie Greene on 11-07-2023 RBC Ql (U) Negative Negative [facility] Urine clarityOrdered By: Mai Greene on 11-07-2023 Clarity (U) Clear Clear [facility] Urine color determinationOrd ered By: Joie Greene on 11-07-2023 Color (U) Yellow Yellow [facility] Urine glucose detectionOrder ed By: Joie Greene on 11-07-2023 Glucose Ql (U) Normal mg/dl Normal [facility] Urine leukocyte esterase det ection by dipstickOrdered By: Joie Greene on 11-07-2023 Leukocyte esterase Test strip Ql (U) 25 /ul Negative [facility] Urine pHOrdered By: Joie Greene on 11-07-2023 pH (U) 6.0 [pH] 5.0 - 8.0 [facility] Urine sediment bacteria coun t by microscopy (number/high power field)Ordered By: Joie Greene on 11-07-2023 Bacteria LM.HPF (Urine sed) [#/Area] RARE /hpf None Seen [facility] Urine specific gravity measu rementOrdered By: Joie Greene on 11-07-2023 Specific gravity (U) [Rel density] 1.020 1.002-1.030 [facility] Urine urobilinogen measureme ntOrdered By: Joie Greene on 11-07-2023 Urobilinogen Ql (U) Normal mg/dl Normal [facility] HBV core Ab Ser Qlon 024 HBV core Ab Ql (S) Negative Normal Negative [facility] Comment on above: Order Comment: Speci men Type: BLOOD SPECIMEN Ordering Facility: [facility] Address: [address] [place] [address], [place] [address] Result Comment: No e vidence of current or past infection with Hepatitis B virus. Should recent infection be suspected, repeat testing may be considered 3-4 weeks after this draw. Performed By: #### 2 2322-2, 62277-5, 5195-3, 38894-6 #### [facility] CLIA [id number] [address] [place] [address] [place] HBV surface Ab Ql (S)on HBV surface Ab Qn (S) 47.72 mIU/mL Normal [facility] Comment on above: Order Comment: Speci men Type: BLOOD SPECIMEN Ordering Facility: [facility] Address: [address] [place] [address], [place] [address] Result Comment: <8 m IU/mL: No serological evidence of immunity to Hepatitis B Virus. >/= 8 to <12 mIU/mL: No serological evidence of immunity to Hepatitis B Virus. >/= 12 mIU/mL: Consistent with serological evidence of immunity to Hepatitis B Virus. Performed By: #### 2 2322-2, 17341-4, 5195-3, 06260-8 #### [facility] CLIA [id number] [address] [place] [address] [place] HBV surface Ab Ser Qlon HBV surface Ab Ql (S) Positive Normal [facility] Comment on above: Order Comment: Speci men Type: BLOOD SPECIMEN Ordering Facility: [facility] Address: [address] [place] [address], [place] [address] Result Comment: Cons istent with serological evidence of immunity to Hepatitis B Virus. Performed By: #### 2 2322-2, 28629-5, 5195-3, 70435-6 #### [facility] CLIA [id number] [address] [place] [address] [place] HBV surface Ag Ser Qlon HBV surface Ag Ql (S) Negative Normal Negative [facility] Comment on above: Order Comment: Speci men Type: BLOOD SPECIMEN Ordering Facility: [facility] Address: [address] [place] [address] Performed By: #### 2 2322-2, 98857-6, 5195-3, 52677-9 #### [facility] CLIA [id number] [address] [place] [address] [place] HCV Ab Ser Qlon 09-16-2023 HCV Ab Ql (S) Negative Normal Negative [facility] Comment on above: Order Comment: Speci men Type: BLOOD SPECIMEN Ordering Facility: [facility] Address: [address] [place] [address] Result Comment: The result suggests no evidence of active infection with Hepatitis C virus. Should recent infection be suspected, repeat testing may be considered 4-6 weeks after this draw. Performed By: #### 7 3752-8, 91130-8 #### [facility] CLIA [id number] [address] [place] [address] [place] HIV 1+2 Ab IA Qlon 4 HIV 1 and 2 Ab IA.rapid Nom (S/P/Bld) Normal [facility] Comment on above: Order Comment: Specdarwin herrera Type: BLOOD SPECIMEN Ordering Facility: [facility] Address: [address] [place] [address] Result Comment: Test not indicated. Performed By: #### 2 2322-2, 79717-1, 5195-3, 51493-9 #### [facility] CLIA [id number] [address] [place] [address] [place] HIV 1+2 Ab+HIV1 p24 Ag IA Ql Non-Reactive Normal Nonreactive [facility] Comment on above: Order Comment: Stew herrera Type: BLOOD SPECIMEN Ordering Facility: [facility] Address: [address] [place] [address] Performed By: #### 2 2322-2, 58911-8, 5195-3, 47549-6 #### [facility] CLIA [id number] [address] [place] [address] [place] HIV immunoassay testing algorithm interpretation (S/P/Bld) [Interp] Normal [facility] Comment on above: Order Comment: Stew herrera Type: BLOOD SPECIMEN Ordering Facility: [facility] Address: [address] [place] [address] Result Comment: No e vidence of HIV-1 or HIV-2 infection. Should recent infection be suspected, repeat testing may be considered 2-3 weeks after this draw. [place] Rev. Code 3701.243(E): This information has been [...] or diagnoses. Performed By: #### 2 2322-2, 65518-0, 5195-3, 50033-7 #### [facility] CLIA [id number] [address] [place] [address] [place] Reagin and Treponema pallidu m IgG and IgM [Interp]on 09-16-2023 T. pallidum IgG+IgM IA Ql (S) Non-Reactive Normal Nonreactive [facility] Comment on above: Order Comment: Speci men Type: BLOOD SPECIMEN Ordering Facility: [facility] Address: [address] [place] [address], [place] [address] Performed By: #### 7 3752-8, 30809-2 #### [facility] CLIA [id number] [address] [place] [address] [place] Reagin+T pallidum IgG+IgM Se rPl-Impon 09-16-2023 Reagin and Treponema pallidum IgG and IgM [Interp] Cannot exclude recent Treponemal infection if specimen collected within 7-10 days after appearance of suspect lesions or 2-3 weeks after an exposure. Clinical correlation is required. Normal [facility] Comment on above: Order Comment: Speci men Type: BLOOD SPECIMEN Ordering Facility: [facility] Address: [address] [place] [address], [place] [address] Performed By: #### 7 3752-8, 22698-1 #### [facility] CLIA [id number] [address] [place] [address] [place] Basophil percentageOrdered B y: Joie Greene on 09-15-2023 Basophil percentage 50-100 SEEN /hpf 0-5 [facility] Bilirubin Test strip Ql (U)O rdered By: Joie Greene on 09-15-2023 Bilirubin Ql (U) Negative Negative [facility] Ketones Test strip Ql (U)Ord ered By: Joie Greene on 09-15-2023 Ketones Ql (U) Negative Negative [facility] Laboratory - Chemistry and C hemistry - challengeOrdered By: Joie Greene on 09-15-2023 HCG ( test) Ql (U) Negative [facility] Comment on above: Very dilute urine sp ecimens, as indicated by a low specificgravity, may not contain sales and merchandising representative levels of hCG. If is still suspected, a first morning urinespecimen should be collected 48 hours later and tested. Mucus LM Ql (Urine sed)Order ed By: Joie Greene on 09-15-2023 Mucus Ql (Urine sed) 0 SEEN /hpf [facility] Neisseria gonorrhoeae genita l PCROrdered By: Joie Greene on 09-15-2023 N. gonorrhoeae DNA MARIA ISABEL+probe Ql (Genital specimen) [facility] Nitrite Test strip Ql (U)Ord ered By: Joie Greene on 09-15-2023 Nitrite Ql (U) Negative Negative [facility] No Panel InformationOrdered By: Joie Greene on 09-15-2023 Chlamydia trachomatis (PCR) [facility] Protein Test strip Ql (U)Ord ered By: Joie Greene on 09-15-2023 Protein Ql (U) 100 mg/dl Negative [facility] Squamous epithelial cells de tection in urine sediment by light microscopyOrdered By: Joie Greene on 09-15-2023 Epithelial cells.squamous LM Ql (Urine sed) 10-25 SEEN /hpf 5-10 [facility] Urine blood detectionOrdered By: Joie Greene on 09-15-2023 RBC Ql (U) 150 /ul Negative [facility] RBC Ql (U) 10-25 SEEN /hpf 0-5 [facility] Urine clarityOrdered By: Mai Greene on 09-15-2023 Clarity (U) Clear Clear [facility] Urine color determinationOrd ered By: Joie Greene on 09-15-2023 Color (U) Yellow Yellow [facility] Urine glucose detectionOrder ed By: Joie Greene on 09-15-2023 Glucose Ql (U) Normal mg/dl Normal [facility] Urine leukocyte esterase det ection by dipstickOrdered By: Joie Greene on 09-15-2023 Leukocyte esterase Test strip Ql (U) 500 /ul Negative [facility] Urine pHOrdered By: Joie Greene on 09-15-2023 pH (U) 6.5 [pH] 5.0 - 8.0 [facility] Urine sediment bacteria coun t by microscopy (number/high power field)Ordered By: Joie Greene on 09-15-2023 Bacteria LM.HPF (Urine sed) [#/Area] 2 /[HPF] None Seen [facility] Urine specific gravity measu rementOrdered By: Joie Greene on 09-15-2023 Specific gravity (U) [Rel density] 1.020 1.002-1.030 [facility] Urobilinogen Auto test strip Ql (U)Ordered By: Joie Greene on 09-15-2023 Urobilinogen Ql (U) Normal mg/dl Normal [facility] Laboratory - Drug toxicology Ordered By: Issa Mena on 08-12-2023 Amphetamines Ql (U) Positive <1000 ng/mL [facility] Benzodiazepines Ql (U) Negative < 200 ng/mL [facility] Cannabinoids Screen Ql (U) Positive < 50 ng/mL [facility] Cocaine Ql (U) Positive < 300 ng/mL [facility] Opiates Ql (U) Negative < 300 ng/mL [facility] No Panel InformationOrdered By: Issa Mena on 08-12-2023 MDMA (Ecstasy) Screen Positive < 500 ng/mL [facility] Urine Barbiturates Screen Negative < 200 ng/mL [facility] Urine Drug Screen Comment [facility] Comment on above: CONFIRMATORY TESTING FOR ALL POSITIVE URINE DRUG SCREENRESULTS WILL ONLY BE SENT OUT UPON PHYSICIAN ORDER. VISTA Urine Drug Screen methods provide only preliminaryanalytical test results. A more specific alternate chemicalmethod must be used in order to obtain a confirmedanalytical result. Gas chromatography/mass spectrometery(GC/MS) is the preferred confirmatory method. Clinicalconsideration and professional judgement should be appliedto any drug of abuse test result, particularly whenpreliminary positive results are used. URINE TCA TESTING MUST BE ORDERED SEPARATELY. USE TESTMNEMONIC: [facility] Urine Methadone Screen Negative < 300 ng/mL [facility] Urine phencyclidine (PCP) de tectionOrdered By: Issa Mena on 08-12-2023 Phencyclidine Ql (U) Negative < 25 ng/mL [facility] 25(OH)D3 SerPl-mCncon 2022 25-hydroxyvitamin D3 [Mass/Vol] 15.5 ng/mL Low 31.0-80.0 [facility] Comment on above: Order Comment: Speci men Type: BLOOD SPECIMEN Ordering Facility: [facility] Address: [address] [place] [address] Result Comment: Clas sification of 25 [place] Vitamin D status: Deficiency/Insufficiency: < or = 30 ng/ml. Sufficiency/Optimal Levels: 31-80 ng/mL Toxicity: > 100 ng/mL. Test performed by chemiluminescent immunoassay. Performed By: #### 1 989-3 #### [facility] CLIA [id number] [address] [place] [address] [place] Hepatic function 2000 panelo n 07-03-2023 Albumin [Mass/Vol] 4.3 g/dL Normal 3.9-4.9 [facility] Comment on above: Order Comment: Speci men Type: BLOOD SPECIMEN Ordering Facility: [facility] Address: [address] [place] [address], [place] [address] Performed By: #### 2 2322-2, 26870-8, 5195-3, 93324-6 #### [facility] CLIA [id number] [address] [place] [address] [place] ALP [Catalytic activity/Vol] 71 U/L Normal 34-123 [facility] Comment on above: Order Comment: Speci men Type: BLOOD SPECIMEN Ordering Facility: [facility] Address: [address] [place] [address], [place] [id number] Performed By: #### 2 2322-2, 53373-5, 5195-3, 41613-2 #### [facility] CLIA [id number] [address] [place] [address] [place] ALT [Catalytic activity/Vol] 11 U/L Normal 7-38 [facility] Comment on above: Order Comment: Speci men Type: BLOOD SPECIMEN Ordering Facility: [facility] Address: [address] [place] [address] Performed By: #### 2 2322-2, 82987-3, 5195-3, 84701-9 #### [facility] CLIA [id number] [address] [place] [address] [place] AST [Catalytic activity/Vol] 11 U/L Low 13-35 [facility] Comment on above: Order Comment: Speci men Type: BLOOD SPECIMEN Ordering Facility: [facility] Address: [address] [place] [address] Performed By: #### 2 2322-2, 95048-0, 5195-3, 49388-2 #### [facility] CLIA [id number] [address] [place] [address] [place] Bilirubin [Mass/Vol] 0.2 mg/dL Normal 0.2-1.3 [facility] Comment on above: Order Comment: Speci men Type: BLOOD SPECIMEN Ordering Facility: [facility] Address: [address] [place], [place] [id number] Performed By: #### 2 2322-2, 12859-2, 5195-3, 65158-5 #### [facility] CLIA [id number] [address] [place] [address] [place] Bilirubin.conjugated [Mass/Vol] mg/dL Normal <0.2 [facility] Comment on above: Order Comment: Speci men Type: BLOOD SPECIMEN Ordering Facility: [facility] Address: [address] [place] [address] Performed By: #### 2 2322-2, 96153-8, 5195-3, 09298-4 #### [facility] CLIA [id number] [address] [place] [address] [place] Protein [Mass/Vol] 6.9 g/dL Normal 6.3-8.0 [facility] Comment on above: Order Comment: Speci men Type: BLOOD SPECIMEN Ordering Facility: [facility] Address: [address] [place] [address], [place] [address] Performed By: #### 2 2322-2, 09724-7, 5195-3, 47451-4 #### [facility] CLIA [id number] [address] [place] [address] [place] T3Free SerPl-mCncon 07-03-20 23 Free T3 [Mass/Vol] 3.5 pg/mL Normal 2.3-4.1 [facility] Comment on above: Order Comment: Speci men Type: BLOOD SPECIMEN Ordering Facility: [facility] Address: [address] [place] [address], [place] [address] Performed By: #### 2 2322-2, 56826-8, 5-3, 54580-5 #### [facility] CLIA [id number] [address] [place] [address] [place] T4 Free SerPl-mCncon 023 Free T4 [Mass/Vol] 1.3 ng/dL Normal 0.9-1.7 [facility] Comment on above: Order Comment: Speci men Type: BLOOD SPECIMEN Ordering Facility: [facility] Address: [address] [facility], [place] [address] Performed By: #### 2 2322-2, 80461-6, 5195-3, 99874-5 #### [facility] CLIA [id number] [address] [place] [address] [place] TSH SerPl-aCncon 07-03-2023 TSH Qn 1.470 m[IU]/L Normal 0.270-4.200 [facility] Comment on above: Order Comment: Speci men Type: BLOOD SPECIMEN [facility]ing Facility: [facility] Address: [address] [facility], [place] [address] Result Comment: If t he patient is , TSH reference range varies by gestational period: First Trimester (weeks 9-12): 0.180-2.990 mIU/L Second Trimester: 0.110-3.980 mIU/L Third Trimester: 0.480-4.710 mIU/L Otilio Tomas et al. A Practical Approach for the Verifications and Determination of Site- and Trimester-Specific Reference Intervals for Thyroid Function tests in . Thyroid, 2019:29:3:412-420. Naresh Robles, et al. 2017 Guidelines of the [place] Thy[employer] for the Diagnosis and Management of Thyroid Disease during and the . Thyroid, 2017:27:3:315-389. Performed By: #### 2 2322-2, 67322-5, 5195-3, 41367-9 #### [facility] CLIA [id number] [address] [place] [address] OF [facility] CNOVon 05-14-2023 CNOV Office Visit (NREUS2 ) HERMINIA GOLDMAN ([id number]) 2 F UPA Date Time Provider Department 05/14/23 4:00 PM SCOTT MATA NREUS2 During your visit today, we recorded the following information about you: Scott Mata PSYD 07/01/2023 5:10 PM Addendum [facility] Clinical Health Psychology Evaluation Time of Service: 4:00 pm to 5:00 pm CPT Code: 86436 - Health AND Behavior Assessment Billing Code: [...] Social History: Ms. Goldman was raised in [place], [place] as the second of 3 children [...] established MH care with a local psychiatrist (uQita) as well as a local counselor (Singh) at a community mental health office near [...] any. Ms. Goldman is and has a [id number] child. She describes limited support from family [...] AND b (more content not included)... Normal [facility] CNOV Office Visit (TAWANA S) HERMINIA GOLDMAN ([id number]) 2 F UPA Date Time Provider Department 05/14/23 3:00 PM ANNALISE SMITH During your visit today, we recorded the following information about you: Annalise Smith LGC 05/25/2023 9:18 AM Addendum Patient Name and confirmed at initiation of visit Dr. Álvaro Zavala requested a genetic consultation for Herminia Goldman, a 22 year old female, for discussion of her family history of Mccook disease and personal concern for the same. [...] CONDITION: Ms. Goldman's father was diagnosed with Emery disease in his late 20s; he reportedly had genetic testing through [facility] in [place] that showed 49 CAG repeats on one [...] therapist - both closer to home in [place]. She said this and medicine is helping [...] to her child. 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 Employment: not working Level of education: finished [employer] Alcohol/cigarettes/othe r: MJ - not daily, every so often FAMILY HISTORY: - Patient's ethnicity: Maternal - unknown ; Paternal - Israeli. - Partner's ethnicity: Mongolian. - No known -Togolese, Mediterranean, /Yemeni, Panamanian-Kenyan/Cajun, or Ashkenazi Sabianist ancestry unless noted above. - Parental consanguinity: [...] Grandmother - hypertension - Grandfather - hx MS. Father: 50s years old, has HD, reportedly molecularly confirmed. Paternal relatives: - Grandfather - Mccook disease; from suicide - Grandfather's sister - reportedly molecularly confirmed HD - in longterm - Grandfather's brother - Mccook disease; from suicide. The remainder of Ms. Goldman's reported family history is negative for known or suspected genetic disease, defects, developmental delay/intellectual disability, infertility, recurrent loss, and unexplained infant . GENETIC COUNSELING RISK ASSES (more content not included)... Normal [facility] Mason 04-08-2023 SILVANO Telephone (AGINTMLW) HERMINIA GOLDMAN ([id number]) 2 F UPA Date Time Provider Department 04/08/23 FIORDALIZA ZHAO AGINTMLW During your visit today, we recorded the following information about you: Frederic Workman MA 04/08/2023 3:32 PM Signed ----- Message from Fiordaliza Zhao APRN.WINDOWS SERVER ENGINEER sent at 04/08/2023 12:28 PM EDT ----- Regarding: FW: Dylan Zhao Documentation request Inquire what they need exactly. Just a letter. Actual ziyad information? Fiordaliza ----- Message ----- From: Alexsander Mcrae Sent: 04/08/2023 10:41 AM EDT To: Fiordaliza Zhao APRN.CNP; Frederic Workman MA Subject: FW: Dylan Zhao Documentation request ----- Message ----- From: Sigrid Gil Sent: 04/08/2023 10:26 AM EDT To: [facility] Triage Pool Subject: [...] for further questions Was Patient Referred to 911/Seek Emergency Treatment (Y/N): n Did Patient Agree (Y/N): n Was An Attempt Made To Transfer The Patient To The Office (Y/N): n Were You Able To Reach Someone At The Office (Y/N): n If Yes - Patient Was Transferred To (Caregivers Name): n If No - Which [facility] Leadership Functional Tester Did You Speak With Regarding This Patient: n Was an appointment scheduled (Y/N): n Reason patient was requesting visit (RFV/signs and symptoms/diagnosis) : Documentation request Person calling if other than patient: Mom Return call to if other than patient: Sigrid Alcantara contact number: [phone] Thank you, Sigrid Gil April 08, 2023 10:23 AM Frederic Workman [...] Fully Assessed Reason for Visit: Patient Question [1937] Prescriptions as of 04/08/2023 - PARoxetine (PAXIL) 30 mg tablet Take 1 tablet by mouth once daily. - melatonin 3 mg tablet Take 2 tablets by mouth daily at bedtime. 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 CT ABDOMEN PELVIS WITH IV CO [...] on WedApr 07, 2023 7:55:[address] [facility] Comment on above: Order Comment: Injur [...] edema. No pneumothorax. IMPRESSION: Normal chest x-ray. [employer] Workstation ID: [id number] Dictated by: HERIBERTO COLE on WedApr 07, 2023 2:32:43 PM EDT Transcribed by: JEAN CLAUDE CARRILLO on WedApr 07, 2023 2:32:43 PM EDT Finalized by: HERIBERTO COLE on WedApr 07, 2023 2:51:[address] [facility] Comment on above: Order Comment: Injur y/Trauma or Illness?:Illness/Other How long have you had these symptoms (acute/chronic)?:Unknown Reason for exam?:cp History of cancer?: Surgeries, chemotherapy, or radiation?: Type of Exam?:Unknown Additional signs and symptoms?:chest pain, abdominal pain Absolute lymphocyte countOrd ered By: Kareem Mezaone on 04-04-2023 Lymphocytes Auto (Unsp spec) [#/Vol] 2.68 10*3/uL 0.83-4.51 [facility] Basophil percentageOrdered B y: Kareem Jacob on 04-04-2023 Potassium [Moles/Vol] 2.9 mmol/L 3.5-5.1 [facility] Basophils/100 WBC (Bld) 0.7 % 0-1 [facility] Chloride [Moles/Vol] 110 mmol/L 98-107 [facility] Eosinophils/100 WBC (Bld) 2.1 % 0-5 [facility] Glucose [Mass/Vol] 101 mg/dL 74-106 [facility] Comment on above: Fasting Glucose resu lt from 100 to 125 mg/dL suggests IMPAIRED HOMEOSTASIS per A.D.A. criteria. Neutrophils (Bld) [#/Vol] 5.8 10*3/uL 2.0-7.7 [facility] Neutrophils/100 WBC (Bld) 62.7 % 47-70 [facility] Sodium [Moles/Vol] 142 mmol/L 136-145 [facility] WBC (Bld) [#/Vol] 9.2 10*3/uL 4.4-11.0 [facility] Beta hCG serum qualOrdered B y: Kareem Jacob on 04-04-2023 Beta HCG ( test) Ql Negative [facility] Blood erythrocytes count (nu mber/volume)Ordered By: Kareem Jacob on 04-04-2023 RBC (Bld) [#/Vol] 4.64 10*6/uL 4.2-5.4 [facility] Blood hemoglobin measurement (mass/volume)Ordered By: Kareem Jacob on 04-04-2023 Hemoglobin (Bld) [Mass/Vol] 14.7 g/dL 12.0-15.0 [facility] Blood lymphocytes/100 leukoc ytesOrdered By: Kareem Jacob on 04-04-2023 Lymphocytes/100 WBC (Bld) 29.0 % 19-41 [facility] Blood monocytes/100 leukocyt esOrdered By: Kareem Jacob on 04-04-2023 Monocytes/100 WBC (Bld) 5.3 % 0-10 [facility] Blood platelet mean volumeOr dered By: Kareem Jacob on 04-04-2023 Platelet mean volume (Bld) [Entitic vol] 10.6 fL 6.2-12.0 [facility] COVID-19 virus antigen assay Ordered By: Kareem Jacob on 04-04-2023 SARS-CoV-2 (COVID-19) Ag IA.rapid Ql (Resp) [facility] Determination of erythrocyte mean corpuscular volume (MCV)Ordered By: Kareem Jacob on 04-04-2023 MCV (RBC) [Entitic vol] 94.0 fL 81-99 [facility] Hematocrit Auto (Bld) [Volum e fraction]Ordered By: Kareem Jacob on 04-04-2023 Hematocrit (Bld) [Volume fraction] 43.6 % 37-47 [facility] Laboratory - Chemistry and C hemistry - challengeOrdered By: Kareem Jacob on 04-04-2023 CO2 [Moles/Vol] 25.0 mmol/L 21.0-32.0 [facility] Urea nitrogen/Creatinine [Mass ratio] 6.9 mg/mg 10-20 [facility] Laboratory - Drug toxicology Ordered By: Kareem Jacob on 04-04-2023 Amphetamines Ql (U) Negative <1000 ng/mL [facility] Benzodiazepines Ql (U) Negative < 200 ng/mL [facility] Cannabinoids Screen Ql (U) Positive < 50 ng/mL [facility] Cocaine Ql (U) Negative < 300 ng/mL [facility] Opiates Ql (U) Negative < 300 ng/mL [facility] Laboratory - Hematology and Cell countsOrdered By: Kareem Jacob on 04-04-2023 Erythrocyte distribution width (RBC) [Entitic vol] 43.5 fL 35.1-43.9 [facility] Erythrocyte distribution width (RBC) [Ratio] 12.5 % 11.6-14.6 [facility] Immature granulocytes/100 WBC (Bld) 0.200 % 0.0-0.9 [facility] Comment on above: IG% - Immature Granu locytes (promyelocytes, myelocytes and metamyelocytes) > 1% indicates that a LEFT SHIFT is Present. MCH (RBC) [Entitic mass] 31.7 pg 27.0-32.0 [facility] Nucleated RBC/100 WBC (Bld) [Ratio] 0 % 0-5 [facility] MCHC Auto (RBC) [Mass/Vol]Or dered By: Kareem Jacob on 04-04-2023 MCHC (RBC) [Mass/Vol] 33.7 g/dL 32-36 [facility] No Panel InformationOrdered By: Kareem Jacob on 04-04-2023 MDMA (Ecstasy) Screen Negative < 500 ng/mL [facility] Urine Barbiturates Screen Negative < 200 ng/mL [facility] Urine Drug Screen Comment [facility] Comment on above: CONFIRMATORY TESTING FOR ALL POSITIVE URINE DRUG SCREENRESULTS WILL ONLY BE SENT OUT UPON PHYSICIAN ORDER. VISTA Urine Drug Screen methods provide only preliminaryanalytical test results. A more specific alternate chemicalmethod must be used in order to obtain a confirmedanalytical result. Gas chromatography/mass spectrometery(GC/MS) is the preferred confirmatory method. Clinicalconsideration and professional judgement should be appliedto any drug of abuse test result, particularly whenpreliminary positive results are used. URINE TCA TESTING MUST BE ORDERED SEPARATELY. USE TESTMNEMONIC: [facility] Urine Methadone Screen Negative < 300 ng/mL [facility] Estimated Creatinine Clearance Calc 100.84 ml/min [facility] Estimated GFR (MDRD) Amer 129 mL/min >60 [facility] Comment on above: GFR Calc Estimated GFR (MDRD) Non-Af Amer 107 mL/min >60 [facility] Comment on above: Non- GFR Calc Ethyl Alcohol Level < 3.0 mg/dL [facility] Comment on above: The serum:whole bloo d ethanol ratio is approximately 1.14and varies slightly with hematocrit. Medical Alcohol reference interval and critical value innon-tolerant individuals; 50 - 100 Impairment 100 Intoxication 100 - 250 Severe Poisoning 250 - 400 Deep/possible fatal coma Platelets bldOrdered By: Apryl Jacob on 04-04-2023 Platelets (Bld) [#/Vol] 277 10*3/uL 150-450 [facility] Serum or plasma calcium hayder urement (mass/volume)Ordered By: Kareem Jacob on 04-04-2023 Calcium [Mass/Vol] 9.4 mg/dL 8.5-10.1 [facility] Serum or plasma creatinine m easurement (mass/volume)Ordered By: Kareem Jacob on 04-04-2023 Creatinine [Mass/Vol] 0.73 mg/dL 0.55-1.02 [facility] Comment on above: The validity of the calculated GFR & GFRAA in patients over 70 years has not been determined. Clinical correlation is essential. Serum or plasma urea nitroge n measurement (mass/volume)Ordered By: Kareem Jacob on 04-04-2023 Urea nitrogen [Mass/Vol] 5 mg/dL 7-18 [facility] Thin prep Papanicolaou smear with manual screeningOrdered By: Kareem Jacob on 04-04-2023 Thin prep Papanicolaou smear with manual screening 7 5-15 [facility] Urine phencyclidine (PCP) de tectionOrdered By: Kareem Jacob on 04-04-2023 Phencyclidine Ql (U) Negative < 25 ng/mL [facility] 04-01-2023 CNPN Telephone (NREUS2) HERMINIA GOLDMAN ([id number]) 01 F [facility] Date Time Provider Department [...] pumped full of drugs to shut her up. I offered an appt with Dr. Bravo on 04/09 and held those EST slots but she asked if they could bring her to [facility] before that time, and have her admitted. She wants her to get help and not just have her sedated. Pt's father has HD and records from local neurologist available in [place]. I told her I'd run this by the team and have someone contact her. 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 Patient's aunt also aware she may call [...] Scott Mata Psy.D. 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 She documented: She was admitted 02/11/23 after ov and ER visit for suicidal ideation...Family is concerned for possible Mccook's disease. Jude reports pts father was dx [...] feel increase dose of paxil would be helpful. ====== Problem List reviewed. ------ Medications reviewed. ====== She has not had a TSH in [facility] or [facility]. 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 Her paternal aunt Jude accompanies her. History of Present Illness The patient's father had genetic testing through the [facility] at [address] [place] [address] on 07/18/08. It showed, 'CAG repeat region exceeding the 40 repeat limit accepted to result in Mccook's chorea'. He had 49 repeats. He underwent [...] was started. Her aunt is concerned about Mccook's because she feels Herminia's speech is slow [...] of Systems: (more content not included)... Normal [facility] HISTORY PHYSICALon HISTORY PHYSICAL HNO ID: [id number] Author: Álvaro Zavala MD Service: ? Author [...] MARTÍNEZ Zhao, 03/10/23, for family history of Mccook's disease, depression, and anxiety. She documented: She was admitted 02/11/23 after ov and ER visit for suicidal ideation...Family is concerned for possible Mccook's disease. Jude reports pts father was dx [...] feel increase dose of paxil would be helpful. ====== Problem List reviewed. ------ Medications reviewed. ====== She has not had a TSH in [facility] or [facility]where. ====== Álvaro [facility]ala MD [facility] PHYSICAL HNO ID: [id number] Author: Álvaro Zavala MD Service: ? Author [...] feel increase dose of paxil would be helpful. ====== Problem List reviewed. ------ Medications reviewed. ====== She has not had a TSH in [place] or [employer]. 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 Her paternal aunt Jude accompanies her. History of Present Illness The patient's father had genetic testing through the [facility] at [address] [place] [address] on 07/18/08. It showed, 'CAG repeat region exceeding the 40 repeat limit accepted to result in Mccook's chorea'. He had 49 repeats. He underwent [...] Cardiovascular: Carotids (more content not included)... Normal [facility] CNCOon 03-18-2023 CNCO Letter Text Normal [facility] CNPNon 03-18-2023 MARTÍNEZN Telephone (AGINTMLW) HERMINIA GOLDMAN ([id number]) 01 F [facility] Date Time Provider Department 03/18/23 FIORDALIZA ZHAO During your visit today, we recorded the following information about you: Alyssia Mcarthuren 03/18/2023 9:13 AM Signed No Show Documentation Herminia Goldman no showed for an appointment on 03/18/2023 with Fiordaliza Zhao APRN.CNP at 8:00 am. She was scheduled for [...] Is this the Third or Fourth No Show? No Alyssia Romario March 18, 2023 9:12 AM Allergies As of Date: 03/18/2023 (No Known Allergies) Date Reviewed: 03/10/2023 Reviewed by: Fiordaliza M Cece, CONDITIONER TENDER.WINDOWS SERVER ENGINEER - Fully Assessed Reason for Visit: Missed [...] of depression [Z86.59] 03/27/2021 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 Mccook's disease [Z82.0] 03/27/2021 Patient request for diagnostic testing [Z01.89] 03/27/2021 05/30/2021 Marijuana use [F12.90] 04/07/2021 Abnormal glucose complicating [O99.81*08/25/2021 01/01/2022 Anxiety [F41.9] 01/14/2022 Mild episode of recurrent major depressive diso*01/14/2022 Obesity, Class II, BMI 35-39.9 [E66.9] 02/11/2023 Depression [F32.A] 02/12/2023 Encounter Status:Closed by ALYSSIA DOSS on 03/18/23 [facility] Madhuri 03-10-2023 [facility] Office Visit (AGINTM LW) HERMINIA GOLDMAN ([id number]) 01 F [facility] Date Time Provider Department 03/10/23 11:20 AM FIORDALIZA ZHAOMLCarey During your visit today, we recorded the following information about you: Temperature Pulse Respiration Blood pressure 98.2 degrees 62/minute 18/minute 120/70 Weight Height 78.7 kg 1.6 m Fiordaliza Zhao APRN.WINDOWS SERVER ENGINEER 03/11/2023 7:56 AM Signed This note was created using [employer]. Subjective Herminia Goldman is a 22 year old female here today for MDD. She was admitted 02/11/23 after ov and ER visit for suicidal ideation. She is here today with her Aunt Jude. Family is concerned for possible Emery's disease. Jude [...] LIST History of Depression Family History of Mccook's Disease Marijuana Use Anxiety Mild Episode of Recurrent Major Depressive Disorder (Hcc) Obesity, Class II, Bmi 35-39.9 Depression PAST MEDICAL HISTORY Diagnosis Date #[id number] PAST SURGICAL HISTORY Procedure Laterality Date TONSILLECTOMY [...] (Oral) Resp 18 Ht 160 cm (5' 3) Wt 78.7 kg (173 lb 6.4 oz) [...] Heart sounds: (more content not included)... Normal [facility] 03-10-2023 [facility] Telephone ([facility]) HERMINIA GOLDMAN ([id number]) 01 F [facility] Date Time Provider Department 03/10/23 FIORDALIZA ZHAO During your visit today, we recorded the following information about you: Alexsadner Mcrae 03/24/2023 11:39 AM Addendum Put referral for Neurology on [facility] Provider Portal 03/10/23 Confirmation # [id number] Pt is scheduled for 03/26/[address]Michael Zavala Allergies As of Date: 03/10/2023 (No Known Allergies) Date Reviewed: 03/10/2023 Reviewed by: Fiordaliza Zhao APRN.WINDOWS SERVER ENGINEER - Fully Assessed Reason for Visit: [facility] Provider Portal [Other] Cmt: Put referral for Neurology on [facility] Provider Portal 03/10/23 Prescriptions as of [...] 02/11/2023 Depression [F32.A] 02/12/2023 Encounter Status:Closed by CLEMENTINA ALEXSANDER ROHINI on 03/24/23 [facility] CNPN Telephone (CAMILO) SABINOBRENDEN COOKBalbina Tomas ([id number]) 01 F [facility] Date Time Provider Department 03/10/23 FIORDALIZA ZHAO During your visit today, we recorded the following information about you: Alexsander Mcrae 03/24/2023 1:17 PM Addendum Put referral for Psychiatry on [facility] Provider Portal on 03/10/23 Confirmation # [id number] [facility] 03/11/23 14:32 Psychiatry (Bill). prefers Female . first attempt unable to leave 03/15, unable to leave 03/23 Allergies As of Date: 03/10/2023 (No Known Allergies) Date Reviewed: 03/10/2023 Reviewed by: Fiordaliza Zhao, CONDITIONER TENDER.WINDOWS SERVER ENGINEER - Fully Assessed Reason for Visit: [facility] Provider Portal [Other] Cmt: Put referral for Psychiatry on [facility] Provider Portal 03/10/23 Prescriptions as of [...] Encounter Status:Closed by ALEXSANDER MCRAE on 06/23/23 [facility] 02-26-2023 CNPN Telephone (AGFAMPLE) MARCELOHERMINIA MCLAUGHLIN ([id number]) 01 [facility] Date Time Provider Department 02/26/23 LIS GOMEZ During your visit today, we recorded the following information about you: Bridget Chongsimeon 02/26/2023 11:53 AM Signed ----- Message from Cesar Webb sent at 02/26/2023 11:46 AM EDT ----- Regarding: Medicine / [place] / Mccook's Disease Test Subject Line Format: Medicine / [Provider Name] / [Issue] Patient has been identified by name and Date of (Y/N): N Patient: Herminia Goldman Date of : 2000 Provider for this encounter: Lis Gomez DO Reason for the call/escalation: Patient's aunt called asking if a Mccook's Disease test was scheduled yet. She asked to be contacted when the test is scheduled. Was Patient Referred to [facility]/Seek Emergency Treatment (Y/N): N Did Patient Agree (Y/N): N/A Was An Attempt Made To Transfer The Patient To The Office (Y/N): N Were You Able To Reach Someone At The Office (Y/N): N/A If Yes - Patient Was Transferred To (Caregivers Name): N/A If No - Which [facility] Leadership Functional Tester Did You Speak With Regarding This Patient: N/A Was an appointment scheduled (Y/N): N Reason patient was requesting visit (RFV/signs and symptoms/diagnosis) : Mccook's Disease Test Person calling if other than patient: Jude Perdue, Aunt Return call to if other than patient: Jude Perdue, Aunt Best contact number: [phone] Thank you, Cesar Webb February 26, 2023 11:46 AM Lis Gomez DO 02/26/2023 1:10 PM Signed Please call pt's aunt and notify her she is not on HIPPA and we cannot give her that information. If she would like to have a Mccook's test done, the patient will need to [...] of depression [Z86.59] 03/27/2021 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 Mccook's disease [Z82.0] 03/27/2021 Patient request for diagnostic testing [Z01.89] 03/27/2021 05/30/2021 Marijuana use [F12.90] 04/07/2021 Abnormal glucose complicating [O99.81*08/25/2021 01/01/2022 Anxiety [F41.9] 01/14/2022 Mild episode of recurrent major depressive diso*01/14/2022 Obesity, Class II, BMI 35-39.9 [E66.9] 02/11/2023 Depression [F32.A] 02/12/2023 Encounter Status:Closed by TE GONZALES on 02/26/23 [facility] 02-25-2023 CNPN Telephone (AGINTMLW) HERMINIA GOLDMAN ([id number]) 01 F [facility] Date Time Provider Department 02/25/23 FIORDALIZA ZHAO AGINTMLCarey During your visit today, we recorded the following information about you: Lilliam Gold MA 02/25/2023 3:52 PM Signed Patient's aunt called stating she is currently admitted to a psych rodriguez. Jude believes that she may have Mccook's disease just like her father did. Jude states the symptoms are just like Herminia's father and she states that Herminia is willing to have the test. GILMA Patrick, CONDITIONER TENDER.[facility] 02/25/2023 4:03 PM Signed Please let [...] mom VM is full cant leave GILMA Antony MA 03/01/2023 5:00 PM Signed Pts mom called back she has an apt set up for March 10 Frederic Workman MA Allergies As of Date: 02/25/2023 (No Known Allergies) Date Reviewed: 02/14/2023 Reviewed by: Leola Diez RN - Fully Assessed Reason for Visit: Patient Question [9787] Prescriptions as of 03/01/2023 - hydrOXYzine HCl [...] of depression [Z86.59] 03/27/2021 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 Mccook's disease [Z82.0] 03/27/2021 Patient request for diagnostic testing [Z01.89] 03/27/2021 05/30/2021 Marijuana use [F12.90] 04/07/2021 Abnormal glucose complicating [O99.81*08/25/2021 01/01/2022 Anxiety [F41.9] 01/14/2022 Mild episode of recurrent major depressive diso*01/14/2022 Obesity, Class II, BMI 35-39.9 [E66.9] 02/11/2023 Depression [F32.A] 02/12/2023 Encounter Status:Closed by LILLIAM GOLD on 02/25/23 [facility] 02-24-2023 SIL[facility]O Telephone (CAMILO) HERMINIA GOLDMAN ([id number]) 01 F [facility] Date Time Provider Department 02/24/23 FIORDALIZA ZHAO During your visit today, we recorded the following information about you: Malena Hayden MA 02/24/2023 10:22 AM Signed Soto gibson lm on requesting dr. Gomez to call her so she can give a update on herminia. Soto number is [phone]. GILMA Nixdarwin valera is not on gilberto Gomez DO 02/25/2023 [...] I told her that is fine. Lis Gomez DO Allergies As of Date: 02/24/2023 (No Known [...] of depression [Z86.59] 03/27/2021 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 Mccook's disease [Z82.0] 03/27/2021 Patient request for diagnostic testing [Z01.89] 03/27/2021 05/30/2021 Marijuana use [F12.90] 04/07/2021 Abnormal glucose complicating [O99.81*08/25/2021 01/01/2022 Anxiety [F41.9] 01/14/2022 Mild episode of recurrent major depressive diso*01/14/2022 Obesity, Class II, BMI 35-39.9 [E66.9] 02/11/2023 Depression [F32.A] 02/12/2023 Encounter Status:Closed by MALENA HAYDEN on 02/24/23 [facility] CASE MANAGEMon 02-15-2023 CASE MANAGEM HNO ID: [id number] Author: ZACK Starks Service: Social Work Author Type: Investigation Manager Type: Care Mgt Progress Note Filed: 02/15/2023 1:38 PM Note Text: BEHAVIORAL HEALTH SOCIAL WORK DISCHARGE NOTE SERVICE DATE: 02/15/2023 SERVICE TIME: 8:55a.m. Discharge Information Row Name Admission (Current) from 02/11/[address] [facility] Psychiatry Follow-Up Appointment Psychiatrist Name Chinedu Brannon, WINDOWS SERVER ENGINEER Agency [facility] Address / Phone # [address] [facility] [address] [place] [address] / / Appointment Date 02/22/23 Appointment Time 1:40p.m., this will be in person Additional Instructions Please bring a photo ID and insurance card with you Counselor Follow-Up Appointment Counselor Name Segundo Macdonald, counselor Agency [facility] ([place]) Address / Phone # [address] [facility] [address] [place] [address] / / Appointment Date 02/23/23 Appointment Time 11:25a.m., this will be an in person appointment Patient/Sales Service Technician Agreeable With Discharge Plan: Yes FREEDOM OF CHOICE EXPLAINED? On admission Patient/Sales Service Technician Given/Explained Medicare Discharge Notice (IM letter): Not [...] SW went over d/c plan. VIRGILIO contacted Charak and linked pt with above Intake for WINDOWS SERVER ENGINEER and counseling as above. Pt's medication were filled at hospital prior to d/c. SIGNATURE: KARIS Starks PATIENT NAME: Herminia Goldman DATE: February 15, 2023 TIME: 1:29 PM [facility] 02-15-2023 [facility] HNO ID: [id number] Author: Renato Teran MD Service: Psychiatry Author [...] Row Name Admission (Current) from 02/11/[address] [facility] Psychiatry Follow-Up Appointment Agency [facility] and [facility] ([place]) Address / Phone # [address] [facility], [address] [place] [address] / / The patient's risk for 30-day readmission is determined using the following contributing factors: Pt variables contributing to increased readmission risk: 12 Active Medication Orders 7 Most Recent BUN Result 1 Previous ED Visit (6 mos.)? 1 Number of Prev (more content not included)... [facility] NURSING PROGon 02-15-2023 NURSING PROG HNO ID: [id number] Author: Marcus Silva RN Service: Nursing Author Type: Registered Nurse Type: Nursing Progress Note Filed: 02/15/2023 3:44 PM Note Text: Nursing Progress Note Patient Name: Herminia Goldman Patient Location: [place] [address]/[facility] Daily Note:1530 Patient discharged to home with prescriptions, belongings and follow up instructions/appointmen ts. Voice no distress. Comfort and safety measures met. Transportation Family. This note was completed by: Marcus Silva [facility] NURSING PROG HNO ID: [id number] Author: Marcus Silva RN Service: Nursing Author Type: Registered Nurse Type: Nursing Progress Note Filed: 02/15/2023 3:42 PM Note Text: Nursing Progress Note Patient Name: Herminia Goldman Patient Location: [id number]/[facility] Daily Note:Patient ate 90% of breakfast, 90% [...] This note was completed by: Marcus Silva [facility] NURSING PROG HNO ID: [id number] Author: Leola Diez RN Service: ? Author Type: Registered Nurse Type: Nursing Progress Note Filed: 02/15/2023 12:15 AM Note Text: Nursing Progress Note Patient Name: Herminia Goldman Patient Location: [id number]-[id number]-4010/[facility] Daily Note Assumed care of pt at [...] This note was completed by: Leola Diez [facility] NURSING PROGon 02-14-2023 NURSING PROG HNO ID: [id number] Author: Keesha Madera RN Service: Nursing Author Type: Registered Nurse Type: Nursing Progress Note Filed: 02/14/2023 6:31 PM Note Text: Nursing Progress Note Patient Name: Herminia Goldman Patient Location: [id number]-8363/[facility] Daily Note: Pt pleasant and cooperative with [...] This note was completed by: Keesha Madera [facility] NURSING PROGon 02-13-2023 NURSING PROG HNO ID: [id number] Author: Sarah Gruber, RN Service: Nursing Author Type: Registered Nurse Type: Nursing Progress Note Filed: 02/14/2023 3:40 AM Note Text: Nursing Progress Note Patient Name: Herminia Goldman Patient Location: [id number]/[facility]-00 54-01 Daily Note: Assumed care of pt at [...] This note was completed by: Sarah Gruber [facility] NURSING PROG HNO ID: [id number] Author: Keesha Madera RN Service: Nursing Author Type: Registered Nurse Type: Nursing Progress Note Filed: 02/13/2023 6:38 PM Note Text: Nursing Progress Note Patient Name: Herminia Goldman Patient Location: SI-[id number]/[facility] Daily Note: Pt pleasant and cooperative with [...] This note was completed by: Keesha Madera [facility] NURSING PROG HNO ID: [id number] Author: Benny Lawrence RN Service: ? Author Type: Registered Nurse Type: Nursing Progress Note Filed: 02/13/2023 6:40 AM Note Text: Nursing Progress Note Patient Name: Herminia Goldman Patient Location: JT-[id number]/[facility] Daily Note: 1930: Received report and assumed care of pt. 1999: Pt in day area watching TV and socializing with peers. Pt requesting to get medications at a later time. 2199: Pt compliant with scheduled medication. She received [...] This note was completed by: Benny Lawrence [facility] NUTRITIONon 02-13-2023 NUTRITION HNO ID: [id number] Author: Mayra Michel RD Service: Nutrition Therapy [...] her. 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 Denied issues eating, denied GI s/s. Denied any c/s difficulties with food. No acute nutrition concerns at this time; if concerns arise, please consult. Diet Orders (From admission, onward) Start Ordered 02/11/23 1730 DIET REGULAR START NOW 02/11/23 1726 Anthropometrics: Height: 157.5 cm (5' 2) Weight: 78 kg (172 lb) Usual Weight: 86.2 kg (190 lb) 2607-8016 -- pt pregant at this time, however. Usual Weight Obtained From: Chart Review Weight change percentage over time: - 16.9% x 1 year -- not significant, and pt reported this was intentional loss of wt post MNT Billing: $ Initial Assessment: 1-15 minutes SIGNATURE: Mayra Michel RD PATIENT NAME: Herminia Goldman DATE: February 13, 2023 TIME: 4:27 PM [facility] ALLIED HEALTHon 02-12-2023 ALLIED HEALTH HNO ID: [id number] Author: Ethel Fisher Service: Music Therapy Author [...] 12, 2023 TIME: 10:25 AM PAGER/CONTACT #: [facility] ALLIED HEALTH HNO ID: [id number] Author: Ethel Fisher Service: Music Therapy Author Type: Music Therapist Type: Allied Health Filed: 02/12/2023 10:25 AM Note Text: PERSONAL DE-ESCALATION PLAN BEHAVIORAL HEALTH SERVICE DATE: 02/12/2023 SERVICE TIME: 0950 Personal De-Escalation Completed: Yes. PROBLEM BEHAVIORS: What [...] she is good at different online games (animal crossing) OTHER: Are you able to communicate to staff when you are having a hard time: Yes What kinds of incentives work for you: Discharge SIGNATURE: Ethel Fisher PATIENT NAME: Herminia Goldman DATE: February 12, 2023 TIME: 10:17 AM PAGER/CONTACT #: [facility] CASE MGT INIT ASSESon 2022 CASE MGT INIT ASSES HNO ID: [id number] Author: ZACK Starks Service: Social Work Author Type: Investigation Manager Type: Care Mgt Initial Assessment Filed: 02/12/2023 2:59 PM Note Text: BEHAVIORAL HEALTH SOCIAL WORK/CARE MANAGEMENT ASSESSMENT AND DISCHARGE PLAN SERVICE DATE: 02/12/2023 SERVICE TIME: 9:15 AM Reason for Admission: Per chart: Nature of the crisis: suicidal threats, aggressive and odd behavior Presenting Problem: Herminia Goldman is a 22 year old female with depression and anxiety brought in to [place] ED from Home by family for increasing [...] to be home. She was informed this garden tractor mechanic will further discuss with physicians for plan of care and potential admission. She reluctantly gave permission for this garden tractor mechanic to speak with mom, why would you need to do that? Ok, I guess. Patient had repeated episodes of agitation r/t not wanting to be hospitalized: yelling, screaming, pacing, crying, threw glasses to floor. Medicated with Haldol, Ativan, Benadryl with good effect. Legal Status: Involuntary - Medical Certificate Important Contacts: Primary Contact Name: Sigrid / Relationship: Mother / Cell / Does the patient/sales and merchandising representative consent to contact with the above at [...] was born and (more content not included)... [facility] CONSULTon 02-12-2023 CONSULT HNO ID: [id number] Author: Sarah Mensah MD Service: ? Author Type: Physician Type: Consults Filed: 02/12/2023 1:33 PM Note Text: INTERNAL MEDICINE INITIAL CONSULT SERVICE DATE: 02/12/2023 SERVICE TIME: 1:04 PM REASON FOR CONSULT: medical management REQUESTING PHYSICIAN: PRIMARY CARE PHYSICIAN: Fiordaliza Zhao APRN.WINDOWS SERVER ENGINEER Subjective HISTORY OF PRESENT ILLNESS: Ms. Goldman is a 22 year old female who was brought in with depression and suicidal ideation. Drug screen is positive for marijuana. Pt PAST MEDICAL HISTORY Diagnosis Date #[id number] PAST SURGICAL HISTORY Procedure Laterality Date TONSILLECTOMY [...] No history of dysuria, frequency or incontinence CARE NURSE RN: Negative for abnormal vaginal, bleeding, abnormal vaginal discharge MUSCULOSKELETAL: Negative for joint pain or swelling, back pain or muscle pain SKIN: Negative for lesions, rash, and itching. HEMATOLOGY/LYMPHOLOGY: Negative for prolonged bleeding, bruising easily or [...] 77 18 99 % 157.5 cm (5' 2) 78 kg (172 lb) Body mass index [...] >=60 mL/min/1.73m? 131 Ethanol <11 mg/dL <11 [facility] Reference Range AND Units 02/11/23 10:44 02/11/23 11:16 Ethanol <11 mg/dL <11 Amphetamines Negative Negative Barbiturates Negative Negative Benzodiazepines Urine Negative Negative Cocaine Urine Negative Negative Cannabinoids, Urine Negative Preliminary positive ! Ethanol, Urine <11 mg/dL <11 Opiates Negative Negative Phencyclidine Negative Negative Oxycodone, Urine Negative Negative HCG Qualitative, Urine Negative Negative WBC (more content not included)... Normal [facility] HISTORY PHYSICALon HISTORY PHYSICAL HNO ID: [id number] Author: Renato Teran MD Service: Psychiatry Author Type: Physician Type: HANDP Filed: 02/12/2023 2:52 PM Note Text: HISTORY AND PHYSICAL BEHAVIORAL HEALTH SERVICE DATE: 02/12/2023 SERVICE TIME: 9:58 AM IDENTIFYING INFORMATION: Herminia Goldman is a 22 year old person who identifies as female. FROM ED: Herminia Goldman is a 22 year old female with depression and anxiety brought in to [place] ED from Home by family for increasing [...] to be home. She was informed this garden tractor mechanic will further discuss with physicians for plan of care and potential admission. She reluctantly gave permission for this garden tractor mechanic to speak with mom, why would you [...] or paranoid ideation. (more content not included)... [facility] NURSING PROGon 02-12-2023 NURSING PROG HNO ID: [id number] Author: Caesar Valenzuela RN Service: Nursing Author Type: Registered Nurse [...] 15 min safety checks maintained. Will monitor. [facility] ALLIED HEALTHon 02-11-2023 ALLIED HEALTH HNO ID: [id number] Author: JESI Magaña Service: Intake-Behavioral Health Author [...] giggle. Methods of Suicide Risk Evaluation: PATRICIA Meadows-Chris Brief Evaluation Summary: Warning Signs: impulsive Risk [...] Providers: Dr Sinha Date 02/11/23 Time11:20am Psychiatrist interior surface insulation worker: Name: Dr Arredondo Date: 02/11/23 Time: 12:51pm Other Contact and Role: N/A SIGNATURE: JESI Magaña PATIENT NAME: Herminia Goldman DATE: February 11, 2023 TIME: 2:18 PM [facility] CBC panel Auto (Bld)on 02-11 Erythrocyte distribution width (RBC) [Ratio] 12.5 % Normal 11.5-15.0 [facility] Comment on above: Order Comment: Speci men Type: BLOOD SPECIMEN Ordering Facility: [facility] Address: [address] [place] [address] Performed By: #### 5 8410-2 #### [facility] CLIA [id number] [address] [place] Hematocrit (Bld) [Volume fraction] 42.5 % Normal 36.0-46.0 [facility] Comment on above: Order Comment: Speci men Type: BLOOD SPECIMEN Ordering Facility: [facility] Address: [address] [place] [address] Performed By: #### 5 8410-2 #### [facility] CLIA [id number] [address] [place] Hemoglobin (Bld) [Mass/Vol] 14.1 g/dL Normal 11.5-15.5 [facility] Comment on above: Order Comment: Speci men Type: BLOOD SPECIMEN Ordering Facility: [facility] Address: [address] [place] [address] Performed By: #### 5 8410-2 #### [facility] CLIA [id number] [address] [place] [address] [place] MCH (RBC) [Entitic mass] 30.9 pg Normal 26.0-34.0 [facility] Comment on above: Order Comment: Speci men Type: BLOOD SPECIMEN Ordering Facility: [facility] Address: [address] [place] [address] Performed By: #### 5 8410-2 #### [facility] CLIA [id number] [address] [place] MCHC (RBC) [Mass/Vol] 33.2 g/dL Normal 30.5-36.0 [facility] Comment on above: Order Comment: Speci men Type: BLOOD SPECIMEN Ordering Facility: [facility] Address: [address] [place] [address] Performed By: #### 5 8410-2 #### [facility] CLIA [id number] [address] [place] [address] [place] MCV (RBC) [Entitic vol] 93.0 fL Normal 80.0-100.0 [facility] Comment on above: Order Comment: Speci men Type: BLOOD SPECIMEN Ordering Facility: [facility] Address: [address] [place] [address] Performed By: #### 5 8410-2 #### [facility] CLIA [id number] [address] [place] [address] [place] Platelet mean volume (Bld) [Entitic vol] 10.6 fL Normal 9.0-12.7 [facility] Comment on above: Order Comment: Speci men Type: BLOOD SPECIMEN Ordering Facility: [facility] Address: [address] [place] [address] Performed By: #### 5 8410-2 #### [facility] CLIA [id number] [address] [place] [address] [place] Platelets (Bld) [#/Vol] 246 10*3/uL Normal 150-400 [facility] Comment on above: Order Comment: Speci men Type: BLOOD SPECIMEN Ordering Facility: [facility] Address: [address] [place] [address] Performed By: #### 5 8410-2 #### [facility] CLIA [id number] [address] [place] [address] [place] RBC (Bld) [#/Vol] 4.57 10*6/uL Normal 3.90-5.20 [facility] Comment on above: Order Comment: Speci men Type: BLOOD SPECIMEN Ordering Facility: [facility] Address: [address] [place] [address] Performed By: #### 5 8410-2 #### [facility] CLIA [id number] [address] [place] [address] [place] WBC (Bld) [#/Vol] 6.38 10*3/uL Normal 3.70-11.00 [facility] Comment on above: Order Comment: Speci men Type: BLOOD SPECIMEN Ordering Facility: [facility] Address: [place] [address] Performed By: #### 5 8410-2 #### [facility] CLIA [id number] [address] [place] [address] [facility] CNOVon 02-11-2023 CNOV Office Visit (AGFAMP LE) HERMINIA GOLDMAN ([id number]) 01 F [facility] Date Time Provider Department 02/11/23 9:20 AM [...] last Rx was 10/05/22 Her dad has Mccook's disease, and she is concerned that she [...] taking: Reported on 02/11/2023) 30 tablet 4 Farctvyg-Hr-Yqi-Fe-FA tab Take 1 tablet by mouth once daily. With folic acid and DHA as covered by insurance (Patient not taking: Reported on 02/11/2023) 30 tablet 11 No current facility-administered medications for this visit. ACTIVE PROBLEM LIST History of Depression Family History of Mccook's Disease Marijuana Use Anxiety Mild Episode of [...] (more content not included)... Normal [facility] Comprehensive metabolic 2000 panelon 02-11-2023 Albumin [Mass/Vol] 4.4 g/dL Normal 3.9-4.9 [facility] Comment on above: Order Comment: Stew herrera Type: BLOOD SPECIMEN Ordering Facility: [facility] Address: [address] [place] [place] [address] Performed By: #### 2 4323-8 #### [facility] CLIA [id number] [address] [place] [address] [place] ALP [Catalytic activity/Vol] 76 U/L Normal 34-123 [facility] Comment on above: Order Comment: Stew herrera Type: BLOOD SPECIMEN Ordering Facility: [facility] Address: [address] [place] [address] Performed By: #### 2 4323-8 #### [facility] CLIA [id number] [address] [place] [address] [place] ALT With P-5'-P [Catalytic activity/Vol] 16 U/L Normal 7-38 [facility] Comment on above: Order Comment: Speci men Type: BLOOD SPECIMEN Ordering Facility: [facility] Address: [address] [place] [address] Performed By: #### 2 4323-8 #### [facility] CLIA [id number] [address] [place] [address] [place] Anion gap [Moles/Vol] 13 mmol/L Normal 9-18 [facility] Comment on above: Order Comment: Speci men Type: BLOOD SPECIMEN Ordering Facility: [facility] Address: [address] [place] [address] Performed By: #### 2 4323-8 #### [facility] CLIA [id number] [address] [place] [address] [place] AST With P-5'-P [Catalytic activity/Vol] 13 U/L Normal 13-35 [facility] Comment on above: Order Comment: Speci men Type: BLOOD SPECIMEN Ordering Facility: [facility] Address: [address] [place] [address] Performed By: #### 2 4323-8 #### [facility] CLIA [id number] [address] [place] Bilirubin [Mass/Vol] 0.2 mg/dL Normal 0.2-1.3 [facility] Comment on above: Order Comment: Speci men Type: BLOOD SPECIMEN Ordering Facility: [facility] Address: [address] [place] [address] Performed By: #### 2 4323-8 #### [facility] CLIA [id number] [address] [place], [place] [address] [place] [address] [place] Calcium [Mass/Vol] 9.3 mg/dL Normal 8.5-10.2 [facility] Comment on above: Order Comment: Speci men Type: BLOOD SPECIMEN Ordering Facility: [facility] Address: [address] [place] [address] Performed By: #### 2 4323-8 #### [facility] CLIA [id number] [address] [place] Chloride [Moles/Vol] 101 mmol/L Normal 97-105 [facility] Comment on above: Order Comment: Speci men Type: BLOOD SPECIMEN Ordering Facility: [facility] Address: [address] [place] [address] Performed By: #### 2 4323-8 #### [facility] CLIA [id number] [address] [place] [address] [place] CO2 [Moles/Vol] 24 mmol/L Normal 22-30 [facility] Comment on above: Order Comment: Speci men Type: BLOOD SPECIMEN Ordering Facility: [facility] Address: [address] [place] [address] Performed By: #### 2 4323-8 #### [facility] CLIA [id number] [address] OF [facility] Creatinine [Mass/Vol] 0.60 mg/dL Normal 0.58-0.96 [facility] Comment on above: Order Comment: Speci men Type: BLOOD SPECIMEN Ordering Facility: [facility] Address: [address] [place] [address] Performed By: #### 2 4323-8 #### [facility] CLIA [id number] [address] [place] [address] ESTIMATED GLOMERULAR FILTRATION RATE 131 mL/min/1.73m??? Normal >=60 [facility] Comment on above: Order Comment: Speci men Type: BLOOD SPECIMEN Ordering Facility: [facility] Address: [address] [place] [address] Result Comment: Katie mated Glomerular Filtration Rate [...] GFR. Performed By: #### 2 4323-8 #### [facility] CLIA [id number] [address] [place] [address] [place] Glucose [Mass/Vol] 99 mg/dL Normal 74-99 [facility] Comment on above: Order Comment: Stew herrera Type: BLOOD SPECIMEN Ordering Facility: [facility] Address: [address] [place] [address] Result Comment: The [place] [employer] (ADA) provides guidance for cutoff [...] Standards of Medical Care in Diabetes 2016, [place] [employer]. Diabetes Care. 2016.39(Suppl 1). Performed By: #### 2 4323-8 #### [facility] CLIA [id number] [address] [place] [address] [place] Potassium [Moles/Vol] 3.2 mmol/L Low 3.7-5.1 [facility] Comment on above: Order Comment: Stew herrera Type: BLOOD SPECIMEN Ordering Facility: [facility] Address: [address] [place] [address] Performed By: #### 2 4323-8 #### [facility] CLIA [id number] [address] [place] [address] [place] Protein [Mass/Vol] 7.3 g/dL Normal 6.3-8.0 [facility] Comment on above: Order Comment: Stew herrera Type: BLOOD SPECIMEN Ordering Facility: [facility] Address: [address] [place] [address] Performed By: #### 2 4323-8 #### [facility] CLIA [id number] [address] [place] [address] [place] Sodium [Moles/Vol] 138 mmol/L Normal 136-144 [facility] Comment on above: Order Comment: Speci men Type: BLOOD SPECIMEN Ordering Facility: [facility] Address: [address] [address] Performed By: #### 2 4323-8 #### [facility] CLIA [id number] [address] [id number] [facility] [place] Urea nitrogen [Mass/Vol] 7 mg/dL Normal 7-21 [facility] Comment on above: Order Comment: Speci men Type: BLOOD SPECIMEN Ordering Facility: [facility] Address: [address] [place] [address] Performed By: #### 2 4323-8 #### [facility] CLIA [id number] [address] [place] [address] [place] ECG COMPLETEon 02-11-2023 ECG COMPLETE Ventricular Rate : 9 5 BPM Atrial Rate : 95 BPM P-R Interval : 150 ms QRS Duration : 82 ms Q-T Interval : 374 ms QTC Calculation(Bazett) : 469 ms Calculated P Zavalla : 54 degrees Calculated R Zavalla : 47 degrees Calculated T Zavalla : 54 degrees NORMAL SINUS RHYTHM WITH SINUS ARRHYTHMIA NORMAL ECG NO PREVIOUS ECGS AVAILABLE Confirmed by MD BARNES VINAYAK ([id number]) on 02/14/2023 11:48:28 PM NAME : HERMINIA GOLDMAN PID : [id number] : 2000 Gender : Female Race : ORD : [id number] Procedure Date : Feb 11 2023 15:10:44 Edit Date : Feb 14 2023 23:48:29 Diagnosis: NORMAL SINUS RHYTHM WITH SINUS ARRHYTHMIA NORMAL ECG NO PREVIOUS ECGS AVAILABLE Confirmed by MD BARNES VINAYAK ([id number]) on 02/14/2023 11:48:28 PM Test Reason : Arrhythmia Location : 150 : [facility] Overread By : MD BARNES VINAYAK Edited By : MD BARNES VINAYAK Referred By : , Acquired by : MARY SAENZ [facility] ED NOTEon 02-11-2023 ED NOTE HNO ID: [id number] Author: Kenya Luevano RN Service: Emergency Medicine Author Type: Registered Nurse Type: ED Notes Filed: 02/11/2023 3:36 PM Note Text: Pt onto cot without issue; pt provided with granola bar and chips for ride. Pt verbalized appreciation. Pt cooperative with EMS. Security in department as safety measure. [facility] ED NOTE HNO ID: [id number] Author: Kenya Luevano RN Service: Emergency Medicine Author Type: Registered Nurse Type: ED Notes Filed: 02/11/2023 3:12 PM Note Text: Pt cooperative and friendly for EKG; pt talking about her son with this nurse and assisting nurse. [facility] ED NOTE HNO ID: [id number] Author: Quita Murdock RN Service: Emergency Medicine Author Type: Registered Nurse Type: ED Notes Filed: 02/11/2023 2:20 PM Note Text: Bed assignment received from [facility] Ground Bed [address] Dr[address] Arredondo DX: Major Depression [id number] [facility] ETA 45-60 [facility] ED NOTE HNO ID: [id number] Author: Kenya Luevano RN Service: Emergency Medicine Author Type: Registered Nurse Type: ED Notes Filed: 02/11/2023 3:32 PM Note Text: EMS have arrived to the ED; report given. [facility] ED NOTE HNO ID: [id number] Author: Kenya Luevano RN Service: Emergency Medicine Author Type: Registered Nurse Type: ED Notes Filed: 02/11/2023 1:03 PM Note Text: [facility] ED NOTE HNO ID: [id number] Author: Kenya Luevano RN Service: Emergency Medicine Author Type: Registered Nurse Type: ED Notes Filed: 02/11/2023 1:04 PM Note Text: Pt abruptly stopped crying and appears to be resting. [facility] ED NOTE HNO ID: [id number] Author: Kenya Luevano RN Service: Emergency Medicine Author Type: Registered Nurse Type: ED Notes Filed: 02/11/2023 12:56 PM Note Text: Pt requesting to speak to her mother. Pt stating I'm bored, that's why I can't calm down, I need tiktoc. Mother attempted to be contacted, call goes straight to voicemail and mothers voicemail box is full; unable to leave message. Pt advised that this nurse will continue to try to contact mother. [facility] ED NOTE HNO ID: [id number] Author: Kenya Luevano RN Service: Emergency Medicine Author Type: Registered Nurse Type: ED Notes Filed: 02/11/2023 12:52 PM Note Text: Pt continues to be inconsolable; screaming I want to go home, the meds aren't helping. Pt states I want my tablet. Pt advised that she cannot have the tablet at this time. This nurse attempted to calm patient, pt responded with yelling, I want to go home, give me my tablet. Pt out of bed and pacing, then throws herself in bed face first. Pt repeating this behaviors multiple times. [facility] ED NOTE HNO ID: [id number] Author: Kenya Luevano RN Service: Emergency Medicine Author Type: Registered Nurse Type: ED Notes Filed: 02/11/2023 12:11 PM Note Text: Pt aggressive in room stating I want to go home. Pt unable to be consoled. Pt pacing - threw glasses to floor. Glasses placed on counter for safety. Pt offered tissues; pt kicked tissues off of bed. Dr. Sinha came to room to attempt to speak / console patient; pt states I'm not stating and I want to go home. Dr. Sinha offered medications to help patient relax to which pt stated I don't want your medications, I won't take them. Pt yelling and stating You can't keep me in here, I can't take it!. Pt reports being tired, lights dimmed. [facility] ED NOTE HNO ID: [id number] Author: Kenya Luevano RN Service: Emergency Medicine Author Type: Registered Nurse Type: ED Notes Filed: 02/11/2023 11:43 AM Note Text: Pt tearful and stating I want to go home, I can't do this, I just want to go home. Pt has these episodes every 3-5 minutes. Pt will cry and then be calm and watch tv and then get up, pace room, and cry. [facility] ED NOTE HNO ID: [id number] Author: Kenya Luevano RN Service: Emergency Medicine Author Type: Registered Nurse Type: ED Notes Filed: 02/11/2023 11:40 AM Note Text: Pt questioning the process. Pt advised that when labs returned a decision will be made that is best for patient. Pt began to cry and state I can't go ,I can't go,I need my tablet!. This nurse offered to contact mother to request tablet. Pt states NO! No. Pt crying in bed; unable to console at this time. [facility] ED NOTE HNO ID: [id number] Author: Kenya Luevano RN Service: Emergency Medicine Author Type: Registered Nurse Type: ED Notes Filed: 02/11/2023 11:36 AM Note Text: Pt restless; tossing side to side violently in bed. Pt slides out of bed and starts pacing room stating I have ADHD, I can't stay here,I need to go home. Pt flops backin bed, crossing legs and watching tv. [facility] ED NOTE HNO ID: [id number] Author: Kenya Luevano RN Service: Emergency Medicine Author Type: Registered Nurse Type: ED Notes Filed: 02/11/2023 11:32 AM Note Text: Pt assisted to BSC. Same sex nurse in room with patient. Urinalysis to be sent. [facility] ED NOTE HNO ID: [id number] Author: Kenya Luevano RN Service: Emergency Medicine Author Type: Registered Nurse Type: ED Notes Filed: 02/11/2023 10:58 AM Note Text: Zakia with Jocelyn speaking with patient at this time. Pt remains tearful. [facility] ED NOTE HNO ID: [id number] Author: Kenya Luevano RN Service: Emergency Medicine Author Type: Registered Nurse Type: ED Notes Filed: 02/11/2023 10:48 AM Note Text: Pt assisted to BSC; same sex provided remained in room at all times during attempted urine collection. Pt unable to use the restroom; water provided. Will try again soon. [facility] ED NOTE HNO ID: [id number] Author: Kenya Luevano RN Service: Emergency Medicine Author Type: Registered Nurse Type: ED Notes Filed: 02/11/2023 10:29 AM Note Text: Pt reports seeing today for physical exam and to discuss potential anxiety / depression medications. Pt reports a tense relationship with her mother stating my mother calls me worthless. Pt additionally reports that she has a one year and something son who her mother watches during the day and the pt watches through the night.The pt reports that the son sleeps well, but she does not as she is unable to shut her mind off. Pt has concerns of Mccook's Disease as it runs in her family [...] get my mother to pay attention to me. Pt repeatedly states I am a single mother. Pt with occasional inappropriate laugh. Normal [facility] ED NOTE HNO ID: [id number] Author: Kenya Luevano RN Service: Emergency Medicine Author Type: Registered Nurse Type: ED Notes Filed: 02/11/2023 10:36 AM Note Text: Pt placed in purple gown and pt and pts belongings wanded by security. Pts belongings placed at nurses station. All unnecessary medical equipment removed from room. Dr Sinha notified to moderate suicide risk. One to one observation initiated. Normal [facility] ED PROV NOTEon 02-11-2023 ED PROV NOTE HNO ID: [id number] Author: Shayy Sinha MD Service: Emergency Medicine [...] any questions. PAST MEDICAL HISTORY Diagnosis Date #[id number] PAST SURGICAL HISTORY Procedure Laterality Date TONSILLECTOMY [...] 81.6 kg (180 lb) 1.6 m (5' 3) Physical Exam Vitals and nursing note reviewed. [...] (more content not included)... Normal [facility] Ethanol SerPl-mCncon 023 Ethanol [Mass/Vol] mg/dL Normal <11 [facility] Comment on above: Order Comment: Speci men Type: BLOOD SPECIMEN Ordering Facility: [facility] Address: [address] [place] [address] Performed By: #### 5 643-2 #### [facility] CLIA [id number] [address] [place] [address] [place] HCG Preg Ur Qlon 02-11-2023 HCG ( test) Ql (U) Negative Normal Negative [facility] Comment on above: Order Comment: Speci men Type: URINE SPECIMEN Ordering Facility: [facility] Address: [address] [place] [address] [place] [address] Result Comment: This test is intended to aid in the early detection of . Very dilute urine samples, as indicated by a low specific gravity, may not contain sales and merchandising representative levels of hCG. This test detects intact [...] . Performed By: #### 2 106-3 #### [facility] CLIA [id number] [address] [place] [address] [facility] NURSING PROGon 02-11-2023 NURSING PROG HNO ID: [id number] Author: Nicolasa Jaime RN Service: Nursing Author Type: Registered Nurse Type: Nursing Progress Note Filed: 02/12/2023 10:32 AM Note Text: Nursing Progress Note Topic of Note: Daily Note Herminia Goldman [id number]: Assumed care of pt at 1930 after [...] for sleep. Pt is very discharge focused. 0330: Pt came up to nurses station stating [...] This note was completed by: Nicolasa Jaime [facility] NURSING PROG HNO ID: [id number] Author: Kaylin Mcknight RN Service: ? Author Type: Registered Nurse Type: Nursing Progress Note Filed: 02/11/2023 6:24 PM Note Text: Nursing Progress Note Patient Name: Herminia Goldman Patient Location: [id number]/[facility]00 Transfer Note: Patient transferred into room/unit CG-54 [...] on medication as she doesn't believe in medication. Pt states that her family does not [...] my best friend and then he of cancer. Pt states her paternal grandfather killed himself after being diagnosis of Mccook's, and pt's father who lives in neighboring [place], also has the disease. Pt lives in [place] with her brother and pt's 15 month old son. Pt says of her son he is my sunshine. Per pt her brother is an awesome uncle but sometimes he does a little too much play fighting and is too aggressive. Pt has a large bruise on her right leg from play fighting with brother. Pt used to work at [employer] up until she had her son. Pt states her mother wants her to apply for disability. Pt states she does not use tobacco, smokes marijuana once a month approximately, and does not use alcohol as she don't like the taste. Pt states her whole family smoke marijuana [...] with depression and anxiety brought in to [place] ED from Home by family for increasing [...] the calendar.. (more content not included)... Normal [facility] SARS-CoV-2 RNA Resp Ql MARIA ISABEL+p robeon 02-11-2023 SARS-CoV-2 (COVID-19) RNA MARIA ISABEL+probe Ql (Resp) COVID 19 RESULT: Not detected The method used is RT-PCR or an equivalent NAAT method. Reference Range(the expected result in uninfected individuals): Not detected Normal [facility] Comment on above: Performed By: #### 9 4500-6 ####[facility] [id number] [place] [address] [place] TOX SCREEN ROUT URon 023 Amphetamines Confirm (U) [Mass/Vol] Negative Normal Negative [facility] Comment on above: Order Comment: Speci men Type: URINE SPECIMEN Ordering Facility: [facility] Address: [address] [place] [address] Result Comment: Cuto ff threshold at 1000 ng/mL. Performed By: #### U TOX2 #### [facility] CLIA [id number] [address] BARBITURATES, URINE Negative Normal Negative [facility] Comment on above: Order Comment: Speci men Type: URINE SPECIMEN Ordering Facility: [facility] Address: [address] [place] [address] Result Comment: Cuto ff threshold at 200 ng/mL. Performed By: #### U TOX2 #### [facility] CLIA [id number] [address] [place] BENZODIAZEPINES, UR Negative Normal Negative [facility] Comment on above: Order Comment: Speci men Type: URINE SPECIMEN Ordering Facility: [facility] Address: [address] [place] [address] Result Comment: Cuto ff threshold at 200 ng/mL. Performed By: #### U TOX2 #### [facility] CLIA [id number] [address] [place] [address] OF [place] CANNABINOIDS,URINE Positive Abnormal Negative [facility] Comment on above: Order Comment: Speci men Type: URINE SPECIMEN Ordering Facility: [facility] Address: [address] [address] Result Comment: Cuto ff threshold at 50 ng/mL. Performed By: #### U TOX2 #### [facility] CLIA [id number] [address] [place] Cocaine Ql (U) Negative Normal Negative [facility] Comment on above: Order Comment: Speci men Type: URINE SPECIMEN Ordering Facility: [facility] Address: [address] [place] [address] Result Comment: Cuto ff threshold at 300 ng/mL. Performed By: #### U TOX2 #### [facility] CLIA [id number] [address] [place] [address] [place] Ethanol (U) [Mass/Vol] <11 Normal <11 [facility] Comment on above: Order Comment: Speci men Type: URINE SPECIMEN Ordering Facility: [facility] Address: [address] [place] [address] Performed By: #### U TOX2 #### [facility] CLIA [id number] [address] [place] [address] [place] Opiates Screen Ql (U) Negative Normal Negative [facility] Comment on above: Order Comment: Speci men Type: URINE SPECIMEN Ordering Facility: [facility] Address: [address] [place] [address] Result Comment: Cuto ff threshold at 300 ng/mL. Performed By: #### U TOX2 #### [facility] CLIA [id number] [address] [place] [address] oxyCODONE cutoff Screen (U) [Mass/Vol] Negative Normal Negative [facility] Comment on above: Order Comment: Speci men Type: URINE SPECIMEN Ordering Facility: [facility] Address: [address] [place] [address] Result Comment: Cuto ff threshold at 100 ng/mL. Performed By: #### U TOX2 #### [facility] CLIA [id number] [address] [place] [address] Phencyclidine Ql (U) Negative Normal Negative [facility] Comment on above: Order Comment: Speci men Type: URINE SPECIMEN Ordering Facility: [facility] Address: [address] [place] [address] Result Comment: Cuto ff threshold at 25 ng/mL. Performed By: #### U TOX2 #### [facility] CLIA [id number] [address] [place] [address] OF [place] Urinalysis complete panel (U )on 02-11-2023 Bacteria LM.HPF (Urine sed) [#/Area] Moderate Abnormal None Seen [facility] Comment on above: Order Comment: Speci men Type: URINE SPECIMEN Ordering Facility: [facility] Address: [address] [place] [address] Performed By: #### 2 4356-8 #### [facility] CLIA [id number] [address] [place] [address] [place] Bilirubin Ql (U) Negative Normal Negative [facility] Comment on above: Order Comment: Speci men Type: URINE SPECIMEN Ordering Facility: [facility] Address: [address] [place] [address] Performed By: #### 2 4356-8 #### [facility] CLIA [id number] [address] Clarity (Unsp spec) Cloudy Abnormal Clear [facility] Comment on above: Order Comment: Speci men Type: URINE SPECIMEN Ordering Facility: [facility] Address: [address] [place] [address] Performed By: #### 2 4356-8 #### [facility] CLIA [id number] [address] [place] Color (U) Yellow Normal Yellow [facility] Comment on above: Order Comment: Speci men Type: URINE SPECIMEN Ordering Facility: [facility] Address: [address] [place] [address] Performed By: #### 2 4356-8 #### [facility] CLIA [id number] [address] [id number] [facility] Epithelial cells LM.HPF (Urine sed) [#/Area] Few Normal [facility] Comment on above: Order Comment: Speci men Type: URINE SPECIMEN Ordering Facility: [facility] Address: [address] [place] [address] Performed By: #### 2 4356-8 #### [facility] CLIA [id number] [address] [place] [address] [place] Glucose Test strip (U) [Mass/Vol] Negative Normal Negative [facility] Comment on above: Order Comment: Speci men Type: URINE SPECIMEN Ordering Facility: [facility] Address: [address] [place] [address] Performed By: #### 2 4356-8 #### [facility] CLIA [id number] [address] [place] [address] [facility] OF [place] Hemoglobin Ql (U) Negative Normal Negative [facility] Comment on above: Order Comment: Speci men Type: URINE SPECIMEN Ordering Facility: [facility] Address: [address] [place] [address] Performed By: #### 2 4356-8 #### [facility] CLIA [id number] [address] Ketones Ql (U) Trace Abnormal Negative [facility] Comment on above: Order Comment: Speci men Type: URINE SPECIMEN Ordering Facility: [facility] Address: [address] [place] [address] Performed By: #### 2 4356-8 #### [facility] CLIA [id number] [address] [place] [address] [place] Leukocyte esterase Test strip Ql (U) Trace Abnormal Negative [facility] Comment on above: Order Comment: Speci men Type: URINE SPECIMEN Ordering Facility: [facility] Address: [address] [place] [address] Performed By: #### 2 4356-8 #### [facility] CLIA [id number] [address] [place] [address] [place] Nitrite Ql (U) Negative Normal Negative [facility] Comment on above: Order Comment: Speci men Type: URINE SPECIMEN Ordering Facility: [facility] Address: [address] [place] [address] Performed By: #### 2 4356-8 #### [facility] CLIA [id number] [address] [place] [address] [place] pH (U) 7.0 [pH] Normal 5.0-8.0 [facility] Comment on above: Order Comment: Speci men Type: URINE SPECIMEN Ordering Facility: [facility] Address: [address] [place] [address] Performed By: #### 2 4356-8 #### [facility] CLIA [id number] [address] [place] [address] Protein (U) [Mass/Vol] Negative Normal Negative [facility] Comment on above: Order Comment: Speci men Type: URINE SPECIMEN Ordering Facility: [facility] Address: [address] [place] [address] Performed By: #### 2 4356-8 #### [facility] CLIA [id number] [address] [place] [address] RBC LM.HPF (Urine sed) [#/Area] 0-3 /HPF Normal 0-3 /HPF [facility] Comment on above: Order Comment: Speci men Type: URINE SPECIMEN Ordering Facility: [facility] Address: [address] [place] [address] Performed By: #### 2 4356-8 #### [facility] CLIA [id number] [address] [place] [address] Urobilinogen Ql (U) 0.2 EU/dL Normal 0.2-1.0 EU/dL [facility] Comment on above: Order Comment: Speci men Type: URINE SPECIMEN Ordering Facility: [facility] Address: [address] [place] [address] Performed By: #### 2 4356-8 #### [facility] CLIA [id number] [address] [place] [address] WBC LM.HPF (Urine sed) [#/Area] 0-5 /HPF Normal 0-5 /HPF [facility] Comment on above: Order Comment: Speci men Type: URINE SPECIMEN Ordering Facility: [facility] Address: [address] [place] [address] Performed By: #### 2 4356-8 #### [facility] CLIA [id number] [address] [place] [address] [facility] Urinalysis complete pnl Uron 02-11-2023 Specific gravity (U) [Rel density] 1.020 Normal 1.005-1.030 [facility] Comment on above: Order Comment: Speci men Type: URINE SPECIMEN Ordering Facility: [facility] Address: [address] [place], [place] [address] Performed By: #### 2 4356-8 #### [facility] CLIA [id number] [address] [place] [address] [facility] Performed By: #### 2 106-3 #### [facility] CLIA [id number] [address] [place] [address] [facility] Vital Signs Date Time Vital Sign Value Performing Clinician Facility 03-13-2025 00:18-0400 Body temperature 97.8 [degF] [facility] Work Phone: 1(988)[phone] [place] [address] 03-13-2025 00:18-0400 Diastolic blood pressure 69 mm[Hg] [facility] Work Phone: 3(029)[phone] [place] [address] 03-13-2025 00:18-0400 Heart rate 81 /min [facility] Work Phone: 6(545)[phone] [place] [address] 03-13-2025 00:18-0400 Respiratory rate 16 /min [facility] Work Phone: 8(986)[phone] [place] [address] 03-13-2025 00:18-0400 SaO2% (BldA) [Mass fraction] 99 % [facility] Work Phone: 0(188)[phone] [place] [address] 03-13-2025 00:18-0400 Systolic blood pressure 118 mm[Hg] [facility] Work Phone: 8(117)[phone] [place] [address] 03-12-2025 15:09-0400 Body height 157.48 cm [facility] Work Phone: 0(185)[phone] [place] [address] 03-12-2025 15:09-0400 Body mass index (BMI) [Ratio] 22.8 kg/m2 [facility] Work Phone: 8(653)[phone] [place] [address] 03-12-2025 15:09-0400 Body weight 56.69 kg [facility] Work Phone: [facility] 11-07-2023 11:54-0500 Body temperature 98.2 [degF] [facility] 11-07-2023 11:54-0500 Diastolic blood pressure 88 mm[Hg] [facility] 11-07-2023 11:54-0500 Heart rate 84 /min [facility] 11-07-2023 11:54-0500 Respiratory rate 16 /min [facility] 11-07-2023 11:54-0500 SaO2% (BldA) [Mass fraction] 98 % [facility] 11-07-2023 11:54-0500 Systolic blood pressure 127 mm[Hg] [facility] 11-07-2023 09:17-0500 Body height 157.48 cm [facility] 11-07-2023 09:17-0500 Body mass index (BMI) [Ratio] 35.2 kg/m2 [facility] 11-07-2023 09:17-0500 Body weight 87.2 kg [facility] 09-15-2023 04:32-0500 Body height 157.48 cm [facility] 09-15-2023 04:32-0500 Body mass index (BMI) [Ratio] 32.7 kg/m2 [facility] 09-15-2023 04:32-0500 Body temperature 98 [degF] [facility] 09-15-2023 04:32-0500 Body weight 81.1 kg [facility] 09-15-2023 04:32-0500 Diastolic blood pressure 79 mm[Hg] [facility] 09-15-2023 04:32-0500 Heart rate 100 /min [facility] 09-15-2023 04:32-0500 Respiratory rate 16 /min [facility] 09-15-2023 04:32-0500 SaO2% (BldA) [Mass fraction] 100 % [facility] 09-15-2023 04:32-0500 Systolic blood pressure 134 mm[Hg] [facility] 08-13-2023 01:23-0500 Heart rate 100 /min [facility] 08-13-2023 01:23-0500 Respiratory rate 16 /min [facility] 08-13-2023 01:23-0500 SaO2% (BldA) [Mass fraction] 98 % [facility] 08-12-2023 21:15-0500 Body height 160.02 cm [facility] 08-12-2023 21:15-0500 Body mass index (BMI) [Ratio] 31.4 kg/m2 [facility] 08-12-2023 21:15-0500 Body temperature 96.2 [degF] [facility] 08-12-2023 21:15-0500 Body weight 80.3 kg [facility] 08-12-2023 21:15-0500 Diastolic blood pressure 91 mm[Hg] [facility] 08-12-2023 21:15-0500 Systolic blood pressure 123 mm[Hg] [facility] 04-05-2023 02:36-0400 Diastolic blood pressure 63 mm[Hg] [facility] 04-05-2023 02:36-0400 Heart rate 75 /min [facility] 04-05-2023 02:36-0400 Respiratory rate 18 /min [facility] 04-05-2023 02:36-0400 SaO2% (BldA) [Mass fraction] 100 % [facility] 04-05-2023 02:36-0400 Systolic blood pressure 111 mm[Hg] [facility] 04-04-2023 15:25-0400 Body height 160.02 cm [facility] 04-04-2023 15:25-0400 Body mass index (BMI) [Ratio] 29.7 kg/m2 [facility] 04-04-2023 15:25-0400 Body temperature 97.8 [degF] [facility] 04-04-2023 15:25-0400 Body weight 76.15 kg [facility] 03-26-2023 13:53-0400 Body weight 78.47 kg Álvaro Zavala MD Work Phone: [facility] 03-26-2023 13:53-0400 Diastolic blood pressure 80 mm[Hg] Álvaro Zavala MD Work Phone: [facility] 03-26-2023 13:53-0400 Heart rate 81 /min Álvaro Zavala MD Work Phone: [facility] 03-26-2023 13:53-0400 Systolic blood pressure 118 mm[Hg] Álvaro Zavala MD Work Phone: [facility] 02-11-2023 09:23-0400 Body temperature 98.49 [degF] Lis Sheets DO Work Phone: [facility] 02-11-2023 09:23-0400 Diastolic blood pressure 70 mm[Hg] Lis Sheets DO Work Phone: [facility] [facility] 02-11-2023 09:23-0400 Heart rate 94 /min Lis Sheets DO Work Phone: [facility] 02-11-2023 09:23-0400 Respiratory rate 16 /min Lis Sheets DO Work Phone: [facility] 02-11-2023 09:23-0400 SaO2% (BldA) [Mass fraction] 97 % Lis Sheets DO Work Phone: [facility] 02-11-2023 09:23-0400 Systolic blood pressure 120 mm[Hg] Lis Sheets DO Work Phone: [facility] 02-18-2022 13:25-0400 Body height 160 cm Fiordaliza Cece CONDITIONER TENDER.WINDOWS SERVER ENGINEER Work Phone: [facility] 02-18-2022 13:25-0400 Body temperature 98.2 [degF] Fiordaliza Cece CONDITIONER TENDER.WINDOWS SERVER ENGINEER Work Phone: [facility] 02-18-2022 13:25-0400 Body weight 93.89 kg Fiordaliza Cece CONDITIONER TENDER.WINDOWS SERVER ENGINEER Work Phone: [facility] 02-18-2022 13:25-0400 Diastolic blood pressure 70 mm[Hg] Fiordaliza Cece CONDITIONER TENDER.WINDOWS SERVER ENGINEER Work Phone: [facility] 02-18-2022 13:25-0400 Heart rate 73 /min Fiordaliza Cece CONDITIONER TENDER.WINDOWS SERVER ENGINEER Work Phone: [facility] 02-18-2022 13:25-0400 Respiratory rate 18 /min Fiordaliza Cece CONDITIONER TENDER.WINDOWS SERVER ENGINEER Work Phone: [facility] 02-18-2022 13:25-0400 SaO2% (BldA) [Mass fraction] 98 % Fiordaliza Cece CONDITIONER TENDER.WINDOWS SERVER ENGINEER Work Phone: [facility] 02-18-2022 13:25-0400 Systolic blood pressure 102 mm[Hg] Fiordaliza Cece CONDITIONER TENDER.WINDOWS SERVER ENGINEER Work Phone: [facility] 01-14-2022 13:53-0400 Body height 160 cm Fiordaliza Cece CONDITIONER TENDER.WINDOWS SERVER ENGINEER Work Phone: [facility] 01-14-2022 13:53-0400 Body temperature 98.2 [degF] Fiordaliza Cece CONDITIONER TENDER.WINDOWS SERVER ENGINEER Work Phone: [facility] 01-14-2022 13:53-0400 Body weight 93.89 kg Fiordaliza Cece CONDITIONER TENDER.WINDOWS SERVER ENGINEER Work Phone: [facility] 01-14-2022 13:53-0400 Diastolic blood pressure 70 mm[Hg] Fiordaliza Cece CONDITIONER TENDER.WINDOWS SERVER ENGINEER Work Phone: [facility] 01-14-2022 13:53-0400 Heart rate 59 /min Fiordaliza Cece CONDITIONER TENDER.WINDOWS SERVER ENGINEER Work Phone: [facility] 01-14-2022 13:53-0400 Respiratory rate 18 /min Fiordaliza Cece CONDITIONER TENDER.WINDOWS SERVER ENGINEER Work Phone: [facility] 01-14-2022 13:53-0400 SaO2% (BldA) [Mass fraction] 99 % Fiordaliza Cece CONDITIONER TENDER.WINDOWS SERVER ENGINEER Work Phone: [facility] 01-14-2022 13:53-0400 Systolic blood pressure 110 mm[Hg] Fiordaliza Zhao CONDITIONER TENDER.WINDOWS SERVER ENGINEER Work Phone: [facility] 01-01-2022 15:40-0400 Body weight 95.25 kg Shante Andres CONDITIONER TENDER.WINDOWS SERVER ENGINEER Work Phone: [facility] 01-01-2022 15:40-0400 Diastolic blood pressure 74 mm[Hg] Shante Andres CONDITIONER TENDER.WINDOWS SERVER ENGINEER Work Phone: [facility] 01-01-2022 15:40-0400 Systolic blood pressure 116 mm[Hg] Shante Highland CONDITIONER TENDER.WINDOWS SERVER ENGINEER Work Phone: [facility] Encounters Encounter Date Encounter Type Care Provider Facility Start: 03-12-2025 End: 03-13-2025 Emergency department patient visit [facility] Work Phone: -Emergency Department Work Phone: Start: 08-08-2024 End: 08-08-2024 Emergency department patient visit [facility] Facility:[facility] Start: 07-09-2024 Patient encounter status [facility] Work Phone: [facility] Start: 07-09-2024 End: 07-09-2024 Emergency department patient visit [facility] Facility:[facility] Start: 05-10-2024 End: 05-10-2024 Emergency department patient visit Jose Luis Cobianrus Facility:[facility] Start: 02-08-2024 ambulatory Bettye Chen RESIDENTIAL ASSISTANT [facility] Start: 02-06-2024 End: 02-06-2024 Emergency department patient visit ANA THORNTON Facility:[facility] Start: 11-07-2023 End: 11-07-2023 Emergency department patient visit [facility]-Emergency Department Work Phone: Start: 09-15-2023 End: 09-15-2023 Emergency department patient visit [facility]-Emergency Department Work Phone: Start: 08-12-2023 End: 08-12-2023 ambulatory [facility] Work Phone: Start: 08-12-2023 End: 08-12-2023 Departed Referred [facility]-ED Referred Work Phone: Start: 08-12-2023 Registered Referred [facility] Referred Work Phone: Start: 08-12-2023 End: 08-13-2023 Emergency department patient visit [facility]-Emergency Department Work Phone: Start: 07-03-2023 End: 07-04-2023 ambulatory FIORDALIZA ZHAO Facility:[facility] Start: 05-14-2023 End: 05-14-2023 ambulatory SCOTT MATA Facility:[facility] Start: 05-14-2023 End: 05-14-2023 Patient encounter procedure Annalise ARNOLD Work Phone: [facility] Comment on above: 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 Hu ntington's chorea (Primary Dx) MDD (major depressiv e disorder), recurrent episode, moderate (HCC) (Primary Dx); Anxiety; 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 Emery's disease Start: 04-08-2023 Telephone encounter Fiordaliza Zhao APRN.WINDOWS SERVER ENGINEER Work Phone: [facility] Comment on above: Patient Question Start: 04-07-2023 End: 04-08-2023 Emergency department patient visit PROVIDER NOT IN SYSTEM [facility] Start: 04-04-2023 End: 04-05-2023 Emergency department patient visit [facility]-Emergency Department Work Phone: Start: 04-01-2023 Telephone encounter Wilfrido orjo MD Work Phone: [facility] Comment on above: Patient Update (Agit ation/) Returning Patient's Call Start: 03-26-2023 End: 03-26-2023 ambulatory ÁLVARO ZAVALA Facility:[facility] Start: 03-26-2023 End: 03-26-2023 Patient encounter procedure Álvaro Zavala MD Work Phone: Neurology Comment on above: 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 Hu ntington's disease (Primary Dx); Anxiety; Mild episode of recurrent major depressive disorder (HCC) Start: 03-25-2023 Chart abstracting Álvaro Zavlaa MD Work Phone: Neurology Start: 03-10-2023 Telephone encounter Fiordaliza Zhao APRN.WINDOWS SERVER ENGINEER Work Phone: [facility] Comment on above: [facility] (Put referral for Neurology on [facility] 03/10/23) [facility] (Put referral for Psychiatry on [facility] 03/10/23) Start: 03-10-2023 End: 03-10-2023 ambulatory FIORDALIZA Amada CECE Facility:[facility] Start: 02-25-2023 Telephone encounter Fiordaliza Zhao APRN.WINDOWS SERVER ENGINEER Work Phone: [facility] Comment on above: Patient Question Start: 02-24-2023 Telephone encounter Fiordaliza Zhao APRN.WINDOWS SERVER ENGINEER Work Phone: [facility] Comment on above: Patient Update Start: 02-16-2023 Patient Outreach Avril Gomez RN Technical Expert Comment on above: Transition Of Care ( D/C from [facility] 02/15/23) Start: 02-11-2023 End: 02-15-2023 Evaluation and management of inpatient FIORDALIZA MCCALLEL Facility:[facility] Start: 02-11-2023 Admission to establishment Love Carbone RN [facility] Start: 02-11-2023 End: 02-11-2023 ambulatory Love Carbone RN [facility] Intake Comment on above: Psychiatric Problem Start: 02-11-2023 End: 02-11-2023 Emergency department patient visit FIORDALIZATravis ZHAO Facility:[facility] Start: 02-11-2023 End: 02-11-2023 Patient encounter procedure Lis Gomez DO Work Phone: [facility] Comment on above: Suicidal ideation (P rimary Dx) Start: 10-04-2022 Refill Fiordaliza martino APRN.WINDOWS SERVER ENGINEER Work Phone: [facility] Comment on above: Refill Request Start: 04-01-2022 Telephone encounter Fiordaliza Zhao APRN.WINDOWS SERVER ENGINEER Work Phone: [facility] Comment on above: Patient Update; Appo intment No Show (1st no show ) Start: 02-18-2022 End: 02-18-2022 Patient encounter procedure Fiordaliza M Cece MOYA.WINDOWS SERVER ENGINEER Work Phone: [facility] Comment on above: Mild episode of recu rrent major depressive disorder (HCC) (Primary Dx); Anxiety Start: 01-16-2022 Telephone encounter Fiordaliza Zhao APRN.WINDOWS SERVER ENGINEER Work Phone: [facility] Comment on above: Patient Update Start: 01-14-2022 End: 01-14-2022 Patient encounter procedure Fiordaliza M Cece MOYA.WINDOWS SERVER ENGINEER Work Phone: [facility] Comment on above: Mild episode of recu rrent major depressive disorder (HCC) (Primary Dx); Anxiety Start: 01-01-2022 End: 01-01-2022 Patient encounter procedure Shante Campos NITA.WINDOWS SERVER ENGINEER Work Phone: OB/Gynecology Comment on above: care and examination (Primary Dx); Vaginal odor Start: 03-27-2021 End: 05-30-2021 Patient requested procedure Bettye Chen LPN [facility] Procedures Date Procedure Procedure Detail Performing Clinician Start: 03-12-2025 Transvaginal obstetr ic ultrasonography [facility] Work Phone: Start: 03-12-2025 X-ray of chest, PA a nd lateral views [facility] Work Phone: Start: 03-12-2025 CT of head without contrast [facility] Work Phone: Start: 03-12-2025 Methadone measurement, urine [facility] Work Phone: Start: 03-12-2025 Urnls dip stick/tabl et reagent auto microscopy [facility] Work Phone: Start: 03-12-2025 Estimated creatinine clearance [facility] Work Phone: Start: 11-07-2023 SARS-CoV-2, Influenz a & RSV (PCR) Start: 11-07-2023 Plain chest X-ray Start: 09-15-2023 Bacterial nucleic acid assay Start: 09-15-2023 Chlamydia trachomatis (PCR) Start: 04-04-2023 Viral antigen assay Start: 03-10-2021 Adult depression scr eening assessment Shante Campos OMEGA Work Phone: Plan of Treatment Date Care Activity Detail Author Start: 10-22-2031 Urine microalbumin profile [facility] Start: 03-13-2025 [facility] Start: 05-14-2024 Influenza vaccination Influenz a Vaccine (Season Ended) [facility] Start: 11-07-2023 [facility] Start: 09-15-2023 Chlamydia trachomati s (PCR) Chlamydia trachomatis (PCR) [facility] Start: 09-15-2023 Neisseria gonorrhoea e (PCR) Neisseria gonorrhoeae (PCR) [facility] Start: 09-15-2023 [facility] Start: 09-15-2023 [facility] Start: 08-13-2023 [facility] Start: 05-14-2023 Influenza vaccination [facility] Start: 04-04-2023 End: 04-04-2023 Suicide precautions [facility] Start: 2022 PAP TESTING PAP TESTING [facility] Start: 2022 Screening for malign ant neoplasm of cervix Pap Testing [facility] Start: 05-14-2022 Influenza vaccination [facility] Start: 04-04-2022 CHLAMYDIA SCREENING (18-24) CHLAMYDIA SCREENING (18-24) [facility] Start: 04-04-2022 GC (GONORRHEA) SCREE NEERU (18-24) GC (GONORRHEA) SCREENING (18-) [facility] Start: 04-04-2022 Screening for Chlamy felipa trachomatis Chlamydia Screening () [facility] Start: 03-10-2022 Adult depression screening assessment DEPRESSION SCREENING [facility] Start: 03-10-2022 COVID-19 VACCINE (#1) COVID-19 VACCI NE (#1) [facility] Comment on above: Postponed from 06/08 (Declined at this time) Start: 03-10-2022 COVID-19 VACCINE (1) COVID-19 VACCIN E (1) [facility] Comment on above: Postponed from 06/08 (Declined at this time) Start: 2017 Meningococcal B Vacc ine: Consider Based On Risk (1 of 2 - Patient Seeks Protection) Meningococcal B Vaccine: Consider Based On Risk (1 of 2 - Patient Seeks Protection) [facility] Start: 2017 MENINGOCOCCAL B: Consider based on risk (1 of 2 - Patient Seeks Protection) MENINGOCOCCAL B: Consider based on risk (1 of 2 - Patient Seeks Protection) [facility] Start: 2015 PEDS TO ADULT TRANSI TION ANNUAL ASSESSMENT PEDS TO ADULT TRANSITION ANNUAL ASSESSMENT [facility] Start: 2013 PEDS TO ADULT TRANSI TION INITIAL DISCUSSION PEDS TO ADULT TRANSITION INITIAL DISCUSSION [facility] Start: 2011 MENINGOCOCCAL B: Consider based on risk (1 of 2 - Risk Bexsero 2-dose series) MENINGOCOCCAL B: Consider based on risk (1 of 2 - Risk Bexsero 2-dose series) [facility] Start: 2001 COVID-19 VACCINE (#1) COVID-19 VACCI NE (#1) [facility] Chlamydia trachomatis [facility] Microscopic observat ion [Identifier] in Vaginal fluid by Gram stain BACT/DAVID VAG GRAM STAIN Microbiology Routine Vaginal odor 01/01/2022 4:02 PM EDT [facility] Work Phone: Neisseria gonorrhoea e DNA [Presence] in Genital specimen by MARIA ISABEL with probe detection [facility] Patient Education [facility] Work Phone: Patient referral [facility] Work Phone: [facility] Immunizations Immunization Date Immunization Notes Care Provider Renato piper 10-22-2021 tetanus toxoid, redu pippa diphtheria toxoid, and acellular pertussis vaccine, adsorbed Shante Andres CONDITIONER TENDER.WINDOWS SERVER ENGINEER Work Phone: [facility] Work Phone: 05-25-2018 influenza virus vacc ine, unspecified formulation Shante Andres CONDITIONER TENDER.WINDOWS SERVER ENGINEER Work Phone: [facility] 02-01-2015 human papilloma viru s vaccine, quadrivalent Shante Highland CONDITIONER TENDER.WINDOWS SERVER ENGINEER Work Phone: [facility] 08-15-2014 human papilloma viru s vaccine, quadrivalent Shante Highland CONDITIONER TENDER.WINDOWS SERVER ENGINEER Work Phone: [facility] 08-15-2014 meningococcal oligosaccharide (groups A, C, Y and W-135) diphtheria toxoid conjugate vaccine (MCV4O) Shante Andres CONDITIONER TENDER.WINDOWS SERVER ENGINEER Work Phone: [facility] 05-18-2014 human papilloma viru s vaccine, quadrivalent Shante Andres CONDITIONER TENDER.WINDOWS SERVER ENGINEER Work Phone: [facility] 05-18-2014 tetanus toxoid, redu pippa diphtheria toxoid, and acellular pertussis vaccine, adsorbed Shante Andres CONDITIONER TENDER.WINDOWS SERVER ENGINEER Work Phone: [facility] 06-26-2009 influenza virus vacc ine, unspecified formulation Shante Highland CONDITIONER TENDER.WINDOWS SERVER ENGINEER Work Phone: [facility] 06-26-2009 influenza, seasonal, injectable Lis Sheets DO Work Phone: [facility] 09-25-2003 diphtheria, tetanus toxoids and acellular pertussis vaccine Shante Andres CONDITIONER TENDER.WINDOWS SERVER ENGINEER Work Phone: [facility] 09-25-2003 diphtheria, tetanus toxoids and acellular pertussis vaccine, unspecified formulation Lis Sheets DO Work Phone: [facility] 09-25-2003 haemophilus influenz ae type b vaccine, conjugate unspecified formulation Lis Sheets DO Work Phone: [facility] 09-25-2003 haemophilus influenz ae type b vaccine, HbOC conjugate Shante Andres CONDITIONER TENDER.WINDOWS SERVER ENGINEER Work Phone: [facility] 09-25-2003 measles, mumps and rubella virus vaccine Shante Highland CONDITIONER TENDER.WINDOWS SERVER ENGINEER Work Phone: [facility] 09-25-2003 pneumococcal conjuga te vaccine, 13 valent Shante Andres CONDITIONER TENDER.WINDOWS SERVER ENGINEER Work Phone: [facility] 09-25-2003 pneumococcal conjuga te vaccine, 7 valent Lis Sheets DO Work Phone: [facility] 09-25-2003 varicella virus vaccine Christian e Highland CONDITIONER TENDER.WINDOWS SERVER ENGINEER Work Phone: [facility] 02-27-2002 diphtheria, tetanus toxoids and acellular pertussis vaccine Shante Highland CONDITIONER TENDER.WINDOWS SERVER ENGINEER Work Phone: [facility] 02-27-2002 diphtheria, tetanus toxoids and acellular pertussis vaccine, unspecified formulation Lis Sheets DO Work Phone: [facility] 02-27-2002 haemophilus influenz ae type b vaccine, conjugate unspecified formulation Lis Sheets DO Work Phone: [facility] 02-27-2002 haemophilus influenz ae type b vaccine, HbOC conjugate Shante Highland CONDITIONER TENDER.WINDOWS SERVER ENGINEER Work Phone: [facility] 02-27-2002 hepatitis B vaccine, pediatric or pediatric/adolescent dosage Shante Highland CONDITIONER TENDER.WINDOWS SERVER ENGINEER Work Phone: [facility] 02-27-2002 poliovirus vaccine, inactivated Shante Highland CONDITIONER TENDER.WINDOWS SERVER ENGINEER Work Phone: [facility] 2001 diphtheria, tetanus toxoids and acellular pertussis vaccine Shante Andres CONDITIONER TENDER.WINDOWS SERVER ENGINEER Work Phone: [facility] 2001 diphtheria, tetanus toxoids and acellular pertussis vaccine, unspecified formulation Lis Sheets DO Work Phone: [facility] 2001 haemophilus influenz ae type b conjugate and Hepatitis B vaccine Lis Sheets DO Work Phone: [facility] 2001 haemophilus influenz ae type b vaccine, HbOC conjugate Shante Highland CONDITIONER TENDER.WINDOWS SERVER ENGINEER Work Phone: [facility] 2001 hepatitis B vaccine, pediatric or pediatric/adolescent dosage Shante Andres CONDITIONER TENDER.WINDOWS SERVER ENGINEER Work Phone: [facility] 2001 pneumococcal conjuga te vaccine, 13 valent Shante Andres CONDITIONER TENDER.WINDOWS SERVER ENGINEER Work Phone: [facility] 2001 pneumococcal conjuga te vaccine, 7 valent Lis Sheets DO Work Phone: [facility] 2001 poliovirus vaccine, inactivated Shante Highland CONDITIONER TENDER.WINDOWS SERVER ENGINEER Work Phone: [facility] 2001 diphtheria, tetanus toxoids and acellular pertussis vaccine Shante Highland CONDITIONER TENDER.WINDOWS SERVER ENGINEER Work Phone: [facility] 2001 diphtheria, tetanus toxoids and acellular pertussis vaccine, unspecified formulation Lis Sheets DO Work Phone: [facility] 2001 haemophilus influenz ae type b conjugate and Hepatitis B vaccine Lis Sheets DO Work Phone: [facility] 2001 haemophilus influenz ae type b vaccine, HbOC conjugate Shante Highland CONDITIONER TENDER.WINDOWS SERVER ENGINEER Work Phone: [facility] 2001 hepatitis B vaccine, pediatric or pediatric/adolescent dosage Shante Andres CONDITIONER TENDER.WINDOWS SERVER ENGINEER Work Phone: [facility] 2001 poliovirus vaccine, inactivated Shante Highland CONDITIONER TENDER.WINDOWS SERVER ENGINEER Work Phone: [facility] 2001 hepatitis B vaccine, pediatric or pediatric/adolescent dosage Shante Andres CONDITIONER TENDER.WINDOWS SERVER ENGINEER Work Phone: [facility] Payers Date Payer Category Payer Self-pay [id number] 2022 Medicaid [id number] 2019 Medicaid [employer] [id number] 2019-Present [phone] [address] [place] [address] Medicaid [id number] 2019 Medicaid [id number] Unknown [id number] Unknown [facility] [id number] Unknown [id number] Unknown [id number] Unknown [id number] Unknown [id number] Social History Date Type Detail Facility Start: 07-06-2019 Tobacco smoking status NHIS Never smoked tobacco [facility] Start: 07-06-2019 Tobacco use and exposure Smokeless tobacco non-user [facility] Start: 01-01-2022 End: 09-07-2023 Alcohol intake Ex-drinker (finding) [facility] Start: 07-06-2019 History SDOH Alcohol Comment occasionally [facility] Start: 03-27-2021 Education [address] [facility] Start: 2001 Sex Assigned At Not on file [facility] Start: 12-22-2021 End: 02-18-2022 Exposure to SARS-CoV-2 (event) Not sure [facility] Work Phone: Start: 03-10-2023 End: 02-07-2024 History of Social function [facility] Start: 03-10-2023 End: 02-07-2024 Tobacco use panel [facility] Adult Depression Screening Assessment [address] [facility] The thought of harming myself has occurred to me Never [facility] Start: 04-04-2023 End: 11-07-2023 Tobacco smoking status NHIS Unknown if ever smoked [facility] Start: 2000 Sex Assigned At Female [facility] Start: 03-12-2025 Tobacco smoking status NHIS Current some day smoker [facility] NEGATED: Highlighted row [facility] Mental Status Date Assessment Result Facility 03-12-2025 Cognitive function [facility] Work Phone: 11-07-2023 Cognitive function Level Of Cons ciousness Awake;Alert;Appropriate;Follow s Commands [facility] Work Phone: 08-12-2023 Cognitive function Level Of Cons ciousness Awake;Alert;Appropriate;Follow s Commands [facility] Work Phone: Clinical Notes 08-25-2021 to 03-13-2025 Note Date & Type Note Facility 03-13-2025 Discharge summary [facility] 03-12-2025 Radiology Diagnostic study note [facility] Imaging Services [address] [place] [address] Transvaginal w/Preg US MR#: [id number] Acct: [id number] Name: HERMINIA GOLDMAN Rep #: [id number] : 2000 F 24 From: Mercy Baeza MD PCP: [facility] Status: REG ER Study:Transvaginal w/Preg US Date of Exam: 03/12/25 Exam# [id number] Ordering Dr: Chris Boyd DO PROCEDURE: TRANSVAGINAL W/PREG US 03/12/2025 REASON FOR EXAM: COMPARISON: None TECHNIQUE: TRANSVAGINAL W/PREG US FINDINGS: Measurements: Uterus: 7.4 x 4.4 x 4.9 cm for volume of 83.8 mL. Endometrial Thickness: 0.6 cm Right Ovary: 3.1 x 2.0 x 2.1 cm for volume of 6.5 mL Left Ovary: 2.1 x 1.4 x 1.9 cm for volume of 2.8 mL. Uterus: Anteverted. Normal contour and myometrial echotexture. No intrauterine gestational sac is identified. Endometrium: Unremarkable. Right ovary: Normal size and echotexture. Left ovary: Normal size and echotexture. Other adnexal findings: None. Cul-de-sac: There is trace free intraperitoneal fluid identified. Color Doppler: Normal color flow doppler signal at both ovaries. US/Transvaginal w/Preg US IMPRESSION: 1. of unknown location, without intrauterine gestational sac identified at this time. Recommend close clinical follow-up and trending of HCG. 2. Trace pelvic free fluid, likely physiologic. Reading Location: [id number] CC: Dr. Dax Boyd DO; [facility] ~ Planning Feeder: Signed [facility] 03-12-2025 Radiology Diagnostic study note [facility] Imaging Services [address] [place] [id number] Brain/Head without Contrast MR#: [id number] Acct: [id number] Name: HERMINIA GOLDMAN Rep #: [id number] : 2000 F 24 From: Rosaline Chambers MD PCP: [facility] Status: REG ER Study:Brain/Head without Contrast Date of Exa m: 03/12/25 Exam# [id number] Ordering Dr: Chris Boyd DO PROCEDURE: BRAIN/HEAD WITHOUT CONTRAST 03/12/2025 REASON FOR EXAM: AMS TECHNIQUE: BRAIN/HEAD WITHOUT CONTRAST Coronal and Sagittal reconstruction series were provided. One or more dose reduction techniques were used (e.g., Automated exposure control, adjustment of the mA and/or kV according to patient size, use of iterative reconstruction technique. RADIATION DOSE SUMMARY: DLP: 762 mGycm COMPARISON: None FINDINGS: There is no acute infarct, intracranial hemorrhage, or mass effect. There is no hydrocephalus or significant midline shift. No acute, depressed calvarial fractures. No large scalp hematomas. CT/Brain/Head without Contrast IMPRESSION: No acute intracranial process. Reading Location: [id number] CC: Dr. Dax Boyd DO; [facility] ~ Planning Feeder: Signed [facility] 03-12-2025 Radiology Diagnostic study note [facility] Imaging Services [address] [place] [address] Chest PA and Lateral MR#: [id number] Acct: [id number] Name: HERMINIA GOLDMAN Rep #: [id number] : 2000 F 24 From: Julita Ryan MD PCP: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 22 year old female, for discussion of her family history of Mccook disease and personal concern for the same.Prior to the visit, the genetic counselor reviewed records in the patient's EMR including, but not l imited to, available clinic notes, physician consultations, laboratory [...] CONDITION: Ms. Goldman's father was diagnosed with Emery disease in his late 20s; he reportedly had genetic testing through [facility] in [place] that showed 49 CAG repeats on one [...] anxiety - saw a psychiatrist yesterday and reportedlyalso sees a therapist - both closer to home in [place]. She said this and medicine is helping - dysarthria on occasion - stiffness in her hands - trouble sitting still/feels fidgety - lip twitches - feels unsteady/uncoordinated while walking - learning difficulties - she said she was on an IEP from 1st grade until high school. She said sheobtained her HS degree; no college Ms. Goldman denies dysphagia, personality changes, memory problems and seizures. She states she would like to be tested for life planning and to know risk to her child. DEVELOPMENTAL HISTORY: reportedly normal inspector eyeglass milestones - IEP in school per above [...] sure at this point how much of Crystals exam is attributable to anxiety.It may explain her brisk reflexes; and it may explain at least some of her difficulty with the MMSE(she originally gave Keke as the month, then corrected herself spontaneously a little later on). There is a tendency to impulsively sanz to answer. Her gait is difficult to characterize. - HD psych assessment - not cleared for HD testing at this point in time. Will revisit in several months per psych. PREVIOUS GENETIC TESTING: none SOCIAL HISTORY: Lives in [place] with dad and paternal grandmother . Employment: not working Level of education: finished [employer] Alcohol/cigarettes/other: MJ - not daily, every so often FAMILY HISTORY: - Patient's ethnicity: Maternal - unknown ; Paternal - Israeli. - Partner's ethnicity: Mongolian. - No known -Togolese, Mediterranean, /Yemeni, Panamanian-Kenyan/Cajun, or Ashkenazi Sabianist ancestry unless noted above. - Parental consanguinity: [...] Grandmother - hypertension - Grandfather - hx MS. Father: 50s years old, has HD, reportedly molecularly confirmed. Paternal relatives: - Grandfather - Emery disease; from suicide - Grandfather's sister - reportedly molecularly confirmed HD - in longterm - Grandfather's brother - Mccook disease; from suicide. The remainder of Ms. Goldman's reported family history is negative for known or suspected genetic disease, defects, developmental delay/intellectual disability, infertility, recurrent pregnancyloss, and unexplained . GENETIC COUNSELING RISK ASSESSMENT AND DISCUSSION: Herminia Goldman is a 22 year old female with a family history of Mccook disease and concerns for possible personal symptoms [...] 35 are considered mutable normal. These concepts wereexplained as well. A normal/negative result that indicates [...] greater than 50% of which was spent yshd-bg-hxhk counseling. This plan is being carried out under the oversight of Dr. Robertson. Annalise Smith MS, [facility] Licensed Genetic Counselor [facility] CC: Dr. Lucas Robertson Herminia Goldman [employer] documented in this encounterMercy Health St. [facility]07-27-2023 Miscellaneous Notes* Telephone Encounter - Frederic Workman MA - 04/08/2023 3:32 PM EDT Called mom her cell phone signal is not good lost the call. Called her back left for her to callthe office back leave with what she needs Frederic Workman MA * Telephone Encounter - Frederic Workman MA - 04/08/2023 3:32 PM EDT ----- Message from Fiordaliza Zhao APRN.CNP sent [...] Sent: 04/08/2023 10:26 AM EDT To: [facility] Triage Pool Subject: Dylan Zhao [...] for further questions Was Patient Referred to [facility]/Seek Emergency Treatment (Y/N): n Did Patient Agree (Y/N): n Was An Attempt Made To Transfer The Patient To The Office (Y/N): n Were You Able To Reach Someone At The Office (Y/N): n If Yes - Patient Was Transferred To (Caregivers Name): n If No - Which [facility] Leadership Functional Tester Did You Speak With Regarding This Patient: n Was an appointment scheduled (Y/N): n Reason patient was requesting visit (RFV/signs and symptoms/diagnosis) : Documentation request Person calling if other than patient: Mom Return call to if other than patient: Sigrid Best contact number: [phone] Thank you, Sigrid Gil April 08, 2023 10:23 AM documented in this encounterMercy Health St. [facility]07-24-2023 Discharge summary Author Kareem Jacob [facility] April 04, 2023 11:23pm Note Date/Time April 04, 2023 3:44 pm [facility] Medical Records Department [address] [place] [address] Emergency Department Summary 04/04/23 MR#: [id number] Acct: [id number] Name: HERMINIA GOLDMAN Rep #:[id number] 5 : 2000 22 From: Kareem Jacob MD PCP: Care Physician,No Primary Status :REG ER Location: ED HPI HPI - Psych History of Present Illness Chief Complaint: Suicidal Informant: patient and police/end trimmer Narrative Narrative: Patient is pink slipped here against her will by police because she told her andthat she was sick of things and was going to kill herself. She took a knife to her throat as a gesture. She told the police that she did not want help as she is telling staff here. She does have a history of attempts of self-harm. There is no further history available from the patient, she refuses to talk to anyone. [facility] Medical History (Updated 04/04/23 @ 17:[address] Kareem Jacob MD) 40 weeks gestation of Anxiety Care and examination of lactating mother Depression Elective induction of labor planned Gestational HTN Headache History of depression Intrapartum fever Marijuana use Obesity affecting Trauma Unplanned Vaginal delivery Home Medications PNV 153-FA 400 mcg-om3 35 mg-dha 25 mg-epa 5 mg-fish oil chew tablet ( Gummies) 2 tab PO DAILY 11/19/21 [History Last Taken 1 Day Ago ~11/18/21] paroxetine HCl 30 mg tablet 30 mg PO DAILY 04/04/23 [History Last Taken Unknown] Allergy/AdvReac Type Severity Reaction Status Date / Time No Known Allergies Allergy Verified 04/04/23 15:25 Surgical History (Updated 11/19/21 @ 09:50 by Vishnu Rojas) History of surgery Social History Smoking Status: Never smoker ROS ROS ED Review of Systems ROS Unobtainable: other Details: Patient refuses to answer EXAM Physical Exam Const Vital Signs: 04/04/23 15:25 04/04/23 20:00 04/04/23 21:00 Temperature 97.8 F Temperature Source Temporal Pulse Rate 96 Respiratory Rate 18 16 16 Blood Pressure 141/95 H Blood Pressure Mean 110 Pulse Ox 99 98 98 Oxygen Delivery Method Room Air Room Air Room Air 04/04/23 22:00 04/04/23 22:35 Temperature Temperature Source Pulse Rate 67 Respiratory Rate 16 14 Blood Pressure 136/97 H Blood Pressure Mean 110 Pulse Ox 98 100 Oxygen Delivery Method Room Air Room Air Positive well nourished and well developed Constitutional Narrative: Hysterical behavior, no acute distress General Appearance ED: well developed HEENT Reports moist mucous membranes normocephalic and atraumatic Eyes PERRL and EOMs intact bilaterally General Eye ED: Negative for scleral icterus Neck no lymphadenopathy and supple Resp normal respiratory effort and clear to auscultation bilaterally Cardio no murmurs Rate: regular rate Rhythm: regular rhythm GI non-tender and non-distended Auscultation: normoactive bowel sounds Palpation: soft Back/Spine no CVA tenderness and normal ROM Extremity normal to inspection General Extremety ED: Negative for edema General Extremity: Negative for edema Neuro CN's II-XII intact bilaterally, no sensory deficits noted and gait normal Sensorium / Orientation: alert Motor Exam: strength 5/5 throughout Psych Psych Narrative: Uncooperative, hysterically crying, yelling at staff to leave her alone Attitude: belligerent Activity / Motor Behavior: psychomotor agitation and avoids eye contact Speech: loud Mood & Affect: depressed, tearful and hostile affect Skin Lesions: no lesions Rashes: no rashes MDM MDM MDM Narrative Medical decision making narrative: Patient was continuing to be hysterical and obh-kb-lawmmfw. Nurses attempted toredirect her verbally, she tried to leave, they tried to restrict this and reason with her, she became physically combative. For the safety of the patientand staff, she required physical restraint. I also had them administer Geodon 20 mg, she really helped to calm her down and she was very cooperative and we were able to remove physical restraints. She then did very well. Her labs are normal except for a potassium of 3.0 but I suspect this is due to the fact that she was hysterical and hyperventilating and had a respiratory alkalosis, I am repeating her potassium to recheck her level now that she is calm, and she had THC on board. She is medically cleared and awaiting crisis evaluation for placement. Her repeat potassium was similar, so she was given an oral potassium chloride tablet 40 milliequivalents. Lab Data Attestation: I reviewed the patient's lab results. Labs: Laboratory Results - last 24 hr 04/04/23 04/04/23 04/04/23 15:40 15:45 17:12 WBC 9.2 RBC 4.64 Hgb 14.7 Hct 43.6 MCV 94.0 MCH 31.7 MCHC 33.7 RDW Std Deviation 43.5 RDW Coeff of Matthew 12.5 Plt Count 277 MPV 10.6 Immature Gran % (Auto) 0.200 Neut % (Auto) 62.7 Lymph % (Auto) 29.0 [place] % (Auto) 5.3 Eos % (Auto) 2.1 Baso % (Auto) 0.7 Absolute Neuts (auto) 5.8 Absolute Lymphs (auto) 2.68 Nucleated RBC % 0 Sodium 142 Potassium 3.0 L 2.9 L Chloride 110 H Carbon Dioxide 25.0 Anion Gap 7 BUN 5 L Creatinine 0.73 Estim Creat Clear Calc 100.84 Est GFR (MDRD) Af Amer 129 Est GFR (MDRD) Non-Af 107 BUN/Creatinine Ratio 6.9 L Glucose 101 Calcium 9.4 Serum , Qual NEGATIVE Urine Opiates Screen NEGATIVE Urine Methadone Screen NEGATIVE Ur Barbiturates Screen NEGATIVE Ur Phencyclidine Scrn NEGATIVE Ur Amphetamines Screen NEGATIVE MDMA (Ecstasy) Screen NEGATIVE U Benzodiazepines Scrn NEGATIVE Urine Cocaine Screen NEGATIVE U Cannabinoids Screen POSITIVE H Ur Drug Screen Comment Ethyl Alcohol < 3.0 Discharge Plan Triage Chief Complaint: Suicidal ED Provider: Kareem Jacob Dx/Rx/DC Orders Clinical Impression: Depression with suicidal ideation Prescriptions: No Action Gummies 400 mcg-35 mg- 25 mg-5 mg Tablet,Chewable 2 tab PO DAILY paroxetine HCl 30 mg tablet 30 mg PO DAILY Patient Comments: take 1 tablet by mouth once daily Primary Care Provider: Care Physician,No Primary Referrals: Care Physician,No Primary [Primary Care Provider] - Disposition Disposition: Psychiatric Hospital or Unit What to do if you have Problems For any increased pain, shortness of breath, bleeding, nausea or vomiting, chestpain, or any unexpected problems, contact your Primary Care Provider. Call [facility] ([phone]) or report to the closest Emergency Room. Call 911 if necessary. 04/04/232322 <Electronically signed by Kareem Jacob MD> Cosigner Signature (if applicable): CC: No Primary Care Physician ~ Signed [facility] Work Phone: 1(562) 990-355307-20-2023 Miscellaneous Notes* Telephone Encounter - Yordy Mancilla - 04/01/2023 12:55 PM EDT Pt is scheduled to see Dr. Mata/Annalise Smith on 04/16 for initial HD testing. Her aunt just called stating that they don't know how to manage her until this appt. She is having violent outbursts every other day, sending her mother texts stating that she will harm herself. She has been pink-slipped previously and was just pumped full of drugs to shut her up. I offered an appt with Dr. Bravo on 04/09 and held those EST slots but she asked if they could bring her to ED before that time, and have her admitted. She wants her to get help and not just have her sedated. Pt's father has HD and records from local neurologist available in [place]. I told her I'd run this by the team and have someone contact her. Jude (aunt) [phone] documented in this encounterMercy Health St. [facility]07-13-2023 History and physical note * Álvaro Zavala MD - 03/25/2023 8:31 PM EDT Office Visit Parenthetic [comments] and tinted emphasis mine. Consultation is requested for an opinion regarding the evaluation and treatment of Herminia Goldman.My final impression and recommendations will be communicated back to the referring physician by wayof the shared medical record or letter via US mail. Hemrinia Goldman is referred by MARTÍNEZ Zhao, 03/10/23, for family history of Emery's disease, depression, and anxiety. She documented: She was admitted 02/11/23 after ov and ER visit for suicidal ideation...Family is concerned for possible Mccook's disease. Jude reports pts father was dx [...] feel increase dose of paxil would be helpful. ====== Problem List reviewed. ------ Medications reviewed. ====== She has not had a TSH in [place] or [place]. ====== Álvaro Zavala MD documented in this encounterMercy Health St. [facility]07-13-2023 History and physical note * Álvaro Zavala MD - 03/25/2023 8:22 PM EDT Office Visit 03/26/23, 13:25 - 15:24 Parenthetic [comments] and tinted emphasis mine. Consultation is requested for an opinion regarding the evaluation and treatment of Herminia Goldman.My final impression and recommendations will be communicated back to the referring physician by wayof the shared medical record or letter via [place] mail. Herminia Goldman is referred by MARTÍNEZ Zhao, 03/10/23, for family history of Mccook's disease, depression, and anxiety. She documented: She [...] feel increase dose of paxil would be helpful. ====== Problem List reviewed. ------ Medications reviewed. ====== She has not had a TSH in [facility] or [facility]. 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 Her paternal aunt Jude accompanies her. History of Present Illness The patient's father had genetic testing through [facility] at [address] [place] [address] on 07/18/08. It showed, 'CAG repeat region exceeding the 40 repeat limit accepted to result in Mccook's chorea'. He had 49 repeats. He underwent [...] was started. Her aunt is concerned about Mccook's because she feels Herminia's speech is slow [...] asterixis. There were no involuntary movements. Coordination: Lqouau-uutx-oobsvk was normal. Finger and toe wiggling rapid alternating movements were normal. Armrolling rapid alternating movements were normal. Standing in [...] left out the County; she is from [place]). She does not know the date of the month. She cannot draw the interlocking pentagons. She could not repeat 'no ifs, ands, or buts.' An additional question, 'can you touch your right ear with your left thumb?' was performed incorrectly. IMPRESSION AND PLAN: I am not sure at this point how much of Herminia's exam is attributable to anxiety. It may explain herbrisk reflexes; and it may explain at least [...] theneed for further diagnostic testing, and coordination ofcare. documented in this encounterMercy Health St. [facility]06-28-2023 Miscellaneous Notes* Telephone Encounter - Alexsander Mcrae - 03/10/2023 3:54 PM EDT Put referral for Neurology on [facility] Provider Portal 03/10/23 Confirmation # [id number] Pt is scheduled for 03/26/[address]Michael Zavala documented in this encounterMercy Health St. [facility]06-28-2023 Miscellaneous Notes* Telephone Encounter - Alexsander Mcrae - 03/10/2023 3:52 PM EDT Put referral for Psychiatry on [facility] Provider Portal on 03/10/23 Confirmation # [id number] SGRANTHAM 03/11/23 14:32 Psychiatry ([place]). prefers Female . first attempt unable to leave vm 03/15, unable to leave vm 03/23 documented in [address] encounterMercy Health St. [facility]06-28-2023 NoteHNO ID: [id number] Author: Fiordaliza Zhao APRN.WINDOWS SERVER ENGINEER Service: ? Author Type: Nurse Practitioner Type: Progress Notes Filed: 03/11/2023 7:56 AM Note Text: This note was created using NoteWriter. Subjective Herminia Goldman is a 22 year old female here today for MDD. She was admitted 02/11/23 after ov and ER visit for suicidal ideation. She is here today with her Aunt Jude. Family is concerned for possible Emery's disease. Jude [...] 35-39.9 Depression PAST MEDICAL HISTORY Diagnosis Date #[id number] PAST SURGICAL HISTORY Procedure Laterality Date TONSILLECTOMY [...] (Oral) Resp 18 Ht 160 cm (5' 3) Wt 78.7 kg (173 lb 6.4 oz) [...] intact. Motor: Motor fun (more content not included)...[facility] 02-25-2023 Miscellaneous Notes* Telephone Encounter - Fiordaliza Zhao APRN.MARTÍNEZ - 02/25/2023 4:01 PM EDT Please let pt or her next of Kin (person on [place]) that pt will need to come in for follow up afterher hospitalization to discuss any work up she may need. They can also talk with the hospital whereshe is at to see if they can do any work up * Telephone Encounter - Lilliam Godl MA - 02/25/2023 3:49 PM EDT Patient's aunt called stating she is currently admitted to a psych rodriguez. Jude believes that she may have Emery's disease just like her father did. Jude states the symptoms are just like Herminia's father and she states that Herminia is willing to have the test. Lilliam Gold MA documented in this encounterMercy Health St. [facility]06-14-2023 Miscellaneous Notes* Telephone Encounter - Malena Hayden MA - 02/24/2023 10:20 AM EDT Soto gibson lm on requesting dr. Gomez to call her so she can give a update on herminia. Soto number is [phone]. GILMA Nixen is not on hipp[place] documented in this encounterMercy Health St. [facility]06-07-2023 NoteHNO ID: [id number] Author: Fiordaliza Zhao APRN.MARTÍNEZ Service: ? Author Type: Nurse Practitioner Type: Progress Notes Filed: 02/17/2023 12:26 PM Note Text: Agree with plan.[facility]06-07-2023 NoteHNO ID: [id number] Author: Avril Gomez RN Service: ? Author Type: Registered Nurse Type: Progress Notes Filed: 02/17/2023 11:11 AM Note Text: TRANSITIONAL CARE MANAGEMENT (TCM) COMMUNITY MONITORING PROGRAM - [place] Provider Action/FYI: Patient's mother reports patient's mental health has not improved. Mother states patient is having panic attacks, is depressed, and has made the statement I would be better off . Mother reports patient refuses to go to ER and also refuses to follow up with PCP because she is embarrassed. Mother reports patient does have appointments for in [place] next week however, I am stressed and worried about her mental health' PCC reviewed if she is worried patient will hurt herself or others, or has made statements of doing so, she can contact law enforcement or 1 for a well check. PCC reviewed law [...] Routed to provider. SUMMARY: Pt discharged from [facility] on 02/15/23. Admitted for: Depression Contact made with patient: Yes Hi my name is Avril Gomez RN and I am calling from the [facility] on behalf of your PCP, Fiordaliza Zhao APRN.WINDOWS SERVER ENGINEER I understand you were recently in the [...] like to speak with a social work support team assoc to help give you support for any of these needs? No It can be normal to feel anxious or down during a time like this. Would you like to talk to a mental health professional about how you have been feeling? Yes ACTION TAKEN: No action taken Patient has appointments with counseling services in [place] next week. DISCHARGE INTRUCTIONS: Your discharge instructions [...] I will send your request to a brass burnisher who will contact and assist you with [...] office to get instruc (more content not included)...[facility]06-07-2023 History of Present illness Narrative* Fiordaliza Zhao APRN.MARTÍNEZ - 02/17/2023 12:25 PM EDT Agree with plan. * Avril Gomez RN - 02/17/2023 10:58 AM EDT TRANSITIONAL CARE MANAGEMENT (TCM) COMMUNITY MONITORING PROGRAM - [place] Provider Action/FYI: Patient's mother reports patient's mental health has not improved. Mother states patient is having panic attacks, is depressed, and has made the statement I would be better off . Mother reportspatient refuses to go to ER and also refuses to follow up with PCP because she is embarrassed. Mother reports patient does have appointments for BH in [place] next week however, I am stressed and worried about her mental health' PCC reviewed if she is worried patient will hurt herself or others,or has made statements of doing so, she can contact law enforcement or 1 for a well check. PCC reviewed law [...] contact patient's OBGYN as they might also haverecommendations for her post BH. Patient's mother agreed she will contact OBGYN today. Patient's mother stated no further needs/ concerns att his time. Patient's mother stated understanding of whom to call for emergency. Routed to provider. SUMMARY: Pt discharged from [facility] on 02/15/23. Admitted for: Depression Contact made with patient: Yes Hi my name is Avril Gomez RN and I am calling from the [facility] on behalf of your PCP, Fiordaliza Zhao APRN.WINDOWS SERVER ENGINEER I understand you were recently in the hospital so I am calling to check in with you to ensure you are feeling well now that you re home. Do you mind if I ask youa few questions related to your hospital stay [...] like to speak with a social work support team assoc to help give you support for any of these needs? No It can be normal to feel anxious or down during a time like this. Would you like to talk to a mental health professional about how you have been feeling? Yes ACTION TAKEN: No action taken Patient has appointments with counseling services in [place] next week. DISCHARGE INTRUCTIONS: Your discharge instructions [...] to help you schedule a hospital follow-up virtualor telephone visit with your PCP. This is a great way for you to connect with your provider to ensure you have safely transitioned home. If you are agreeable, I will send your request to a brass burnisher who will contact and assist you with [...] unless instructed to do so. For any non- emergency symptoms, call your Doctor's office to get instructions on how to manage (we might recommend a telephone or virtualvisit). For emergency symptoms, proceed to Emergency Department as usual but inform them of cough and fever symptoms BART if present (or call on the way if possible). * Avril Gomez RN - 02/16/2023 10:19 AM EDT TRANSITIONAL CARE MANAGEMENT (TCM) COMMUNITY MONITORING PROGRAM - [place] Provider Action/FYI: SUMMARY: Pt discharged from [facility] on 02/15/23. Admitted for: Depression Contact made with patient: No - 2nd unsuccessful attempt - end outreach and close encounter Voicemail not set up. Unable to leave message. Outreach ended * Avril Gomez RN - 02/16/2023 8:25 AM EDT TCM Home Visit Referral Source of Stratification: [facility] Hospital Admission Status: Discharged Readmission Risk Score: 11 NESTOR Score: 1 Patient meets program referral criteria: No Patient does not qualify for High Risk TCM Home Visit program due to: Discharged home, does not meet program criteria Avril Gomez RN February 16, 2023 8:25 AM * Avril Gomez RN - 02/16/2023 8:24 AM EDT TRANSITIONAL CARE MANAGEMENT (TCM) COMMUNITY MONITORING PROGRAM - [place] Provider Action/FYI: SUMMARY: Pt discharged from [facility] on 02/15/23. Admitted for: Depression Contact made with patient: No - next outreach attempt will be on next Outreach ended documented in this encounterMer[facility] NotePatient Outreach (AGACM) HERMINIA GOLDMAN ([id number]) 01 F [facility] Date Time Provider Department 02/16/23 AVRIL GOMEZ During your visit today, we recorded the following information about you: Avril Gomez RN 02/17/2023 10:33 AM Signed TRANSITIONAL CARE MANAGEMENT ([facility]) COMMUNITY MONITORING PROGRAM - [place] Provider Action/FYI: SUMMARY: Pt discharged from [facility] on 02/15/23. Admitted for: Depression Contact made with patient: No - next outreach attempt will be on next business day Outreach ended Avril Gomez RN 02/17/2023 10:33 AM Signed TCM Home Visit Referral Source of Stratification: [facility] Hospital Admission Status: Discharged Readmission Risk Score: 11 NESTOR Score: 1 Patient meets program referral criteria: No Patient does not qualify for High Risk TCM Home Visit program due to: Discharged home, does not meet program criteria Avril Gomez RN February 16, 2023 8:25 AM Avril Gomez RN 02/17/2023 10:33 AM Signed TRANSITIONAL CARE MANAGEMENT ([facility]) COMMUNITY MONITORING PROGRAM - [place] Provider Action/FYI: SUMMARY: Pt discharged from [facility] on 02/15/23. Admitted for: Depression Contact made with patient: No - 2nd unsuccessful attempt - end outreach and close encounter Voicemail not set up. Unable to leave message. Outreach ended Avril Gomez RN 02/17/2023 11:11 AM Signed TRANSITIONAL CARE MANAGEMENT ([facility]) COMMUNITY MONITORING PROGRAM - [place] Provider Action/FYI: Patient's mother reports patient's mental health has not improved. Mother states patient is having panic attacks, is depressed, and has made the statement I would be better off . Mother reports patient refuses to go to ER and also refuses to follow up with PCP because she is embarrassed. Mother reports patient does have appointments for in [place] next week however, I am stressed and worried about her mental health' PCC reviewed if she is worried patient will hurt herself or others, or has made statements of doing so, she can contact law enforcement or [facility] for a well check. PCC reviewed law [...] Routed to provider. SUMMARY: Pt discharged from [facility] on 02/15/23. Admitted for: Depression Contact made with patient: Yes Hi my name is Avril Gomez RN and I am calling from the [facility] on behalf of your PCP, Fiordaliza Zhao APRN.WINDOWS SERVER ENGINEER I understand you were recently in the [...] like to speak with a social work support team assoc to help give you support for any of these needs? No It can be normal to feel anxious or down during a time like this. Would you like to talk to a mental health professional about how you have been feeling? Yes ACTION TAKEN: No action taken Patient has appointments with counseling services in [place] next week. DISCHARGE INTRUCTIONS: Your discharge instructions / After Visit Summary (AVS) are important in guiding you through the recovery process. Do you have any questions related to your discharge instructions? No Do you have all the necessary equipment and supplies at home? NA A (more content not included)...[facility]06-06-2023 NoteHNO ID: [id number] Author: Avril Gomez RN Service: ? Author Type: Registered Nurse Type: Progress Notes Filed: 02/17/2023 10:33 AM Note Text: TRANSITIONAL CARE MANAGEMENT (TCM) COMMUNITY MONITORING PROGRAM - [place] Provider Action/FYI: SUMMARY: Pt discharged from [facility] on 02/15/23. Admitted for: Depression Contact made with patient: No - 2nd unsuccessful attempt - end outreach and close encounter Voicemail not set up. Unable to leave message. Outreach [facility]06-06-2023 NoteHNO ID: [id number] Author: Avril Gomez RN Service: ? Author Type: Registered Nurse Type: Progress Notes Filed: 02/17/2023 10:33 AM Note Text: TCM Home Visit Referral Source of Stratification: [facility] Hospital Admission Status: Discharged Readmission Risk Score: 11 NESTOR Score: 1 Patient meets program referral criteria: No Patient does not qualify for High Risk TCM Home Visit program due to: Discharged home, does not meet program criteria Avril Gomez RN February 16, 2023 8:25 [facility]06-06-2023 NoteHNO ID: [id number] Author: Avril Gomez RN Service: ? Author Type: Registered Nurse Type: Progress Notes Filed: 02/17/2023 10:33 AM Note Text: TRANSITIONAL CARE MANAGEMENT (TCM) COMMUNITY MONITORING PROGRAM - [place] Provider Action/I: SUMMARY: Pt discharged from [facility] on 02/15/23. Admitted for: Depression Contact made with patient: No - next outreach attempt will be on next Outreach [facility]06-04-2023 NoteHNO ID: [id number] Author: Renato Teran MD Service: Psychiatry Author [...] ?F) Resp 18 Ht 157.5 cm (5' 2) Wt 78 kg (172 lb) LMP 12/31/2022 [...] Goldman DATE: February 14, 2023 TIME: 8:13 AM[facility] NoteHNO ID: [id number] Author: Renato Teran MD Service: Psychiatry Author [...] (Oral) Resp 18 Ht 157.5 cm (5' 2) Wt 78 kg (172 lb) LMP 12/31/2022 [...] Goldman DATE: February 13, 2023 TIME: 7:15 [facility]06-01-2023 NoteHNO ID: [id number] Author: Bertha Francois RN Service: Nursing Author [...] Treatment Plan Date Initiated: 02/11/23 Time Initiated: 1704 Patient Participation in Initial Treatment Plan: No [...] Progress Towards Short Term Goals: Not progressing Care Home Goals: Patient will demonstrate optimal level of functioning, Patient/support system will verbalize intent to comply with medication and treatment after discharge, Patient expresses examples of optimism and hope for the future Target Date Care Home Goals: 02/15/23 Progress Towards Care Home Goals: Not progressing Interventions - Nursing: Obtain [...] internally stimulated Date Initiated: 02/11/23 Time Initiated: 1704 Short Term Goals: Decrease symptoms to baseline functioning, Participation in milieu activities, Engage in medication and treatment planning Target Date Short Term Goals: 02/12/23 Progress Towards Short Term Goals: Not progressing Slitter Scorer Goals: Maintain medication adherance, Demonstrate importance of attending outpatient services, Commit to participate in outpatient services, Reduce instances of hospitalization Target Date Care Home Goals: 02/18/23 Progress Towards Slitter Scorer Goals: Not progressing Interventions - Nursing: Reorient [...] RN PATIENT NA (more content not included)... [facility]06-01-2023 NoteHNO ID: [id number] Author: Lis Gomez, DO Service: ? Author [...] last Rx was 10/05/22 Her dad has Mccook's disease, and she is concerned that she [...] taking: Reported on 02/11/2023) 30 tablet 4 Ncznpjzd-Ca-Exb-Fe-FA tab Take 1 tablet by mouth once daily. With folic acid and DHA as covered by insurance (Patient not taking: Reported on 02/11/2023) 30 tablet 11 No current facility-administered medications for this visit. ACTIVE PROBLEM LIST History of Depression Family History of Mccook's Disease Marijuana Use Anxiety Mild Episode of [...] and Memory: Cognition and (more content not included)...[facility]06-01-2023 Miscellaneous Notes* Behavorial Health Intake - Zakia Silva, [facility] - 02/11/2023 10:56 AM EDT BEHAVIORAL HEALTH INTAKE NOTE SERVICE DATE: 02/11/23 SERVICE TIME: 10:57am Nature of the crisis: suicidal threats, aggressive and odd behavior Presenting Problem: Herminia Goldman is a 22 year old female with depression and anxiety brought in to [place] ED from Home by family for increasing [...] risky behaviors such as interacting with males online.She is up all night. Family hx of bipolar disorder. Not compliant with zoloft. Family got a trailerfor her to live separately d/t her aggressive [...] up all the time watching my kid Oglesby. I get his bottle, then I have trouble going back to sleep. I have a hard time sleeping always. She giggles and says she is shy and doesn't like talking to people. She reports, in contrast to mom,that she takes her zoloft, and she upped [...] to be home. She was informed this garden tractor mechanic will further discuss with physicians for plan of care and potential admission. She reluctantly gave permission for thisassessor to speak with mom, why would you need to do that? Ok, I guess. Patient had repeated episodes of agitation r/t not wanting to be hospitalized: yelling, screaming, pacing, crying, threw glasses to floor. Medicated with Haldol, Ativan, Benadryl with good effect. PAST MEDICAL HISTORY: PAST MEDICAL HISTORY Diagnosis Date #[id number] SOCIAL HISTORY: Social History Tobacco Use Smoking [...] Employment Status: Unemployed Is the Patient a [place]: No Stressors: Family, Work Family Issues: 15 mos ; verbally and physically aggressive toward family; nitin when pt was age 17; family hx of huntingtons, which pt is concerned she might have Work Issues: doesn't work, stays home all the time per family Legal History: No Legal History How Legal Issues Were Verified: [facility] Licensed Clinical Social Worker of Courts Website, [place] Department of Justice Sex Offender Website, [place] Licensed Clinical Social Worker of [employer] Website, [facility] Licensed Clinical Social Worker of [employer] Website Gender Specific Sex at Time of : Female Patient Identified Gender: Female Preferred Pronoun: She/Her/Hers Sexual Orientation: Heterosexual Cultural/Lutheran Concerns Cultural Issues or Concerns That Might Affect Treatment: no Lutheran/Spiritual Issues or Concerns That Might Affect Treatment: [...] responded oddly my mom does that for me) Physical Appearance Appears: Average Speech Rate: Slowed Volume: Soft Quality: Bizarre Thought Processes Thought: Illogical, Poor Historian/Green Meat Grader, Difficulty Concentrating Thought Content Delusions: None Observed [...] no hx of psychiatric treatment; primary care prescribedzoloft January 2022; per family pt hasn't been compliant SAFE-T Protocol with C-SSRS Step 1: Identify Risk [...] however, pt making increased suicidal threats, ie todrown self in bathtub. Family taking turns watching [...] Information Obtained: attempted collateral from mom, unable toreach; mom provided collateral to ED physician in person Specific Assessment Data to Support Risk Determination Rationale for Actions Taken and Not Taken: high risk, inpatient level of care indicated Communication of Current Risk Stratification to: Current Medical Providers: Dr Sinha Date 02/11/23 Time11:20am Psychiatrist interior surface insulation worker: Name: Dr Arredondo Date: 02/11/23 Time: 12:51pm [...] Dr Arredondo Admission Status: Full Admit Unit: [facility] Bed#: 54 Report Given To: Earl Report Date: 02/11/23 Report Time: 1350 Admission Type: Medical Certificate Is Patient Less Than 18 Years of Age or have a Guardian/Healthcare Power of Property And Casualty Insurance Agent?: No Disposition Date: 02/11/23 Disposition Time: 1407 SIGNATURE: JESI Magaña PATIENT NAME: Herminia Goldman DATE: February 11, 2023 TIME: 10:57 AM documented in this encounterMercy Health St. [facility]06-01-2023 History of Present illness Narrative* Lis Gomez DO - 02/11/2023 9:41 AM EDT Subjective Depression Pertinent negatives include no weakness. Pertinent negatives include no fever. Pt is here with her mother to discuss mental health issues She has a history of anxiety and depression She has been on zoloft 100 mg in the past, last Rx was 10/05/22 Her dad has Mccook's disease, and she is concerned that she [...] taking: Reported on 02/11/2023) 30 tablet 4 Mtpwberw-Vl-Yxq-Fe-FA tab Take 1 tablet by mouth once daily. With folic acid and DHA as covered by insurance (Patient not taking: Reported on 02/11/2023) 30 tablet 11 No current facility-administered medications for this visit. ACTIVE PROBLEM LIST History of Depression Family History of Mccook's Disease Marijuana Use Anxiety Mild Episode of [...] agreeable Lis Gomez DO documented in this encounterMercy Health St. [facility]01-23-2023 Miscellaneous Notes* Telephone Encounter - Frederic Workman MA - 10/05/2022 8:38 AM EST Last OV 02/18/22 Looks like pt is [...] daily. Frederic Workman MA documented in this encounterMercy Health St. [facility]07-20-2022 Miscellaneous Notes* Telephone Encounter - Virginia Cisneros - 04/01/2022 4:02 PM EDT No Show Documentation Herminia Goldman no showed for an appointment on 04/01/22 with Fiordaliza Zhao APRN.WINDOWS SERVER ENGINEER at 1:00. She was scheduled for depression. I called but no answer. Letter sent to call and reschedule appointment. Resources discussed/offered to patient: No show determined to be fault of patient: N/A This is the patients first no show in the last 12 months. Patient was rescheduled for . Letter mailed : Yes Is this the Third or Fourth No Show? No Virginia Cisneros April 01, 2022 4:02 PM documented in this encounterMercy Health St. [facility]07-20-2022 Miscellaneous Notes* Telephone Encounter - Frederic Workman MA - 04/01/2022 1:06 PM EDT Pt had a virtual visit today tried to contact pt her phone has been disconnected. Tried to contact pts mom VM is full unable to leave VM Frederic Workman MA documented in this [facility]2022 Instructions* Patient Instructions* Fiordaliza Zhao APRN.CNP - 02/18/2022 2:02 PM EDT ASSESSMENT/PLAN: 1. Mild episode of recurrent major depressive disorder (HCC) - ICD9: 296.31, ICD10: F33.0 (primary diagnosis) - Acute on chronic, pt reports no improvement in symptoms. Increase zoloft 100 mg daily. - SERTRALINE 100 MG TABLET 2. Anxiety - ICD9: 300.00, ICD10: F41.9 - Chronic see above - SERTRALINE 100 MG TABLET Fiordaliza Zhao APRN.WINDOWS SERVER ENGINEER documented in this encounterMercy Health St. [facility]2022 History of Present illness Narrative* Fiordaliza Zhao APRN.MARTÍNEZ - 02/18/2022 1:48 PM EDT This note was created using Stamped. Subjective Herminia Goldman is a 21 year old female here today for 5 wks follow up depression and anxiety. She was seen last ov and reported long history of depression and anxiety. She was never treated for thisbut wanted to start medication for this. Symptoms [...] time she feels okay. She denies thoughts ofsuicide or hurting others. Reports her mother is [...] by mouth once daily. 30 tablet 4 Rxgvulqr-Nb-Big-Fe-FA tab Take 1 tablet by mouth once daily. With folic acid and DHA as covered by insurance 30 tablet 11 No current facility-administered medications for this visit. ACTIVE PROBLEM LIST History of Depression Family History of Emery's Disease Marijuana Use Anxiety Mild Episode of Recurrent Major Depressive Disorder (Hcc) PAST MEDICAL HISTORY Diagnosis Date #[id number] PAST SURGICAL HISTORY Procedure Laterality Date TONSILLECTOMY [...] made it for you to do your work,take care of things at home, or get [...] (Oral) Resp 18 Ht 160 cm (5' 3) Wt 93.9 kg (207 lb) LMP 12/31/2021 [...] above - SERTRALINE 100 MG TABLET Fiordaliza Zhao, NITA.WINDOWS SERVER ENGINEER documented in this encounterMercy Health St. [facility]05-06-2022 Miscellaneous Notes* Telephone Encounter - Lottie Perez LPN - 01/16/2022 11:21 AM EDT Julissa from [facility] called requesting information regard patient. Verifiedauthorization for the release of medical information was signed by patient. Information given to Julissa at [facility]. Lottie Perez LPN documented in this encounterMercy Health St. [facility]05-04-2022 Instructions* Patient Instructions* Fiordaliza Zhao APRN.WINDOWS SERVER ENGINEER - 01/14/2022 2:30 PM EDT ASSESSMENT/PLAN: 1. Mild episode of recurrent major depressive disorder (HCC) - ICD9: 296.31, ICD10: F33.0 (primary diagnosis) - start with 1/2 tablet x 1 wk then increase to whole tab once daily. - SERTRALINE 50 MG TABLET 2. Anxiety - ICD9: 300.00, ICD10: F41.9 - chronic, not controlled - SERTRALINE 50 MG TABLET Fiordaliza Zhao APRN.WINDOWS SERVER ENGINEER ANXIETY GENERAL INFORMATION: Anxiety is an uncomfortable feeling that something unpleasant or dangerous will happen. Anxiety attacks sometimes occur after the of a loved one or from a stressful situation such as job or spouse problems. Anxiety is a normal reaction to stress or strong emotion, but, insome people, it becomes too severe for them to control and interferes with daily life. Sometimes, anxiety may be a symptom of a mental or emotional illness, a physical illness (such as an overactive thyroid gland), or withdrawal from tobacco, alcohol, or drugs. During an anxiety attack, you may be jumpy, irritable, and tense and have trouble concentrating or thinking clearly. You may have nausea,diarrhea, blurred vision, sweaty palms, a dry mouth, [...] ambulance (in the [place] and [place], dial [phone]) ?Go to the emergency room at your local hospital ?Call the National Suicide Prevention Lifeline: www.suicidepreventionlifeline.org What are the treatments for depression? People who have depression can: ?Take medicines that relieve depression ?See a counselor (such as a psychiatrist, psychologist, nurse, or social services designee) ?Do both People with depression that is [...] weeks, but it might take 8 to 10weeks to get the greatest benefit. If the first treatment you try does not help you, tell your doctor or nurse, but do not give up. Some people need to try different treatments or combinations of treatments before they find an approach that works. Your doctor, nurse, or counselor can work with you to find the treatment that is rightfor you. He or she can also help you figure out how to cope while you search for the right treatment or are waiting for your treatment to start working. How do I decide which treatment to have? You and your doctor or nurse will need to work together tochoose a treatment for you. Medicines might work a little faster than counseling. But medicines canalso cause side effects. Plus, some people do not like the idea of taking medicine. On the other hand, seeing a counselor involves talking about your feelings with a stranger. That ishard for some people. Is depression the same [...] can cause problems for some teenagers. Even so,some depressed teenagers need medicine. And most experts agree that depression medicine is safe andappropriate to use in teenagers who really need [...] to have your baby. Information obtained from ToDate documented in this encounterMercy Health St. [facility]05-04-2022 History of Present illness Narrative* Fiordaliza Zhao APRN.[facility] - 01/14/2022 2:13 PM EDT This note was created using Tian[employer] Information Technology[employer]. Subjective Herminia Goldman is a 21 year old female here today to establish care and concerns for depression. prevoius PCP Dr Merchant. [facility] depression. I reviewed her past medical, surgical, [...] made it for you to do your work,take care of things at home, or get along with other people? Very difficult ALLERGIES No Known Allergies Current Outpatient Medications Medication Sig Dispense Refill Xovaezga-Xw-Exn-Fe-FA tab Take 1 tablet by mouth once daily. With folic acid and DHA as covered by insurance 30 tablet 11 aspirin, enteric coated (ASPIRIN, ENTERIC COATED) 81 mg EC tablet Take 1 tablet by mouth once daily. 30 tablet 4 No current facility-administered medications for this visit. ACTIVE PROBLEM LIST History of Depression Family History of Emery's Disease Marijuana Use PAST MEDICAL HISTORY Diagnosis Date #[id number] PAST SURGICAL HISTORY Procedure Laterality Date TONSILLECTOMY [...] (Oral) Resp 18 Ht 160 cm (5' 3) Wt 93.9 kg (207 lb) LMP 12/31/2021 YtH082% BMI 36.67 kg/m Physical Exam Vitals and [...] call if persists or worsens Fiordaliza Zhao APRN.WINDOWS SERVER ENGINEER documented in this encounterMercy Health St. [facility]04-21-2022 History of Present illness Narrative* Shante Campos APRN.MARTÍNEZ - 01/01/2022 3:33 PM EDT VISIT Herminia Goldman is a 21 year old year old here for visit. Delivery Summary: 11/20/21 at [facility] ROS/ Recovery: Feeding: Bottle feeding problems: None Menses since delivery: light flow Menstrual pattern prior to : Regular periods [place] since delivery: Not resumed Depression: admits to [...] Pap: never PAST MEDICAL HISTORY Diagnosis Date #[id number] PAST SURGICAL HISTORY Procedure Laterality Date TONSILLECTOMY [...] external genitalia normal, normal Bartholin's glands, urethra, Exira's glands, no vulvar lesions, no cervical lesions, [...] for annual exams and PRN Shante Campos APRN.WINDOWS SERVER ENGINEER documented in this encounterMercy Health St. [facility]12-13-2021 History of Past illness Narrative* Problem Noted Date Resolved Date Abnormal glucose complicating 08/25/2001/01/2022 Overview: 08/25/21 1 hr GTT elevated. 1/3 elevated on 3 hr GTT. SW Unplanned 03/27/2021 01/01/2022 Overview: 03/27/2021Father of the baby is aware that she is but does not want to be involved. He wants to go to college and get on with his life.. He desires a paternity test at . [...] of this encounter (statuses as of 01/01/2022) [facility]12-13-[facility] History of Past illness Narrative* Problem Noted Date Resolved Date Abnormal glucose complicating 08/25/2001/01/2022 Overview: 08/25/21 1 hr GTT elevated. 1/3 elevated on 3 hr GTT. SW Unplanned 03/27/2021 01/01/2022 Overview: 03/27/2021Father of the baby is aware that she is but does not want to be involved. He wants to go to college and get on with his life.. He desires a paternity test at . [...] of this encounter (statuses as of 01/14/2022) [facility]12-13-2021 History of Past illness Narrative* Problem Noted Date Resolved Date Abnormal glucose complicating 08/25/2001/01/2022 Overview: 08/25/21 1 hr GTT elevated. 1/3 elevated on 3 hr GTT. SW Unplanned 03/27/2021 01/01/2022 Overview: 03/27/2021Father of the baby is aware that she is but does not want to be involved. He wants to go to college and get on with his life.. He desires a paternity test at . [...] of this encounter (statuses as of 01/16/2022) [facility]12-13-2021 History of Past illness Narrative* Problem Noted Date Resolved Date Abnormal glucose complicating 08/25/2001/01/2022 Overview: 08/25/21 1 hr GTT elevated. 09/15 elevated on 3 hr GTT. SW Unplanned 03/27/2021 01/01/2022 Overview: 03/27/2021Father of the baby is aware that she is but does not want to be involved. He wants to go to college and get on with his life.. He desires a paternity test at . [...] of this encounter (statuses as of 02/18/2022) [facility]12-13-2021 History of Past illness Narrative* Problem Noted Date Resolved Date Abnormal glucose complicating 08/25/2001/01/2022 Overview: 08/25/21 1 hr GTT elevated. 1/3 elevated on 3 hr GTT. SW Unplanned 03/27/2021 01/01/2022 Overview: 03/27/2021Father of the baby is aware that she is but does not want to be involved. He wants to go to college and get on with his life.. He desires a paternity test at . [...] of this encounter (statuses as of 04/01/2022) [facility]12-13-2021 History of Past illness Narrative* Problem Noted Date Resolved Date Abnormal glucose complicating 08/25/2001/01/2022 Overview: 08/25/21 1 hr GTT elevated. 1/3 elevated on 3 hr GTT. SW Unplanned 03/27/2021 01/01/2022 Overview: 03/27/2021Father of the baby is aware that she is but does not want to be involved. He wants to go to college and get on with his life.. He desires a paternity test at . [...] of this encounter (statuses as of 04/01/2022) [facility]12-13-2021 History of Past illness Narrative* Problem Noted Date Resolved Date Abnormal glucose complicating 08/25/2001/01/2022 Overview: 08/25/21 1 hr GTT elevated. 1/3 elevated on 3 hr GTT. SW Unplanned 03/27/2021 01/01/2022 Overview: 03/27/2021Father of the baby is aware that she is but does not want to be involved. He wants to go to college and get on with his life.. He desires a paternity test at . [...] of this encounter (statuses as of 10/05/2022) [facility]12-13-2021 History of Past illness Narrative* Problem Noted Date Resolved Date Abnormal glucose complicating 08/25/2001/01/2022 Overview: 08/25/21 1 hr GTT elevated. 1/3 elevated on 3 hr GTT. SW Unplanned 03/27/2021 01/01/2022 Overview: 03/27/2021Father of the baby is aware that she is but does not want to be involved. He wants to go to college and get on with his life.. He desires a paternity test at . [...] of this encounter (statuses as of 02/11/2023) [facility]12-13-2021 History of Past illness Narrative* Problem Noted Date Resolved Date Abnormal glucose complicating 08/25/2001/01/2022 Overview: 08/25/21 1 hr GTT elevated. 1/3 elevated on 3 hr GTT. SW Unplanned 03/27/2021 01/01/2022 Overview: 03/27/2021Father of the baby is aware that she is but does not want to be involved. He wants to go to college and get on with his life.. He desires a paternity test at . [...] of this encounter (statuses as of 02/11/2023) [facility]12-13-2021 History of Past illness Narrative* Problem Noted Date Resolved Date Abnormal glucose complicating 08/25/2001/01/2022 Overview: 08/25/21 1 hr GTT elevated. 1/3 elevated on 3 hr GTT. SW Unplanned 03/27/2021 01/01/2022 Overview: 03/27/2021Father of the baby is aware that she is but does not want to be involved. He wants to go to college and get on with his life.. He desires a paternity test at . [...] of this encounter (statuses as of 02/17/2023) [facility]12-13-2021 History of Past illness Narrative* Problem Noted Date Resolved Date Abnormal glucose complicating 08/25/2001/01/2022 Overview: 08/25/21 1 hr GTT elevated. 1/3 elevated on 3 hr GTT. SW Unplanned 03/27/2021 01/01/2022 Overview: 03/27/2021Father of the baby is aware that she is but does not want to be involved. He wants to go to college and get on with his life.. He desires a paternity test at . [...] of this encounter (statuses as of 02/24/2023) [facility]12-13-2021 History of Past illness Narrative* Problem Noted Date Resolved Date Abnormal glucose complicating 08/25/2001/01/2022 Overview: 08/25/21 1 hr GTT elevated. 1/3 elevated on 3 hr GTT. SW Unplanned 03/27/2021 01/01/2022 Overview: 03/27/2021Father of the baby is aware that she is but does not want to be involved. He wants to go to college and get on with his life.. He desires a paternity test at . [...] of this encounter (statuses as of 02/26/2023) [facility]12-13-2021 History of Past illness Narrative* Problem Noted Date Diagnosed Date Resolved Date Abnormal glucose complicating 08/25/2021 01/01/2022 Overview: 08/25/21 1 hr GTT elevated. 1/3 elevated on 3 hr GTT. SW Unplanned 03/27/2021 01/02/20 22 Overview: 03/27/2021Father of the baby is aware that she is but does not want to be involved. He wants to go to college and get on with his life.. He desires a paternity test at . [...] of this encounter (statuses as of 03/24/2023) [facility]12-13-2021 History of Past illness Narrative* Problem Noted Date Diagnosed Date Resolved Date Abnormal glucose complicating 08/25/2021 01/01/2022 Overview: 08/25/21 1 hr GTT elevated. 1/3 elevated on 3 hr GTT. SW Unplanned 03/27/2021 01/02/20 Overview: 03/27/2021Father of the baby is aware that she is but does not want to be involved. He wants to go to college and get on with his life.. He desires a paternity test at . [...] of this encounter (statuses as of 03/26/2023) [facility]12-13-2021 History of Past illness Narrative* Problem Noted Date Diagnosed Date Resolved Date Abnormal glucose complicating 08/25/2021 01/01/2022 Overview: 08/25/21 1 hr GTT elevated. 1/3 elevated on 3 hr GTT. SW Unplanned 03/27/2021 01/02/20 Overview: 03/27/2021Father of the baby is aware that she is but does not want to be involved. He wants to go to college and get on with his life.. He desires a paternity test at . [...] of this encounter (statuses as of 03/27/2023) [facility]12-13-2021 History of Past illness Narrative* Problem Noted Date Diagnosed Date Resolved Date Abnormal glucose complicating 08/25/2021 01/01/2022 Overview: 08/25/21 1 hr GTT elevated. 1/3 elevated on 3 hr GTT. SW Unplanned 03/27/2021 01/02/20 Overview: 03/27/2021Father of the baby is aware that she is but does not want to be involved. He wants to go to college and get on with his life.. He desires a paternity test at . [...] of this encounter (statuses as of 04/01/2023) [facility]12-13-2021 History of Past illness Narrative* Problem Noted Date Diagnosed Date Resolved Date Abnormal glucose complicating 08/25/2021 01/01/2022 Overview: 08/25/21 1 hr GTT elevated. 1/3 elevated on 3 hr GTT. SW Unplanned 03/27/2021 01/02/20 22 Overview: 03/27/2021Father of the baby is aware that she is but does not want to be involved. He wants to go to college and get on with his life.. He desires a paternity test at . [...] of this encounter (statuses as of 04/02/2023) [facility]12-13-2021 History of Past illness Narrative* Problem Noted Date Diagnosed Date Resolved Date Abnormal glucose complicating 08/25/2021 01/01/2022 Overview: 08/25/21 1 hr GTT elevated. 1/3 elevated on 3 hr GTT. SW Unplanned 03/27/2021 01/02/20 Overview: 03/27/2021Father of the baby is aware that she is but does not want to be involved. He wants to go to college and get on with his life.. He desires a paternity test at . [...] of this encounter (statuses as of 04/08/2023) [facility]12-13-2021 History of Past illness Narrative* Problem Noted Date Diagnosed Date Resolved Date Abnormal glucose complicating 08/25/2021 01/01/2022 Overview: 08/25/21 1 hr GTT elevated. 1/3 elevated on 3 hr GTT. SW Unplanned 03/27/2021 01/02/20 Overview: 03/27/2021Father of the baby is aware that she is but does not want to be involved. He wants to go to college and get on with his life.. He desires a paternity test at . [...] of this encounter (statuses as of 05/25/2023) [facility]12-13-2021 History of Past illness Narrative* Problem Noted Date Diagnosed Date Resolved Date Abnormal glucose complicating 08/25/2021 01/01/2022 Overview: 08/25/21 1 hr GTT elevated. 1/3 elevated on 3 hr GTT. SW Unplanned 03/27/2021 01/02/20 22 Overview: 03/27/2021Father of the baby is aware that she is but does not want to be involved. He wants to go to college and get on with his life.. He desires a paternity test at . [...] of this encounter (statuses as of 06/01/2023) [facility]12-13-2021 History of Past illness Narrative* Problem Noted Date Diagnosed Date Resolved Date Abnormal glucose complicating 08/25/2021 01/01/2022 Overview: 08/25/21 1 hr GTT elevated. /3 elevated on 3 hr GTT. SW Unplanned 03/27/2021 01/02/20 22 Overview: 03/27/2021Father of the baby is aware that she is but does not want to be involved. He wants to go to college and get on with his life.. He desires a paternity test at . [...] of this encounter (statuses as of 06/23/2023) [facility] Diagnosis care and examination- Primary Routine follow-up Vaginal odor Unspecified symptom associated with female genital organs documented [facility] this [facility] Diagnosis Mild episode of recurrent major depressive disorder (HCC)- Primary Anxiety Anxiety state, unspecified documented in this encounter [facility] note* Diagnosis Mild episode of recurrent major depressive disorder (HCC)- Primary Anxiety Anxiety state, unspecified documented in this encounter [facility] note* Diagnosis Mild episode of recurrent major depressive disorder (HCC) Anxiety Anxiety state, unspecified documented in this encounter [facility] note* Diagnosis Suicidal ideation- Primary documented in this encounter [facility] note* Diagnosis Major depressive disorder, single episode, severe with psychotic features (HCC)- Primary Major depressive disorder, single episode, severe, specified as with psychotic behavior documented in this encounter [facility] note* Diagnosis 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 Emery's disease- Primary 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 other neurological diseases Anxiety Anxiety state, unspecified Mild episode of recurrent major depressive disorder (HCC) documented in this encounter [facility] noteNo assessment information availableWMagruder Hospital Work Phone: Evaluation note* Diagnosis 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 Mccook's chorea- Primary 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 other neurological diseases documented in this encounter [facility] note* Diagnosis MDD (major depressive disorder), recurrent episode, moderate (HCC)- Primary Major depressive disorder, recurrent episode, moderate Anxiety Anxiety state, unspecified 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 Mccook's disease 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 other neurological diseases documented in this encounter [facility] for referral (narrative)No reason for referral information availableWMagruder Hospital Work Phone: Health Concerns Infection Onset Date Last Indicated Resolved Time COVID-19 Rule-Out 02/11/2023 02/11/2023 02/11/2023 12:03 PM EDT Summary Purpose Family History No Family History Records FoundNo Family History Records FoundNo Family History Records FoundNo Family History Records FoundNo Family History Records Found Advance Directives No Advanced Directives Records Found Advance Directive Response Recorded Date/ Time Living Will No April 04, 2023 3:55pm Power of Property And Casualty Insurance Agent No April 04 3:55pm Advance Directive Response Recorded Date/ Time Living Will No August 12 023 10:14pm Power of Property And Casualty Insurance Agent No August 12, 2023 10:14pm Advance Directive Response Recorded Date/ Time Living Will No September 15 4:32am Power of Property And Casualty Insurance Agent No September 15 024 4:32am Advance Directive Response Recorded Date/ Time Living Will No November 07, 024 9:22am Power of Property And Casualty Insurance Agent No November 07, 2023 9:22am Advance Directive Response Recorded Date/ Time Do you have a Healthcare Power of Property And Casualty Insurance Agent? No March 12, 2025 3:27pm Reason for Referral Specialty Diagnoses / Procedures Referred By Fernando t Referred To Contact Diagnoses 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 Mccook's disease Procedures CONSULT TO MEDICAL GENETICS - GENERAL OFFICE/OUTPATIENT [facility] 60-74 MINUTES MEDICAL GENETICS COUNSELING EACH 30 [place] [address] [place] [address] [facility] [address] [place] [address] Referral ID Status Reason Start Date Expiration Date Visits Requested Visits Authorized [id number] Authorized PCP Requested Referral Auto-Generate d Referral 03/26/2023 03/25/2024 1 1 Chief Complaint and Reason for Visit Chief Complaint SI Chief Complaint SEXUAL SANE Chief Complaint SEXUAL SANE vagina burning Chief Complaint SEXUAL SANE vagina burning DOESN'T FEEL WELL Chief Complaint Admit Date general March 12, 2025 3:07 pm Additional Source Comments Source Comments (unrecognize d section and content) In the event this informatio n is protected by the Federal Confidentiality of Alcohol and Drug Abuse Patient Records regulations: The Federal rules restrict any use of the information to criminally investigate or prosecute any alcohol or drug abuse patient.[facility] the event this information is protected by the Federal Confidentiality of Alcohol and Drug Abuse Patient Records regulations: The Federal rules restrict any use of the information to criminally investigate or prosecute any alcohol or drug abuse patient.[facility]In the event this information is protected by the Federal Confidentiality of Alcohol and Drug Abuse Patient Records regulations: The Federal rules restrict any use of the information to criminally investigate or prosecute any alcohol or drug abuse patient.[facility] HospitalIn the event this information is protected by the Federal Confidentiality of Alcohol and Drug Abuse Patient Records regulations: The Federal rules restrict any use of the information to criminally investigate or prosecute any alcohol or drug abuse patient.[facility] the event this information is protected by the Federal Confidentiality of Alcohol and Drug Abuse Patient Records regulations: The Federal rules restrict any use of the information to criminally investigate or prosecute any alcohol or drug abuse patient.[facility] HospitalIn the event this information is protected by the Federal Confidentiality of Alcohol and Drug Abuse Patient Records regulations: The Federal rules restrict any use of the information to criminally investigate or prosecute any alcohol or drug abuse patient.[facility] HospitalIn the event this information is protected by the Federal Confidentiality of Alcohol and Drug Abuse Patient Records regulations: The Federal rules restrict any use of the information to criminally investigate or prosecute any alcohol or drug abuse patient.[facility] HospitalIn the event this information is protected by the Federal Confidentiality of Alcohol and Drug Abuse Patient Records regulations: The Federal rules restrict any use of the information to criminally investigate or prosecute any alcohol or drug abuse patient.[facility] HospitalIn the event this information is protected by the Federal Confidentiality of Alcohol and Drug Abuse Patient Records regulations: The Federal rules restrict any use of the information to criminally investigate or prosecute any alcohol or drug abuse patient.[facility] HospitalIn the event this information is protected by the Federal Confidentiality of Alcohol and Drug Abuse Patient Records regulations: The Federal rules restrict any use of the information to criminally investigate or prosecute any alcohol or drug abuse patient.[facility] HospitalIn the event this information is protected by the Federal Confidentiality of Alcohol and Drug Abuse Patient Records regulations: The Federal rules restrict any use of the information to criminally investigate or prosecute any alcohol or drug abuse patient.[facility] HospitalIn the event this information is protected by the Federal Confidentiality of Alcohol and Drug Abuse Patient Records regulations: The Federal rules restrict any use of the information to criminally investigate or prosecute any alcohol or drug abuse patient.[facility] HospitalIn the event this information is protected by the Federal Confidentiality of Alcohol and Drug Abuse Patient Records regulations: The Federal rules restrict any use of the information to criminally investigate or prosecute any alcohol or drug abuse patient.[facility] HospitalIn the event this information is protected by the Federal Confidentiality of Alcohol and Drug Abuse Patient Records regulations: The Federal rules restrict any use of the information to criminally investigate or prosecute any alcohol or drug abuse patient.[facility] HospitalIn the event this information is protected by the Federal Confidentiality of Alcohol and Drug Abuse Patient Records regulations: The Federal rules restrict any use of the information to criminally investigate or prosecute any alcohol or drug abuse patient.[facility] HospitalIn the event this information is protected by the Federal Confidentiality of Alcohol and Drug Abuse Patient Records regulations: The Federal rules restrict any use of the information to criminally investigate or prosecute any alcohol or drug abuse patient.[facility] HospitalIn the event this information is protected by the Federal Confidentiality of Alcohol and Drug Abuse Patient Records regulations: The Federal rules restrict any use of the information to criminally investigate or prosecute any alcohol or drug abuse patient.[facility] HospitalIn the event this information is protected by the Federal Confidentiality of Alcohol and Drug Abuse Patient Records regulations: The Federal rules restrict any use of the information to criminally investigate or prosecute any alcohol or drug abuse patient.[facility] HospitalIn the event this information is protected by the Federal Confidentiality of Alcohol and Drug Abuse Patient Records regulations: The Federal rules restrict any use of the information to criminally investigate or prosecute any alcohol or drug abuse patient.[facility] HospitalIn the event this information is protected by the Federal Confidentiality of Alcohol and Drug Abuse Patient Records regulations: The Federal rules restrict any use of the information to criminally investigate or prosecute any alcohol or drug abuse patient.[facility] HospitalIn the event this information is protected by the Federal Confidentiality of Alcohol and Drug Abuse Patient Records regulations: The Federal rules restrict any use of the information to criminally investigate or prosecute any alcohol or drug abuse patient.[facility] HospitalIn the event this information is protected by the Federal Confidentiality of Alcohol and Drug Abuse Patient Records regulations: The Federal rules restrict any use of the information to criminally investigate or prosecute any alcohol or drug abuse patient.[facility] Reason for Visit (unrecogniz ed section and [...] Comments Transition Of Care 02/16/2023 D/C from [facility] 02/15/23 Reason Comments Patient Question Reason Comments [facility] Put referral for Saulo rology on [facility] 03/10/23 Reason Comments New Patient Evaluation Specialty Diagnoses / Procedures Referred By Contac t Referred To Contact Neurology Diagnoses Anxiety 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 Mccook's disease Mild episode of recurrent major depressive disorder (HCC) Procedures CONSULT TO NEUROLOGY OFFICE/OUTPATIENT NEW HIGH MDM 60-74 MINUTES Fiordaliza Zhao, CONDITIONER TENDER.WINDOWS SERVER ENGINEER [address] [place] [address] [address] Referral ID Status Reason Start Date Expiration Date V isits Requested Visits Authorized [id number] Closed PCP Requested Referral 03/10/2023 03/09/2024 1 1 Reason Comments Patient Update Agitation Reason Comments Returning Patient's Call Reason Comments Consult Reason Comments [facility] Put referral for Psy chiatry on [facility] 03/10/23 Care Teams (unrecognized sec tion and content) Functional Tester Relationship Specialty Start Date End Date Tasha Merchant MD [address] [place] [address] PCP - General Internal Medicine 07/06/19 Functional Tester Relationship Specialty Start Date End Date Fiordaliza Zhao, CONDITIONER TENDER.WINDOWS SERVER ENGINEER [address] [place] [address] PCP - General Internal Medicine 01/14/22 Functional Tester Relationship Specialty Start Date End Date Fiordaliza Zhao, CONDITIONER TENDER.WINDOWS SERVER ENGINEER [address] [facility] [place] [address] PCP - General Internal Medicine 01/14/22 Functional Tester Relationship Specialty Start Date End Date Fiordaliza Zhao, CONDITIONER TENDER.WINDOWS SERVER ENGINEER [address] [facility] [place] [address] PCP - General Internal Medicine 01/14/22 Functional Tester Relationship Specialty Start Date End Date Fiordaliza Zhao, CONDITIONER TENDER.WINDOWS SERVER ENGINEER [address] [facility] [place] [address] PCP - General Internal Medicine 01/14/22 Functional Tester Relationship Specialty Start Date End Date Fiordaliza Zhao, CONDITIONER TENDER.WINDOWS SERVER ENGINEER [address] [facility] [place] [address] PCP - General Internal Medicine 01/14/22 Functional Tester Relationship Specialty Start Date End Date Fiordaliza Zhao, CONDITIONER TENDER.WINDOWS SERVER ENGINEER [address] [facility] [place] [address] PCP - General Internal Medicine 01/14/22 Functional Tester Relationship Specialty Start Date End Date Fiordaliza Zhao, CONDITIONER TENDER.WINDOWS SERVER ENGINEER [address] [place] [address] PCP - General Internal Medicine 01/14/22 Functional Tester Relationship Specialty Start Date End Date Fiordaliza Zhao, CONDITIONER TENDER.WINDOWS SERVER ENGINEER [address] [place] [address] PCP - General Internal Medicine 01/14/22 Functional Tester Relationship Specialty Start Date End Date Fiordaliza Zhao, CONDITIONER TENDER.WINDOWS SERVER ENGINEER [address] [place] [address] PCP - General Internal Medicine 01/14/22 Functional Tester Relationship Specialty Start Date End Date Fiordaliza Zhao, CONDITIONER TENDER.WINDOWS SERVER ENGINEER [address] [place] [address] PCP - General Internal Medicine 01/14/22 Functional Tester Relationship Specialty Start Date End Date Fiordaliza Zhao, CONDITIONER TENDER.WINDOWS SERVER ENGINEER [address] [place] [address] PCP - General Internal Medicine 01/14/22 Fiordaliza Zhao, CONDITIONER TENDER.WINDOWS SERVER ENGINEER [address] [place] [address] Referring Internal Medicine 03/21/23 Functional Tester Relationship Specialty Start Date End Date Fiordaliza Zhao, CONDITIONER TENDER.WINDOWS SERVER ENGINEER [address] [place] [address] PCP - General Internal Medicine 01/14/22 Fiordaliza Zhao, CONDITIONER TENDER.WINDOWS SERVER ENGINEER [address] [place] [address] Referring Internal Medicine 03/21/23 Functional Tester Relationship Specialty Start Date End Date Fiordaliza Zhao, CONDITIONER TENDER.WINDOWS SERVER ENGINEER [address] [place] [address] PCP - General Internal Medicine 01/14/22 Fiordaliza Zhao, CONDITIONER TENDER.WINDOWS SERVER ENGINEER [address] [place] [address] Referring Internal Medicine 03/21/23 Functional Tester Relationship Specialty Start Date End Date Fiordaliza Zhao, CONDITIONER TENDER.WINDOWS SERVER ENGINEER [address] [place] [address] PCP - General Internal Medicine 01/14/22 Fiordaliza Zhao, CONDITIONER TENDER.WINDOWS SERVER ENGINEER [address] [place] [address] Referring Internal Medicine 03/21/23 Functional Tester Relationship Specialty Start Date End Date Fiordaliza Zhao, CONDITIONER TENDER.WINDOWS SERVER ENGINEER [address] [place] [address] PCP - General Internal Medicine 01/14/22 Fiordaliza Zhao, CONDITIONER TENDER.WINDOWS SERVER ENGINEER [address] [place] [address] Referring Internal Medicine 03/21/23 Team Status: Active Member Role Status Dates No Primary Care Physician Family Provider Active No Primary Care Physician Primary Care Provider Active Team Status: Inactive Member Role Status Dates No Primary Care Physician Primary Care Provider Active Dr. Kareem Jacob MD Emergency Provider Active Functional Tester Relationship Specialty Start Date End Date Fiordaliza Zhao, CONDITIONER TENDER.WINDOWS SERVER ENGINEER [address] [place] [address] PCP - General Internal Medicine 01/14/22 Fiordaliza Zhao, CONDITIONER TENDER.WINDOWS SERVER ENGINEER [address] [place], [place] [id number] Referring Internal Medicine 03/21/23 Functional Tester Relationship Specialty Start Date End Date Fiordaliza Zhao, CONDITIONER TENDER.WINDOWS SERVER ENGINEER [address] [place], [place] [id number] PCP - General Internal Medicine 01/14/22 Fiordaliza Zhao, CONDITIONER TENDER.WINDOWS SERVER ENGINEER [address] [place] [address] Referring Internal Medicine 03/21/23 Functional Tester Relationship Specialty Start Date End Date Fiordaliza Zhao CONDITIONER TENDER.WINDOWS SERVER ENGINEER [address] [place] [address] PCP - General Internal Medicine 01/14/22 Fiordaliza Zhao, CONDITIONER TENDER.WINDOWS SERVER ENGINEER [address] [place] [address] Referring Internal Medicine 03/21/23 Team Status: Active Member Role Status Dates No Primary Care Physician Family Provider Active SANE Nurse Primary Care Provider Active Team Status: Inactive Member Role Status Dates No Primary Care Physician Primary Care Provider Active Dr. Issa Mena MD Emergency Provider Active Team Status: Active Member Role Status Dates SANE Nurse Primary Care Provider, Attending Provider Active Team Status: Inactive Member Role Status Dates SANE Nurse Primary Care Provider, Attending Provider Active Team Status: Inactive Member Role Status Dates No Primary Care Physician Primary Care Provider Active Dr. Issa Mena MD Attending Provider, Emergency Provider Active Team Status: Inactive Member Role Status Dates No Primary Care Physician Primary Care Provider Active Dr. Joie Greene MD Emergency Provider Active Team Status: Inactive Member Role Status Dates No Primary Care Physician Primary Care Provider Active Dr. Joie Greene MD Attending Provider, Emergency Provider Active Functional Tester Relationship Specialty Start Date End Date Fiordaliza Zhao, CONDITIONER TENDER.WINDOWS SERVER ENGINEER [address] [facility], [place] [id number] PCP - General Internal Medicine 01/14/22 Fiordaliza Zhao, CONDITIONER TENDER.WINDOWS SERVER ENGINEER [address] [place] [address] Referring Internal Medicine 03/21/23 Team Status: Active Member Role/Relationship Status Dates [facility] Primary Care Provider A ctive Team Status: Inactive Member Role/Relationship Status Dates [facility] Primary Care Provider A ctive Start: March 12, 2025 End: March 13, 2025 Dr. Dax Boyd , DO Emergency Provider Active Start: March 12, 2025 End: March 13, 2025 INFORMATION SOURCE (unrecogn ized section and content) DATE CREATED AUTHOR 02/22/2023 [facility] DATE CREATED AUTHOR AUTHOR'S ORGANIZ ATION 04/09/2023 [facility] DATE CREATED AUTHOR AUTHOR'S ORGANIZ ATION 09/19/2023 [facility] DATE CREATED AUTHOR AUTHOR'S ORGANIZ ATION 02/09/2024 [facility] DATE CREATED AUTHOR AUTHOR'S ORGANIZ ATION 03/25/2025 [facility] Goals (unrecognized section and content) Goals may be documented in a n alternate sectionGoals may be documented in an alternate sectionGoals may be documented in an alternate sectionGoals may be documented in an alternate sectionGoals may be documented in an alternate sectionGoals may be documented in an alternate section FOR RECORDS PERTAINING TO PATIENTS WHO ARE [...] BE BASED ON THE PRIMARY CLINICAL RECORDS. [employer] [facility]. provides no warranty or guarantee of the accuracy or completeness of information in this document.
--- OUTSIDE RECORDS SUMMARY | 2025-03-27 22:32 | XMS RPT_ITS | CCD ---
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 Name Role Phone Tasha Merchant MD Primary Care Provider Cece BUSINESS ANALYST INTERN.Fiordaliza SOLIZ Primary Care Provider Cece BUSINESS ANALYST INTERN.Fiordaliza SOLIZ Primary Care Provider FIORDALIZA ZHAO Primary Care Unavailable SEGUNDO MARKHAM Admitting Unavailab SARAH Serrano Consulting Unavailable RENATO TERAN Attending Unavailable Cece BUSINESS ANALYST INTERN.Fiordaliza SOLIZ Unavailable [phone] SYSTEM, PROVIDER NOT IN Primary Care UnavailHARLEY Goode Attending Unavaila ble FIORDALIZA ZHAO Primary Care Unavailable SCOTT MATA Attending Unavailable FIORDALIZA ZHAO Primary Care Unavailable ANNALISE SMITH Attending Unavailable ALFRED ZHAOE M Primary Care Unavailable ÁLVARO ZAVALA Attending Unava ilable FIORDALIZA ZHAO Primary Care Unavailable ALFRED ZHAOE M Referring Unavailable Cece BUSINESS ANALYST INTERN.Fiordaliza SOLIZ Primary Care Provider ANA THORNTON Attending Unavaila ble ALFRED ZHAOE Amada Primary Care Unavailable ALFRED ZHAOE M Primary Care Unavailable SHAYY SINHA Attending Unavailable ALFRED ZHAOE M Primary Care Unavailable LIS GOMEZ Attending Unavailable ALFRED ZHAOE M Primary Care Unavailable SELF Referring Unavailable FIORDALIZA ZHAO Attending Unavailable [facility] Pro vider Dr. Dax Boyd DO Emergency Provider Sarahy Hardy Attending Unavailable [facility] Primary Care Unavailable Jose Luis Alejandro Attending [facility], [facility] Primary Care Unavailable [facility], [facility] Primary Care Unavailable Naren Kingston Attending Unavailable Dax Boyd Attending [facility], [facility] Unavailable Allergies Allergy Classification Reported Allergen(s) Allergy Type Date of Onset Reaction(s) Facility (1 source) Cinnamon Preparation Drug Allergy 03-12-2025 Anaphylaxis [facility] (1 source) Cinnamon Preparation Drug Allergy 03-12-2025 [facility] Repository Medications Current Medications Medication Drug Class(es) [...] WITH FOOD 14 tablet 0 02/06/2024 Active Gann (Nk) (2 sources) Start: 11-07-2023 Gann (Nk) Active November 07, 2023 1:00am Start: 11-07-2023 Gann (Nk) A ctive November 07, 2023 12:00am [...] tablet by francesca th once daily. Pnv No.910-Bv-Ol8-Dha-Epa- Fish ( Gummies) 400 mcg-35 mg- 25 mg-5 mg Tablet,Chewable (6 sources) Start: 11-19-2021 End: 09-15-2023 Pnv No.224-Mt-Pu8-Wzx-Zip-Ubmi ( Gummies) 400 mcg-35 mg- 25 mg-5 mg Tablet,Chewable Discontinued 2 {tbl} PO DAILY November 19, 2021 1:00am September 15, 2023 5:37am Start: 11-19-2021 End: 09-15-2023 take 2 tablets by mouth once daily Pnv No.862-Kc-Yt5-Xak-Zgm-Ghzl ( Gummies) 400 mcg-35 mg- 25 mg-5 mg Tablet,Chewable Discontinued 2 TABLET PO DAILY November 19, 2021 12:00am September 15, 2023 4:37am Start: 11-19-2021 take 2 tablets by mo uth once daily Pnv No.258-Oq-Li8-Mgc-Rao-Awqh ( Gummies) 400 mcg-35 mg- 25 mg-5 mg Tablet,Chewable Active 2 TABLET PO DAILY November 19, 2021 12:00am Start: 11-19-2021 take 2 tablets by [facility] once daily [facility] No.428-Ql-Fi2-Ijh-Anz-Uays ( Gummies) 400 mcg-35 mg- 25 mg-5 mg Tablet,Chewable Active 2 TABLET PO DAILY November 19, 2021 1:00am Bpqzmgov-Wj-Mwi-Fe-FA tab (8 sources) Start: 03-14-2021 End: 02-11-2023 take 1 tablet by mouth once daily Ywvpkflh-Af-Hzu-Fe-FA tab Take 1 tablet by mouth once daily. With folic acid and DHA as covered by insurance 30 tablet 11 03/14/2021 02/11/2023 Discontinued (Other) Start: 03-14-2021 take 1 tablet by [facility] once daily Zkhcyoqz-Mc-Qjs-Fe-FA tab Take 1 tablet by mouth once daily. With folic acid and DHA as covered by insurance 30 tablet 11 03/14/2021 Active Comment on above: Take 1 tablet by [facility] once daily. With folic acid and DHA [...] Comment on above: Take 1 tablet by [facility] once daily. 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; Translations: [On angiotensin receptor [...] Episodic Residual codes; unclassified (20 sources) FH: Peoria's chorea; Translations: [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 epilepsy and other diseases of the nervous system] Onset: 03-27-2021 04-04-2021 Episodic Residual codes; unclassified (2 sources) 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 epilepsy and other diseases of the nervous system; Translations: [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 Pe[place]'s disease] Onset: 04-04-2021 Episodic Screening and history [...] Auto (Unsp spec) [#/Vol] 2.44 10*3/uL 0.83-4.51 [facility] Absolute neutrophil countOrd ered By: Dax Boyd on 03-12-2025 Neutrophils (Bld) [#/Vol] 2.9 10*3/uL 2.0-7.7 [facility] Amphetamine detection with 1 000 ng/mL as cutoffOrdered By: Dax Boyd on 03-12-2025 Amphetamines Screen method >1000 ng/mL Ql (U) Positive <1000 ng/mL [facility] Comment on above: If confirmation test ing is needed, a separate order will be required to send out testing to the reference laboratory. Amphetamines Screen method >1000 ng/mL Ql (U) Negative < 200 ng/mL [facility] Anion gap in Serum or Plasma Ordered By: Dax Boyd on 03-12-2025 Anion gap [Moles/Vol] 9 mmol/L 5-15 [facility] Automated lymphocyte count a s percentage of total leukocytesOrdered By: Dax Boyd on 03-12-2025 Lymphocytes/100 WBC Auto (Unsp spec) 40.9 % [facility] BUN/creatinine ratioOrdered By: Dax Deb on 03-12-2025 Urea nitrogen/Creatinine [Mass ratio] 9.0 mg/mg Low 10-20 [facility] Basophil percentageOrdered B y: Dax Boyd on 03-12-2025 Basophils/100 WBC (Bld) 0.5 % 0-1 [facility] Bilirubin Test strip Ql (U)O rdered By: Dax Boyd on 03-12-2025 Bilirubin Ql (U) Negative Negative [facility] Bilirubin, totalOrdered By: Dax Boyd on 03-12-2025 Bilirubin [Mass/Vol] 0.18 mg/dL 0.00-1.30 [facility] Brain/Head without Contrasto n 03-12-2025 Brain/Head without Contrast [facility] Imaging Services [address] [place] [address] Brain/Head without Contrast MR#: [id number] Acct: [id number] Name: HERMINIA GOLDMAN Rep #: [id number] : 2000 F 24 From: Alan Ortega PCP: [facility] Status: REG ER Study: Brain/Head without Contrast Date of Exam: 02/13 Exam# [id number] Ordering Dr: Dax Boyd DO PROCEDURE: BRAIN/HEAD [...] IMPRESSION: No acute intracranial process. Reading Location: [id number] CC: Dr. Dax Boyd DO; [facility] Territory Sales Representative: Signed Normal [facility] CBC W/Diff, Automatedon 06-3 0-2024 Absolute Lymph 2.44 X10 3/uL Normal 0.83-4.51 [facility] Comment on above: Performed By: #### L 700.6800 #### [facility] Laboratory [address] [place], [address] Absolute Neut 2.9 X10 3/uL Normal 2.0-7.7 [facility] Comment on above: Performed By: #### L 700.6800 #### [facility] [address] [place], [address] Basophils/100 WBC (Bld) 0.5 % Normal 0-1 [facility] Comment on above: Performed By: #### L 700.6800 #### [facility] [address] [place], [address] Eosinophils/100 WBC (Bld) 3.0 % Normal 0-5 [facility] Comment on above: Performed By: #### L 700.6800 #### [facility] [address] [place], [address] Erythrocyte distribution width (RBC) [Ratio] 12.6 % Normal 11.6-14.6 [facility] Comment on above: Performed By: #### L 700.6800 #### [facility] [address] [place], [address] Hematocrit (Bld) [Volume fraction] 37.8 % Normal 37-47 [facility] Comment on above: Performed By: #### L 700.6800 #### [facility] [address] [place], [address] Hemoglobin (Bld) [Mass/Vol] 12.8 g/dL Normal 12.0-15.0 [facility] Comment on above: Performed By: #### L 700.6800 #### [facility] [address] [place], [address] IG% 0.300 Normal 0.0-0.9 [facility] Comment on above: Result Comment: IG% - Immature Granulocytes (promyelocytes, myelocytes and metamyelocytes) > 1% indicates that a LEFT SHIFT is Present. Performed By: #### L 700.6800 #### [facility] [address] [place], [address] Lymphocytes/100 WBC (Bld) 40.9 % Normal 19-41 [facility] Comment on above: Performed By: #### L 700.6800 #### [facility] [address] [place], [address] MCH (RBC) [Entitic mass] 31.1 pg Normal 27.0-32.0 [facility] Comment on above: Performed By: #### L 700.6800 #### [facility] [address] [place], [address] MCHC (RBC) [Mass/Vol] 33.9 g/dL Normal 32-36 [facility] Comment on above: Performed By: #### L 700.6800 #### [facility] [address] [place], [address] MCV (RBC) [Entitic vol] 91.7 fL Normal 81-99 [facility] Comment on above: Performed By: #### L 700.6800 #### [facility] [address] [place], [address] Monocytes/100 WBC (Bld) 6.4 % Normal 0-10 [facility] Comment on above: Performed By: #### L 700.6800 #### [facility] [address] [place], [address] Neutrophils/100 WBC (Bld) 48.9 % Normal 47-70 [facility] Comment on above: Performed By: #### L .6800 #### [facility] [address] [place], [address] Nucleated RBC (Bld) [#/Vol] 0 10*3/uL Normal 0-5 [facility] Comment on above: Performed By: #### L 700.6800 #### [facility] [address] [place], [address] Platelet mean volume (Bld) [Entitic vol] 9.6 fL Normal 6.2-12.0 [facility] Comment on above: Performed By: #### L 700.6800 #### [facility] [address] [place], [address] Platelets (Bld) [#/Vol] 236 10*3/uL Normal 150-450 [facility] Comment on above: Performed By: #### L 700.6800 #### [facility] [address] [place], [address] RBC (Bld) [#/Vol] 4.12 10*6/uL Low 4.2-5.4 [facility] Comment on above: Performed By: #### L 700.6800 #### [facility] [address] [place], [address] RDW SD 41.7 fl Normal 35.1-43.9 [facility] Comment on above: Performed By: #### L 700.6800 #### [facility] [address] [place], [address] WBC (Bld) [#/Vol] 6.0 10*3/uL Normal 4.4-11.0 [facility] Comment on above: Performed By: #### L 700.6800 #### [facility] [address] [place], [address] Carbon dioxide, total [Moles /volume] in Central venous bloodOrdered By: Dax Boyd on 03-12-2025 CO2 [Moles/Vol] 27.2 mmol/L 21.0-32.0 [facility] Chest PA and Lateralon 03-12 Chest PA and Lateral [facility] Imaging Services [address] [place], [place] [id number] Chest PA and Lateral MR#: [id number] Acct: [id number] Name: HERMINIA GOLDMAN Rep #: [id number] : 2000 F 24 From: Julito Ryan MD PCP: [facility] Status: REG ER Study: Chest PA and Lateral Date of Exam: 03/12/25 Exam# [id number] Ordering Dr: Dax Boyd DO EXAM: XR Chest, 2 Views CLINICAL INDICATION: COUGH TECHNIQUE: Frontal and lateral views of the chest. COMPARISON: No relevant prior studies available. FINDINGS: LUNGS AND PLEURAL SPACES: Unremarkable. No consolidation. No pneumothorax. HEART: Unremarkable. No cardiomegaly. MEDIASTINUM: Unremarkable. Normal mediastinal contour. BONES/JOINTS: Unremarkable. No acute fracture. RAD/Chest PA and Lateral IMPRESSION: No acute cardiopulmonary process. Reading Location: [id number] CC: Dr. Dax Boyd DO; [facility] Territory Sales Representative: Signed Normal [facility] Chloride assayOrdered By: Tonny Boyd on 03-12-2025 Chloride [Moles/Vol] 105 mmol/L 98-108 [facility] Comprehensive Metabolic Prof ilon 03-12-2025 Albumin [Mass/Vol] 3.9 g/dL Normal 3.5-5.0 [facility] Comment on above: Performed By: #### L 559.9320 #### [facility] [address] [place], [place], [address] Albumin/Globulin [Mass ratio] 1.4 {ratio} Normal 0.9-2.4 [facility] Comment on above: Performed By: #### L 700.0764 #### [facility] [address] [place], [place], [id number] ALK PHOS 73 U/L Normal 35-104 [facility] Comment on above: Performed By: #### L 700.6800 #### [facility] [address] [place], [address] ALT [Catalytic activity/Vol] 9 U/L Normal <=34 [facility] Comment on above: Performed By: #### L 700.6800 #### [facility] [address] [place], [address] AST [Catalytic activity/Vol] 15 U/L Normal <=31 [facility] Comment on above: Performed By: #### L .6800 #### [facility] [address] [place], [address] Bilirubin [Mass/Vol] 0.18 mg/dL Normal 0.00-1.30 [facility] Comment on above: Performed By: #### L .6800 #### [facility] [address] [place], [address] BUN/CRE 9.0 RATIO Low 10-20 [facility] Comment on above: Performed By: #### L 700.6800 #### [facility] [address] [place], [address] Calcium [Mass/Vol] 9.4 mg/dL Normal 7.6-11.0 [facility] Comment on above: Performed By: #### L .6800 #### [facility] [address] [place], [address] Chloride [Moles/Vol] 105 mmol/L Normal 98-108 [facility] Comment on above: Performed By: #### L .6800 #### [facility] [address] [place], [address] CO2 [Moles/Vol] 27.2 mmol/L Normal 21.0-32.0 [facility] Comment on above: Performed By: #### L .6800 #### [facility] [address] [place], [address] Creatinine [Mass/Vol] 0.75 mg/dL Normal 0.70-1.20 [facility] Comment on above: Performed By: #### L 700.6800 #### [facility] [address] [place], [address] ECRCL 92.27 ml/min Normal 50-250 [facility] Comment on above: Performed By: #### L 700.6800 #### [facility] [address] [place], [address] GAP 9 Normal 5-15 [facility] Comment on above: Performed By: #### L 700.6800 #### [facility] [address] [place], [address] GFR/1.73 sq M.predicted among non-blacks MDRD (S/P/Bld) [Vol rate/Area] 115 mL/min/{1.73_m2} Normal >60 [facility] Comment on above: Result Comment: mL/m in/1.73m2 CKD-EPI Creatinine Equation (2020) Performed By: #### L 700.6800 #### [facility] [address] [place], [address] Globulin (S) [Mass/Vol] 2.8 g/dL Normal 2.2-4.2 [facility] Comment on above: Performed By: #### L 700.6800 #### [facility] [address] [place], [address] Glucose [Mass/Vol] 93 mg/dL Normal 70-99 [facility] Comment on above: Performed By: #### L 700.6800 #### [facility] [address] [place], [address] Potassium [Moles/Vol] 3.5 mmol/L Normal 3.3-5.1 [facility] Comment on above: Performed By: #### L 700.6800 #### [facility] [address] [place], [address] Sodium [Moles/Vol] 141 mmol/L Normal 133-145 [facility] Comment on above: Performed By: #### L 700.6800 #### [facility] [address] [place], [place], [address] T PROT 6.7 g/dL Normal 5.9-8.4 [facility] Comment on above: Performed By: #### L 700.6800 #### [facility] [address] [place], [place], [address] Urea nitrogen [Mass/Vol] 7 mg/dL Normal 4-19 [facility] Comment on above: Performed By: #### L 700.6800 #### [facility] [address] [place], [address] Emergency Department Summary on 03-12-2025 Emergency Department Summary [facility] Medical Records Department [address] [place] [address] Emergency Department Summary 03/12/25 MR#: [id number] Acct: [id number] Name: HERMINIA GOLDMAN Rep #: [id number] : 2000 24 From: Dax Boyd DO PCP: [facility] Status:REG ER Location: ED ADDENDUM by Dr. Dax Boyd DO on 03/13/25 at 0000 I spoke with on-call TILE PRESSER for [facility] 03/13/25 0000 Cosigner Signature (if applicable): cc: [facility] * Signed HPI History of Present Illness Chief Complaint: General Illness Narrative Narrative: Patient is a 24-year-old female past medical history of polysubstance abuse, depression, anxiety who presents to the emergency department via EMS with a chief complaint of altered mental status. Patient's notes that she was at [employer] and she states that she went there for lunch. She states that her stomach has been bothering her recently as well as she has had a cough. Patient did provide limited history of present illness secondary to frequently falling asleep. [facility] Medical History Marijuana abuse [...] Room Air (more content not included)... Normal [facility] Eosinophil percentageOrdered By: Dax Boyd on 03-12-2025 Eosinophils/100 WBC (Bld) 3.0 % 0-5 [facility] Erythrocyte distribution wid th ratioOrdered By: Dax Boyd on 03-12-2025 Erythrocyte distribution width (RBC) [Ratio] 12.6 % 11.6-14.6 [facility] Erythrocyte distribution wid th standard deviationOrdered By: Dax Boyd on 03-12-2025 Erythrocyte distribution width (RBC) [Ratio] 41.7 fl 35.1-43.9 [facility] Glomerular filtration rate ( GFR) estimation/1.73 sq m using serum, plasma, or whole bOrdered By: Dax Boyd on 03-12-2025 GFR/1.73 sq M.predicted among non-blacks MDRD (S/P/Bld) [Vol rate/Area] 115 mL/min/{1.73_m2} >60 [facility] Comment on above: mL/min/1.73m2 CKD-EP I Creatinine Equation (2020) Hematocrit Auto (Bld) [Volum e fraction]Ordered By: Dax Boyd on 03-12-2025 Hematocrit (Bld) [Volume fraction] 37.8 % 37-47 [facility] Hemoglobin measurementOrdere d By: Dax Boyd on 03-12-2025 Hemoglobin (Bld) [Mass/Vol] 12.8 g/dL 12.0-15.0 [facility] Immature granulocytes/100 WB C Auto (Bld)Ordered By: Dax Boyd on 03-12-2025 Immature granulocytes/100 WBC (Bld) 0.300 % 0.0-0.9 [facility] Comment on above: IG% - Immature Granu locytes (promyelocytes, myelocytes and metamyelocytes) > 1% indicates that a LEFT SHIFT is Present. Ketones Test strip Ql (U)Ord ered By: Dax Boyd on 03-12-2025 Ketones Ql (U) Negative Negative [facility] Laboratory - Chemistry and C hemistry - challengeOrdered By: Dax Boyd on 03-12-2025 AST [Catalytic activity/Vol] 15 U/L <32 [facility] Lipaseon 03-12-2025 Lipase [Catalytic activity/Vol] 18 U/L Normal 13-75 [facility] Comment on above: Result Comment: Plea se note: LIPASE revised reference range effective 22. New Lipase methodology. Expected to produce lower values than the previous assay method. NEW Reference Range: 13 - 75 U/L Performed By: #### L 700.6800 #### [facility] [address] [place], [place], [id number] Lipase measurementOrdered By : Dax Boyd on 03-12-2025 Lipase [Catalytic activity/Vol] 18 U/L 13-75 [facility] Comment on above: Please note:LIPASE r evised reference range effective 22. New Lipase methodology. Expected to produce lower values than the previous assay method. NEW Reference Range: 13 - 75 U/L MCV (mean corpuscular volume ) determinationOrdered By: Dax Boyd on 03-12-2025 MCV (RBC) [Entitic vol] 91.7 fL 81-99 [facility] Mean corpuscular hemoglobin (MCH) determinationOrdered By: Dax Boyd on 03-12-2025 MCH (RBC) [Entitic mass] 31.1 pg 27.0-32.0 [facility] Mean corpuscular hemoglobin concentration (MCHC) determinationOrdered By: Dax Boyd on 03-12-2025 MCHC (RBC) [Mass/Vol] 33.9 g/dL 32-36 [facility] Mean platelet volume determi nationOrdered By: Dax Boyd on 03-12-2025 Platelet mean volume (Bld) [Entitic vol] 9.6 fL 6.2-12.0 [facility] Microscopic analysis of urin e for red blood cells (RBC)Ordered By: Dax Boyd on 03-12-2025 Microscopic analysis of urine for red blood cells (RBC) 0-5 SEEN /hpf 0-5 [facility] Monocyte percentageOrdered B y: Dax Boyd on 03-12-2025 Monocytes/100 WBC (Bld) 6.4 % 0-10 [facility] Mucus LM Ql (Urine sed)Order ed By: Dax Boyd on 03-12-2025 Mucus Ql (Urine sed) 4+ /hpf [facility] Neutrophil percentageOrdered By: Dax Boyd on 03-12-2025 Neutrophils/100 WBC (Bld) 48.9 % 47-70 [facility] Nitrite Test strip Ql (U)Ord ered By: Dax Boyd on 03-12-2025 Nitrite Ql (U) Negative Negative [facility] No Panel InformationOrdered By: Dax Boyd on 03-12-2025 Urine Buprenorphine Qualitative Negative < 200 ng/mL [facility] Urine Oxycodone Screen Negative < 100 ng/mL [facility] Nucleated red blood cell per centageOrdered By: Dax Boyd on 03-12-2025 Nucleated RBC/100 WBC (Bld) [Ratio] 0 % 0-5 [facility] Platelet countOrdered By: Tonny Boyd on 03-12-2025 Platelets (Bld) [#/Vol] 236 10*3/uL 150-450 [facility] Potassium measurement (mass/ volume)Ordered By: Dax Boyd on 03-12-2025 Potassium (Unsp spec) [Mass/Vol] 3.5 mmol/L 3.3-5.1 [facility] ,Serum,hCG Quali.on 03-12-2025 HCG, SERUM QUAL Positive Normal [facility] Comment on above: Result Comment: CRIT ICAL VALUE CALLED TO KIRSTIN CARRILLO 03/12/25 1710 Jovana Vaz. RESULTS READ BACK BY SAME. RESULTED, TO WARN ABOUT A REPEAT BECAUSE A VERY FAINT POS CAME UP. AMENDED REPORT 03/12/251708 HCGSQUAL previously reported as: NEGATIVE Negative Performed By: #### L 700.6800 #### [facility] [address] [place], [address] Protein Test strip Ql (U)Ord ered By: Dax Boyd on 03-12-2025 Protein Ql (U) 15 mg/dl High Negative [facility] Quantitative urine opiates m easurementOrdered By: Dax Boyd on 03-12-2025 Opiates Ql (U) Negative < 300 ng/mL [facility] RBC Auto (Bld) [#/Vol]Ordere d By: Dax Boyd on 03-12-2025 RBC (Bld) [#/Vol] 4.12 10*6/uL Low 4.2-5.4 [facility] Screening urine fentanyl salomón surementOrdered By: Dax Boyd on 03-12-2025 fentaNYL Screen Ql (U) Negative [facility] Serum beta-hCG test, qualita tiveOrdered By: Dax Boyd on 03-12-2025 Beta HCG ( test) Ql Negative [facility] Comment on above: CRITICAL VALUE YODER D TO KIRSTIN CARRILLO03/12/25 1710 Jovana Vaz.RESULTS READ BACK BY ERINN. RESULTED, TO WARN ABOUT A REPEAT BECAUSE A VERY FAINT POS CAME UP.Previous reported result: NEGATIVE NegativeEdited by: RUEL on 03/12/25:1709 AMENDED REPORT 03/12/251708 HCGSQUAL previously reported as: NEGATIVE Negative Serum creatinine measurement (mass/volume)Ordered By: Dax Boyd on 03-12-2025 Creatinine [Mass/Vol] 0.75 mg/dL 0.70-1.20 [facility] Serum globulin measurementOr dered By: Dax Boyd on 03-12-2025 Globulin (S) [Mass/Vol] 2.8 g/dL 2.2-4.2 [facility] Serum glucose measurement (m ass/volume)Ordered By: Dax Boyd on 03-12-2025 Glucose [Mass/Vol] 93 mg/dL 70-99 [facility] Serum human chorionic gonado tropin detection for pregnancyOrdered By: Dax Boyd on 03-12-2025 HCG ( test) Ql 13 mIU/mL High <9 [facility] Comment on above: Gestational Age0.2-1 Week: 5-50 mIU/mL1-2 Weeks: 50-500 mIU/mL2-3 Weeks: 100-5000 mIU/mL3-4 Weeks: 500-10,000 mIU/mL4-5 Weeks:1000-50,000 mIU/mL5-6 Weeks: 10,000-100,000 mIU/mL6-8 Weeks: 15,000-200,000 mIU/mL2-3 Months:10,000-100,000 mIU/mL Serum or plasma alanine dawson otransferase (ALT) measurementOrdered By: Dax Boyd on 03-12-2025 ALT [Catalytic activity/Vol] 9 U/L <35 [facility] Serum or plasma albumin hayder urement (mass/volume)Ordered By: Dax Boyd on 03-12-2025 Albumin [Mass/Vol] 3.9 g/dL 3.5-5.0 [facility] Serum or plasma albumin/glob ulin mass ratioOrdered By: Dax Boyd on 03-12-2025 Albumin/Globulin [Mass ratio] 1.4 {ratio} 0.9-2.4 [facility] Serum or plasma alkaline marin sphatase measurementOrdered By: Dax Byod on 03-12-2025 ALP [Catalytic activity/Vol] 73 U/L 35-104 [facility] Serum or plasma calcium hayder urement (mass/volume)Ordered By: Dax Boyd on 03-12-2025 Calcium [Mass/Vol] 9.4 mg/dL 7.6-11.0 [facility] Serum or plasma urea nitroge n measurement (mass/volume)Ordered By: Dax Boyd on 03-12-2025 Urea nitrogen [Mass/Vol] 7 mg/dL 4-19 [facility] Sodium levelOrdered By: Nikia Boyd on 03-12-2025 Sodium [Moles/Vol] 141 mmol/L 133-145 [facility] Squamous epithelial cells de tection in urine sediment by light microscopyOrdered By: Dax Boyd on 03-12-2025 Epithelial cells.squamous LM Ql (Urine sed) 0-5 SEEN /hpf 5-10 [facility] Total proteinOrdered By: Moustapha Boyd on 03-12-2025 Protein [Mass/Vol] 6.7 g/dL 5.9-8.4 [facility] Transvaginal w/Preg USon Transvaginal w/Preg US [facility] Imaging Services [address] [place], [place] [address] Transvaginal w/Preg US MR#: [id number] Acct: [id number] Name: HERMINIA GOLDMAN Rep #: [id number] : 2000 F 24 From: Wilfrido Baeza MD PCP: [facility] Status: [facility] Study: Transvaginal w/Preg US Date of Exam: 03/12/25 Exam# [id number] Ordering Dr: Dax Boyd DO PROCEDURE: TRANSVAGINAL [...] pelvic free fluid, likely physiologic. Reading Location: [id number] CC: Dr. Dax Boyd, DO; [facility] Territory Sales Representative: Signed Normal [facility] Urinalysis, Completeon 03-12 EPI,SQUAMOUS 0-5 SEEN Normal 5-10 [facility] Comment on above: Order Comment: CLEAN CATCH Performed By: #### L 400.0001 #### [facility] [address] [place], [address] Mucus Ql (Urine sed) 4+ /hpf Normal [facility] Comment on above: Order Comment: CLEAN CATCH Performed By: #### L 400.0001 #### [facility] [address] [place], [address] RBC 0-5 SEEN Normal 0-5 [facility] Comment on above: Order Comment: CLEAN CATCH Performed By: #### L 400.0001 #### [facility] [address] [place], [address] WBC 0-5 SEEN Normal 0-5 [facility] Comment on above: Order Comment: CLEAN CATCH Performed By: #### L 400.0001 #### [facility] [address] [place], [address] BACTERIA 0 SEEN Normal None Seen [facility] Comment on above: Order Comment: CLEAN CATCH Performed By: #### L 400.0001 #### [facility] [address] [place], [address] Urine Drug Screen (VISTA)on 03-12-2025 AMPHETAMINES Positive Normal <1000 ng/mL [facility] Comment on above: Result Comment: If c onfirmation testing is needed, a separate order will be required to send out testing to the reference laboratory. Performed By: #### L 700.6800 #### [facility] [address] [place], [address] BARBITIURATES Negative Normal < 200 ng/mL [facility] Comment on above: Performed By: #### L .6800 #### [facility] [address] [place], [address] BENZODIAZIPINE Negative Normal < 200 ng/mL [facility] Comment on above: Performed By: #### L 700.6800 #### [facility] [address] [place], [address] BUP Ur Drug Scr Negative Normal < 200 ng/mL [facility] Comment on above: Performed By: #### L .6800 #### [facility] [address] [place], [address] COCAINE Negative Normal < 300 ng/mL [facility] Comment on above: Performed By: #### L 700.6800 #### [facility] [address] [place], [address] Fentanyl Negative Normal [facility] Comment on above: Performed By: #### L .6800 #### [facility] [address] [place], [address] METHADONE Negative Normal < 300 ng/mL [facility] Comment on above: Performed By: #### L .6800 #### [facility] [address] [place], [address] OPIATES Negative Normal < 300 ng/mL [facility] Comment on above: Performed By: #### L .6800 #### [facility] [address] [place], [place], [id number] OXYCODONE Negative Normal < 100 ng/mL [facility] Comment on above: Performed By: #### L 700.6800 #### [facility] [address] [place], [place], [address] PCP Negative Normal < 25 ng/mL [facility] Comment on above: Performed By: #### L 700.6800 #### [facility] [address] [place], [address] THC Positive Normal < 50 ng/mL [facility] Comment on above: Result Comment: If c onfirmation testing is needed, a separate order will be required to send out testing to the reference laboratory. Performed By: #### L 700.6800 #### [facility] [address] [place], [place], [address] Urine benzodiazepine levelOr dered By: Dax Boyd on 03-12-2025 Benzodiazepines Ql (U) Negative < 200 ng/mL [facility] Urine clarityOrdered By: Moustapha Boyd on 03-12-2025 Clarity (U) Sl. Cloudy Clear [facility] Urine cocaine levelOrdered B y: Dax Boyd on 03-12-2025 Cocaine Ql (U) Negative < 300 ng/mL [facility] Urine color determinationOrd ered By: Dax Boyd on 03-12-2025 Color (U) Yellow Yellow [facility] Urine nloan-0-vqvoieiclgkbrm abinol (THC) measurementOrdered By: Dax Boyd on 03-12-2025 Cannabinoids Screen Ql (U) Positive < 50 ng/mL [facility] Comment on above: If confirmation test ing is needed, a separate order will be required to send out testing to the reference laboratory. Urine glucose detectionOrder ed By: Dax Boyd on 03-12-2025 Glucose Ql (U) Normal mg/dl Normal [facility] Urine leukocyte esterase det ection by dipstickOrdered By: Dax Boyd on 03-12-2025 Leukocyte esterase Test strip Ql (U) 25 /ul High Negative [facility] Urine pHOrdered By: Dax shaw on 03-12-2025 pH (U) 6.0 [pH] 5.0 - 8.0 [facility] Urine phencyclidine (PCP) de tectionOrdered By: Dax Boyd on 03-12-2025 Phencyclidine Ql (U) Negative < 25 ng/mL [facility] Urine sediment bacteria coun t by microscopy (number/high power field)Ordered By: Dax Boyd on 03-12-2025 Bacteria LM.HPF (Urine sed) [#/Area] 0 /[HPF] None Seen [facility] Urine specific gravity measu rementOrdered By: Dax Boyd on 03-12-2025 Specific gravity (U) [Rel density] 1.020 1.002-1.030 [facility] Urine urobilinogen measureme ntOrdered By: Dax Boyd on 03-12-2025 Urobilinogen Ql (U) Normal mg/dl Normal [facility] White blood cell (WBC) count Ordered By: Dax Boyd on 03-12-2025 WBC (Bld) [#/Vol] 6.0 10*3/uL 4.4-11.0 [facility] White blood cell countOrdere d By: Dax Boyd on 03-12-2025 White blood cell count 0-5 SEEN /hpf 0-5 [facility] hCG Titer Quant., Serumon HCG QUANT. 13 mIU/mL High <9 non-preg [facility] Comment on above: Result Comment: Gest ational Age 0.2-1 Week: 5-50 mIU/mL 1-2 Weeks: 50-500 mIU/mL 2-3 Weeks: 100-5000 mIU/mL 3-4 Weeks: 500-10,000 mIU/mL 4-5 Weeks:1000-50,000 mIU/mL 5-6 Weeks: 10,000-100,000 mIU/mL 6-8 Weeks: 15,000-200,000 mIU/mL 2-3 Months:10,000-100,000 mIU/mL Performed By: #### L 968.7808 #### [facility] [address] [place], [address] Chest PA and Lateralon 08-08 Chest PA and Lateral [facility] Imaging Services [address] [place] [address] Chest PA and Lateral MR#: [id number] Acct: [id number] Name: HERMINIA GOLDMAN Rep #: [id number] : 2000 F 24 From: Trent Ortega PCP: [facility] Status: REG ER Study: Chest PA and Lateral Date of Exam: 08/08/24 Exam# [id number] Ordering Dr: [place] [id number] STUDY: X-RAY CHEST REASON FOR EXAM: Female, [...] EST , CC: Dr. Sarahy Hardy DO; [facility] Territory Sales Representative: Signed Normal [facility] Emergency Department Summary on 08-08-2024 Emergency Department Summary [facility] Medical Records Department [address] [place] [address] Emergency Department Summary 08/08/24 MR#: [id number] Acct: [id number] Name: HERMINIA GOLDMAN Rep #: [id number] : 2000 24 From: Sarahy Hardy DO PCP: [facility] Status:REG ER Location: ED HPI History of [...] complaints or concerns reported at this time. [facility] Medical History Care and [...] normal to (more content not included)... Normal [facility] L511.0135on 08-08-2024 COHb 7.2 High 0.0-1.5 [facility] Comment on above: Performed By: #### L 511.0135 #### [facility] [address] [place], [address] ,Urineon 08-08-2024 Beta HCG ( test) Ql (U) Negative Normal [facility] Comment on above: Result Comment: Very dilute urine specimens, as indicated by a low specific gravity, may not contain technical sales representatives levels of hCG. If is still suspected, a first morning urine specimen should be collected 48 hours later and tested. Performed By: #### L 400.7600 #### [facility] [address] [place], [address] Urine Drug Screen (VISTA)on 08-08-2024 AMPHETAMINES Positive Abnormal <1000 ng/mL [facility] Comment on above: Performed By: #### L 505.5000 #### [facility] [address] [place], [address] BARBITIURATES Negative Normal < 200 ng/mL [facility] Comment on above: Performed By: #### L 505.5000 #### [facility] [address] [place], [address] BENZODIAZIPINE Negative Normal < 200 ng/mL [facility] Comment on above: Performed By: #### L 505.5000 #### [facility] [address] [place], [address] COCAINE Negative Normal < 300 ng/mL [facility] Comment on above: Performed By: #### L 505.5000 #### [facility] [address] [place], [address] ECSTACY Positive Abnormal < 500 ng/mL [facility] Comment on above: Performed By: #### L 505.5000 #### [facility] [address] [place], [address] METHADONE Negative Normal < 300 ng/mL [facility] Comment on above: Performed By: #### L 505.5000 #### [facility] [address] [place], [address] OPIATES Negative Normal < 300 ng/mL [facility] Comment on above: Performed By: #### L 505.5000 #### [facility] [address] [place], [address] PCP Negative Normal < 25 ng/mL [facility] Comment on above: Performed By: #### L 505.5000 #### [facility] [address] [place], [address] THC Positive Abnormal < 50 ng/mL [facility] Comment on above: Performed By: #### L 505.5000 #### [facility] [address] [place], [address] VISTA UDS PH 5 Normal [facility] Comment on above: Performed By: #### L 505.5000 #### [facility] [address] [place], [address] Alcohol, Blood (Medical)-Ser [facility] 07-09-2024 SERUM ETOH < 3.0 Normal [facility] Comment on above: Result Comment: The serum:whole blood ethanol ratio is approximately 1.14 and varies slightly with hematocrit. Medical Alcohol reference interval and critical value in non-tolerant individuals; 50 - 100 Impairment 100 Intoxication 100 - 250 Severe Poisoning 250 - 400 Deep/possible fatal coma Performed By: #### L 100.0100, L501.9100, L500.4050 #### [facility] [address] [place], [address] CBC W/Diff, Automatedon 10-2 Absolute Lymph 2.58 X10 3/uL Normal 0.83-4.51 [facility] Comment on above: Performed By: #### L 100.0100, L501.9100, L500.4050 #### [facility] [address] [place], [address] Absolute Neut 7.9 X10 3/uL High 2.0-7.7 [facility] Comment on above: Performed By: #### L 100.0100, L501.9100, L500.4050 #### [facility] [address] [place], [address] Basophils/100 WBC (Bld) 0.6 % Normal 0-1 [facility] Comment on above: Performed By: #### L 100.0100, L501.9100, L500.4050 #### [facility] [address] [place], [address] Eosinophils/100 WBC (Bld) 1.2 % Normal 0-5 [facility] Comment on above: Performed By: #### L 100.0100, L501.9100, L500.4050 #### [facility] [address] [place], [address] Erythrocyte distribution width (RBC) [Ratio] 13.4 % Normal 11.6-14.6 [facility] Comment on above: Performed By: #### L 100.0100, L501.9100, L500.4050 #### [facility] [address] [place], [address] Hematocrit (Bld) [Volume fraction] 41.2 % Normal 37-47 [facility] Comment on above: Performed By: #### L 100.0100, L501.9100, L500.4050 #### [facility] [address] [place], [address] Hemoglobin (Bld) [Mass/Vol] 13.4 g/dL Normal 12.0-15.0 [facility] Comment on above: Performed By: #### L 100.0100, L501.9100, L500.4050 #### [facility] [address] [place], [address] IG% 0.400 Normal 0.0-0.9 [facility] Comment on above: Result Comment: IG% - Immature Granulocytes (promyelocytes, myelocytes and metamyelocytes) > 1% indicates that a LEFT SHIFT is Present. Performed By: #### L 100.0100, L501.9100, L500.4050 #### [facility] [address] [place], [address] Lymphocytes/100 WBC (Bld) 22.4 % Normal 19-41 [facility] Comment on above: Performed By: #### L 100.0100, L501.9100, L500.4050 #### [facility] [address] [place], [address] MCH (RBC) [Entitic mass] 29.8 pg Normal 27.0-32.0 [facility] Comment on above: Performed By: #### L 100.0100, L501.9100, L500.4050 #### [facility] [address] [place], [address] MCHC (RBC) [Mass/Vol] 32.5 g/dL Normal 32-36 [facility] Comment on above: Performed By: #### L 100.0100, L501.9100, L500.4050 #### [facility] [address] [place], [address] MCV (RBC) [Entitic vol] 91.6 fL Normal 81-99 [facility] Comment on above: Performed By: #### L 100.0100, L501.9100, L500.4050 #### [facility] [address] [place], [address] Monocytes/100 WBC (Bld) 6.7 % Normal 0-10 [facility] Comment on above: Performed By: #### L 100.0100, L501.9100, L500.4050 #### [facility] [address] [place], [address] Neutrophils/100 WBC (Bld) 68.7 % Normal 47-70 [facility] Comment on above: Performed By: #### L 100.0100, L501.9100, L500.4050 #### [facility] [address] [place], [address] Nucleated RBC (Bld) [#/Vol] 0 10*3/uL Normal 0-5 [facility] Comment on above: Performed By: #### L 100.0100, L501.9100, L500.4050 #### [facility] [address] [place], [address] Platelet mean volume (Bld) [Entitic vol] 9.2 fL Normal 6.2-12.0 [facility] Comment on above: Performed By: #### L 100.0100, L501.9100, L500.4050 #### [facility] [address] [place], [address] Platelets (Bld) [#/Vol] 290 10*3/uL Normal 150-450 [facility] Comment on above: Performed By: #### L 100.0100, L501.9100, L500.4050 #### [facility] [address] [place], [address] RBC (Bld) [#/Vol] 4.50 10*6/uL Normal 4.2-5.4 [facility] Comment on above: Performed By: #### L 100.0100, L501.9100, L500.4050 #### [facility] [address] [place], [address] RDW SD 45.9 fl High 35.1-43.9 [facility] Comment on above: Performed By: #### L 100.0100, L501.9100, L500.4050 #### [facility] [address] [place], [address] WBC (Bld) [#/Vol] 11.5 10*3/uL High 4.4-11.0 [facility] Comment on above: Performed By: #### L 100.0100, L501.9100, L500.4050 #### [facility] [address] [place], [address] Comprehensive Metabolic Prof waon 07-09-2024 Albumin [Mass/Vol] 3.8 g/dL Normal 3.2-5.0 [facility] Comment on above: Performed By: #### L 100.0100, L501.9100, L500.4050 #### [facility] [address] [place], [address] Albumin/Globulin [Mass ratio] 0.8 {ratio} Low 0.9-2.4 [facility] Comment on above: Performed By: #### L 100.0100, L501.9100, L500.4050 #### [facility] [address] [place], [address] ALK P 89 U/L Normal 45-117 [facility] Comment on above: Performed By: #### L 100.0100, L501.9100, L500.4050 #### [facility] [address] [place], [address] ALT [Catalytic activity/Vol] 14 U/L Normal 13-56 [facility] Comment on above: Performed By: #### L 100.0100, L501.9100, L500.4050 #### [facility] [address] [place], [address] AST [Catalytic activity/Vol] 7 U/L Low 15-37 [facility] Comment on above: Performed By: #### L 100.0100, L501.9100, L500.4050 #### [facility] [address] [place], [address] Bilirubin [Mass/Vol] 0.30 mg/dL Normal 0.20-1.00 [facility] Comment on above: Result Comment: For patients on eltrombopag therapy, use of Dimension [place] TBIL is not recommended. Performed By: #### L 100.0100, L501.9100, L500.4050 #### [facility] [address] [place], [address] BUN/CRE 22.8 RATIO High 10-20 [facility] Comment on above: Performed By: #### L 100.0100, L501.9100, L500.4050 #### [facility] [address] [place], [address] CA,Total 9.7 mg/dL Normal 8.5-10.1 [facility] Comment on above: Performed By: #### L 100.0100, L501.9100, L500.4050 #### [facility] [address] [place], [address] Chloride [Moles/Vol] 105 mmol/L Normal 98-107 [facility] Comment on above: Performed By: #### L 100.0100, L501.9100, L500.4050 #### [facility] [address] [place], [address] CO2 [Moles/Vol] 28.0 mmol/L Normal 21.0-32.0 [facility] Comment on above: Performed By: #### L 100.0100, L501.9100, L500.4050 #### [facility] [address] [place], [address] Creatinine [Mass/Vol] 0.53 mg/dL Low 0.55-1.02 [facility] Comment on above: Result Comment: The validity of the calculated GFR GFRAA in patients over 70 years has not been determined. Clinical correlation is essential. Performed By: #### L 100.0100, L501.9100, L500.4050 #### [facility] [address] [place], [address] ECRCL 143.59 ml/min Normal [facility] Comment on above: Performed By: #### L 100.0100, L501.9100, L500.4050 #### [facility] [address] [place], [address] EST GFR - AA 185 mL/min Normal >60 [facility] Comment on above: Result Comment: Afri can [place] GFR Calc Performed By: #### L 100.0100, L501.9100, L500.4050 #### [facility] [address] [place], [address] GAP 5 Normal 5-15 [facility] Comment on above: Performed By: #### L 100.0100, L501.9100, L500.4050 #### [facility] [address] [place], [address] GFR/1.73 sq M.predicted among non-blacks MDRD (S/P/Bld) [Vol rate/Area] 153 mL/min/{1.73_m2} Normal >60 [facility] Comment on above: Result Comment: Non- GFR Calc Performed By: #### L 100.0100, L501.9100, L500.4050 #### [facility] [address] [place], [address] Globulin (S) [Mass/Vol] 4.7 g/dL High 2.2-4.2 [facility] Comment on above: Performed By: #### L 100.0100, L501.9100, L500.4050 #### [facility] [address] [place], [address] Glucose [Mass/Vol] 122 mg/dL High 74-106 [facility] Comment on above: Result Comment: Fast ing Glucose result from 100 to 125 mg/dL suggests IMPAIRED HOMEOSTASIS per A.D.A. criteria. Performed By: #### L 100.0100, L501.9100, L500.4050 #### [facility] [address] [place], [address] Potassium [Moles/Vol] 3.3 mmol/L Low 3.5-5.1 [facility] Comment on above: Performed By: #### L 100.0100, L501.9100, L500.4050 #### [facility] [address] [place], [address] Sodium [Moles/Vol] 138 mmol/L Normal 136-145 [facility] Comment on above: Performed By: #### L 100.0100, L501.9100, L500.4050 #### [facility] [address] [place], [address] T PROT 8.5 g/dL High 6.4-8.2 [facility] Comment on above: Performed By: #### L 100.0100, L501.9100, L500.4050 #### [facility] [address] [place], [address] Urea nitrogen [Mass/Vol] 12 mg/dL Normal 7-18 [facility] Comment on above: Performed By: #### L 100.0100, L501.9100, L500.4050 #### [facility] [address] [place], [address] Emergency Department Summary on 07-09-2024 Emergency Department Summary [facility] Medical Records Department [address] [place] [address] Emergency Department Summary 07/09/24 MR#: [id number] Acct: [id number] Name: HERMINIA GOLDMAN Rep #: [id number] : 2000 24 From: Naren Kingston MD PCP: [facility] Status:DEP ER Location: ED HPI History of [...] for clearance and will go to the long term. She denies any complaints. Patient states that she smokes marijuana however she is not under any substance. [facility] Medical History Care and [...] % (Au (more content not included)... Normal [facility] ,Serum,hCG Quali.on 07-09-2024 HCG, SERUM QUAL Negative Normal [facility] Comment on above: Performed By: #### L 700.6800 #### [facility] Laboratory [address] [place], [address] Emergency Department Summary on 05-10-2024 Emergency Department Summary [facility] Medical Records Department [address] [place] [address] Emergency Department Summary 05/10/24 MR#: [id number] Acct: [id number] Name: HERMINIA GOLDMAN Rep #: [id number] : 2000 23 From: Jose Luis Alejandro DO PCP: [facility] Status:DEP ER Location: ED HPI History of Present Illness Chief Complaint: Allergic Reaction [facility] Medical History Care and [...] History obtained from others: none Consults: EMS [facility] Narrative: The patient was initially tachycardic [...] care ti (more content not included)... Normal [facility] ED NOTEon 02-06-2024 ED NOTE HNO ID: [id number] Author: HARI WELSH, EMILEE Service: Emergency Medicine Author Type: Registered Nurse Type: ED Notes Filed: 02/06/2024 11:19 Note Text: Pt c/o left wrist and hand pain. States started a few weeks ago. [place], warm, dry. No apparent distress. Alert and oriented. Normal [facility] ED PROV NOTEon 02-06-2024 ED PROV NOTE HNO ID: [id number] Author: ANA THORNTON DO Service: Emergency Medicine [...] drug use. PAST MEDICAL HISTORY Diagnosis Date #[id number] Depression 02/12/2023 PAST SURGICAL HISTORY Procedure Laterality [...] attention to the fourth and fifth digits Territory Sales Representative: [facility] Transcribe Date/Time: Feb 06 2024 12:38P Dictated [...] some mild (more content not included)... Normal [facility] XR HAND 3V PA/LAT/OBL LTon 0 02-06-2024 [...] attention to the fourth and fifth digits Territory Sales Representative: [facility] Transcribe Date/Time: Feb 06 2024 12:38P Dictated by : PEPE SCANLON MD This examination was interpreted and the report reviewed and electronically signed by: PEPE SCANLON MD on Feb 06 2024 12:41PM EST [id number] Normal [facility] Basophil percentageOrdered B y: Joie Greene on 11-07-2023 Basophil percentage 0 SEEN /hpf 0-5 [facility] Bilirubin Test strip Ql (U)O rdered By: Joie Greene on 11-07-2023 Bilirubin Ql (U) Negative Negative [facility] Ketones Test strip Ql (U)Ord ered By: Joie Greene on 11-07-2023 Ketones Ql (U) Negative Negative [facility] Laboratory - Chemistry and C hemistry - challengeOrdered By: Joie Greene on 11-07-2023 HCG ( test) Ql (U) Negative [facility] Comment on above: Very dilute urine sp ecimens, as indicated by a low specificgravity, may not contain technical sales representatives levels of hCG. If is still suspected, a first morning urinespecimen should be collected 48 hours later and tested. Laboratory - Microbiology an d Antimicrobial susceptibilityOrdered By: Joie Greene on 11-07-2023 SARS-CoV-2 (COVID-19) RNA MARIA ISABEL+probe Ql (Unsp spec) Influenzae A [facility] Mucus LM Ql (Urine sed)Order ed By: Joie Greene on 11-07-2023 Mucus Ql (Urine sed) 0 SEEN /hpf [facility] Nitrite Test strip Ql (U)Ord ered By: Joie Greene on 11-07-2023 Nitrite Ql (U) Negative Negative [facility] No Panel InformationOrdered By: Joie Greene on 11-07-2023 Urine RBC 0 SEEN /hpf 0-5 [facility] Protein Test strip Ql (U)Ord ered By: Joie Greene on 11-07-2023 Protein Ql (U) 15 mg/dl Negative [facility] Squamous epithelial cells de tection in urine sediment by light microscopyOrdered By: Joie Greene on 11-07-2023 Epithelial cells.squamous LM Ql (Urine sed) 0-5 SEEN /hpf 5-10 [facility] Urine blood detectionOrdered By: Joie Greene on 11-07-2023 RBC Ql (U) Negative Negative [facility] Urine clarityOrdered By: Mai Greene on 11-07-2023 Clarity (U) Clear Clear [facility] Urine color determinationOrd ered By: Joie Greene on 11-07-2023 Color (U) Yellow Yellow [facility] Urine glucose detectionOrder ed By: Joie Greene on 11-07-2023 Glucose Ql (U) Normal mg/dl Normal [facility] Urine leukocyte esterase det ection by dipstickOrdered By: Joie Greene on 11-07-2023 Leukocyte esterase Test strip Ql (U) 25 /ul Negative [facility] Urine pHOrdered By: Joie Greene on 11-07-2023 pH (U) 6.0 [pH] 5.0 - 8.0 [facility] Urine sediment bacteria coun t by microscopy (number/high power field)Ordered By: Joie Greene on 11-07-2023 Bacteria LM.HPF (Urine sed) [#/Area] RARE /hpf None Seen [facility] Urine specific gravity measu rementOrdered By: Joie Greene on 11-07-2023 Specific gravity (U) [Rel density] 1.020 1.002-1.030 [facility] Urine urobilinogen measureme ntOrdered By: Joie Greene on 11-07-2023 Urobilinogen Ql (U) Normal mg/dl Normal [facility] HBV core Ab Ser Qlon 024 HBV core Ab Ql (S) Negative Normal Negative [facility] Comment on above: Order Comment: Speci men Type: BLOOD SPECIMEN Ordering Facility: [facility] Address: [address] [place] [address], [place] [address] Result Comment: No e vidence of current or past infection with Hepatitis B virus. Should recent infection be suspected, repeat testing may be considered 3-4 weeks after this draw. Performed By: #### 2 2322-2, 00718-4, 5195-3, 27704-0 #### [facility] CLIA [id number] [address] [place] [address] [place] HBV surface Ab Ql (S)on HBV surface Ab Qn (S) 47.72 mIU/mL Normal [facility] Comment on above: Order Comment: Speci men Type: BLOOD SPECIMEN Ordering Facility: [facility] Address: [address] [place] [address], [place] [address] Result Comment: <8 m IU/mL: No serological evidence of immunity to Hepatitis B Virus. >/= 8 to <12 mIU/mL: No serological evidence of immunity to Hepatitis B Virus. >/= 12 mIU/mL: Consistent with serological evidence of immunity to Hepatitis B Virus. Performed By: #### 2 2322-2, 84400-2, 5195-3, 96445-4 #### [facility] CLIA [id number] [address] [place] [address] [place] HBV surface Ab Ser Qlon HBV surface Ab Ql (S) Positive [facility] Comment on above: Order Comment: Speci men Type: BLOOD SPECIMEN Ordering Facility: [facility] Address: [address] [place] [address], [place] [address] Result Comment: Cons istent with serological evidence of immunity to Hepatitis B Virus. Performed By: #### 2 2322-2, 71086-8, 5195-3, 58988-1 #### [facility] CLIA [id number] [address] [place] [address] [place] HBV surface Ag Ser Qlon HBV surface Ag Ql (S) Negative Normal Negative [facility] Comment on above: Order Comment: Speci men Type: BLOOD SPECIMEN Ordering Facility: [facility] Address: [address] [place] [address] Performed By: #### 2 2322-2, 08456-9, 5195-3, 32462-5 #### [facility] CLIA [id number] [address] [place] [address] [place] HCV Ab Ser Qlon 09-16-2023 HCV Ab Ql (S) Negative Normal Negative [facility] Comment on above: Order Comment: Speci men Type: BLOOD SPECIMEN Ordering Facility: [facility] Address: [address] [place] [address] Result Comment: The result suggests no evidence of active infection with Hepatitis C virus. Should recent infection be suspected, repeat testing may be considered 4-6 weeks after this draw. Performed By: #### 7 3752-8, 42263-1 #### [facility] CLIA [id number] [address] [place] [address] [place] HIV 1+2 Ab IA Qlon 4 HIV 1 and 2 Ab IA.rapid Nom (S/P/Bld) Normal [facility] Comment on above: Order Comment: Specdarwin herrera Type: BLOOD SPECIMEN Ordering Facility: [facility] Address: [address] [place] [address] Result Comment: Test not indicated. Performed By: #### 2 2322-2, 24117-4, 5195-3, 48914-7 #### [facility] CLIA [id number] [address] [place] [address] [place] HIV 1+2 Ab+HIV1 p24 Ag IA Ql Non-Reactive Normal Nonreactive [facility] Comment on above: Order Comment: Stew herrera Type: BLOOD SPECIMEN Ordering Facility: [facility] Address: [address] [place] [address] Performed By: #### 2 2322-2, 10401-2, 5195-3, 98780-5 #### [facility] CLIA [id number] [address] [place] [address] [place] HIV immunoassay testing algorithm interpretation (S/P/Bld) [Interp] Normal [facility] Comment on above: Order Comment: Stew herrera Type: BLOOD SPECIMEN Ordering Facility: [facility] Address: [address] [place] [address] Result Comment: No e vidence of HIV-1 or HIV-2 infection. Should recent infection be suspected, repeat testing may be considered 2-3 weeks after this draw. [place] Rev. Code 3701.243(E): This information has been [...] or diagnoses. Performed By: #### 2 2322-2, 31409-9, 5195-3, 89941-4 #### [facility] CLIA [id number] [address] [place] [address] [place] Reagin and Treponema pallidu m IgG and IgM [Interp]on 09-16-2023 T. pallidum IgG+IgM IA Ql (S) Non-Reactive Normal Nonreactive [facility] Comment on above: Order Comment: Speci men Type: BLOOD SPECIMEN Ordering Facility: [facility] Address: [address] [place] [address], [place] [address] Performed By: #### 7 3752-8, 27061-5 #### [facility] CLIA [id number] [address] [place] [address] [place] Reagin+T pallidum IgG+IgM Se rPl-Impon 09-16-2023 Reagin and Treponema pallidum IgG and IgM [Interp] Cannot exclude recent Treponemal infection if specimen collected within 7-10 days after appearance of suspect lesions or 2-3 weeks after an exposure. Clinical correlation is required. Normal [facility] Comment on above: Order Comment: Speci men Type: BLOOD SPECIMEN Ordering Facility: [facility] Address: [address] [place] [address], [place] [address] Performed By: #### 7 3752-8, 72136-7 #### [facility] CLIA [id number] [address] [place] [address] [place] Basophil percentageOrdered B y: Joie Greene on 09-15-2023 Basophil percentage 50-100 SEEN /hpf 0-5 [facility] Bilirubin Test strip Ql (U)O rdered By: Joie Greene on 09-15-2023 Bilirubin Ql (U) Negative Negative [facility] Ketones Test strip Ql (U)Ord ered By: Joie Greene on 09-15-2023 Ketones Ql (U) Negative Negative [facility] Laboratory - Chemistry and C hemistry - challengeOrdered By: Joie Greene on 09-15-2023 HCG ( test) Ql (U) Negative [facility] Comment on above: Very dilute urine sp ecimens, as indicated by a low specificgravity, may not contain technical sales representatives levels of hCG. If is still suspected, a first morning urinespecimen should be collected 48 hours later and tested. Mucus LM Ql (Urine sed)Order ed By: Joie Greene on 09-15-2023 Mucus Ql (Urine sed) 0 SEEN /hpf [facility] Neisseria gonorrhoeae genita l PCROrdered By: Joie Greene on 09-15-2023 N. gonorrhoeae DNA MARIA ISABEL+probe Ql (Genital specimen) [facility] Nitrite Test strip Ql (U)Ord ered By: Joie Greene on 09-15-2023 Nitrite Ql (U) Negative Negative [facility] No Panel InformationOrdered By: Joie Greene on 09-15-2023 Chlamydia trachomatis (PCR) [facility] Protein Test strip Ql (U)Ord ered By: Joie Greene on 09-15-2023 Protein Ql (U) 100 mg/dl Negative [facility] Squamous epithelial cells de tection in urine sediment by light microscopyOrdered By: Joie Greene on 09-15-2023 Epithelial cells.squamous LM Ql (Urine sed) 10-25 SEEN /hpf 5-10 [facility] Urine blood detectionOrdered By: Joie Greene on 09-15-2023 RBC Ql (U) 150 /ul Negative [facility] RBC Ql (U) 10-25 SEEN /hpf 0-5 [facility] Urine clarityOrdered By: Mai Greene on 09-15-2023 Clarity (U) Clear Clear [facility] Urine color determinationOrd ered By: Joie Greene on 09-15-2023 Color (U) Yellow Yellow [facility] Urine glucose detectionOrder ed By: Joie Greene on 09-15-2023 Glucose Ql (U) Normal mg/dl Normal [facility] Urine leukocyte esterase det ection by dipstickOrdered By: Joie Greene on 09-15-2023 Leukocyte esterase Test strip Ql (U) 500 /ul Negative [facility] Urine pHOrdered By: Joie Greene on 09-15-2023 pH (U) 6.5 [pH] 5.0 - 8.0 [facility] Urine sediment bacteria coun t by microscopy (number/high power field)Ordered By: Joie Greene on 09-15-2023 Bacteria LM.HPF (Urine sed) [#/Area] 2 /[HPF] None Seen [facility] Urine specific gravity measu rementOrdered By: Joie Greene on 09-15-2023 Specific gravity (U) [Rel density] 1.020 1.002-1.030 [facility] Urobilinogen Auto test strip Ql (U)Ordered By: Joie Greene on 09-15-2023 Urobilinogen Ql (U) Normal mg/dl Normal [facility] Laboratory - Drug toxicology Ordered By: Issa Mena on 08-12-2023 Amphetamines Ql (U) Positive <1000 ng/mL [facility] Benzodiazepines Ql (U) Negative < 200 ng/mL [facility] Cannabinoids Screen Ql (U) Positive < 50 ng/mL [facility] Cocaine Ql (U) Positive < 300 ng/mL [facility] Opiates Ql (U) Negative < 300 ng/mL [facility] No Panel InformationOrdered By: Issa Mena on 08-12-2023 MDMA (Ecstasy) Screen Positive < 500 ng/mL [facility] Urine Barbiturates Screen Negative < 200 ng/mL [facility] Urine Drug Screen Comment [facility] Comment on above: CONFIRMATORY TESTING FOR ALL [...] Methadone Screen Negative < 300 ng/mL [facility] Urine phencyclidine (PCP) de tectionOrdered By: Issa Mena on 08-12-2023 Phencyclidine Ql (U) Negative < 25 ng/mL [facility] 25(OH)D3 SerPl-mCncon 2022 25-hydroxyvitamin D3 [Mass/Vol] 15.5 ng/mL Low 31.0-80.0 [facility] Comment on above: Order Comment: Speci men Type: BLOOD SPECIMEN Ordering Facility: [facility] Address: [address] [place] [address] Result Comment: Clas sification of 25 [place] Vitamin D status: Deficiency/Insufficiency: < or = 30 ng/ml. Sufficiency/Optimal Levels: 31-80 ng/mL Toxicity: > 100 ng/mL. Test performed by chemiluminescent immunoassay. Performed By: #### 1 989-3 #### [facility] CLIA [id number] [address] [place] [address] [place] Hepatic function 2000 panelo n 07-03-2023 Albumin [Mass/Vol] 4.3 g/dL Normal 3.9-4.9 [facility] Comment on above: Order Comment: Speci men Type: BLOOD SPECIMEN Ordering Facility: [facility] Address: [address] [place] [address], [place] [address] Performed By: #### 2 2322-2, 41049-0, 5195-3, 60211-9 #### [facility] CLIA [id number] [address] [place] [address] [place] ALP [Catalytic activity/Vol] 71 U/L Normal 34-123 [facility] Comment on above: Order Comment: Speci men Type: BLOOD SPECIMEN Ordering Facility: [facility] Address: [address] [place] [address], [place] [id number] Performed By: #### 2 2322-2, 87694-6, 5195-3, 39676-2 #### [facility] CLIA [id number] [address] [place] [address] [place] ALT [Catalytic activity/Vol] 11 U/L Normal 7-38 [facility] Comment on above: Order Comment: Speci men Type: BLOOD SPECIMEN Ordering Facility: [facility] Address: [address] [place] [address] Performed By: #### 2 2322-2, 90853-3, 5195-3, 66573-4 #### [facility] CLIA [id number] [address] [place] [address] [place] AST [Catalytic activity/Vol] 11 U/L Low 13-35 [facility] Comment on above: Order Comment: Speci men Type: BLOOD SPECIMEN Ordering Facility: [facility] Address: [address] [place] [address] Performed By: #### 2 2322-2, 84280-0, 5195-3, 18408-3 #### [facility] CLIA [id number] [address] [place] [address] [place] Bilirubin [Mass/Vol] 0.2 mg/dL Normal 0.2-1.3 [facility] Comment on above: Order Comment: Speci men Type: BLOOD SPECIMEN Ordering Facility: [facility] Address: [address] [place], [place] [id number] Performed By: #### 2 2322-2, 21555-4, 5195-3, 84454-3 #### [facility] CLIA [id number] [address] [place] [address] [place] Bilirubin.conjugated [Mass/Vol] mg/dL Normal <0.2 [facility] Comment on above: Order Comment: Speci men Type: BLOOD SPECIMEN Ordering Facility: [facility] Address: [address] [place] [address] Performed By: #### 2 2322-2, 49982-9, 5195-3, 80858-4 #### [facility] CLIA [id number] [address] [place] [address] [place] Protein [Mass/Vol] 6.9 g/dL Normal 6.3-8.0 [facility] Comment on above: Order Comment: Speci men Type: BLOOD SPECIMEN Ordering Facility: [facility] Address: [address] [place] [address], [place] [address] Performed By: #### 2 2322-2, 99987-5, 5195-3, 09360-5 #### [facility] CLIA [id number] [address] [place] [address] [place] T3Free SerPl-mCncon 07-03-20 23 Free T3 [Mass/Vol] 3.5 pg/mL Normal 2.3-4.1 [facility] Comment on above: Order Comment: Speci men Type: BLOOD SPECIMEN Ordering Facility: [facility] Address: [address] [place] [address], [place] [address] Performed By: #### 2 2322-2, 10935-8, 5-3, 17381-4 #### [facility] CLIA [id number] [address] [place] [address] [place] T4 Free SerPl-mCncon 023 Free T4 [Mass/Vol] 1.3 ng/dL Normal 0.9-1.7 [facility] Comment on above: Order Comment: Speci men Type: BLOOD SPECIMEN Ordering Facility: [facility] Address: [address] [facility], [place] [address] Performed By: #### 2 2322-2, 26660-4, 5195-3, 31199-0 #### [facility] CLIA [id number] [address] [place] [address] [place] TSH SerPl-aCncon 07-03-2023 TSH Qn 1.470 m[IU]/L Normal 0.270-4.200 [facility] Comment on above: Order Comment: Speci men Type: BLOOD SPECIMEN Ordering Facility: [facility] Address: [address] [facility], [place] [address] Result Comment: If t he patient is , TSH reference range varies by gestational period: First Trimester (weeks 9-12): 0.180-2.990 mIU/L Second Trimester: 0.110-3.980 mIU/L Third Trimester: 0.480-4.710 mIU/L Otilio Tomas et al. A Practical Approach for the Verifications and Determination of Site- and Trimester-Specific Reference Intervals for Thyroid Function tests in . Thyroid, 2019:29:3:412-420. Naresh Robles, et al. 2017 Guidelines of the [place] Thyroid Association for the Diagnosis and Management of Thyroid Disease during and the . Thyroid, 2017:27:3:315-389. Performed By: #### 2 2322-2, 37656-0, 5195-3, 79793-8 #### [facility] CLIA [id number] [address] [place] [address] OF [facility] CNOVon 05-14-2023 CNOV Office Visit (NREUS2 ) HERMINIA GOLDMAN ([id number]) 2 F UPA Date Time Provider Department 05/14/23 4:00 PM SCOTT MATA NREUS2 During your visit today, we recorded the following information about you: Scott Mata PSYD 07/01/2023 5:10 PM Addendum [facility] Clinical Health Psychology Evaluation Time of Service: 4:00 pm to 5:00 pm CPT Code: 97166 - Health AND Behavior Assessment Billing Code: [...] Social History: Ms. Goldman was raised in [place], [place] as the second of 3 children [...] any. Ms. Goldman is and has a [id number]-gzm child. She describes limited support from family [...] AND b (more content not included)... Normal [facility] CNOV Office Visit (TAWANA S) HERMINIA GOLDMAN ([id number]) 2 F UPA Date Time Provider Department 05/14/23 3:00 PM ANNALISE SMITH During your visit today, we recorded the following information about you: Annalise Smith LGC 05/25/2023 9:18 AM Addendum Patient Name and confirmed at initiation of visit Dr. Álvaro Zavala requested a genetic consultation for Herminia Goldman, a 22 year old female, for discussion of her family history of [place] disease and personal concern for the same. 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 She said this and medicine is helping [...] to her child. DEVELOPMENTAL HISTORY: reportedly normal manager protein milestones - IEP in school per above [...] GENETIC TESTING: none SOCIAL HISTORY: Lives in [place] with dad and paternal grandmother . Employment: not working Level of education: finished [employer] Alcohol/cigarettes/othe r: MJ - not daily, every so often FAMILY HISTORY: - Patient's ethnicity: Maternal - unknown ; Paternal - [place]ib[place]ian. - Partner's ethnicity: Czech. - No known -Tongan, Mediterranean, /Uzbek, Kenyan-Moroccan/Cajun, or Ashkenazi Baptist ancestry unless noted above. - Parental consanguinity: [...] Grandmother - hypertension - Grandfather - hx [place]. Father: 50s years old, has HD, reportedly molecularly confirmed. Paternal relatives: - Grandfather - [place] disease; from suicide - Grandfather's sister - reportedly molecularly confirmed HD - in retirement - Grandfather's brother - [place] disease; from suicide. The remainder of Ms. Goldman's reported family history is negative for known or suspected genetic disease, defects, developmental delay/intellectual disability, infertility, recurrent loss, and unexplained infant . GENETIC COUNSELING RISK ASSES (more content not included)... Normal [facility] [place] 04-08-2023 SILVANO Telephone (AGINTMLW) HERMINIA GOLDMAN ([id number]) 2 F UPA Date Time Provider Department 04/08/23 FIORDALIZA ZHAO AGINTMLW During your visit today, we recorded the following information about you: Frederic Workman MA 04/08/2023 3:32 PM Signed ----- Message from Fiordaliza Zhao APRN.ELECTRIC STOP INSTALLER sent at 04/08/2023 12:28 PM EDT ----- [...] (Caregivers Name): n If No - Which [facility] Leadership Dust Brush Assembler Did You Speak With Regarding This Patient: n Was an appointment scheduled (Y/N): n Reason patient was requesting visit (RFV/signs and symptoms/diagnosis) : Documentation request Person calling if other than patient: Mom Return call to if other than patient: Sigrid Alcantara contact number: [phone] Thank you, Sigrid Gil April 08, 2023 [...] Fully Assessed Reason for Visit: Patient Question [1037] Prescriptions as of 04/08/2023 - PARoxetine (PAXIL) 30 mg tablet Take 1 tablet by mouth once daily. - melatonin 3 mg tablet Take 2 tablets by mouth daily at bedtime. Problem List As Of Date 04/08/2023 Noted Resolved Unplanned [Z34.90] 03/27/2021 01/01/2022 Nausea and vomiting in [O21.9] 03/27/2021 05/30/2021 History of depression [Z86.59] 03/27/2021 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 Peoria's disease [Z82.0] 03/27/2021 Patient request for diagnostic testing [Z01.89] 03/27/2021 05/30/2021 Marijuana use [F12.90] 04/07/2021 Abnormal glucose complicating [O99.81*08/25/2021 01/01/2022 Anxiety [F41.9] 01/14/2022 Mild episode of recurrent major depressive diso*01/14/2022 Obesity, Class II, BMI 35-39.9 [E66.9] 02/11/2023 Depression [F32.A] 02/12/2023 Encounter Status:Closed by FREDERIC WORKMAN on 04/08/[address] [facility] [address] ABDOMEN PELVIS WITH IV CO NTRAST [...] WedApr 07, 2023 7:55:37 PM EDT Normal [facility] Comment on above: Order Comment: Injur [...] edema. No pneumothorax. IMPRESSION: Normal chest x-ray. [employer] Workstation ID: [id number] Dictated by: HERIBERTO COLE on WedApr 07, 2023 2:32:43 PM EDT Transcribed by: JEAN CLAUDE CARRILLO on WedApr 07, 2023 2:32:43 PM EDT Finalized by: HERIBERTO COLE on WedApr 07, 2023 2:51:16 PM EDT Normal [facility] Comment on above: Order Comment: Injur y/Trauma or Illness?:Illness/Other How long have you had these symptoms (acute/chronic)?:Unknown Reason for exam?:cp History of cancer?: Surgeries, chemotherapy, or radiation?: Type of Exam?:Unknown Additional signs and symptoms?:chest pain, abdominal pain Absolute lymphocyte countOrd ered By: Kareem Mezaone on 04-04-2023 Lymphocytes Auto (Unsp spec) [#/Vol] 2.68 10*3/uL 0.83-4.51 [facility] Basophil percentageOrdered B y: Kareem Jacob on 04-04-2023 Potassium [Moles/Vol] 2.9 mmol/L 3.5-5.1 [facility] Basophils/100 WBC (Bld) 0.7 % 0-1 [facility] Chloride [Moles/Vol] 110 mmol/L 98-107 [facility] Eosinophils/100 WBC (Bld) 2.1 % 0-5 [facility] Glucose [Mass/Vol] 101 mg/dL 74-106 [facility] Comment on above: Fasting Glucose resu lt from 100 to 125 mg/dL suggests IMPAIRED HOMEOSTASIS per A.D.A. criteria. Neutrophils (Bld) [#/Vol] 5.8 10*3/uL 2.0-7.7 [facility] Neutrophils/100 WBC (Bld) 62.7 % 47-70 [facility] Sodium [Moles/Vol] 142 mmol/L 136-145 [facility] WBC (Bld) [#/Vol] 9.2 10*3/uL 4.4-11.0 [facility] Beta hCG serum qualOrdered B y: Kareem Jacob on 04-04-2023 Beta HCG ( test) Ql Negative [facility] Blood erythrocytes count (nu mber/volume)Ordered By: Kareem Jacob on 04-04-2023 RBC (Bld) [#/Vol] 4.64 10*6/uL 4.2-5.4 [facility] Blood hemoglobin measurement (mass/volume)Ordered By: Kareem Jacob on 04-04-2023 Hemoglobin (Bld) [Mass/Vol] 14.7 g/dL 12.0-15.0 [facility] Blood lymphocytes/100 leukoc ytesOrdered By: Kareem Jacob on 04-04-2023 Lymphocytes/100 WBC (Bld) 29.0 % 19-41 [facility] Blood monocytes/100 leukocyt esOrdered By: Kareem Jacob on 04-04-2023 Monocytes/100 WBC (Bld) 5.3 % 0-10 [facility] Blood platelet mean volumeOr dered By: Kareem Jacob on 04-04-2023 Platelet mean volume (Bld) [Entitic vol] 10.6 fL 6.2-12.0 [facility] COVID-19 virus antigen assay Ordered By: Kareem Jacob on 04-04-2023 SARS-CoV-2 (COVID-19) Ag IA.rapid Ql (Resp) [facility] Determination of erythrocyte mean corpuscular volume (MCV)Ordered By: Kareem Jacob on 04-04-2023 MCV (RBC) [Entitic vol] 94.0 fL 81-99 [facility] Hematocrit Auto (Bld) [Volum e fraction]Ordered By: Kareem Jacob on 04-04-2023 Hematocrit (Bld) [Volume fraction] 43.6 % 37-47 [facility] Laboratory - Chemistry and C hemistry - challengeOrdered By: Kareem Jacob on 04-04-2023 CO2 [Moles/Vol] 25.0 mmol/L 21.0-32.0 [facility] Urea nitrogen/Creatinine [Mass ratio] 6.9 mg/mg 10-20 [facility] Laboratory - Drug toxicology Ordered By: Kareem Jacob on 04-04-2023 Amphetamines Ql (U) Negative <1000 ng/mL [facility] Benzodiazepines Ql (U) Negative < 200 ng/mL [facility] Cannabinoids Screen Ql (U) Positive < 50 ng/mL [facility] Cocaine Ql (U) Negative < 300 ng/mL [facility] Opiates Ql (U) Negative < 300 ng/mL [facility] Laboratory - Hematology and Cell countsOrdered By: Kareem Jacob on 04-04-2023 Erythrocyte distribution width (RBC) [Entitic vol] 43.5 fL 35.1-43.9 [facility] Erythrocyte distribution width (RBC) [Ratio] 12.5 % 11.6-14.6 [facility] Immature granulocytes/100 WBC (Bld) 0.200 % 0.0-0.9 [facility] Comment on above: IG% - Immature Granu locytes (promyelocytes, myelocytes and metamyelocytes) > 1% indicates that a LEFT SHIFT is Present. MCH (RBC) [Entitic mass] 31.7 pg 27.0-32.0 [facility] Nucleated RBC/100 WBC (Bld) [Ratio] 0 % 0-5 [facility] MCHC Auto (RBC) [Mass/Vol]Or dered By: Kareem Jacob on 04-04-2023 MCHC (RBC) [Mass/Vol] 33.7 g/dL 32-36 [facility] No Panel InformationOrdered By: Kareem Jacob on 04-04-2023 MDMA (Ecstasy) Screen Negative < 500 ng/mL [facility] Urine Barbiturates Screen Negative < 200 ng/mL [facility] Urine Drug Screen Comment [facility] Comment on above: CONFIRMATORY TESTING FOR ALL [...] Methadone Screen Negative < 300 ng/mL [facility] Estimated Creatinine Clearance Calc 100.84 ml/min [facility] Estimated GFR (MDRD) Amer 129 mL/min >60 [facility] Comment on above: GFR Calc Estimated GFR (MDRD) Non-Af Amer 107 mL/min >60 [facility] Comment on above: Non- GFR Calc Ethyl Alcohol Level < 3.0 mg/dL [facility] Comment on above: The serum:whole bloo d ethanol ratio is approximately 1.14and varies slightly with hematocrit. Medical Alcohol reference interval and critical value innon-tolerant individuals; 50 - 100 Impairment 100 Intoxication 100 - 250 Severe Poisoning 250 - 400 Deep/possible fatal coma Platelets bldOrdered By: Apryl Jacob on 04-04-2023 Platelets (Bld) [#/Vol] 277 10*3/uL 150-450 [facility] Serum or plasma calcium hayder urement (mass/volume)Ordered By: Kareem Jacob on 04-04-2023 Calcium [Mass/Vol] 9.4 mg/dL 8.5-10.1 [facility] Serum or plasma creatinine m easurement (mass/volume)Ordered By: Kareem Jacob on 04-04-2023 Creatinine [Mass/Vol] 0.73 mg/dL 0.55-1.02 [facility] Comment on above: The validity of the calculated GFR & GFRAA in patients over 70 years has not been determined. Clinical correlation is essential. Serum or plasma urea nitroge n measurement (mass/volume)Ordered By: Kareem Jacob on 04-04-2023 Urea nitrogen [Mass/Vol] 5 mg/dL 7-18 [facility] Thin prep Papanicolaou smear with manual screeningOrdered By: Kareem Jacob on 04-04-2023 Thin prep Papanicolaou smear with manual screening 7 5-15 [facility] Urine phencyclidine (PCP) de tectionOrdered By: Kareem Jacob on 04-04-2023 Phencyclidine Ql (U) Negative < 25 ng/mL [facility] 04-01-2023 CNPN Telephone (NREUS2) HERMINIA GOLDMAN ([id number]) 01 F [facility] Date Time Provider Department [...] and records from local neurologist available in [employer]. I told her I'd run this by the team and have someone contact her. Jude (aunt) [phone] Allergies As of Date: 04/01/2023 (No Known [...] of depression [Z86.59] 03/27/2021 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 Peoria's disease [Z82.0] 03/27/2021 Patient request for diagnostic testing [Z01.89] 03/27/2021 05/30/2021 Marijuana use [F12.90] 04/07/2021 Abnormal glucose complicating [O99.81*08/25/2021 01/01/2022 Anxiety [F41.9] 01/14/2022 Mild episode of recurrent major depressive diso*01/14/2022 Obesity, Class II, BMI 35-39.9 [E66.9] 02/11/2023 Depression [F32.A] 02/12/2023 Encounter Status:Closed [facility] HER[facility] ([id number]) 01 [facility] Date Time Provider Department 04/01/23 SCOTT [...] We reviewed crisis plan such as dialing [employer] for Suicide and Crisis Lifeline, access the Crisis Text Line by texting HOME to [phone]. Patient's aunt also aware she may call [...] Scott Mata Psy.D. Staff, [facility] Allergies As of Date: 04/01/2023 (No Known [...] of depression [Z86.59] 03/27/2021 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 Peoria's disease [Z82.0] 03/27/2021 Patient request for diagnostic testing [Z01.89] 03/27/2021 05/30/2021 Marijuana use [F12.90] 04/07/2021 Abnormal glucose complicating [O99.81*08/25/2021 01/01/2022 Anxiety [F41.9] 01/14/2022 Mild episode of recurrent major depressive diso*01/14/2022 Obesity, Class II, BMI 35-39.9 [E66.9] 02/11/2023 Depression [F32.A] 02/12/2023 Encounter Status:Closed by SCOTT MATA on 04/01/23 [facility] CNOVon 03-26-2023 CNOV Office Visit (NEURST ) HERMINIA GOLDMAN ([id number]) 01 F [facility] Date Time Provider Department [...] MARTÍNEZ Zhao, 03/10/23, for family history of Peoria's disease, depression, and anxiety. She documented: She was admitted 02/11/23 after ov and ER visit for suicidal ideation...Family is concerned for possible Peoria's disease. Jude reports pts father was dx [...] She has not had a TSH in [facility] or [facility]. 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 Her paternal aunt Jude accompanies her. History of Present Illness The patient's father had genetic testing through the [facility] at [address] [place] [address] on 07/18/08. 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 He had 49 repeats. He underwent [...] was started. Her aunt is concerned about Peoria's because she feels Herminia's speech is slow [...] of Systems: (more content not included)... Normal [facility] HISTORY PHYSICALon HISTORY PHYSICAL HNO ID: [id number] Author: Álvaro Zavala MD Service: ? Author [...] MARTÍNEZ Zhao, 03/10/23, for family history of Peoria's disease, depression, and anxiety. She documented: She was admitted 02/11/23 after ov and ER visit for suicidal ideation...Family is concerned for possible Peoria's disease. Jude reports pts father was dx [...] She has not had a TSH in [facility] or [facility]. ====== Álvaro Zavala MD [facility] HIST[facility] PHYSICAL HNO ID: [id number] Author: Álvaro Zavala MD Service: ? Author [...] She has not had a TSH in [employer] or [employer]. 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 Her paternal aunt Jude accompanies her. History of Present Illness The patient's father had genetic testing through the [facility] at [address] [place] [address] on 07/18/08. 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 He had 49 repeats. He underwent [...] Cardiovascular: Carotids (more content not included)... Normal [facility] CNCOon 03-18-2023 CNCO Letter Text Normal [facility] CNPNon 03-18-2023 MARTÍNEZN Telephone (AGINTMLW) HERMINIA GOLDMAN ([id number]) 01 F [facility] Date Time Provider Department 03/18/23 FIORDALIZA ZHAO [...] Reviewed: 03/10/2023 Reviewed by: Fiordaliza M Cece, BUSINESS ANALYST INTERN.ELECTRIC STOP INSTALLER - Fully Assessed Reason for Visit: Missed [...] of depression [Z86.59] 03/27/2021 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 Peoria's disease [Z82.0] 03/27/2021 Patient request for diagnostic testing [Z01.89] 03/27/2021 05/30/2021 Marijuana use [F12.90] 04/07/2021 Abnormal glucose complicating [O99.81*08/25/2021 01/01/2022 Anxiety [F41.9] 01/14/2022 Mild episode of recurrent major depressive diso*01/14/2022 Obesity, Class II, BMI 35-39.9 [E66.9] 02/11/2023 Depression [F32.A] 02/12/2023 Encounter Status:Closed by ALYSSIA DOSS on 03/18/23 [facility] Madhuri 03-10-2023 [facility] Office Visit (AGINTM LW) HERMINIA GOLDMAN ([id number]) 01 F [facility] Date Time Provider Department 03/10/23 11:20 AM FIORDALIZA ZHAOMLCarey During your visit today, we recorded the following information about you: Temperature Pulse Respiration Blood pressure 98.2 degrees 62/minute 18/minute 120/70 Weight Height 78.7 kg 1.6 m Fiordaliza Zhao APRN.ELECTRIC STOP INSTALLER 03/11/2023 7:56 AM Signed This note was created using [employer]. Subjective Herminia Goldman is a 22 year [...] LIST History of Depression Family History of Peoria's Disease Marijuana Use Anxiety Mild Episode of Recurrent Major Depressive Disorder (Hcc) Obesity, Class II, Bmi 35-39.9 Depression PAST MEDICAL HISTORY Diagnosis Date #[id number] PAST SURGICAL HISTORY Procedure Laterality Date TONSILLECTOMY [...] Heart sounds: (more content not included)... Normal [facility] 03-10-2023 [facility] HERMINIA GOLDMAN ([id number]) 01 F [facility] Date Time Provider Department 03/10/23 FIORDALIZA ZHAO During your visit today, we recorded the following information about you: Alexsander Mcrae 03/24/2023 11:39 AM Addendum Put referral for Neurology on [facility] Provider Portal 03/10/23 Confirmation # [id number] Pt is scheduled for 03/26/[address]Michael Zavala Allergies As of Date: 03/10/2023 (No Known Allergies) Date Reviewed: 03/10/2023 Reviewed by: Fiordaliza Zhao APRN.ELECTRIC STOP INSTALLER - Fully Assessed Reason for Visit: [facility] Provider Portal [Other] Cmt: Put referral for Neurology on [facility] Provider Portal 03/10/23 Prescriptions as of 03/24/2023 [...] Status:Closed by CLEMENTINA ALEXSANDER ROHINI on 03/24/23 [facility] CNPN Telephone (CAMILO) SABINOBRENDEN COOKBalbina Tomas ([id number]) 01 F [facility] Date Time Provider Department 03/10/23 FIORDALIZA ZHAO During your visit today, we recorded the following information about you: Alexsander Mcrae 03/24/2023 1:17 PM Addendum Put referral for Psychiatry on [facility] Provider Portal on 03/10/23 Confirmation # [id number] [facility] 03/11/23 14:32 Psychiatry (Bill). prefers Female . first attempt unable to leave 03/15, unable to leave 03/23 Allergies As of Date: 03/10/2023 (No Known Allergies) Date Reviewed: 03/10/2023 Reviewed by: Fiordaliza Zhao, BUSINESS ANALYST INTERN.ELECTRIC STOP INSTALLER - Fully Assessed Reason for Visit: [facility] Provider Portal [Other] Cmt: Put referral for Psychiatry on [facility] Provider Portal 03/10/23 Prescriptions as of 06/23/2023 [...] Encounter Status:Closed by ALEXSANDER MCRAE on 06/23/23 [facility] 02-26-2023 CNPN Telephone (AGFAMPLE) MARCELOHERMINIA MCLAUGHLIN ([id number]) 01 [facility] Date Time Provider Department 02/26/23 LIS GOMEZ During your visit today, we recorded the following information about you: Bridget Chongsimeon 02/26/2023 11:53 AM Signed ----- Message from Cesar Webb sent at 02/26/2023 11:46 AM EDT ----- Regarding: Medicine / [facility] / Peoria's Disease Test Subject Line Format: Medicine / [Provider Name] / [Issue] Patient has been identified by name and Date of (Y/N): N Patient: Herminia Goldman Date of : 2000 Provider for this encounter: Lis Gomez DO Reason for the call/escalation: Patient's aunt called asking if a Peoria's Disease test was scheduled yet. She asked to be contacted when the test is scheduled. Was Patient Referred to [facility]/Seek Emergency Treatment (Y/N): N Did Patient Agree (Y/N): N/A Was An Attempt Made To Transfer The Patient To The Office (Y/N): N Were You Able To Reach Someone At The Office (Y/N): N/A If Yes - Patient Was Transferred To (Caregivers Name): N/A If No - Which [facility] Leadership Dust Brush Assembler Did You Speak With Regarding This Patient: N/A Was an appointment scheduled (Y/N): N Reason patient was requesting visit (RFV/signs and symptoms/diagnosis) : Peoria's Disease Test Person calling if other than patient: Jude Perdue, Aunt Return call to if other than patient: Jude Perdue, Aunt Best contact number: [phone] Thank you, Cesar Webb February 26, 2023 11:46 AM Lis Gomez DO 02/26/2023 1:10 PM Signed Please call pt's aunt and notify her she is not on HIPPA and we cannot give her that information. 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 Jude believes that she may have Peoria's disease just like her father did. Jude states the symptoms are just like Herminia's father and she states that Herminia is willing to have the test. 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 Gomez to call her so she can give a update on herminia. Soto number is [phone]. 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 Discharge Information Row Name Admission (Current) from 02/11/[address] [facility] Psychiatry Follow-Up Appointment Psychiatrist Name Chinedu Brannon, ELECTRIC STOP INSTALLER Agency [facility] Address / Phone # [address] [place] [address] / / Appointment Date 02/22/23 Appointment Time 1:40p.m., this will be in person Additional Instructions Please bring a photo ID and insurance card with you Counselor Follow-Up Appointment Counselor Name Segundo Macdonald, counselor Agency [facility] Address / Phone # [address] [place] [address] / / Appointment Date 02/23/23 Appointment Time 11:25a.m., this will be an in person appointment Patient/Certified Executive Chef Agreeable With Discharge Plan: Yes FREEDOM OF CHOICE EXPLAINED? On admission Patient/Certified Executive Chef Given/Explained Medicare Discharge Notice (IM letter): Not [...] and linked pt with above Intake for ELECTRIC STOP INSTALLER and counseling as above. Pt's medication were filled at hospital prior to d/c. SIGNATURE: KARIS Starks PATIENT NAME: Herminia Goldman DATE: February 15, 2023 TIME: 1:29 PM [facility] 02-15-2023 [facility] HNO ID: [id number] Author: Renato Teran MD Service: Psychiatry Author [...] Row Name Admission (Current) from 02/11/[address] [facility] Psychiatry Follow-Up Appointment Agency [facility] and [facility] Address / Phone # [address] [facility] [facility] [place] [address] / / The patient's risk for 30-day readmission is determined using the following contributing factors: Pt variables contributing to increased readmission risk: 12 Active Medication Orders 7 Most Recent BUN Result 1 Previous ED Visit (6 mos.)? 1 Number of Prev (more content not included)... [facility] NURSING PROGon 02-15-2023 NURSING PROG HNO ID: [id number] Author: Marcus Silva RN Service: Nursing Author Type: Registered Nurse Type: Nursing Progress Note Filed: 02/15/2023 3:44 PM Note Text: Nursing Progress Note Patient Name: Herminia Goldman Patient Location: [place] [address]/[facility] Daily Note:1530 Patient discharged to home with prescriptions, belongings and follow up instructions/appointmen ts. Voice no distress. Comfort and safety measures met. Transportation Family. This note was completed by: Marcus Silva [facility] NURSING PROG HNO ID: [id number] Author: Marcus Silva RN Service: Nursing Author Type: Registered Nurse Type: Nursing Progress Note Filed: 02/15/2023 3:42 PM Note Text: Nursing Progress Note Patient Name: Herminia Goldman Patient Location: [id number]/[facility] Daily Note:Patient ate 90% of breakfast, 90% [...] This note was completed by: Marcus Silva [facility] NURSING PROG HNO ID: [id number] Author: Leola Diez RN Service: ? Author Type: Registered Nurse Type: Nursing Progress Note Filed: 02/15/2023 12:15 AM Note Text: Nursing Progress Note Patient Name: Herminia Goldman Patient Location: [id number]/[facility] Daily Note Assumed care of pt at [...] This note was completed by: Leola Diez [facility] NURSING PROGon 02-14-2023 NURSING PROG HNO ID: [id number] Author: Keesha Madera RN Service: Nursing Author Type: Registered Nurse Type: Nursing Progress Note Filed: 02/14/2023 6:31 PM Note Text: Nursing Progress Note Patient Name: Herminia Goldman Patient Location: [id number]/[facility] Daily Note: Pt pleasant and cooperative with [...] This note was completed by: Keesha Madera [facility] NURSING PROGon 02-13-2023 NURSING PROG HNO ID: [id number] Author: Sarah Gruber, RN Service: Nursing Author Type: Registered Nurse Type: Nursing Progress Note Filed: 02/14/2023 3:40 AM Note Text: Nursing Progress Note Patient Name: Herminia Goldman Patient Location: [id number]/[facility]-00 54-01 Daily Note: Assumed care of pt [...] This note was completed by: Sarah Gruber [facility] NURSING PROG HNO ID: [id number] Author: Keesha Madera RN Service: Nursing Author Type: Registered Nurse Type: Nursing Progress Note Filed: 02/13/2023 6:38 PM Note Text: Nursing Progress Note Patient Name: Herminia Goldman Patient Location: MU-[id number]-1525/[facility] Daily Note: Pt pleasant and cooperative with [...] This note was completed by: Keesha Madera [facility] NURSING PROG HNO ID: [id number] Author: Benny Lawrence RN Service: ? Author Type: Registered Nurse Type: Nursing Progress Note Filed: 02/13/2023 6:40 AM Note Text: Nursing Progress Note Patient Name: Herminia Goldman Patient Location: [id number]-2614/[facility] Daily Note: 1930: Received report and assumed [...] This note was completed by: Benny Lawrence [facility] NUTRITIONon 02-13-2023 NUTRITION HNO ID: [id number] Author: Mayra Michel RD Service: Nutrition Therapy [...] her. Reported good appetite and PO intakes CYLINDER DEVALVER and currently. Denied issues eating, denied GI s/s. Denied any c/s difficulties with food. No acute nutrition concerns at this time; if concerns arise, please consult. Diet Orders (From admission, onward) Start Ordered 02/11/23 1730 DIET REGULAR START NOW 02/11/23 1726 Anthropometrics: Height: 157.5 cm (5' 2) Weight: 78 kg (172 lb) Usual Weight: 86.2 kg (190 lb) 8629-0780 -- pt pregant at this time, however. Usual Weight Obtained From: Chart Review Weight change percentage over time: - 16.9% x 1 year -- not significant, and pt reported this was intentional loss of wt post MNT Billing: $ Initial Assessment: 1-15 minutes SIGNATURE: Mayra Michel RD PATIENT NAME: Herminia Goldman DATE: February 13, 2023 TIME: 4:[address] [facility] ALLIED HEALTHon 02-12-2023 ALLIED HEALTH HNO ID: [id number] Author: Ethel Fisher Service: Music Therapy Author [...] 12, 2023 TIME: 10:25 AM PAGER/CONTACT #: [facility] ALLIED HEALTH HNO ID: [id number] Author: Ethel Fisher Service: Music Therapy Author [...] 12, 2023 TIME: 10:17 AM PAGER/CONTACT #: [facility] CASE MGT INIT ASSESon 2022 CASE MGT INIT ASSES HNO ID: [id number] Author: ZACK Starks Service: Social Work Author Type: Car Painter Type: Care Mgt Initial Assessment Filed: 02/12/2023 2:59 PM Note Text: BEHAVIORAL HEALTH SOCIAL WORK/CARE MANAGEMENT ASSESSMENT AND DISCHARGE PLAN SERVICE DATE: 02/12/2023 SERVICE TIME: 9:15 AM Reason for Admission: Per chart: Nature of the crisis: suicidal threats, aggressive and odd behavior Presenting Problem: Herminia Goldman is a 22 year old female with depression and anxiety brought in to [place] ED from Home by family for increasing [...] to be home. She was informed this relays draftsperson will further discuss with physicians for plan of care and potential admission. She reluctantly gave permission for this relays draftsperson to speak with mom, why would you need to do that? Ok, I guess. Patient had repeated episodes of agitation r/t not wanting to be hospitalized: yelling, screaming, pacing, crying, threw glasses to floor. Medicated with Haldol, Ativan, Benadryl with good effect. Legal Status: Involuntary - Medical Certificate Important Contacts: Primary Contact Name: Sigrid / Relationship: Mother / Cell / Does the patient/technical sales representatives consent to contact with the above at [...] was born and (more content not included)... [facility] CONSULTon 02-12-2023 CONSULT HNO ID: [id number] Author: Sarah Mensah MD Service: ? Author Type: Physician Type: Consults Filed: 02/12/2023 1:33 PM Note Text: INTERNAL MEDICINE INITIAL CONSULT SERVICE DATE: 02/12/2023 SERVICE TIME: 1:04 PM REASON FOR CONSULT: medical management REQUESTING PHYSICIAN: PRIMARY CARE PHYSICIAN: Fiordaliza Zhao APRN.ELECTRIC STOP INSTALLER Subjective HISTORY OF PRESENT ILLNESS: Ms. Goldman is a 22 year old female who was brought in with depression and suicidal ideation. Drug screen is positive for marijuana. Pt PAST MEDICAL HISTORY Diagnosis Date #[id number] PAST SURGICAL HISTORY Procedure Laterality Date TONSILLECTOMY [...] No history of dysuria, frequency or incontinence DEPUTY CLERK OF COURT: Negative for abnormal vaginal, bleeding, abnormal vaginal [...] >=60 mL/min/1.73m? 131 Ethanol <11 mg/dL <11 [facility] Reference Range AND Units 02/11/23 10:44 02/11/23 11:16 Ethanol <11 mg/dL <11 Amphetamines Negative Negative Barbiturates Negative Negative Benzodiazepines Urine Negative Negative Cocaine Urine Negative Negative Cannabinoids, Urine Negative Preliminary positive ! Ethanol, Urine <11 mg/dL <11 Opiates Negative Negative Phencyclidine Negative Negative Oxycodone, Urine Negative Negative HCG Qualitative, Urine Negative Negative WBC (more content not included)... Normal [facility] HISTORY PHYSICALon HISTORY PHYSICAL HNO ID: [id number] Author: Renato Teran MD Service: Psychiatry Author Type: Physician Type: HANDP Filed: 02/12/2023 2:52 PM Note Text: HISTORY AND PHYSICAL BEHAVIORAL HEALTH SERVICE DATE: 02/12/2023 SERVICE TIME: 9:58 AM IDENTIFYING INFORMATION: Herminia Goldman is a 22 year old person who identifies as female. FROM ED: Herminia Goldman is a 22 year old female with depression and anxiety brought in to [place] ED from Home by family for increasing [...] to be home. She was informed this relays draftsperson will further discuss with physicians for plan of care and potential admission. She reluctantly gave permission for this relays draftsperson to speak with mom, why would you [...] or paranoid ideation. (more content not included)... [facility] NURSING PROGon 02-12-2023 NURSING PROG HNO ID: [id number] Author: Caesar Valenzuela RN Service: Nursing Author [...] 15 min safety checks maintained. Will monitor. [facility] ALLIED HEALTHon 02-11-2023 ALLIED HEALTH HNO ID: [id number] Author: JESI Magaña Service: Intake-Behavioral Health Author [...] Providers: Dr Sinha Date 02/11/23 Time11:20am Psychiatrist office automation technician: Name: Dr Arredondo Date: 02/11/23 Time: 12:51pm Other Contact and Role: N/A SIGNATURE: JESI Magaña PATIENT NAME: Herminia Goldman DATE: February 11, 2023 TIME: 2:18 PM [facility] CBC panel Auto (Bld)on 02-11 Erythrocyte distribution width (RBC) [Ratio] 12.5 % Normal 11.5-15.0 [facility] Comment on above: Order Comment: Speci men Type: BLOOD SPECIMEN Ordering Facility: [facility] Address: [address] [place] [address] Performed By: #### 5 8410-2 #### [facility] CLIA [id number] [address] [place] Hematocrit (Bld) [Volume fraction] 42.5 % Normal 36.0-46.0 [facility] Comment on above: Order Comment: Speci men Type: BLOOD SPECIMEN Ordering Facility: [facility] Address: [address] [place] [address] Performed By: #### 5 8410-2 #### [facility] CLIA [id number] [address] [place] Hemoglobin (Bld) [Mass/Vol] 14.1 g/dL Normal 11.5-15.5 [facility] Comment on above: Order Comment: Speci men Type: BLOOD SPECIMEN Ordering Facility: [facility] Address: [address] [place] [address] Performed By: #### 5 8410-2 #### [facility] CLIA [id number] [address] [place] [address] [place] MCH (RBC) [Entitic mass] 30.9 pg Normal 26.0-34.0 [facility] Comment on above: Order Comment: Speci men Type: BLOOD SPECIMEN Ordering Facility: [facility] Address: [address] [place] [address] Performed By: #### 5 8410-2 #### [facility] CLIA [id number] [address] [place] MCHC (RBC) [Mass/Vol] 33.2 g/dL Normal 30.5-36.0 [facility] Comment on above: Order Comment: Speci men Type: BLOOD SPECIMEN Ordering Facility: [facility] Address: [address] [place] [address] Performed By: #### 5 8410-2 #### [facility] CLIA [id number] [address] [place] [address] [place] MCV (RBC) [Entitic vol] 93.0 fL Normal 80.0-100.0 [facility] Comment on above: Order Comment: Speci men Type: BLOOD SPECIMEN Ordering Facility: [facility] Address: [address] [place] [address] Performed By: #### 5 8410-2 #### [facility] CLIA [id number] [address] [place] [address] [place] Platelet mean volume (Bld) [Entitic vol] 10.6 fL Normal 9.0-12.7 [facility] Comment on above: Order Comment: Speci men Type: BLOOD SPECIMEN Ordering Facility: [facility] Address: [address] [place] [address] Performed By: #### 5 8410-2 #### [facility] CLIA [id number] [address] [place] [address] [place] Platelets (Bld) [#/Vol] 246 10*3/uL Normal 150-400 [facility] Comment on above: Order Comment: Speci men Type: BLOOD SPECIMEN Ordering Facility: [facility] Address: [address] [place] [address] Performed By: #### 5 8410-2 #### [facility] CLIA [id number] [address] [place] [address] [place] RBC (Bld) [#/Vol] 4.57 10*6/uL Normal 3.90-5.20 [facility] Comment on above: Order Comment: Speci men Type: BLOOD SPECIMEN Ordering Facility: [facility] Address: [address] [place] [address] Performed By: #### 5 8410-2 #### [facility] CLIA [id number] [address] [place] [address] [place] WBC (Bld) [#/Vol] 6.38 10*3/uL Normal 3.70-11.00 [facility] Comment on above: Order Comment: Speci men Type: BLOOD SPECIMEN Ordering Facility: [facility] Address: [place] [address] Performed By: #### 5 8410-2 #### [facility] CLIA [id number] [address] [place] [address] [facility] CNOVon 02-11-2023 CNOV Office Visit (AGFAMP LE) HERMINIA GOLDMAN ([id number]) 01 F [facility] [place] Date Time Provider Department 02/11/23 9:20 AM [...] last Rx was 10/05/22 Her dad has Peoria's disease, and she is concerned that she [...] taking: Reported on 02/11/2023) 30 tablet 4 Zlppomyx-Qf-Lfr-Fe-FA tab Take 1 tablet by mouth once daily. With folic acid and DHA as covered by insurance (Patient not taking: Reported on 02/11/2023) 30 tablet 11 No current facility-administered medications for this visit. ACTIVE PROBLEM LIST History of Depression Family History of Peoria's Disease Marijuana Use Anxiety Mild Episode of [...] nerve deficit. (more content not included)... Normal [facility] Comprehensive metabolic 2000 panelon 02-11-2023 Albumin [Mass/Vol] 4.4 g/dL Normal 3.9-4.9 [facility] Comment on above: Order Comment: Stew herrera Type: BLOOD SPECIMEN Ordering Facility: [facility] Address: [address] [address] Performed By: #### 2 4323-8 #### [facility] CLIA [id number] [address] [place] [address] [place] ALP [Catalytic activity/Vol] 76 U/L Normal 34-123 [facility] Comment on above: Order Comment: Stew herrera Type: BLOOD SPECIMEN Ordering Facility: [facility] Address: [address] [address] Performed By: #### 2 4323-8 #### [facility] CLIA [id number] [address] [place] [address] [place] ALT With P-5'-P [Catalytic activity/Vol] 16 U/L Normal 7-38 [facility] Comment on above: Order Comment: Speci men Type: BLOOD SPECIMEN Ordering Facility: [facility] Address: [address] [place] [address] Performed By: #### 2 4323-8 #### [facility] CLIA [id number] [address] [place] [address] [place] Anion gap [Moles/Vol] 13 mmol/L Normal 9-18 [facility] Comment on above: Order Comment: Speci men Type: BLOOD SPECIMEN Ordering Facility: [facility] Address: [address] [place] [address] Performed By: #### 2 4323-8 #### [facility] CLIA [id number] [address] [place] [address] [place] AST With P-5'-P [Catalytic activity/Vol] 13 U/L Normal 13-35 [facility] Comment on above: Order Comment: Speci men Type: BLOOD SPECIMEN Ordering Facility: [facility] Address: [address] [place] [address] Performed By: #### 2 4323-8 #### [facility] CLIA [id number] [address] [place] Bilirubin [Mass/Vol] 0.2 mg/dL Normal 0.2-1.3 [facility] Comment on above: Order Comment: Speci men Type: BLOOD SPECIMEN Ordering Facility: [facility] Address: [address] [place] [address] Performed By: #### 2 4323-8 #### [facility] CLIA [id number] [address] [place], [place] [id number] [place] [address] [place] Calcium [Mass/Vol] 9.3 mg/dL Normal 8.5-10.2 [facility] Comment on above: Order Comment: Speci men Type: BLOOD SPECIMEN Ordering Facility: [facility] Address: [address] [place] [address] Performed By: #### 2 4323-8 #### [facility] CLIA [id number] [address] [place] Chloride [Moles/Vol] 101 mmol/L Normal 97-105 [facility] Comment on above: Order Comment: Speci men Type: BLOOD SPECIMEN Ordering Facility: [facility] Address: [address] [place] [address] Performed By: #### 2 4323-8 #### [facility] CLIA [id number] [address] [place] [address] [place] CO2 [Moles/Vol] 24 mmol/L Normal 22-30 [facility] Comment on above: Order Comment: Speci men Type: BLOOD SPECIMEN Ordering Facility: [facility] Address: [address] [place] [address] Performed By: #### 2 4323-8 #### [facility] CLIA [id number] [address] OF [facility] Creatinine [Mass/Vol] 0.60 mg/dL Normal 0.58-0.96 [facility] Comment on above: Order Comment: Speci men Type: BLOOD SPECIMEN Ordering Facility: [facility] Address: [address] [place] [address] Performed By: #### 2 4323-8 #### [facility] CLIA [id number] [address] [place] [address] ESTIMATED GLOMERULAR FILTRATION RATE 131 mL/min/1.73m??? Normal >=60 [facility] Comment on above: Order Comment: Speci men Type: BLOOD SPECIMEN Ordering Facility: [facility] Address: [address] [place] [address] Result Comment: Katie mated Glomerular Filtration Rate [...] 4323-8 #### [facility] CLIA [id number] [address] [place] [address] [place] Glucose [Mass/Vol] 99 mg/dL Normal 74-99 [facility] Comment on above: Order Comment: Stew herrera Type: BLOOD SPECIMEN Ordering Facility: [facility] Address: [address] [place] [address] Result Comment: The [place] Diabetes Association (ADA) provides guidance for cutoff [...] Standards of Medical Care in Diabetes 2016, [place] [employer]. Diabetes Care. 2016.39(Suppl 1). Performed By: #### 2 4323-8 #### [facility] CLIA [id number] [address] [place] [address] [place] Potassium [Moles/Vol] 3.2 mmol/L Low 3.7-5.1 [facility] Comment on above: Order Comment: Stew herrera Type: BLOOD SPECIMEN Ordering Facility: [facility] Address: [address] [place] [address] Performed By: #### 2 4323-8 #### [facility] CLIA [id number] [address] [place] [address] [place] Protein [Mass/Vol] 7.3 g/dL Normal 6.3-8.0 [facility] Comment on above: Order Comment: Stew herrera Type: BLOOD SPECIMEN Ordering Facility: [facility] Address: [address] [place] [address] Performed By: #### 2 4323-8 #### [facility] CLIA [id number] [address] [place] [address] [place] Sodium [Moles/Vol] 138 mmol/L Normal 136-144 [facility] Comment on above: Order Comment: Speci men Type: BLOOD SPECIMEN Ordering Facility: [facility] Address: [address] [address] Performed By: #### 2 4323-8 #### [facility] CLIA [id number] [address] [id number] [facility] [place] Urea nitrogen [Mass/Vol] 7 mg/dL Normal 7-21 [facility] Comment on above: Order Comment: Speci men Type: BLOOD SPECIMEN Ordering Facility: [facility] Address: [address] [address] Performed By: #### 2 4323-8 #### [facility] CLIA [id number] [address] [place] [address] [place] ECG COMPLETEon 02-11-2023 ECG COMPLETE Ventricular Rate : 9 5 BPM Atrial Rate : 95 BPM P-R Interval : 150 ms QRS Duration : 82 ms Q-T Interval : 374 ms QTC Calculation(Bazett) : 469 ms Calculated P [place] : 54 degrees Calculated R [place] : 47 degrees Calculated T [place] : 54 degrees NORMAL SINUS RHYTHM WITH SINUS ARRHYTHMIA NORMAL ECG NO PREVIOUS ECGS AVAILABLE Confirmed by MD BARNES VINAYAK ([id number]) on 02/14/2023 11:48:28 PM NAME : HERMINIA GOLDMAN PID : [id number] : 2000 Gender : Female Race : ORD : [id number] Procedure Date : Feb 11 2023 15:10:44 Edit Date : Feb 14 2023 23:48:29 Diagnosis: NORMAL SINUS RHYTHM WITH SINUS ARRHYTHMIA NORMAL ECG NO PREVIOUS ECGS AVAILABLE Confirmed by MD BARNES VINAYAK ([id number]) on 02/14/2023 11:48:28 PM Test Reason : Arrhythmia Location : 150 : [facility] Overread By : MD BARNES VINAYAK Edited By : MD BARNES VINAYAK Referred By : , Acquired by : MARY SAENZ [facility] ED NOTEon 02-11-2023 ED NOTE HNO ID: [id number] Author: Kenya Luevano RN Service: Emergency Medicine Author Type: Registered Nurse Type: ED Notes Filed: 02/11/2023 3:36 PM Note Text: Pt onto cot without issue; pt provided with granola bar and chips for ride. Pt verbalized appreciation. Pt cooperative with EMS. Security in department as safety measure. [facility] ED NOTE HNO ID: [id number] Author: Kenya Luevano RN Service: Emergency Medicine Author Type: Registered Nurse Type: ED Notes Filed: 02/11/2023 3:12 PM Note Text: Pt cooperative and friendly for EKG; pt talking about her son with this nurse and assisting nurse. [facility] ED NOTE HNO ID: [id number] Author: Quita Murdock RN Service: Emergency Medicine Author Type: Registered Nurse Type: ED Notes Filed: 02/11/2023 2:20 PM Note Text: Bed assignment received from [facility] Ground Bed [address] Dr[address] Arredondo DX: Major Depression [id number] [facility] ETA 45-60 [facility] ED NOTE HNO ID: [id number] Author: Kenya Luevano RN Service: Emergency Medicine Author Type: Registered Nurse Type: ED Notes Filed: 02/11/2023 3:32 PM Note Text: EMS have arrived to the ED; report given. [facility] ED NOTE HNO ID: [id number] Author: Kenya Luevano RN Service: Emergency Medicine Author Type: Registered Nurse Type: ED Notes Filed: 02/11/2023 1:03 PM Note Text: [facility] ED NOTE HNO ID: [id number] Author: Kenya Luevano RN Service: Emergency Medicine Author Type: Registered Nurse Type: ED Notes Filed: 02/11/2023 1:04 PM Note Text: Pt abruptly stopped crying and appears to be resting. [facility] ED NOTE HNO ID: [id number] Author: Kenya Luevano RN Service: Emergency Medicine [...] will continue to try to contact mother. [facility] ED NOTE HNO ID: [id number] Author: Kenya Luevano RN Service: Emergency Medicine [...] first. Pt repeating this behaviors multiple times. [facility] ED NOTE HNO ID: [id number] Author: Kenya Luevano RN Service: Emergency Medicine [...] it!. Pt reports being tired, lights dimmed. [facility] ED NOTE HNO ID: [id number] Author: Kenya Luevano RN Service: Emergency Medicine [...] then get up, pace room, and cry. [facility] ED NOTE HNO ID: [id number] Author: Kenya Luevano RN Service: Emergency Medicine [...] bed; unable to console at this time. [facility] ED NOTE HNO ID: [id number] Author: Kenya Luevano RN Service: Emergency Medicine Author Type: Registered Nurse Type: ED Notes Filed: 02/11/2023 11:36 AM Note Text: Pt restless; tossing side to side violently in bed. Pt slides out of bed and starts pacing room stating I have ADHD, I can't stay here,I need to go home. Pt flops backin bed, crossing legs and watching tv. [facility] ED NOTE HNO ID: [id number] Author: Kenya Luevano RN Service: Emergency Medicine Author Type: Registered Nurse Type: ED Notes Filed: 02/11/2023 11:32 AM Note Text: Pt assisted to BSC. Same sex nurse in room with patient. Urinalysis to be sent. [facility] ED NOTE HNO ID: [id number] Author: Kenya Luevano RN Service: Emergency Medicine Author Type: Registered Nurse Type: ED Notes Filed: 02/11/2023 10:58 AM Note Text: Zakia with Jocelyn speaking with patient at this time. Pt remains tearful. [facility] ED NOTE HNO ID: [id number] Author: Kenya Luevano RN Service: Emergency Medicine Author Type: Registered Nurse Type: ED Notes Filed: 02/11/2023 10:48 AM Note Text: Pt assisted to BSC; same sex provided remained in room at all times during attempted urine collection. Pt unable to use the restroom; water provided. Will try again soon. [facility] ED NOTE HNO ID: [id number] Author: Kenya Luevano RN Service: Emergency Medicine [...] her mind off. Pt has concerns of Peoria's Disease as it runs in her family [...] mother. Pt with occasional inappropriate laugh. Normal [facility] ED NOTE HNO ID: [id number] Author: Kenya Luevano RN Service: Emergency Medicine Author Type: Registered Nurse Type: ED Notes Filed: 02/11/2023 10:36 AM Note Text: Pt placed in purple gown and pt and pts belongings wanded by security. Pts belongings placed at nurses station. All unnecessary medical equipment removed from room. Dr Sinha notified to moderate suicide risk. One to one observation initiated. Normal [facility] ED PROV NOTEon 02-11-2023 ED PROV NOTE HNO ID: [id number] Author: Shayy Sinha MD Service: Emergency Medicine [...] any questions. PAST MEDICAL HISTORY Diagnosis Date #[id number] PAST SURGICAL HISTORY Procedure Laterality Date TONSILLECTOMY [...] testing laborat (more content not included)... Normal [facility] Ethanol SerPl-mCncon 023 Ethanol [Mass/Vol] mg/dL Normal <11 [facility] Comment on above: Order Comment: Speci men Type: BLOOD SPECIMEN Ordering Facility: [facility] Address: [address] [place] [address] Performed By: #### 5 643-2 #### [facility] CLIA [id number] [address] [place] [address] [place] HCG Preg Ur Qlon 02-11-2023 HCG ( test) Ql (U) Negative Normal Negative [facility] Comment on above: Order Comment: Speci men Type: URINE SPECIMEN Ordering Facility: [facility] Address: [address] [place] [address] [place] [address] Result Comment: This test is intended to aid in the early detection of . Very dilute urine samples, as indicated by a low specific gravity, may not contain technical sales representatives levels of hCG. This test detects intact [...] . Performed By: #### 2 106-3 #### [facility] CLIA [id number] [address] [place] [address] [facility] NURSING PROGon 02-11-2023 NURSING PROG HNO ID: [id number] Author: Nicolasa Jaime RN Service: Nursing Author Type: Registered Nurse Type: Nursing Progress Note Filed: 02/12/2023 10:32 AM Note Text: Nursing Progress Note Topic of Note: Daily Note Herminia Goldman [id number]: Assumed care of pt at 1930 after [...] This note was completed by: Nicolasa Jaime [facility] NURSING PROG HNO ID: [id number] Author: Kaylin Mcknight RN Service: ? Author Type: Registered Nurse Type: Nursing Progress Note Filed: 02/11/2023 6:24 PM Note Text: Nursing Progress Note Patient Name: Herminia Goldman Patient Location: HD-[id number]/[facility]-00 Transfer Note: Patient transferred into room/unit CG-54 [...] grandfather killed himself after being diagnosis of [place]'s, and pt's father who lives in neighboring [place], also has the disease. Pt lives in [place] with her brother and pt's 15 month old son. Pt says of her son he is my sunshine. Per pt her brother is an awesome uncle but sometimes he does a little too much play fighting and is too aggressive. Pt has a large bruise on her right leg from play fighting with brother. Pt used to work at [employer] up until she had her son. Pt [...] with depression and anxiety brought in to [place] [facility] from Home by family for increasing [...] the calendar.. (more content not included)... Normal [facility] SARS-CoV-2 RNA Resp Ql MARIA ISABEL+p robeon 02-11-2023 SARS-CoV-2 (COVID-19) RNA MARIA ISABEL+probe Ql (Resp) COVID 19 RESULT: Not detected The method used is RT-PCR or an equivalent NAAT method. Reference Range(the expected result in uninfected individuals): Not detected Normal [facility] Comment on above: Performed By: #### 9 4500-6 ####[facility] [id number] [place] [address] [place] TOX SCREEN ROUT URon 023 Amphetamines Confirm (U) [Mass/Vol] Negative Normal Negative [facility] Comment on above: Order Comment: Speci men Type: URINE SPECIMEN Ordering Facility: [facility] Address: [address] [place] [address] Result Comment: Cuto ff threshold at 1000 ng/mL. Performed By: #### U TOX2 #### [facility] CLIA [id number] [address] BARBITURATES, URINE Negative Normal Negative [facility] Comment on above: Order Comment: Speci men Type: URINE SPECIMEN Ordering Facility: [facility] Address: [address] [place] [address] Result Comment: Cuto ff threshold at 200 ng/mL. Performed By: #### U TOX2 #### [facility] CLIA [id number] [address] STATES OF [place] BENZODIAZEPINES, UR Negative Normal Negative [facility] Comment on above: Order Comment: Speci men Type: URINE SPECIMEN Ordering Facility: [facility] Address: [address] [place] [address] Result Comment: Cuto ff threshold at 200 ng/mL. Performed By: #### U TOX2 #### [facility] CLIA [id number] [address] [place] [address] OF ABDULAZ[place] CANNABINOIDS,URINE Positive Abnormal Negative [facility] Comment on above: Order Comment: Speci men Type: URINE SPECIMEN Ordering Facility: [facility] Address: [address] [address] Result Comment: Cuto ff threshold at 50 ng/mL. Performed By: #### U TOX2 #### [facility] CLIA [id number] [address] OF [place] Cocaine Ql (U) Negative Normal Negative [facility] Comment on above: Order Comment: Speci men Type: URINE SPECIMEN Ordering Facility: [facility] Address: [address] [place] [address] Result Comment: Cuto ff threshold at 300 ng/mL. Performed By: #### U TOX2 #### [facility] CLIA [id number] [address] [place] [address] [place] Ethanol (U) [Mass/Vol] <11 Normal <11 [facility] Comment on above: Order Comment: Speci men Type: URINE SPECIMEN Ordering Facility: [facility] Address: [address] [place] [address] Performed By: #### U TOX2 #### [facility] CLIA [id number] [address] [place] [address] OF [place]BDUL[place] Opiates Screen Ql (U) Negative Normal Negative [facility] Comment on above: Order Comment: Speci men Type: URINE SPECIMEN Ordering Facility: [facility] Address: [address] [place] [address] Result Comment: Cuto ff threshold at 300 ng/mL. Performed By: #### U TOX2 #### [facility] CLIA [id number] [address] [place] [address] oxyCODONE cutoff Screen (U) [Mass/Vol] Negative Normal Negative [facility] Comment on above: Order Comment: Speci men Type: URINE SPECIMEN Ordering Facility: [facility] Address: [address] [place] [address] Result Comment: Cuto ff threshold at 100 ng/mL. Performed By: #### U TOX2 #### [facility] CLIA [id number] [address] [place] [address] Phencyclidine Ql (U) Negative Normal Negative [facility] Comment on above: Order Comment: Speci men Type: URINE SPECIMEN Ordering Facility: [facility] Address: [address] [place] [address] Result Comment: Cuto ff threshold at 25 ng/mL. Performed By: #### U TOX2 #### [facility] CLIA [id number] [address] [place] [address] OF ABDULAZIZ Urinalysis complete panel (U )on 02-11-2023 Bacteria LM.HPF (Urine sed) [#/Area] Moderate Abnormal None Seen [facility] Comment on above: Order Comment: Speci men Type: URINE SPECIMEN Ordering Facility: [facility] Address: [address] [place] [address] Performed By: #### 2 4356-8 #### [facility] CLIA [id number] [address] [place] [address] [place] Bilirubin Ql (U) Negative Normal Negative [facility] Comment on above: Order Comment: Speci men Type: URINE SPECIMEN Ordering Facility: [facility] Address: [address] [place] [address] Performed By: #### 2 4356-8 #### [facility] CLIA [id number] [address] Clarity (Unsp spec) Cloudy Abnormal Clear [facility] Comment on above: Order Comment: Speci men Type: URINE SPECIMEN Ordering Facility: [facility] Address: [address] [place] [address] Performed By: #### 2 4356-8 #### [facility] CLIA [id number] [address] OF [place]UL[place] Color (U) Yellow Normal Yellow [facility] Comment on above: Order Comment: Speci men Type: URINE SPECIMEN Ordering Facility: [facility] Address: [address] [place] [address] Performed By: #### 2 4356-8 #### [facility] CLIA [id number] [address] [id number] [facility] Epithelial cells LM.HPF (Urine sed) [#/Area] Few Normal [facility] Comment on above: Order Comment: Speci men Type: URINE SPECIMEN Ordering Facility: [facility] Address: [address] [place] [address] Performed By: #### 2 4356-8 #### [facility] CLIA [id number] [address] [place] [address] [place] Glucose Test strip (U) [Mass/Vol] Negative Normal Negative [facility] Comment on above: Order Comment: Speci men Type: URINE SPECIMEN Ordering Facility: [facility] Address: [address] [place] [address] Performed By: #### 2 4356-8 #### [facility] CLIA [id number] [address] [place] [address] [facility] OF A[place] Hemoglobin Ql (U) Negative Normal Negative [facility] Comment on above: Order Comment: Speci men Type: URINE SPECIMEN Ordering Facility: [facility] Address: [address] [place] [address] Performed By: #### 2 4356-8 #### [facility] CLIA [id number] [address] Ketones Ql (U) Trace Abnormal Negative [facility] Comment on above: Order Comment: Speci men Type: URINE SPECIMEN Ordering Facility: [facility] Address: [address] [place] [address] Performed By: #### 2 4356-8 #### [facility] CLIA [id number] [address] [place] [address] [place] Leukocyte esterase Test strip Ql (U) Trace Abnormal Negative [facility] Comment on above: Order Comment: Speci men Type: URINE SPECIMEN Ordering Facility: [facility] Address: [address] [place] [address] Performed By: #### 2 4356-8 #### [facility] CLIA [id number] [address] [place] [address] [place] Nitrite Ql (U) Negative Normal Negative [facility] Comment on above: Order Comment: Speci men Type: URINE SPECIMEN Ordering Facility: [facility] Address: [address] [place] [address] Performed By: #### 2 4356-8 #### [facility] CLIA [id number] [address] [place] [address] [place] pH (U) 7.0 [pH] Normal 5.0-8.0 [facility] Comment on above: Order Comment: Speci men Type: URINE SPECIMEN Ordering Facility: [facility] Address: [address] [place] [address] Performed By: #### 2 4356-8 #### [facility] CLIA [id number] [address] [place] [address] Protein (U) [Mass/Vol] Negative Normal Negative [facility] Comment on above: Order Comment: Speci men Type: URINE SPECIMEN Ordering Facility: [facility] Address: [address] [place] [address] Performed By: #### 2 4356-8 #### [facility] CLIA [id number] [address] [place] [address] RBC LM.HPF (Urine sed) [#/Area] 0-3 /HPF Normal 0-3 /HPF [facility] Comment on above: Order Comment: Speci men Type: URINE SPECIMEN Ordering Facility: [facility] Address: [address] [place] [address] Performed By: #### 2 4356-8 #### [facility] CLIA [id number] [address] [place] [address] Urobilinogen Ql (U) 0.2 EU/dL Normal 0.2-1.0 EU/dL [facility] Comment on above: Order Comment: Speci men Type: URINE SPECIMEN Ordering Facility: [facility] Address: [address] [place] [address] Performed By: #### 2 4356-8 #### [facility] CLIA [id number] [address] [place] [address] WBC LM.HPF (Urine sed) [#/Area] 0-5 /HPF Normal 0-5 /HPF [facility] Comment on above: Order Comment: Speci men Type: URINE SPECIMEN Ordering Facility: [facility] Address: [address] [place] [address] Performed By: #### 2 4356-8 #### [facility] CLIA [id number] [address] [place] [address] [facility] Urinalysis complete pnl Uron 02-11-2023 Specific gravity (U) [Rel density] 1.020 Normal 1.005-1.030 [facility] Comment on above: Order Comment: Speci men Type: URINE SPECIMEN Ordering Facility: [facility] Address: [address] [place], [place] [address] Performed By: #### 2 4356-8 #### [facility] CLIA [id number] [address] [place] [address] [facility] Performed By: #### 2 106-3 #### [facility] CLIA [id number] [address] [place] [address] [facility] Vital Signs Date Time Vital Sign Value Performing Clinician Facility 03-13-2025 00:18-0400 Body temperature 97.8 [degF] [facility] Work Phone: 5(136)[phone] [place] [address] 03-13-2025 00:18-0400 Diastolic blood pressure 69 mm[Hg] [facility] Work Phone: 9(537)[phone] [place] [address] 03-13-2025 00:18-0400 Heart rate 81 /min [facility] Work Phone: 4(185)[phone] [place] [address] 03-13-2025 00:18-0400 Respiratory rate 16 /min [facility] Work Phone: 3(443)[phone] [place] [address] 03-13-2025 00:18-0400 SaO2% (BldA) [Mass fraction] 99 % [facility] Work Phone: 8([phone])[phone] [place] [address] 03-13-2025 00:18-0400 Systolic blood pressure 118 mm[Hg] [facility] Work Phone: 4(187)839-116900 [place] [address] 03-12-2025 15:09-0400 Body height 157.48 cm [facility] Work Phone: 1(606)014-244700 [place] [address] 03-12-2025 15:09-0400 Body mass index (BMI) [Ratio] 22.8 kg/m2 [facility] Work Phone: 7(212)[phone] [place] [address] 03-12-2025 15:09-0400 Body weight 56.69 kg [facility] Work Phone: [facility] 11-07-2023 11:54-0500 Body temperature 98.2 [degF] [facility] 11-07-2023 11:54-0500 Diastolic blood pressure 88 mm[Hg] [facility] 11-07-2023 11:54-0500 Heart rate 84 /min [facility] 11-07-2023 11:54-0500 Respiratory rate 16 /min [facility] 11-07-2023 11:54-0500 SaO2% (BldA) [Mass fraction] 98 % [facility] 11-07-2023 11:54-0500 Systolic blood pressure 127 mm[Hg] [facility] 11-07-2023 09:17-0500 Body height 157.48 cm [facility] 11-07-2023 09:17-0500 Body mass index (BMI) [Ratio] 35.2 kg/m2 [facility] 11-07-2023 09:17-0500 Body weight 87.2 kg [facility] 09-15-2023 04:32-0500 Body height 157.48 cm [facility] 09-15-2023 04:32-0500 Body mass index (BMI) [Ratio] 32.7 kg/m2 [facility] 09-15-2023 04:32-0500 Body temperature 98 [degF] [facility] 09-15-2023 04:32-0500 Body weight 81.1 kg [facility] 09-15-2023 04:32-0500 Diastolic blood pressure 79 mm[Hg] [facility] 09-15-2023 04:32-0500 Heart rate 100 /min [facility] 09-15-2023 04:32-0500 Respiratory rate 16 /min [facility] 09-15-2023 04:32-0500 SaO2% (BldA) [Mass fraction] 100 % [facility] 09-15-2023 04:32-0500 Systolic blood pressure 134 mm[Hg] [facility] 08-13-2023 01:23-0500 Heart rate 100 /min [facility] 08-13-2023 01:23-0500 Respiratory rate 16 /min [facility] 08-13-2023 01:23-0500 SaO2% (BldA) [Mass fraction] 98 % [facility] 08-12-2023 21:15-0500 Body height 160.02 cm [facility] 08-12-2023 21:15-0500 Body mass index (BMI) [Ratio] 31.4 kg/m2 [facility] 08-12-2023 21:15-0500 Body temperature 96.2 [degF] [facility] 08-12-2023 21:15-0500 Body weight 80.3 kg [facility] 08-12-2023 21:15-0500 Diastolic blood pressure 91 mm[Hg] [facility] 08-12-2023 21:15-0500 Systolic blood pressure 123 mm[Hg] [facility] 04-05-2023 02:36-0400 Diastolic blood pressure 63 mm[Hg] [facility] 04-05-2023 02:36-0400 Heart rate 75 /min [facility] 04-05-2023 02:36-0400 Respiratory rate 18 /min [facility] 04-05-2023 02:36-0400 SaO2% (BldA) [Mass fraction] 100 % [facility] 04-05-2023 02:36-0400 Systolic blood pressure 111 mm[Hg] [facility] 04-04-2023 15:25-0400 Body height 160.02 cm [facility] 04-04-2023 15:25-0400 Body mass index (BMI) [Ratio] 29.7 kg/m2 [facility] 04-04-2023 15:25-0400 Body temperature 97.8 [degF] [facility] 04-04-2023 15:25-0400 Body weight 76.15 kg [facility] 03-26-2023 13:53-0400 Body weight 78.47 kg Álvaro Zavala MD Work Phone: [facility] 03-26-2023 13:53-0400 Diastolic blood pressure 80 mm[Hg] Álvaro Zavala MD Work Phone: [facility] 03-26-2023 13:53-0400 Heart rate 81 /min Álvaro Zavala MD Work Phone: [facility] 03-26-2023 13:53-0400 Systolic blood pressure 118 mm[Hg] Álvaro Zavala MD Work Phone: [facility] 02-11-2023 09:23-0400 Body temperature 98.49 [degF] Lis Sheets DO Work Phone: [facility] 02-11-2023 09:23-0400 Diastolic blood pressure 70 mm[Hg] Lis Sheets DO Work Phone: [facility] 02-11-2023 09:23-0400 Heart rate 94 /min Lis Sheets DO Work Phone: [facility] 02-11-2023 09:23-0400 Respiratory rate 16 /min Lis Sheets DO Work Phone: [facility] 02-11-2023 09:23-0400 SaO2% (BldA) [Mass fraction] 97 % Lis Sheets DO Work Phone: [facility] 02-11-2023 09:23-0400 Systolic blood pressure 120 mm[Hg] Lis Sheets DO Work Phone: [facility] 02-18-2022 13:25-0400 Body height 160 cm Fiordaliza Cece BUSINESS ANALYST INTERN.ELECTRIC STOP INSTALLER Work Phone: [facility] 02-18-2022 13:25-0400 Body temperature 98.2 [degF] Fiordaliza Cece BUSINESS ANALYST INTERN.ELECTRIC STOP INSTALLER Work Phone: [facility] 02-18-2022 13:25-0400 Body weight 93.89 kg Fiordaliza Cece BUSINESS ANALYST INTERN.ELECTRIC STOP INSTALLER Work Phone: [facility] 02-18-2022 13:25-0400 Diastolic blood pressure 70 mm[Hg] Fiordaliza Cece BUSINESS ANALYST INTERN.ELECTRIC STOP INSTALLER Work Phone: [facility] 02-18-2022 13:25-0400 Heart rate 73 /min Fiordaliza Cece BUSINESS ANALYST INTERN.ELECTRIC STOP INSTALLER Work Phone: [facility] 02-18-2022 13:25-0400 Respiratory rate 18 /min Fiordaliza Cece BUSINESS ANALYST INTERN.ELECTRIC STOP INSTALLER Work Phone: [facility] 02-18-2022 13:25-0400 SaO2% (BldA) [Mass fraction] 98 % Fiordaliza Cece BUSINESS ANALYST INTERN.ELECTRIC STOP INSTALLER Work Phone: [facility] 02-18-2022 13:25-0400 Systolic blood pressure 102 mm[Hg] Fiordaliza Cece BUSINESS ANALYST INTERN.ELECTRIC STOP INSTALLER Work Phone: [facility] 01-14-2022 13:53-0400 Body height 160 cm Fiordaliza Cece BUSINESS ANALYST INTERN.ELECTRIC STOP INSTALLER Work Phone: [facility] 01-14-2022 13:53-0400 Body temperature 98.2 [degF] Fiordaliza Cece BUSINESS ANALYST INTERN.ELECTRIC STOP INSTALLER Work Phone: [facility] 01-14-2022 13:53-0400 Body weight 93.89 kg Fiordaliza Cece BUSINESS ANALYST INTERN.ELECTRIC STOP INSTALLER Work Phone: [facility] 01-14-2022 13:53-0400 Diastolic blood pressure 70 mm[Hg] Fiordaliza Cece BUSINESS ANALYST INTERN.ELECTRIC STOP INSTALLER Work Phone: [facility] 01-14-2022 13:53-0400 Heart rate 59 /min Fiordaliza Cece BUSINESS ANALYST INTERN.ELECTRIC STOP INSTALLER Work Phone: [facility] 01-14-2022 13:53-0400 Respiratory rate 18 /min Fiordaliza Cece BUSINESS ANALYST INTERN.ELECTRIC STOP INSTALLER Work Phone: [facility] 01-14-2022 13:53-0400 SaO2% (BldA) [Mass fraction] 99 % Fiordaliza Cece BUSINESS ANALYST INTERN.ELECTRIC STOP INSTALLER Work Phone: [facility] 01-14-2022 13:53-0400 Systolic blood pressure 110 mm[Hg] Fiordaliza Zhao BUSINESS ANALYST INTERN.ELECTRIC STOP INSTALLER Work Phone: [facility] 01-01-2022 15:40-0400 Body weight 95.25 kg Shante Andres BUSINESS ANALYST INTERN.ELECTRIC STOP INSTALLER Work Phone: [facility] 01-01-2022 15:40-0400 Diastolic blood pressure 74 mm[Hg] Shante Andres BUSINESS ANALYST INTERN.ELECTRIC STOP INSTALLER Work Phone: [facility] 01-01-2022 15:40-0400 Systolic blood pressure 116 mm[Hg] Shante Ferriday BUSINESS ANALYST INTERN.ELECTRIC STOP INSTALLER Work Phone: [facility] Encounters Encounter Date Encounter Type Care Provider Facility Start: 03-12-2025 End: 03-13-2025 Emergency department patient visit [facility] Work Phone: -Emergency Department Work Phone: Start: 08-08-2024 End: 08-08-2024 Emergency department patient visit [facility] Facility:[facility] Start: 07-09-2024 Patient encounter status [facility] Work Phone: [facility] Start: 07-09-2024 End: 07-09-2024 Emergency department patient visit [facility] Facility:[facility] Start: 05-10-2024 End: 05-10-2024 Emergency department patient visit Jose Luis Cobianrus Facility:[facility] Start: 02-08-2024 ambulatory Bettye Chen PIPE FITTER [facility] Start: 02-06-2024 End: 02-06-2024 Emergency department patient visit ANA THORNTON Facility:[facility] Start: 11-07-2023 End: 11-07-2023 Emergency department patient visit [facility]-Emergency Department Work Phone: Start: 09-15-2023 End: 09-15-2023 Emergency department patient visit [facility]-Emergency Department Work Phone: Start: 08-12-2023 End: 08-12-2023 ambulatory [facility] Work Phone: Start: 08-12-2023 End: 08-12-2023 Departed Referred [facility]-ED Referred Work Phone: Start: 08-12-2023 Registered Referred [facility] Referred Work Phone: Start: 08-12-2023 End: 08-13-2023 Emergency department patient visit [facility]Emergency Department Work Phone: Start: 07-03-2023 End: 07-04-2023 ambulatory FIORDALIZA ZHAO Facility:[facility] Start: 05-14-2023 End: 05-14-2023 ambulatory SCOTT MATA Facility:[facility] Start: 05-14-2023 End: 05-14-2023 Patient encounter procedure Annalise ARNOLD Work Phone: [facility] Comment on above: 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 Hu ntington's chorea (Primary Dx) MDD (major depressiv e disorder), recurrent episode, moderate (HCC) (Primary Dx); Anxiety; 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 Emery's disease Start: 04-08-2023 Telephone encounter Fiordaliza Zhao APRN.ELECTRIC STOP INSTALLER Work Phone: [facility] Comment on above: Patient Question Start: 04-07-2023 End: 04-08-2023 Emergency department patient visit PROVIDER NOT IN SYSTEM [facility] Start: 04-04-2023 End: 04-05-2023 Emergency department patient visit [facility]-Emergency Department Work Phone: Start: 04-01-2023 Telephone encounter Wilfrido rojo MD Work Phone: [facility] Comment on above: Patient Update (Agit ation/) Returning Patient's Call Start: 03-26-2023 End: 03-26-2023 ambulatory ÁLVARO ZAVALA Facility:[facility] Start: 03-26-2023 End: 03-26-2023 Patient encounter procedure Álvaro Zavala MD Work Phone: Neurology Comment on above: 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 Hu ntington's disease (Primary Dx); Anxiety; Mild episode of recurrent major depressive disorder (HCC) Start: 03-25-2023 Chart abstracting Álvaro Zavala MD Work Phone: [facility]rology Start: 03-10-2023 Telephone encounter Fiordaliza Zhao APRN.ELECTRIC STOP INSTALLER Work Phone: [facility] Comment on above: [facility] (Put referral for Neurology on [facility] 03/10/23) [facility] (Put referral for Psychiatry on [facility] 03/10/23) Start: 03-10-2023 End: 03-10-2023 ambulatory FIORDALIZA Amada CECE Facility:[facility] Start: 02-25-2023 Telephone encounter Fiordaliza Zhao APRN.ELECTRIC STOP INSTALLER Work Phone: [facility] Comment on above: Patient Question Start: 02-24-2023 Telephone encounter Fiordaliza Zhao APRN.ELECTRIC STOP INSTALLER Work Phone: [facility] Comment on above: Patient Update Start: 02-16-2023 Patient Outreach Avril Gomez RN Foreign Exchange Clerk Comment on above: Transition Of Care ( D/C from [facility] 02/15/23) Start: 02-11-2023 End: 02-15-2023 Evaluation and management of inpatient FIORDALIZA MCCALLEL Facility:[facility] Start: 02-11-2023 Admission to establishment Love Carbone RN [facility] Start: 02-11-2023 End: 02-11-2023 ambulatory Love Carbone RN [facility] Int[facility] Comment on above: Psychiatric Problem Start: 02-11-2023 End: 02-11-2023 Emergency department patient visit FIORDALIZATravis ZHAO Facility:[facility] Start: 02-11-2023 End: 02-11-2023 Patient encounter procedure Lis Gomez DO Work Phone: [facility] Comment on above: Suicidal ideation (P rimary Dx) Start: 10-04-2022 Refill Fiordaliza martino APRN.ELECTRIC STOP INSTALLER Work Phone: [facility] Comment on above: Refill Request Start: 04-01-2022 Telephone encounter Fiordaliza Zhao APRN.ELECTRIC STOP INSTALLER Work Phone: [facility] Comment on above: Patient Update; Appo intment No Show (1st no show ) Start: 02-18-2022 End: 02-18-2022 Patient encounter procedure Fiordaliza M Cece MOYA.ELECTRIC STOP INSTALLER Work Phone: [facility] Comment on above: Mild episode of recu rrent major depressive disorder (HCC) (Primary Dx); Anxiety Start: 01-16-2022 Telephone encounter Fiordaliza Zhao APRN.ELECTRIC STOP INSTALLER Work Phone: [facility] Comment on above: Patient Update Start: 01-14-2022 End: 01-14-2022 Patient encounter procedure Fiordaliza M Cece MOYA.ELECTRIC STOP INSTALLER Work Phone: [facility] Comment on above: Mild episode of recu rrent major depressive disorder (HCC) (Primary Dx); Anxiety Start: 01-01-2022 End: 01-01-2022 Patient encounter procedure Shante Campos NITA.ELECTRIC STOP INSTALLER Work Phone: OB/Gynecology Comment on above: care and examination (Primary Dx); Vaginal odor Start: 03-27-2021 End: 05-30-2021 Patient requested procedure Bettye Chen LPN [facility] Procedures Date Procedure Procedure Detail Performing Clinician Start: 03-12-2025 Transvaginal obstetr ic ultrasonography [facility] Work Phone: Start: 03-12-2025 X-ray of chest, PA a nd lateral views [facility] Work Phone: Start: 03-12-2025 CT of head without contrast [facility] Work Phone: Start: 03-12-2025 Methadone measurement, urine [facility] Work Phone: Start: 03-12-2025 Urnls dip stick/tabl et reagent auto microscopy [facility] Work Phone: Start: 03-12-2025 Estimated creatinine clearance [facility] Work Phone: Start: 11-07-2023 SARS-CoV-2, Influenz a & RSV (PCR) Start: 11-07-2023 Plain chest X-ray Start: 09-15-2023 Bacterial nucleic acid assay Start: 09-15-2023 Chlamydia trachomatis (PCR) Start: 04-04-2023 Viral antigen assay Start: 03-10-2021 Adult depression scr eening assessment Shante Campos OMEGA Work Phone: Plan of Treatment Date Care Activity Detail Author Start: 10-22-2031 Urine microalbumin profile [facility] Start: 03-13-2025 [facility] Start: 05-14-2024 Influenza vaccination Influenz a Vaccine (Season Ended) [facility] Start: 11-07-2023 [facility] Start: 09-15-2023 Chlamydia trachomati s (PCR) Chlamydia trachomatis (PCR) [facility] Start: 09-15-2023 Neisseria gonorrhoea e (PCR) Neisseria gonorrhoeae (PCR) [facility] Start: 09-15-2023 [facility] Start: 09-15-2023 [facility] Start: 08-13-2023 [facility] Start: 05-14-2023 Influenza vaccination [facility] Start: 04-04-2023 End: 04-04-2023 Suicide precautions [facility] Start: 2022 PAP TESTING PAP TESTING [facility] Start: 2022 Screening for malign ant neoplasm of cervix Pap Testing [facility] Start: 05-14-2022 Influenza vaccination [facility] Start: 04-04-2022 CHLAMYDIA SCREENING (18-24) CHLAMYDIA SCREENING (18-24) [facility] Start: 04-04-2022 GC (GONORRHEA) SCREE NEERU (18-24) GC (GONORRHEA) SCREENING (18-) [facility] Start: 04-04-2022 Screening for Chlamy felipa trachomatis Chlamydia Screening () [facility] Start: 03-10-2022 Adult depression screening assessment DEPRESSION SCREENING [facility] Start: 03-10-2022 COVID-19 VACCINE (#1) COVID-19 VACCI NE (#1) [facility] Comment on above: Postponed from 06/08 (Declined at this time) Start: 03-10-2022 COVID-19 VACCINE (1) COVID-19 VACCIN E (1) [facility] Comment on above: Postponed from 06/08 (Declined at this time) Start: 2017 Meningococcal B Vacc ine: Consider Based On Risk (1 of 2 - Patient Seeks Protection) Meningococcal B Vaccine: Consider Based On Risk (1 of 2 - Patient Seeks Protection) [facility] Start: 2017 MENINGOCOCCAL B: Consider based on risk (1 of 2 - Patient Seeks Protection) MENINGOCOCCAL B: Consider based on risk (1 of 2 - Patient Seeks Protection) [facility] Start: 2015 PEDS TO ADULT TRANSI TION ANNUAL ASSESSMENT PEDS TO ADULT TRANSITION ANNUAL ASSESSMENT [facility] Start: 2013 PEDS TO ADULT TRANSI TION INITIAL DISCUSSION PEDS TO ADULT TRANSITION INITIAL DISCUSSION [facility] Start: 2011 MENINGOCOCCAL B: Consider based on risk (1 of 2 - Risk Bexsero 2-dose series) MENINGOCOCCAL B: Consider based on risk (1 of 2 - Risk Bexsero 2-dose series) [facility] Start: 2001 COVID-19 VACCINE (#1) COVID-19 VACCI NE (#1) [facility] Chlamydia trachomatis [facility] Microscopic observat ion [Identifier] in Vaginal fluid by Gram stain BACT/DAVID VAG GRAM STAIN Microbiology Routine Vaginal odor 01/01/2022 4:02 PM EDT [facility] Work Phone: Neisseria gonorrhoea e DNA [Presence] in Genital specimen by MARIA ISABEL with probe detection [facility] Patient Education [facility] Work Phone: Patient referral [facility] Work Phone: [facility] Immunizations Immunization Date Immunization Notes Care Provider Renato piper 10-22-2021 tetanus toxoid, redu pippa diphtheria toxoid, and acellular pertussis vaccine, adsorbed Shante Andres BUSINESS ANALYST INTERN.ELECTRIC STOP INSTALLER Work Phone: [facility] Work Phone: 05-25-2018 influenza virus vacc ine, unspecified formulation Shante Andres BUSINESS ANALYST INTERN.ELECTRIC STOP INSTALLER Work Phone: [facility] 02-01-2015 human papilloma viru s vaccine, quadrivalent Shante Ferriday BUSINESS ANALYST INTERN.ELECTRIC STOP INSTALLER Work Phone: [facility] 08-15-2014 human papilloma viru s vaccine, quadrivalent Shante Ferriday BUSINESS ANALYST INTERN.ELECTRIC STOP INSTALLER Work Phone: [facility] 08-15-2014 meningococcal oligosaccharide (groups A, C, Y and W-135) diphtheria toxoid conjugate vaccine (MCV4O) Shante Andres BUSINESS ANALYST INTERN.ELECTRIC STOP INSTALLER Work Phone: [facility] 05-18-2014 human papilloma viru s vaccine, quadrivalent Shante Andres BUSINESS ANALYST INTERN.ELECTRIC STOP INSTALLER Work Phone: [facility] 05-18-2014 tetanus toxoid, redu pippa diphtheria toxoid, and acellular pertussis vaccine, adsorbed Shante Andres BUSINESS ANALYST INTERN.ELECTRIC STOP INSTALLER Work Phone: [facility] 06-26-2009 influenza virus vacc ine, unspecified formulation Shante Ferriday BUSINESS ANALYST INTERN.ELECTRIC STOP INSTALLER Work Phone: [facility] 06-26-2009 influenza, seasonal, injectable Lis Sheets DO Work Phone: [facility] 09-25-2003 diphtheria, tetanus toxoids and acellular pertussis vaccine Shante Andres BUSINESS ANALYST INTERN.ELECTRIC STOP INSTALLER Work Phone: [facility] 09-25-2003 diphtheria, tetanus toxoids and acellular pertussis vaccine, unspecified formulation Lis Sheets DO Work Phone: [facility] 09-25-2003 haemophilus influenz ae type b vaccine, conjugate unspecified formulation Lis Sheets DO Work Phone: [facility] 09-25-2003 haemophilus influenz ae type b vaccine, HbOC conjugate Shante Andres BUSINESS ANALYST INTERN.ELECTRIC STOP INSTALLER Work Phone: [facility] 09-25-2003 measles, mumps and rubella virus vaccine Shante Ferriday BUSINESS ANALYST INTERN.ELECTRIC STOP INSTALLER Work Phone: [facility] 09-25-2003 pneumococcal conjuga te vaccine, 13 valent Shante Andres BUSINESS ANALYST INTERN.ELECTRIC STOP INSTALLER Work Phone: [facility] 09-25-2003 pneumococcal conjuga te vaccine, 7 valent Lis Sheets DO Work Phone: [facility] 09-25-2003 varicella virus vaccine Christian e Ferriday BUSINESS ANALYST INTERN.ELECTRIC STOP INSTALLER Work Phone: [facility] 02-27-2002 diphtheria, tetanus toxoids and acellular pertussis vaccine Shante Ferriday BUSINESS ANALYST INTERN.ELECTRIC STOP INSTALLER Work Phone: [facility] 02-27-2002 diphtheria, tetanus toxoids and acellular pertussis vaccine, unspecified formulation Lis Sheets DO Work Phone: [facility] 02-27-2002 haemophilus influenz ae type b vaccine, conjugate unspecified formulation Lis Sheets DO Work Phone: [facility] 02-27-2002 haemophilus influenz ae type b vaccine, HbOC conjugate Shante Ferriday BUSINESS ANALYST INTERN.ELECTRIC STOP INSTALLER Work Phone: [facility] 02-27-2002 hepatitis B vaccine, pediatric or pediatric/adolescent dosage Shante Ferriday BUSINESS ANALYST INTERN.ELECTRIC STOP INSTALLER Work Phone: [facility] 02-27-2002 poliovirus vaccine, inactivated Shante Ferriday BUSINESS ANALYST INTERN.ELECTRIC STOP INSTALLER Work Phone: [facility] 2001 diphtheria, tetanus toxoids and acellular pertussis vaccine Shante Andres BUSINESS ANALYST INTERN.ELECTRIC STOP INSTALLER Work Phone: [facility] 2001 diphtheria, tetanus toxoids and acellular pertussis vaccine, unspecified formulation Lis Sheets DO Work Phone: [facility] 2001 haemophilus influenz ae type b conjugate and Hepatitis B vaccine Lis Sheets DO Work Phone: [facility] 2001 haemophilus influenz ae type b vaccine, HbOC conjugate Shante Ferriday BUSINESS ANALYST INTERN.ELECTRIC STOP INSTALLER Work Phone: [facility] 2001 hepatitis B vaccine, pediatric or pediatric/adolescent dosage Shante Andres BUSINESS ANALYST INTERN.ELECTRIC STOP INSTALLER Work Phone: [facility] 2001 pneumococcal conjuga te vaccine, 13 valent Shante Andres BUSINESS ANALYST INTERN.ELECTRIC STOP INSTALLER Work Phone: [facility] 2001 pneumococcal conjuga te vaccine, 7 valent Lis Sheets DO Work Phone: [facility] 2001 poliovirus vaccine, inactivated Shante Ferriday BUSINESS ANALYST INTERN.ELECTRIC STOP INSTALLER Work Phone: [facility] 2001 diphtheria, tetanus toxoids and acellular pertussis vaccine Shante Ferriday BUSINESS ANALYST INTERN.ELECTRIC STOP INSTALLER Work Phone: [facility] 2001 diphtheria, tetanus toxoids and acellular pertussis vaccine, unspecified formulation Lis Sheets DO Work Phone: [facility] 2001 haemophilus influenz ae type b conjugate and Hepatitis B vaccine Lis Sheets DO Work Phone: [facility] 2001 haemophilus influenz ae type b vaccine, HbOC conjugate Shante Ferriday BUSINESS ANALYST INTERN.ELECTRIC STOP INSTALLER Work Phone: [facility] 2001 hepatitis B vaccine, pediatric or pediatric/adolescent dosage Shante Andres BUSINESS ANALYST INTERN.ELECTRIC STOP INSTALLER Work Phone: [facility] 2001 poliovirus vaccine, inactivated Shante Ferriday BUSINESS ANALYST INTERN.ELECTRIC STOP INSTALLER Work Phone: [facility] 2001 hepatitis B vaccine, pediatric or pediatric/adolescent dosage Shante Andres BUSINESS ANALYST INTERN.ELECTRIC STOP INSTALLER Work Phone: [facility] Payers Date Payer Category Payer Self-pay [id number] 2022 Medicaid [id number] 2019 Medicaid [employer] [id number] 2019-Present [phone] [address] [place] [address] Medicaid [id number] 2019 Medicaid [id number] Unknown [id number] Unknown [facility] [id number] Unknown [id number] Unknown [id number] Unknown [id number] Unknown [id number] Social History Date Type Detail Facility Start: 07-06-2019 Tobacco smoking status NHIS Never smoked tobacco [facility] Start: 07-06-2019 Tobacco use and exposure Smokeless tobacco non-user [facility] Start: 01-01-2022 End: 09-07-2023 Alcohol intake Ex-drinker (finding) [facility] Start: 07-06-2019 History SDOH Alcohol Comment occasionally [facility] Start: 03-27-2021 Education 13 [facility] Start: 2001 Sex Assigned At Not on file [facility] Start: 12-22-2021 End: 02-18-2022 Exposure to SARS-CoV-2 (event) Not sure [facility] Work Phone: Start: 03-10-2023 End: 02-07-2024 History of Social function [facility] Start: 03-10-2023 End: 02-07-2024 Tobacco use panel [facility] Adult Depression Screening Assessment 6 [facility] The thought of harming myself has occurred to me Never [facility] Start: 04-04-2023 End: 11-07-2023 Tobacco smoking status NHIS Unknown if ever smoked [facility] Start: 2000 Sex Assigned At Female [facility] Start: 03-12-2025 Tobacco smoking status NHIS Current some day smoker [facility] NEGATED: Highlighted row [facility] Mental Status Date Assessment Result Facility 03-12-2025 Cognitive function Light Pain [facility] Work Phone: 11-07-2023 Cognitive function Level Of Cons ciousness Awake;Alert;Appropriate;Follow s Commands [facility] Work Phone: 08-12-2023 Cognitive function Level Of Cons ciousness Awake;Alert;Appropriate;Follow s Commands [facility] Work Phone: Clinical Notes 08-25-2021 to 03-13-2025 Note Date & Type Note Facility 03-13-2025 Discharge summary [facility] 03-12-2025 Radiology Diagnostic study note [facility] Imaging Services [address] [place] [address] Transvaginal w/Preg US MR#: [id number] Acct: [id number] Name: HERMINIA GOLDMAN Rep #: [id number] : 2000 F 24 From: Mercy Baeza MD PCP: [facility] Status: REG ER Study:Transvaginal w/Preg US Date of Exam: 03/12/25 Exam# [id number] Ordering Dr: Chris Boyd DO PROCEDURE: TRANSVAGINAL [...] pelvic free fluid, likely physiologic. Reading Location: [id number] CC: Dr. Dax Boyd DO; [facility] ~ Territory Sales Representative: Signed [facility] 03-12-2025 Radiology Diagnostic study note [facility] Imaging Services [address] [place] [address] Brain/Head without Contrast MR#: [id number] Acct: [id number] Name: HERMINIA GOLDMAN Rep #: [id number] : 2000 F 24 From: Rosaline Chambers MD PCP: [facility] Status: REG ER Study:Brain/Head without Contrast Date of Exa m: 03/12/25 Exam# [id number] Ordering Dr: Chris Boyd DO PROCEDURE: BRAIN/HEAD [...] IMPRESSION: No acute intracranial process. Reading Location: [id number] CC: Dr. Dax Boyd DO; [facility] ~ Territory Sales Representative: Signed [facility] 03-12-2025 Radiology Diagnostic study note [facility] Imaging Services [address] [place] [address] Chest PA and Lateral MR#: [id number] Acct: [id number] Name: HERMINIA GOLDMAN Rep #: [id number] : 2000 F 24 From: Julita Ryan MD PCP: [facility] Status: REG ER Study:Chest PA and Lateral Date of Exam: 03/12/25 Exam# [id number] Ordering Dr: Chris Boyd DO EXAM: XR Chest, 2 Views CLINICAL INDICATION: COUGH TECHNIQUE: Frontal and lateral views of the chest. COMPARISON: No relevant prior studies available. FINDINGS: LUNGS AND PLEURAL SPACES: Unremarkable. No consolidation. No pneumothorax. HEART: Unremarkable. No cardiomegaly. MEDIASTINUM: Unremarkable. Normal mediastinal contour. BONES/JOINTS: Unremarkable. No acute fracture. RAD/Chest PA and Lateral IMPRESSION: No acute cardiopulmonary process. Reading Location: [facility] CC: Dr. Dax Boyd DO; [facility] ~ Territory Sales Representative: Signed [facility] 03-12-2025 Discharge summary Note Date/Time March 13, 2025 12:00am [facility] Medical Records Department [address] [place] [address] Emergency Department Summary 03/12/25 MR#: [id number] Acct: [id number] Name: HERMINIA GOLDMAN Rep #:[id number] : 2000 24 From: Dax Boyd DO PCP: [facility] St atus:REG ER Location: ED ADDENDUM by Dr. Dax Boyd DO on 03/13/25 at 0000 I spoke with on-call TILE PRESSER for [facility] 03/13/25 0000<Electronically signed by Dax Boyd DO> Cosigner Signature (if applicable): cc: [facility] ~* Signed HPI History of Present Illness Chief Complaint: General Illness Narrative Narrative: Patient is a 24-year-old female past medical history of polysubstance abuse, depression, anxiety who presents to the emergency department via EMS with a chief complaint of altered mental status. Patient's notes that she was at [employer] and she states that she went there for lunch. She states that her stomach has been bothering her recently as well as she has had a cough. Patient did provide limited history of present illness secondary to frequently falling asleep. [facility] Medical History Marijuana abuse [...] that she needs to follow-up with her [facility] OB team that she followed with in [...] % (Auto) 48.9 Lymph % (Auto) 40.9 [place] % (Auto) 6.4 Eos % (Auto) 3.0 [...] Sl. Cloudy Urine pH 6.0 Ur Specific Carpenter 1.020 Urine Protein 15 H Urine Glucose [...] IMPRESSION: No acute intracranial process. Reading Location: [facility] Chest X-Ray 03/12/25 17:55 IMPRESSION: No acute cardiopulmonary process. Reading Location: [id number] Obstetrics Ultrasound 03/12/25 20:45 IMPRESSION: 1. of unknown location, without intrauterine gestational sac identified at this time. Recommend close clinical follow-up and trending of HCG. 2. Trace pelvic free fluid, likely physiologic. Reading Location: [id number] Discharge Plan Triage Chief Complaint: General Illness ED Provider: Dax Boyd Dx/Rx/DC Orders Clinical Impression: Encounter for medical screening examination, Positive test Prescriptions: No Action NK Primary Care Provider: [facility] Ru Ramírez Referrals: [facility] Ru Ramírez [Primary Care Provider] - Ana Thomas CNM [Med Staff - Adv Practice Prof] - Print Language: Peruvian Disposition Disposition: Home, Self Care What to do if you have Problems For any increased pain, shortness of breath, bleeding, nausea or vomiting, chestpain, or any unexpected problems, contact your Primary Care Provider. Call [facility] ([phone]) or report to the closest Emergency Room. Call 911 if necessary. 03/13/25 0000 <Electronically signed by Dax Boyd DO> Cosigner Signature (if applicable): CC: [facility] ~ Signed [facility] Work Phone: 1(850) 549-685405-28-2024 NoteHNO ID: [id number] Author: BETTYE CHEN LPN Service: ? Author Type: LICENSED NURSE Type: Progress Notes Filed: 02/08/2024 13:34 Note Text: ED Follow Up: Patient discharged from [facility] ED on 02/06/2024. 1. How are [...] you able to contact the office or office automation technician provider prior to your ED visit? Left message for pt to call office if she has any questions or concerns 5. Is there anything else I can do for you today? Left message for pt to call [facility] NotePatient Outreach (AGFAMPLE) HERMINIA GOLDMAN ([id number]) 2 F Date Time Provider Department 02/08/24 BETTYE CHEN During your visit today, we recorded the following information about you: Bettye Chen LPN 02/08/2024 1:34 PM Signed ED Follow Up: Patient discharged from [facility] ED on 02/06/2024. 1. How are [...] you able to contact the office or office automation technician provider prior to your ED visit? Left [...] 02/12/2023 Encounter Status:Closed by BETTYE CHEN on 02/08/24[facility] 02-08-2024 History of Present illness Narrative* Bettye Chen LPN - 02/08/2024 1:31 PM EDT ED Follow Up: Patient discharged from [facility] ED on 02/06/2024. 1. How are [...] you able to contact the office or office automation technician provider prior to your ED visit? Left message forpt to call office if she has any questions or concerns 5. Is there anything else I can do for you today? Left message for pt to call office if she has anyquestions or concerns [facility] Discharge summary Author Issa Mena [facility] August 13, 2023 1:17am Note Date/Time August 12, 2023 10:31pm [facility] Medical Records Department [address] [place] [address] Emergency Department Summary 08/12/23 MR#: [id number] Acct: [id number] Name: HERMINIA GOLDMAN Rep #:[id number] : 2000 23 From: Issa Mena [...] No known drug allergies. Surgeries are tonsillectomy. [facility] Medical History 40 weeks [...] - Activity Restrictions/Additional Instructions: Follow-up with police, trademark attorney to continue your legal process. Disposition Disposition: Home, Self Care What to do if you have Problems For any increased pain, shortness of breath, bleeding, nausea or vomiting, chestpain, or any unexpected problems, contact your Primary Care Provider. Call [facility] ([phone]) or report to the closest Emergency Room. Call 911 if necessary. 08/13/23116 <Electronically signed by Issa Mena MD> Cosigner Signature (if applicable): CC: No Primary Care Physician ~ Signed [facility] Work Phone: 1(837) 939-989709-01-2023 NoteHNO ID: [id number] Author: Scott Mata PSYD Service: ? Author Type: Physician Type: Progress Notes Filed: 07/01/2023 5:10 PM Note Text: [facility] Psychology Evaluation Time of Service: 4:00 pm to 5:00 pm CPT Code: 48473 - Health AND Behavior Assessment Billing Code: [...] Social History: Ms. Goldman was raised in [place], [place] as the second of 3 children [...] any. Ms. Goldman is and has a [id number] child. She describes limited support from family [...] not consumed more than (more content not included)...[facility]09-01-2023 NoteHNO ID: [id number] Author: Annalise Smith LGC Service: ? Author Type: Genetic Counselor Type: Progress Notes Filed: 05/31/2023 11:53 AM Note Text: Patient Name and confirmed at initiation of visit Dr. Álvaro Zavala requested a genetic consultation for Herminia Goldman, a 22 year old female, for discussion of her family history of [place] disease and personal concern for the same. 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 She said this and medicine is helping [...] to her child. DEVELOPMENTAL HISTORY: reportedly normal manager protein milestones - IEP in school per above [...] GENETIC TESTING: none SOCIAL HISTORY: Lives in [place] with dad and paternal grandmother . Employment: not working Level of education: finished HS Alcohol/cigarettes/other: MJ - not daily, every so often FAMILY HISTORY: - Patient's ethnicity: Maternal - unknown ; Paternal - Djib[place]ian. - Partner's ethnicity: Czech. - No known -Tongan, Mediterranean, /Uzbek, Kenyan-Moroccan/Cajun, or Ashkenazi Baptist ancestry unless noted above. - Parental consanguinity: [...] Grandmother - hypertension - Grandfather - hx [place]. Father: 50s years old, has HD, reportedly molecularly confirmed. Paternal relatives: - Grandfather - [place] disease; from suicide - Grandfather's sister - reportedly molecularly confirmed HD - in retirement - Grandfather's brother - [place] disease; from suicide. The remainder of Ms. Goldman's reported family history is negative for known or suspected genetic disease, defects, developmental delay/intellectual disability, infertility, recurrent loss, and unexplained . GENETIC COUNSELING RISK ASSESSMENT AND DISCUSSION: Herminia Goldman is a 22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 Subjective Herminia Goldman is a 21 year old female here today to establish care and concerns for depression. prevoius PCP Dr Merchant. [facility] depression. I reviewed her past [...] Current Outpatient Medications Medication Sig Dispense Refill Ceqsiwfa-Ly-Qnj-Fe-FA tab Take 1 tablet by mouth once [...] Marijuana Use PAST MEDICAL HISTORY Diagnosis Date #[id number] PAST SURGICAL HISTORY Procedure Laterality Date TONSILLECTOMY [...] Wt 93.9 kg (207 lb) LMP 12/31/2021 ToH834% BMI 36.67 kg/m Physical Exam Vitals and [...] call if persists or worsens Fiordaliza Zhao APRN.ELECTRIC STOP INSTALLER documented in [facility] History of Present illness Narrative* Shante Campos APRN.[facility] - 01/01/2022 3:33 PM EDT VISIT Herminia Goldman is a 21 year old year old here for visit. Delivery Summary: 11/20/21 at [facility] ROS/ Recovery: Feeding: Bottle feeding problems: None Menses since delivery: light flow Menstrual pattern prior to : Regular periods [place] since delivery: Not resumed Depression: admits to [...] Pap: never PAST MEDICAL HISTORY Diagnosis Date #[id number] PAST SURGICAL HISTORY Procedure Laterality Date TONSILLECTOMY [...] external genitalia normal, normal Bartholin's glands, urethra, Kincaid's glands, no vulvar lesions, no cervical lesions, [...] for annual exams and PRN Shante Campos APRN.ELECTRIC STOP INSTALLER documented in [facility]Pe[facility]12[facility] History of Past illness Narrative* Problem [...] of this encounter (statuses as of 01/01/2022) [facility] Narrative* Problem [...] of this encounter (statuses as of 01/14/2022) [facility] Narrative* Problem [...] of this encounter (statuses as of 01/16/2022) [facility] Narrative* Problem [...] of this encounter (statuses as of 02/18/2022) [facility] Narrative* Problem [...] of this encounter (statuses as of 04/01/2022) [facility] Narrative* Problem [...] of this encounter (statuses as of 04/01/2022) [facility] Narrative* Problem [...] of this encounter (statuses as of 10/05/2022) [facility] Narrative* Problem [...] of this encounter (statuses as of 02/11/2023) [facility] Narrative* Problem [...] of this encounter (statuses as of 02/11/2023) [facility] Narrative* Problem [...] of this encounter (statuses as of 02/17/2023) [facility] Narrative* Problem [...] of this encounter (statuses as of 02/24/2023) [facility] Narrative* Problem [...] of this encounter (statuses as of 02/26/2023) [facility] Narrative* Problem [...] of this encounter (statuses as of 03/24/2023) [facility] Narrative* Problem [...] of this encounter (statuses as of 03/26/2023) [facility] Narrative* Problem [...] of this encounter (statuses as of 03/27/2023) [facility] Narrative* Problem [...] of this encounter (statuses as of 04/01/2023) [facility] Narrative* Problem [...] of this encounter (statuses as of 04/02/2023) [facility] Narrative* Problem [...] of this encounter (statuses as of 04/08/2023) [facility] Narrative* Problem [...] of this encounter (statuses as of 05/25/2023) [facility] Narrative* Problem [...] of this encounter (statuses as of 06/01/2023) [facility] Narrative* Problem [...] of this encounter (statuses as of 06/23/2023) [facility]* Diagnosis care and examination- Primary Routine follow-up Vaginal odor Unspecified symptom associated with female genital organs documented in this encounter [facility]* Diagnosis Mild episode of recurrent major depressive disorder (HCC)- Primary Anxiety Anxiety state, unspecified documented [facility] encounter [facility]* Diagnosis Mild episode of recurrent major depressive disorder (HCC)- Primary Anxiety Anxiety state, unspecified documented in this encounter [facility] note* Diagnosis Mild episode of recurrent major depressive disorder (HCC) Anxiety Anxiety state, unspecified documented in this encounter [facility] note* Diagnosis Suicidal ideation- Primary documented in this encounter [facility] note* Diagnosis Major depressive disorder, single episode, severe with psychotic features (HCC)- Primary Major depressive disorder, single episode, severe, specified as with psychotic behavior documented in this encounter [facility] note* Diagnosis 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 Emery's disease- Primary 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 other neurological diseases Anxiety Anxiety state, unspecified Mild episode of recurrent major depressive disorder (HCC) documented in this encounter [facility] noteNo assessment information availableWCoshocton [facility] Work Phone: Evaluation note* Diagnosis 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 Peoria's chorea- Primary 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 other neurological diseases documented in this encounter [facility] note* Diagnosis MDD (major depressive disorder), recurrent episode, moderate (HCC)- Primary Major depressive disorder, recurrent episode, moderate Anxiety Anxiety state, unspecified 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 Peoria's disease 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 other neurological diseases documented in this encounter [facility] for referral (narrative)No reason for referral information availableWCoshocton Regional [facility] Work Phone: Health Concerns Infection Onset Date [...] No April 04, 2023 3:55pm Power of Movers No April 04 3:55pm Advance Directive Response Recorded Date/ Time Living Will No August 12 023 10:14pm Power of Movers No August 12, 2023 10:14pm Advance Directive Response Recorded Date/ Time Living Will No September 15 4:32am Power of Movers No September 15 024 4:32am Advance Directive Response Recorded Date/ Time Living Will No November 07, 024 9:22am Power of Movers No November 07, 2023 9:22am Advance Directive Response Recorded Date/ Time Do you have a Healthcare Power of Movers? No March 12, 2025 3:27pm Reason for Referral Specialty Diagnoses / Procedures Referred By Fernando t Referred To Contact Diagnoses 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 Peoria's disease Procedures CONSULT TO MEDICAL GENETICS - GENERAL OFFICE/OUTPATIENT [facility] 60-74 MINUTES MEDICAL GENETICS COUNSELING EACH 30 [place] [address] [place] [address] [facility] [address] [place] [address] Referral ID Status Reason Start Date Expiration Date Visits Requested Visits Authorized [id number] Authorized PCP Requested Referral Auto-Generate d Referral [...] or prosecute any alcohol or drug abuse patient.[facility] HospitalIn the event this information is protected by the Federal Confidentiality of Alcohol and Drug Abuse Patient Records regulations: The Federal rules restrict any use of the information to criminally investigate or prosecute any alcohol or drug abuse patient.[facility] HospitalIn the event this information is protected by the Federal Confidentiality of Alcohol and Drug Abuse Patient Records regulations: The Federal rules restrict any use of the information to criminally investigate or prosecute any alcohol or drug abuse patient.[facility] HospitalIn the event this information is protected by the Federal Confidentiality of Alcohol and Drug Abuse Patient Records regulations: The Federal rules restrict any use of the information to criminally investigate or prosecute any alcohol or drug abuse patient.[facility] HospitalIn the event this information is protected by the Federal Confidentiality of Alcohol and Drug Abuse Patient Records regulations: The Federal rules restrict any use of the information to criminally investigate or prosecute any alcohol or drug abuse patient.[facility] HospitalIn the event this information is protected by the Federal Confidentiality of Alcohol and Drug Abuse Patient Records regulations: The Federal rules restrict any use of the information to criminally investigate or prosecute any alcohol or drug abuse patient.[facility] HospitalIn the event this information is protected by the Federal Confidentiality of Alcohol and Drug Abuse Patient Records regulations: The Federal rules restrict any use of the information to criminally investigate or prosecute any alcohol or drug abuse patient.[facility] HospitalIn the event this information is protected by the Federal Confidentiality of Alcohol and Drug Abuse Patient Records regulations: The Federal rules restrict any use of the information to criminally investigate or prosecute any alcohol or drug abuse patient.[facility] HospitalIn the event this information is protected by the Federal Confidentiality of Alcohol and Drug Abuse Patient Records regulations: The Federal rules restrict any use of the information to criminally investigate or prosecute any alcohol or drug abuse patient.[facility] HospitalIn the event this information is protected by the Federal Confidentiality of Alcohol and Drug Abuse Patient Records regulations: The Federal rules restrict any use of the information to criminally investigate or prosecute any alcohol or drug abuse patient.[facility] HospitalIn the event this information is protected by the Federal Confidentiality of Alcohol and Drug Abuse Patient Records regulations: The Federal rules restrict any use of the information to criminally investigate or prosecute any alcohol or drug abuse patient.[facility] HospitalIn the event this information is protected by the Federal Confidentiality of Alcohol and Drug Abuse Patient Records regulations: The Federal rules restrict any use of the information to criminally investigate or prosecute any alcohol or drug abuse patient.[facility] HospitalIn the event this information is protected by the Federal Confidentiality of Alcohol and Drug Abuse Patient Records regulations: The Federal rules restrict any use of the information to criminally investigate or prosecute any alcohol or drug abuse patient.[facility] HospitalIn the event this information is protected by the Federal Confidentiality of Alcohol and Drug Abuse Patient Records regulations: The Federal rules restrict any use of the information to criminally investigate or prosecute any alcohol or drug abuse patient.[facility] HospitalIn the event this information is protected by the Federal Confidentiality of Alcohol and Drug Abuse Patient Records regulations: The Federal rules restrict any use of the information to criminally investigate or prosecute any alcohol or drug abuse patient.[facility] HospitalIn the event this information is protected by the Federal Confidentiality of Alcohol and Drug Abuse Patient Records regulations: The Federal rules restrict any use of the information to criminally investigate or prosecute any alcohol or drug abuse patient.[facility] HospitalIn the event this information is protected by the Federal Confidentiality of Alcohol and Drug Abuse Patient Records regulations: The Federal rules restrict any use of the information to criminally investigate or prosecute any alcohol or drug abuse patient.[facility] HospitalIn the event this information is protected by the Federal Confidentiality of Alcohol and Drug Abuse Patient Records regulations: The Federal rules restrict any use of the information to criminally investigate or prosecute any alcohol or drug abuse patient.[facility] HospitalIn the event this information is protected by the Federal Confidentiality of Alcohol and Drug Abuse Patient Records regulations: The Federal rules restrict any use of the information to criminally investigate or prosecute any alcohol or drug abuse patient.[facility] HospitalIn the event this information is protected by the Federal Confidentiality of Alcohol and Drug Abuse Patient Records regulations: The Federal rules restrict any use of the information to criminally investigate or prosecute any alcohol or drug abuse patient.[facility] HospitalIn the event this information is protected by the Federal Confidentiality of Alcohol and Drug Abuse Patient Records regulations: The Federal rules restrict any use of the information to criminally investigate or prosecute any alcohol or drug abuse patient.Pe[facility] HospitalIn the event this information is protected by the Federal Confidentiality of Alcohol and Drug Abuse Patient Records regulations: The Federal rules restrict any use of the information to criminally investigate or prosecute any alcohol or drug abuse patient.[facility] Reason for Visit (unrecogniz ed section [...] Comments Transition Of Care 02/16/2023 D/C from [facility] 02/15/23 Reason Comments Patient Question Reason Comments [facility] Put referral for Saulo rology on [facility] 03/10/23 Reason Comments New Patient Evaluation Specialty Diagnoses / Procedures Referred By Contac t Referred To Contact Neurology Diagnoses Anxiety 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 Peoria's disease Mild episode of recurrent major depressive disorder (HCC) Procedures CONSULT TO NEUROLOGY OFFICE/OUTPATIENT NEW HIGH MDM 60-74 MINUTES Fiordaliza Zhao, BUSINESS ANALYST INTERN.ELECTRIC STOP INSTALLER [address] [place] [address] [address] Referral ID Status Reason Start Date Expiration Date V isits Requested Visits Authorized [id number] Closed PCP Requested Referral 03/10/2023 03/09/2024 1 1 Reason Comments Patient Update Agitation Reason Comments Returning Patient's Call Reason Comments Consult Reason Comments [facility] Put referral for Psy chiatry on [facility] 03/10/23 Care Teams (unrecognized sec tion and content) Dust Brush Assembler Relationship Specialty Start Date End Date Tasha Merchant MD [address] [place] [address] PCP - General Internal Medicine 07/06/19 Dust Brush Assembler Relationship Specialty Start Date End Date Fiordaliza Zhao, BUSINESS ANALYST INTERN.ELECTRIC STOP INSTALLER [address] [place] [address] PCP - General Internal Medicine 01/14/22 Dust Brush Assembler Relationship Specialty Start Date End Date Fiordaliza Zhao, BUSINESS ANALYST INTERN.ELECTRIC STOP INSTALLER [address] [facility] [place] [address] PCP - General Internal Medicine 01/14/22 Dust Brush Assembler Relationship Specialty Start Date End Date Fiordaliza Zhao, BUSINESS ANALYST INTERN.ELECTRIC STOP INSTALLER [address] [facility] [place] [address] PCP - General Internal Medicine 01/14/22 Dust Brush Assembler Relationship Specialty Start Date End Date Fiordaliza Zhao, BUSINESS ANALYST INTERN.ELECTRIC STOP INSTALLER [address] [facility] [place] [address] PCP - General Internal Medicine 01/14/22 Dust Brush Assembler Relationship Specialty Start Date End Date Fiordaliza Zhao, BUSINESS ANALYST INTERN.ELECTRIC STOP INSTALLER [address] [facility] [place] [address] PCP - General Internal Medicine 01/14/22 Dust Brush Assembler Relationship Specialty Start Date End Date Fiordaliza Zhao, BUSINESS ANALYST INTERN.ELECTRIC STOP INSTALLER [address] [facility] [place] [address] PCP - General Internal Medicine 01/14/22 Dust Brush Assembler Relationship Specialty Start Date End Date Fiordaliza Zhao, BUSINESS ANALYST INTERN.ELECTRIC STOP INSTALLER [address] [place] [address] PCP - General Internal Medicine 01/14/22 Dust Brush Assembler Relationship Specialty Start Date End Date Fiordaliza Zhao, BUSINESS ANALYST INTERN.ELECTRIC STOP INSTALLER [address] [place] [address] PCP - General Internal Medicine 01/14/22 Dust Brush Assembler Relationship Specialty Start Date End Date Fiordaliza Zhao, BUSINESS ANALYST INTERN.ELECTRIC STOP INSTALLER [address] [place] [address] PCP - General Internal Medicine 01/14/22 Dust Brush Assembler Relationship Specialty Start Date End Date Fiordaliza Zhao, BUSINESS ANALYST INTERN.ELECTRIC STOP INSTALLER [address] [place] [address] PCP - General Internal Medicine 01/14/22 Dust Brush Assembler Relationship Specialty Start Date End Date Fiordaliza Zhao, BUSINESS ANALYST INTERN.ELECTRIC STOP INSTALLER [address] [place] [address] PCP - General Internal Medicine 01/14/22 Fiordaliza Zhao, BUSINESS ANALYST INTERN.ELECTRIC STOP INSTALLER [address] [place] [address] Referring Internal Medicine 03/21/23 Dust Brush Assembler Relationship Specialty Start Date End Date Fiordaliza Zhao, BUSINESS ANALYST INTERN.ELECTRIC STOP INSTALLER [address] [place] [address] PCP - General Internal Medicine 01/14/22 Fiordaliza Zhao, BUSINESS ANALYST INTERN.ELECTRIC STOP INSTALLER [address] [place] [address] Referring Internal Medicine 03/21/23 Dust Brush Assembler Relationship Specialty Start Date End Date Fiordaliza Zhao, BUSINESS ANALYST INTERN.ELECTRIC STOP INSTALLER [address] [place] [address] PCP - General Internal Medicine 01/14/22 Fiordaliza Zhao, BUSINESS ANALYST INTERN.ELECTRIC STOP INSTALLER [address] [place] [address] Referring Internal Medicine 03/21/23 Dust Brush Assembler Relationship Specialty Start Date End Date Fiordaliza Zhao, BUSINESS ANALYST INTERN.ELECTRIC STOP INSTALLER [address] [place] [address] PCP - General Internal Medicine 01/14/22 Fiordaliza Zhao, BUSINESS ANALYST INTERN.ELECTRIC STOP INSTALLER [address] [place] [address] Referring Internal Medicine 03/21/23 Dust Brush Assembler Relationship Specialty Start Date End Date Fiordaliza Zhao, BUSINESS ANALYST INTERN.ELECTRIC STOP INSTALLER [address] [place] [address] PCP - General Internal Medicine 01/14/22 Fiordaliza Zhao, BUSINESS ANALYST INTERN.ELECTRIC STOP INSTALLER [address] [place] [address] Referring Internal Medicine 03/21/23 Team Status: Active Member Role Status Dates No Primary Care Physician Family Provider Active No Primary Care Physician Primary Care Provider Active Team Status: Inactive Member Role Status Dates No Primary Care Physician Primary Care Provider Active Dr. Kareem Jacob MD Emergency Provider Active Dust Brush Assembler Relationship Specialty Start Date End Date Fiordaliza Zhao, BUSINESS ANALYST INTERN.ELECTRIC STOP INSTALLER [address] [place] [address] PCP - General Internal Medicine 01/14/22 Fiordaliza Zhao, BUSINESS ANALYST INTERN.ELECTRIC STOP INSTALLER [address] [place], [place] [id number] Referring Internal Medicine 03/21/23 Dust Brush Assembler Relationship Specialty Start Date End Date Fiordaliza Zhao, BUSINESS ANALYST INTERN.ELECTRIC STOP INSTALLER [address] [place], [place] [id number] PCP - General Internal Medicine 01/14/22 Fiordaliza Zhao, BUSINESS ANALYST INTERN.ELECTRIC STOP INSTALLER [address] [place] [address] Referring Internal Medicine 03/21/23 Dust Brush Assembler Relationship Specialty Start Date End Date Fiordaliza Zhao BUSINESS ANALYST INTERN.ELECTRIC STOP INSTALLER [address] [place] [address] PCP - General Internal Medicine 01/14/22 Fiordaliza Zhao, BUSINESS ANALYST INTERN.ELECTRIC STOP INSTALLER [address] [place] [address] Referring Internal Medicine 03/21/23 Team Status: Active [...] Greene MD Attending Provider, Emergency Provider Active Dust Brush Assembler Relationship Specialty Start Date End Date Fiordaliza Zhao, BUSINESS ANALYST INTERN.ELECTRIC STOP INSTALLER [address] [place] [facility], [place] [id number] PCP - General Internal Medicine 01/14/22 Fiordaliza Zhao, BUSINESS ANALYST INTERN.ELECTRIC STOP INSTALLER [address] [place] [address] Referring Internal Medicine 03/21/23 Team Status: Active Member Role/Relationship Status Dates [facility] Primary Care Provider A ctive Team Status: Inactive Member Role/Relationship Status Dates [facility] Primary Care Provider A ctive Start: March 12, 2025 End: March 13, 2025 Dr. Dax Boyd , DO Emergency Provider Active Start: March 12, 2025 End: March 13, 2025 INFORMATION SOURCE (unrecogn ized section and content) DATE CREATED AUTHOR [facility]22/2023 [facility] DATE CREATED AUTHOR AUTHOR'S ORGANIZ ATION 04/09/2023 [facility] DATE CREATED AUTHOR AUTHOR'S ORGANIZ ATION 09/19/2023 [facility] DATE CREATED AUTHOR AUTHOR'S ORGANIZ ATION 02/09/2024 [facility] DATE CREATED AUTHOR AUTHOR'S ORGANIZ ATION 03/25/2025 [facility] Goals (unrecognized section and content) Goals may [...] BE BASED ON THE PRIMARY CLINICAL RECORDS. [employer] [facility]. provides no warranty or guarantee of the accuracy or completeness of information in this document.
[2025-03-27 22:44] LABS: Anion Gap 13 (5-15); BUN 13 mg/dL (4-19); BUN/Creat Ratio 19.8 RATIO (10-20); Calcium,Total 9.8 mg/dL (7.6-11.0); Carbon Dioxide 25.0 mmol/L (21.0-32.0); Chloride 102 mmol/L (98-108); Estimated Creatinine Clearance 124.61 ml/min (50-250); Glucose 92 mg/dL (70-99); Potassium 4.0 mmol/L (3.3-5.1)
[2025-03-27 22:59] VITALS: BP 124/84; PULSE 84; RESP 18; TEMP 37.2; O2SAT 99
== END 2025-03-27 23:08 | disposition home or self-care (01) ==
PROVIDERS: Emergency Provider Emergency Medicine; Visit Provider Emergency Medicine
DX: O03.9 Complete or unspecified spontaneous abortion without complication (principal); Z59.00 Homelessness unspecified; F17.210 Nicotine dependence, cigarettes, uncomplicated
CPT/HCPCS: 80048; 81001; 82962; 84702; 85025; 96360; 99284; A4216

== ENCOUNTER 2025-07-25 15:32 | Emergency (ER) | payer MEDICAID, SELFPAY ==
[2025-07-25 15:33] VITALS: BP 123/75; PULSE 104; RESP 18; TEMP 36.8; O2SAT 98
--- NOTE | 2025-07-25 16:07 | ED.RN ---
Family states they are taking pt home.
== END 2025-07-25 16:05 | disposition left against medical advice (07) ==
LOC: ED 16:07
DX: R52 Pain, unspecified (principal); W19.XXXA Unspecified fall, initial encounter